=== PATIENT | female | born 1950 | race Caucasian/White ===

== ENCOUNTER 2017-01-15 13:20 | Inpatient (IN) ==
[~2017-01-15 13:20] MED LIST: ETOMIDATE 20 MG/10 ML VIAL IV ONE; LIDOCAINE 100 MG/5 ML SYRINGE ONE; PROPOFOL 200 MG/20 ML VIAL IV ONE
[2017-01-15] MEDS ORDERED: PANTOPRAZOLE 40 MG VIAL IV STA (14:02)
[2017-01-15] MEDS ORDERED: ONDANSETRON 4 MG/2 ML VIAL IV STA (14:02)
[2017-01-15] MEDS ORDERED: SODIUM CHLORIDE 0.9% 1,000 ML IV STA ×2 (14:02→15:56)
[2017-01-15 14:15] LABS: Basophils # 0.1 10*3/uL (0.0-0.2); Basophils % 0.4 % (0.0-0.8); Hematocrit 37.3 VOL% (35.7-47.0); Hemoglobin 12.5 GM/DL (12.0-16.0); Immature Granulocytes % 0.5 %; Immature Granulocytes Absolute 0.11 #; Lymphocytes # 2.4 10*3/uL (1.4-4.0); Lymphocytes % 10.4 % (21.3-54.2); Mean Corpuscular HGB Conc 33.5 GM/DL (32-36); Mean Corpuscular Hemoglobin 29 PG (27-34); Mean Corpuscular Volume 87.1 FL (87-102); Mean Platelet Volume 10.1 FL (9.6-12.0); Monocytes # 1.6 10*3/uL (0.11-0.8); Monocytes % 7.2 % (1.7-12.7); Neutrophils # 18.4 10*3/uL (1.4-7.4); Neutrophils % 81.5 % (38.7-73.9); Platelet Count 276 T/CUMM (130-400); Red Blood Count 4.28 MC/CUMM (3.8-5.5); Red Cell Distribution Width 14.3 % (9.3-17.3); White Blood Count 22.6 T/CUMM (4-12)
--- NOTE | 2017-01-15 14:19 | Emergency Department Note ---
Anurag Hussein Hilary, am scribing for, and in the presence of, Cisco Ruff MD 14: 03. Elzbieta Hussein James D, MD, personally performed the services described in this documentation, ascribed by Barbra Osborn in my presence, and it is both accurate and complete 412 . Arrival - Arrival Chief Complaint: Abdominal / Flank Pain Stated Complaint: bloody stool ED Nursing Triage Note: states has abd pain yesterday and about 1800 had to diarrhea. then pt started vomiting. pt had two bms with blood in them Mode of Arrival: Wheelchair Limitations: No Limitations Source: Patient, RN Notes Reviewed Time Seen by Provider: 01/15/17 13:52 - History of Present Illness HPI Narrative: Pt is a 66 y/o female presenting to the ED with c/o abdominal pain which onset yesterday. Pts daughter states that she has been having uncontrollable diarrhea and the pt states that her bowels have blood in them. Pt confirms confusion, abdominal pain, hematochezia and vomiting but denies vomiting blood. Pt has a PMHx of CAD, CHF, Dyslipidemia, IDDM, Peripheral Neuropathy, Gastroperesis and Pneumonia. No other complaints or problems stated in the ED. Onset (ago): day(s) Consistency: constant Severity: mild Severity scale (1-10): 1 Quality: aching Date of Last Menstrual Period: hyst Allergies/Adverse Reactions: Allergies Allergy/AdvReac Type Severity Reaction Status Date / Time No Known Allergies Allergy Unverified 01/13/15 10:31 Home Medications: Home Medications Medication Instructions Recorded Confirmed Type Aspirin [Ecotrin] 81 mg PO DAILY 01/13/15 01/24/15 History Atorvastatin Calcium [Lipitor] 80 mg PO BEDTIME 01/13/15 01/24/15 History Cilostazol [Pletal] 100 mg PO BID 01/13/15 01/24/15 History Colestipol [Colestid] 1 gm PO BEDTIME 01/13/15 01/24/15 History Furosemide Tab [Lasix Tab] 40 mg PO DAILY 01/13/15 01/24/15 History Insulin NPH Hum/Reg Insulin Hm 52 unit SUBCUT AC LUNCH 01/13/15 01/24/15 History [NovoLIN 70/30] [place]-3 Fatty Acids [Fish Oil 1,000 mg PO DAILY 01/13/15 01/24/15 History Concentrate] Potassium Chloride Cap/Tab [K Dur] 10 meq PO DAILY 01/13/15 01/24/15 History Saccharomyces Boulardii [Probiotic] 250 mg PO DAILY 01/13/15 01/24/15 History Trimethoprim [Trimethoprim Tab] 100 mg PO BEDTIME 01/13/15 01/24/15 History Albuterol Neb [Proventil Neb] 1.25 mg RESP TX RT Q6H 01/24/15 01/24/15 Rx nebulization solution Captopril [Capoten] 12.5 mg PO BID #60 tablet 01/24/15 01/24/15 Rx Carvedilol [Coreg] 12.5 mg PO BID W/MEALS tablet 01/24/15 01/24/15 Rx Gabapentin Cap/Tab [Neurontin 100 mg PO TID capsule 01/24/15 01/24/15 Rx Cap/Tab] Sertraline [Zoloft] 12.5 mg PO DAILY tablet 01/24/15 01/24/15 Rx Spironolactone [Aldactone] 6.25 mg PO BID DIURETIC tablet 01/24/15 01/24/15 Rx metOLazone [Zaroxolyn] 2.5 mg PO DAILY tablet 01/24/15 01/24/15 Rx Insulin NPH Hum/Reg Insulin Hm 50 unit SUBCUT AC BREAKFAST #0 01/30/15 Rx [NovoLIN 70/30] Insulin NPH Hum/Reg Insulin Hm 50 unit SUBCUT BEDTIME #0 01/30/15 01/24/15 Rx [NovoLIN 70/30] Azithromycin Tab [Zithromax Tab] 01/15/17 History Benzonatate [Benzonatate] 01/15/17 History Zolpidem Tartrate [Zolpidem 01/15/17 History Tartrate] Review of System - Review of System 12 point system: reviewed and no additional remarkable complaints except as stated - Review of System Constitutional: Absent: fever Gastrointestinal: Present: abdominal pain, vomiting, diarrhea, hematochezia Medical,Surgical,& Family Hx - Medical History Cardio: History of: CHF, CAD No history of: Hypertension, [place] Neurology: History of: Peripheral Neuropathy No history of: Multiple Sclerosis, Seizures, TIA, Vertigo, Neurologocal Cancer Endocrine: History of: Diabetes Mellitus (IDDM), Dyslipidemia Respiratory: History of: Pneumonia Gastrointestinal: History of: GI Problems (gastroperesis) Musculoskeletal: History of: Amputation (left greattoe and knuckles of next 2 toe) - Surgical History Cardiac Surgeries: Sugical HX of: Cardiac Catheterization Patient Denies: Femoral-Popliteal Bypass Graft, Cardiac Surgery, Carotid Endarterectomy, Internal Defibrillator, Vascular Access Devices Neurologic Surgeries: Patient denies: Neurologic Surgery HEENT Surgeries: Patient denies: Carotid Endarterectomy Abdominal Surgeries: Surgical HX of: Abdominal Surgery Patient denies: Splenectomy Reproductive Surgeries: Patient denies;: Genitourinary Surgery Orthopedic Surgeries: Patient denies;: Implanted Devices - Family History Family History: Reports;: Family Cancer, Family Diabetes, Family Heart Disease Denies;: Family Hypertension, Family Psychiatric Problems, Family Stroke - Social History Smoking Status: Former smoker Exam Physical Examination: GENERAL: This is a well-nourished, well-developed white female in no apparent distress. VITAL SIGNS: Temperature: 96.9 Pulse: 82 Respiratory: 18 Blood Pressure: 78/ 57 O2 Sat: 97 HEENT: Head is normocephalic and atraumatic. Pupils are equally round and reactive to light. Extraocular movement are intact. Oropharynx is benign with moist mucous membranes. NECK: Neck is soft and supple without tenderness. There are no masses. There is no lymphadenopathy. LUNGS: Lungs are clear to auscultation bilaterally. Chest rises symmetrically. There is no chest wall tenderness. CV: Heart is regular rate and rhythm without murmurs, rubs, or gallops. ABDOMEN: Abdomen is soft, generalized tenderness to palpation. There are no abnormal masses palpated. There is no organomegaly. Bowel sounds are present and active. Rectal: Heme positive stool. SKIN: Skin is warm and dry. No rash. EXTREMITIES: Patient has full range of motion without tenderness. There is no pedal edema. NEUROLOGIC: Awake, alert, and oriented x4. Cranial nerves II through XII are grossly intact. There are no motorsensory deficits. PSYCHIATRIC: Normal affect. Normal mood. Vital Signs: Vital Signs Temperature 96.9 F L 01/15/17 14:55 Pulse Rate 82 01/15/17 14:55 Respiratory Rate 18 01/15/17 14:55 Blood Pressure 78/57 01/15/17 14:55 O2 Sat by Pulse Oximetry 97 01/15/17 13:36 Course - Consultations Consultation #1: Discussed with Dr. Maria Luz Mckinnon nurse practitioner adult for Dr. Rene. Patient will be admitted to his service. Initial orders written for him. Patient's care will be assumed by medicine upon arrival to the stone. Time: 16:00 Results - Labs CBC & BMP: 01/15/17 13:35 01/15/17 13:35 Lab Results: I have reviewed the patients labs - EKG EKG results: interpreted by ERMD - Impressions EKG: Atrial flutter with nonspecific intraventricular conduction delay, ST segment depression laterally. - Diagnostic Findings Procedure: Abdominal x-ray: image reviewed by me (Nonspecific gas pattern, no free air), Chest x-ray: image reviewed by me (No pleural effusions, no cardiomegaly) Disposition Clinical Impression: Enterocolitis, Hyponatremia, Dehydration, Heme positive stool Case discussed with: patient Disposition: Still a Patient Condition: Stable Time of Disposition: 15:54
[2017-01-15 14:34] LABS: Albumin 3.2 G/DL (3.4-5.0); Bilirubin,Total 0.5 MG/DL (0.2-1.0); Osmolality,Calculated 283.8 MOS/KG (273-304); Potassium 5.7 MMOL/L (3.5-5.1); Total Protein 7.8 G/DL (6.4-8.3)
[2017-01-15 14:38] LABS: PT Patient Result 10.9 SECS
--- NOTE | 2017-01-15 14:38 | XRay Report ---
Portable chest Exam date: 01/15/2017 2:04 PM Indication: Shortness of breath, cough pain Comparison: January 23, 2015 Findings: Cardiomediastinal contours are stable. Lungs are clear bilaterally. No acute osseous abnormalities. Visualized upper abdomen demonstrates no acute pathology. Impression: No acute cardiopulmonary findings PROCEDURE INTERPRETED AT [facility] DEPARTMENT OF RADIOLOGY Final Report Signed by: Fabián Farley
--- NOTE | 2017-01-15 14:41 | XRay Report ---
EXAM: XR abdomen 2V CLINICAL INDICATION: Abdominal Pain COMPARISON: CT abdomen performed January 21, 2015 Findings: No gastric distention. [No abnormally dilated small bowel loops are identified to suggest obstruction. No free intraperitoneal air.] Patient is status post laparotomy with sagittal staple line. Visceral shadows are normal. No abnormal focal soft tissue masses or calcific densities identified in the abdomen or pelvis. Prior cholecystectomy is noted. IMPRESSION: Normal bowel gas pattern. No acute findings PROCEDURE INTERPRETED AT [facility] DEPARTMENT OF RADIOLOGY Final Report Signed by: Fabián Farley
[2017-01-15] MEDS ORDERED: ONDANSETRON 4 MG/2 ML VIAL ONE (14:42)
[2017-01-15] MEDS ORDERED: PANTOPRAZOLE 40 MG VIAL IV ONE (14:42)
[2017-01-15 14:47] LABS: Band Neutrophils 6 % (0-10); Lymphocytes 10 % (20-55); Segmented Neutrophils 82 % (50-85); Total Cells Counted 100
[2017-01-15 14:48] LABS: Platelet Estimate Normal
[2017-01-15] MEDS ORDERED: SODIUM BICARBONATE 50 MEQ/50 ML VIAL IV STA (16:09)
[2017-01-15] MEDS ORDERED: INSULIN REGULAR 100 UNIT/ML IV STA (16:09)
[2017-01-15] MEDS ORDERED: DEXTROSE 50% 25 GM/50 ML VIAL IV STA (16:09)
[2017-01-15] MEDS ORDERED: SODIUM BICARBONATE PEDIATRIC 5 MEQ/10 ML SYRINGE ONE (16:21)
[2017-01-15] MEDS ORDERED: DEXTROSE 50% 25 GM/50 ML SYRINGE IV ONE (16:21)
[2017-01-15] MEDS ORDERED: INSULIN REGULAR 100 UNIT/ML ONE (16:24)
[2017-01-15] MEDS ORDERED: SODIUM BICARBONATE 50 MEQ/50 ML SYRINGE IV ONE (16:34)
--- NOTE | 2017-01-15 16:53 | EKG Report ---
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
[2017-01-15] MEDS ORDERED: DEXTROSE 50% 25 GM/50 ML SYRINGE IV PRN (18:03)
[2017-01-15] MEDS ORDERED: GLUCAGON 1 MG VIAL IM PRN (18:03)
[2017-01-15] MEDS: SODIUM CHLORIDE 0.9% 1,000 ML IV SCH (19:44)
[2017-01-15] MEDS ORDERED: DOCUSATE SODIUM 100 MG CAPSULE PO SCH (21:00)
--- NOTE | 2017-01-15 21:31 | Internal Med History&Physical ---
Assessment and Plan (1) Dehydration Status: Acute Current Visit: Yes (2) Hyponatremia Status: Acute Current Visit: Yes (3) Abdominal pain Status: Acute Current Visit: Yes (4) Acute renal insufficiency Status: Acute Current Visit: Yes (5) Chronic renal disease Status: Chronic Current Visit: Yes History of Present Illness Chief complaint: acute diarrhea, vomiting, GI bleed History of present illness: Ms. Valladares is a 66 year old female patient of Dr. Rene with history of DM, peripheral neuropathy, HTN, AAA, PAD, CAD, dyslipidemia, who presented to ER with acute nausea, vomiting and diarrhea. Abdominal pain begain yesterday, then she had multiple episodes of nausea, vomiting, and diarrhea. GI bleed began yesterday. She reports having colonoscopy years ago and polyps were noted. Home Medications Medication Instructions Recorded Confirmed Type Aspirin [Ecotrin] 81 mg PO DAILY 01/13/15 01/15/17 History Atorvastatin Calcium [Lipitor] 80 mg PO BEDTIME 01/13/15 01/15/17 History Colestipol [Colestid] 1 gm PO BEDTIME 01/13/15 01/15/17 History Furosemide Tab [Lasix Tab] 20 mg PO DAILY 01/13/15 01/15/17 History Potassium Chloride Cap/Tab [K Dur] 10 meq PO DAILY 01/13/15 01/15/17 History Saccharomyces Boulardii [Probiotic] 250 mg PO DAILY 01/13/15 01/15/17 History Sertraline [Zoloft] 12.5 mg PO DAILY tablet 01/24/15 01/15/17 Rx Amitriptyline HCl [Amitriptyline 25 mg PO DAILY 01/15/17 01/15/17 History HCl] Amitriptyline HCl [Amitriptyline 100 mg PO BEDTIME 01/15/17 01/15/17 History HCl] Azithromycin Tab [Zithromax Tab] 250 mg PO DAILY 01/15/17 01/15/17 History Benzonatate [Tessalon] 200 mg PO TID PRN 01/15/17 01/15/17 History Captopril [Capoten] 6.25 mg PO DAILY 01/15/17 01/15/17 History Carvedilol [Coreg] 6.25 mg PO BID W/MEALS 01/15/17 01/15/17 History Doxylamine/Phenylephrine [Poly 1 tablet PO TID PRN 01/15/17 01/15/17 History Hist Forte] Gabapentin [Gabapentin] 300 mg PO TID 01/15/17 01/15/17 History Insulin NPH Hum/Reg Insulin Hm 55 unit SUBCUT BEDTIME 01/15/17 01/15/17 History [NovoLIN 70/30] Insulin NPH Hum/Reg Insulin Hm 60 unit SUBCUT AC BREAKFAST 01/15/17 01/15/17 History [NovoLIN 70/30] Metformin HCl [Metformin HCl] 1,000 mg PO BID W/MEALS 01/15/17 01/15/17 History [place]-3S/Dha/Epa/Fish Oil [Fish 1,200 mg PO DAILY 01/15/17 01/15/17 History Oil 1,200 mg Softgel] Promethazine Tab [Phenergan Tab] 25 mg PO Q12H PRN 01/15/17 01/15/17 History Spironolactone [Aldactone] 6.25 mg PO BEDTIME 01/15/17 01/15/17 History Zolpidem Tartrate [Zolpidem 5 mg PO BEDTIME 01/15/17 01/15/17 History Tartrate] metOLazone [Zaroxolyn] 2.5 mg PO Q7D 01/15/17 01/15/17 History Allergies Allergy/AdvReac Type Severity Reaction Status Date / Time No Known Allergies Allergy Unverified 01/13/15 10:31 Medical,Surgical,& Family Hx - Medical History Cardio: History of: CHF, CAD No history of: Hypertension, [place] Neurology: History of: Peripheral Neuropathy No history of: Multiple Sclerosis, Seizures, TIA, Vertigo, Neurologocal Cancer Endocrine: History of: Diabetes Mellitus (IDDM), Dyslipidemia Respiratory: History of: Pneumonia Gastrointestinal: History of: GI Problems (gastroperesis) Musculoskeletal: History of: Amputation (left greattoe and knuckles of next 2 toe) Hematology: History of: Anemia - Surgical History Cardiac Surgeries: Sugical HX of: Cardiac Catheterization Patient Denies: Femoral-Popliteal Bypass Graft, Cardiac Surgery, Carotid Endarterectomy, Internal Defibrillator, Vascular Access Devices Neurologic Surgeries: Patient denies: Neurologic Surgery HEENT Surgeries: Patient denies: Carotid Endarterectomy Abdominal Surgeries: Surgical HX of: Abdominal Surgery Patient denies: Splenectomy Reproductive Surgeries: Patient denies;: Genitourinary Surgery Orthopedic Surgeries: Patient denies;: Implanted Devices - Family History Family History: Reports;: Family Cancer, Family Diabetes, Family Heart Disease Denies;: Family Hypertension, Family Psychiatric Problems, Family Stroke - Social History Smoking Status: Former smoker Frequency of Alcohol Use: None Type of Drug Use: None Functional capacity: independent ambulation - Constitutional Constitutional: Present: fatigue, malaise - Cardiovascular Cardiovascular: Absent: chest pain with activity - Respiratory Respiratory: Present: dyspnea on exertion - Gastrointestinal Gastrointestinal: Present: abdominal pain, diarrhea, hematochezia, nausea, vomiting - Neurological Neurological: Present: dizziness Exam - Constitutional Vitals: Period Temp Pulse Resp BP Sys/[place] Pulse Ox Last 24 Hr 96.9 F-96.9 F 71-99 18-20 78-132/54-68 97 General appearance: no acute distress - Head Head exam: Present: normocephalic - Eye Eye exam: Present: EOMI - Respiratory Respiratory exam: Present: clear to auscultation bilaterally. Absent: rhonchi, wheezes - Cardiovascular Cardiovascular exam: Present: regular rate and rhythm - GI/Abdominal GI/Abdominal exam: Present: hyperactive bowel sounds, tenderness, soft - Extremities Exam Extremities exam: Absent: edema - Neurological Exam Neurological exam: Present: alert, oriented X3, CN II-XII intact - Psychiatric Psychiatric exam: Present: normal mood Results - Labs CBC & BMP: 01/15/17 13:35 01/15/17 13:35 - EKG EKG shows: sinus rhythm - Diagnostic Findings Procedure: Abdominal x-ray: report reviewed by me, Chest x-ray: report reviewed by me
[2017-01-15 21:52] LABS: Apearance,Urine Slightly Hazy (Clear); Bacteria,Urine Many /HPF (Few); Bilirubin,Urine Negative (Negative); Blood, Urine Negative (Negative); Glucose,Urine (UA) Negative (Negative); Granular Casts,Urine 2 /LPF (0-1); Hyaline Casts,Urine 38 /LPF (0-3); Ketones,Urine Negative (Negative); Mucus,Urine Occasional /LPF (Occasional); Nitrite,Urine Positive (Negative); Protein,Urine Negative; RBC,Urine 1 /HPF (0-4); Squamous Epithelial Cell,Urine Occasional /HPF (0-10); Urine Color Amber (Yellow); Urine Specific Gravity 1.011 (1.001-1.035); Urine Urobilinogen < 2.0 EU/DL (0.2-1.0); WBC,Urine 5 /HPF (0-6)
[2017-01-15] MEDS ORDERED: AMITRIPTYLINE 50 MG TABLET PO PRN (22:56)
[2017-01-15] MEDS: INSULIN LISPRO 100 UNIT/ML SUBCUT SCH ×2 (22:58→23:05)
[2017-01-15] MEDS: cefTRIAXone 1,000 MG in SODIUM CHLORIDE 0.9% 100 ML IV SCH (23:04)
[2017-01-15] MEDS: BENZONATATE 100 MG CAPSULE PO PRN (23:05)
[2017-01-16] MEDS: ACETAMINOPHEN 325 MG TABLET PO PRN ×2 (01:40→09:05)
[2017-01-16 03:48] LABS: Basophils % 0.3 % (0.0-0.8); Eosinophils # 0.1 10*3/uL (0.0-0.87); Eosinophils % 0.4 % (0.00-10.9); Hematocrit 30.2 VOL% (35.7-47.0); Hemoglobin 10.2 GM/DL (12.0-16.0); Immature Granulocytes % 0.4 %; Immature Granulocytes Absolute 0.06 #; Lymphocytes # 2.5 10*3/uL (1.4-4.0); Lymphocytes % 17.3 % (21.3-54.2); Mean Corpuscular HGB Conc 33.8 GM/DL (32-36); Mean Corpuscular Hemoglobin 29 PG (27-34); Mean Corpuscular Volume 86.8 FL (87-102); Mean Platelet Volume 10.5 FL (9.6-12.0); Monocytes # 1.2 10*3/uL (0.11-0.8); Monocytes % 8.4 % (1.7-12.7); Neutrophils # 10.7 10*3/uL (1.4-7.4); Neutrophils % 73.2 % (38.7-73.9); Platelet Count 218 T/CUMM (130-400); Red Blood Count 3.48 MC/CUMM (3.8-5.5); Red Cell Distribution Width 14.4 % (9.3-17.3); White Blood Count 14.6 T/CUMM (4-12)
[2017-01-16] MEDS: SODIUM CHLORIDE 0.9% 1,000 ML IV SCH ×3 (04:03→17:38)
[2017-01-16 04:21] LABS: Magnesium 2.1 MG/DL (1.8-2.4); Phosphorous 2.5 MG/DL (2.5-4.9)
[2017-01-16 04:25] LABS: Calcium 7.6 MG/DL (8.5-10.1); Osmolality,Calculated 288.7 MOS/KG (273-304); Potassium 4.7 MMOL/L (3.5-5.1)
[2017-01-16] MEDS ORDERED: CARVEDILOL 6.25 MG TABLET PO SCH (08:00)
[2017-01-16] MEDS ORDERED: HYDROmorphone 2 MG/1 ML VIAL IV PRN (08:35)
[2017-01-16] MEDS: INSULIN LISPRO 100 UNIT/ML SUBCUT SCH ×4 (08:59→21:19)
[2017-01-16] MEDS: SERTRALINE 25 MG TABLET PO SCH (09:00)
[2017-01-16] MEDS ORDERED: INSULIN GLARGINE 100 UNIT/ML SUBCUT SCH ×2 (09:00→14:00)
[2017-01-16] MEDS: CARVEDILOL 3.125 MG TABLET PO SCH ×2 (09:01→17:37)
[2017-01-16] MEDS: PANTOPRAZOLE 40 MG TABLET PO SCH (09:01)
[2017-01-16] MEDS: BISACODYL 5 MG TABLET PO SCH ×2 (09:05→17:37)
--- NOTE | 2017-01-16 09:11 | Gastrointestinal Consult Note ---
Assessment and Plan (1) Lower GI bleeding Status: Acute Assessment and plan: This patient is extremely sick and may need transfer to the unit. Her creatinine is already improved as has her white count with antibiotics and fluid therapy. Her pain appears to be settling in the left lower abdomen and the crampy nature of this as well as the elevation in her white blood cell count point towards ischemic colitis although infectious colitis is still in the differential. With a previous colonoscopy set done sometime in the last 3- 4 years cancer seems to be out of the differential although bleeding from a diverticular abscess certainly is possible. The patient wishes to proceed with colonoscopy expeditiously over the weekend, we will place an NG tube and give her GoLYTELY tonight and proceed with colonoscopy tomorrow at 7:30 in the morning. If there is discrete leading lesion we can treat this and get an idea of how severe her colitis is and if she might require surgery potentially. Patient understands the risks involved with the colonoscopy which include but are not limited to: Bleeding, infection, perforation, cardiac and pulmonary compromise. Current Visit: Yes (2) Acute posthemorrhagic anemia Status: Acute Assessment and plan: Thus far the patient's hematocrit is only dropped down to 30%, if this drops closer to 24% we will may consider transfusion. Parameters have been written for this. We will continue to watch the patient's white blood cell count as well with daily CBCs. Current Visit: Yes (3) Nausea vomiting and diarrhea Status: Acute Assessment and plan: Patient's nausea and vomiting certainly make me more suspicious of a infectious cause for her rectal bleeding as does the history of her intake of the potentially tainted turnip greens. Stool studies are pending for fecal white blood cells, stool culture and C. difficile. I suspect this also may be a systemic reaction to an ischemic colitis acute insult. Current Visit: Yes (4) Personal history of colonic polyps Status: Acute Assessment and plan: Patient states that she has had a colonoscopy done by Dr. Daniels sometime in the last 3 years, polyps were found at that time, she states. I do not see any pathology report, this may have been done over at the [facility]. [facility] physicians may be able to pull this report and pathology for our records. Current Visit: Yes History of Present Illness Chief complaint: Bright red blood per rectum, leukocytosis, posthemorrhagic anemia, pain History of present illness: Ms. Valladares is a 66 year old female who is typically a patient of Dr. Heaven mathew has a history of congestive hepatopathy and typically is a patient of Dr. Otero and who states to me that she had had a previous colonoscopy done she thinks sometime around 2014 here at the hospital. I can find no evidence of the op report or the pathologies she states from the 2 polyps removed. Perhaps she is confused and this may have been done at these [place] [facility]. The patient states that she was in her state of usual health up until about evening when she developed severe cramping throughout her entire abdomen followed by nausea and vomiting and diarrhea several loose stools followed then by blood yesterday. She has passed several more bloody bowel movements and was noted to have an extremely high white blood cell count in the emergency room yesterday at about 1600 of 22.6. With antibiotics, white blood cell count is come down to 14.6 with a cone commitment drop in hematocrit from 37.3 on admission down to 30.2 now. Vitals show a tachycardia but no hypotension. Her abdominal pain was initially an 8 out of 10 in intensity is dropped down slightly. She seems to have a predominance of the pain on physical examination in the left lower abdomen. There is a GI report from January [address] Elkins stating that he thought the patient had liver function tests changes secondary to congestive hepatopathy at that time. LFTs at this time appeared to be relatively normal. But her potassium is elevated and her creatinine was up to 3.0 on admission although this is dropped down to 1.6 after hydration. INR is normal at 1.0. The patient did have some turnip greens for supper (2 days ago) which she thinks might have been tainted , no other family members ate these and so food poisoning remains in the differential. No stool studies have been obtained and we will obtain these now. Given her degree of illness she might have to be transferred to the ICU, I will go ahead and prep her for colonoscopy to see if a bleeding lesion needs to be treated, although I strongly suspect this may be an episode of ischemic colitis. She was offered the option of waiting until Wednesday when Dr. Daniels will return, and wishes to proceed. She does not have any significant fevers or chills, nothing like this is previously occurred to her. I do not have the old: Reports so we do not know if she has diverticuli. The patient has recently taken up smoking again, strongly discouraged this. She does not use any IV or recreational drugs (cocaine). She does have some dizziness and weakness on standing but has not had any syncopal events. Home Medications Medication Instructions Recorded Confirmed Type Aspirin [Ecotrin] 81 mg PO DAILY 01/13/15 01/15/17 History Atorvastatin Calcium [Lipitor] 80 mg PO BEDTIME 01/13/15 01/15/17 History Colestipol [Colestid] 1 gm PO BEDTIME 01/13/15 01/15/17 History Furosemide Tab [Lasix Tab] 20 mg PO DAILY 01/13/15 01/15/17 History Potassium Chloride Cap/Tab [K Dur] 10 meq PO DAILY 01/13/15 01/15/17 History Saccharomyces Boulardii [Probiotic] 250 mg PO DAILY 01/13/15 01/15/17 History Sertraline [Zoloft] 12.5 mg PO DAILY tablet 01/24/15 01/15/17 Rx Amitriptyline HCl [Amitriptyline 25 mg PO DAILY 01/15/17 01/15/17 History HCl] Amitriptyline HCl [Amitriptyline 100 mg PO BEDTIME 01/15/17 01/15/17 History HCl] Azithromycin Tab [Zithromax Tab] 250 mg PO DAILY 01/15/17 01/15/17 History Benzonatate [Tessalon] 200 mg PO TID PRN 01/15/17 01/15/17 History Captopril [Capoten] 6.25 mg PO DAILY 01/15/17 01/15/17 History Carvedilol [Coreg] 6.25 mg PO BID W/MEALS 01/15/17 01/15/17 History Doxylamine/Phenylephrine [Poly 1 tablet PO TID PRN 01/15/17 01/15/17 History Hist Forte] Gabapentin [Gabapentin] 300 mg PO TID 01/15/17 01/15/17 History Insulin NPH Hum/Reg Insulin Hm 55 unit SUBCUT BEDTIME 01/15/17 01/15/17 History [NovoLIN 70/30] Insulin NPH Hum/Reg Insulin Hm 60 unit SUBCUT AC BREAKFAST 01/15/17 01/15/17 History [NovoLIN 70/30] Metformin HCl [Metformin HCl] 1,000 mg PO BID W/MEALS 01/15/17 01/15/17 History [place]-3S/Dha/Epa/Fish Oil [Fish 1,200 mg PO DAILY 01/15/17 01/15/17 History Oil 1,200 mg Softgel] Promethazine Tab [Phenergan Tab] 25 mg PO Q12H PRN 01/15/17 01/15/17 History Spironolactone [Aldactone] 6.25 mg PO BEDTIME 01/15/17 01/15/17 History Zolpidem Tartrate [Zolpidem 5 mg PO BEDTIME 01/15/17 01/15/17 History Tartrate] metOLazone [Zaroxolyn] 2.5 mg PO Q7D 01/15/17 01/15/17 History Allergies Allergy/AdvReac Type Severity Reaction Status Date / Time adhesive tape Allergy Mild RASH Verified 01/16/17 00:45 Oxycodone [From OxyContin] AdvReac Intermediate Nausea Verified 01/16/17 00:45 Medical,Surgical,& Family Hx - Medical History Cardio: History of: Aneurysm (AAA with repair), CHF, CAD No history of: Hypertension, [place] Neurology: History of: Peripheral Neuropathy No history of: Multiple Sclerosis, Seizures, TIA, Vertigo, Neurologocal Cancer Endocrine: History of: Diabetes Mellitus (IDDM), Dyslipidemia Respiratory: History of: Pneumonia Genitourinary: History of: Recurring Urinary Tract Infections Gastrointestinal: History of: GI Problems (gastroperesis) Musculoskeletal: History of: Amputation (left greattoe and knuckles of next 2 toe) Hematology: History of: Anemia Other: History of: Miscellaneous Medical Problems (Skin graft to bilateral groins) - Surgical History Cardiac Surgeries: Sugical HX of: Cardiac Catheterization Patient Denies: Femoral-Popliteal Bypass Graft, Cardiac Surgery, Carotid Endarterectomy, Internal Defibrillator, Vascular Access Devices Thoracic Surgeries: Patient denies;: Organ Transplant Neurologic Surgeries: Patient denies: Neurologic Surgery HEENT Surgeries: Patient denies: Carotid Endarterectomy Abdominal Surgeries: Surgical HX of: Abdominal Surgery, Appendectomy, Cholecystectomy Patient denies: Splenectomy Reproductive Surgeries: Surgical HX of;: Hysterectomy Patient denies;: Genitourinary Surgery Orthopedic Surgeries: Patient denies;: Implanted Devices - Family History Family History: Reports;: Family Cancer, Family Diabetes, Family Heart Disease Denies;: Family Hematology, Family Hypertension, Family Psychiatric Problems , Family Stroke, Additional Family History - Social History Smoking Status: Former smoker Frequency of Alcohol Use: None Type of Drug Use: None Review of systems: Constitutional: Denies fever, chills, but positive for nausea, and vomiting Eyes: Denies dry eyes, and scleral icterus HENT: Occasional headaches Cardiovascular: Denies acute chest pain and claudication Respiratory: Denies shortness of breath, wheezing, and difficulty breathing, denies cough Gastrointestinal: As noted in the HPI Genitourinary: Denies dysuria and hematuria Neurologic: Denies vision loss, and loss of sensation Musculoskeletal: Does admit to some joint stiffness, and muscular weakness, no swelling Psychiatric: Denies depression and lamine symptoms Heme-Lymph: Admits to some easy bruising, but no lymph node enlargement or tenderness, night sweats, excessive bleeding Allergies-immunologic: Denies pruritus and rhinorrhea Exam - Constitutional Vitals: Period Temp Pulse Resp BP Sys/Richards Pulse Ox Last 24 Hr 96.9 F-98.8 F 71-106 18-22 78-132/52-78 91-97 Exam: Constitutional: Well-developed, well-nourished, alert, and in no acute distress Head and face: Head: Normocephalic atraumatic Eyes: Conjunctiva without injection, no gross scleral icterus, pupils equal and round bilaterally Ears: Decreased hearing acuity to conversation in both ears Nose: External appearance is normal, nares patent Mouth: Oral mucous membranes moist without erythema dentition noted to be without erosion Neck: Normal appearance, no masses or tenderness, trachea midline Thyroid: Gland midline and appropriate size for age Respiratory: Normal respiratory effort, clear to auscultation without wheezes, rhonchi or rales Cardiovascular: Regular rate and rhythm, normal S1, S2, the exam is without rubs, murmurs or gallops. Gastrointestinal: Diffusely tender to palpation, this was worse in the left lower abdomen, normal active bowel sounds, tone normal without rigidity or guarding, no masses present, no hepatomegaly, no spleen tip felt. Rectal exam demonstrated heme tinged mucoid stool which was grossly guaiac positive. Lymphatic: Neck without adenopathy, axilla without lymphadenopathy present Musculoskeletal: Right and left lower extremities without evidence of edema Skin and subcutaneous tissue: No rashes or ulcerations noted, normal skin turgor, digits and nails without clubbing/cyanosis/deformities. Neurologic: The patient is grossly oriented to person place and time, cranial nerves show tongue movements are normal with normal tongue extrusion midline, light touch sensation is intact. Psychiatric: No hallucinations or delusions are present, does not appear depressed Results - Labs CBC & BMP: 01/16/17 02:33 01/16/17 02:33
[2017-01-16] MEDS: PROMETHAZINE 25 MG TABLET PO SCH ×4 (09:50→23:41)
--- NOTE | 2017-01-16 13:48 | Internal Med Progress Note ---
Assessment and Plan (1) Dehydration Status: Acute Current Visit: Yes (2) Hyponatremia Status: Resolved Current Visit: Yes (3) Abdominal pain Status: Acute Current Visit: Yes Qualifiers: Abdominal location: left lower quadrant Qualified Code(s): R10.32 - Left lower quadrant pain (4) Acute renal insufficiency Status: Acute Current Visit: Yes (5) Chronic renal disease Status: Chronic Current Visit: Yes Qualifiers: Chronic kidney disease stage: stage 3 (moderate) Qualified Code(s): N18.3 - Chronic kidney disease, stage 3 (moderate) Internal Medicine - PN: Subj Interval history: Ms. Valladares is a 66 year old female patient of Dr. Rene with history of DM, peripheral neuropathy, HTN, AAA, PAD, CAD, dyslipidemia, who presented to ER with acute nausea, vomiting and diarrhea. Abdominal pain begain yesterday, then she had multiple episodes of nausea, vomiting, and diarrhea. GI bleed began yesterday. She reports having colonoscopy years ago and polyps were noted. On rounds today, she appears to have worsened, clinically; although, chemistries show improvement. Addressing glucose levels. Discontinued Dilaudid for severe LLQ abdominal pain because of blood pressure drop. Ordering Morphine PRN. Adding Flagyl and moving her to CCU. Very ill-appearing. Consulting Dr. Levi III to see her for severe LLQ abdominal pain. Ordering CT abdomen/ pelvis. Exam (Progress Note) - Constitutional Vitals: Period Temp Pulse Resp BP Sys/Richards Pulse Ox Last 24 Hr 96.9 F-98.8 F 71-106 18-22 78-132/50-78 91-93 General appearance: mild distress (severe abdominal pain) - Respiratory Respiratory exam: Present: clear to auscultation bilaterally - Cardiovascular Cardiovascular exam: Present: regular rate and rhythm - GI/Abdominal GI/Abdominal exam: Present: tenderness (LLQ), soft - Extremities Exam Extremities exam: Absent: edema - Neurological Exam Neurological exam: Present: alert - Psychiatric Psychiatric exam: Present: normal mood - Skin Skin exam: Present: warm, dry Results - Labs CBC & BMP: 01/16/17 02:33 01/16/17 02:33
[2017-01-16 14:40] LABS: Basophils % 0.2 % (0.0-0.8); Eosinophils # 0.1 10*3/uL (0.0-0.87); Eosinophils % 0.4 % (0.00-10.9); Hematocrit 29.6 VOL% (35.7-47.0); Hemoglobin 9.7 GM/DL (12.0-16.0); Immature Granulocytes % 0.9 %; Immature Granulocytes Absolute 0.15 #; Lymphocytes % 12.3 % (21.3-54.2); Mean Corpuscular HGB Conc 32.8 GM/DL (32-36); Mean Corpuscular Hemoglobin 29 PG (27-34); Mean Corpuscular Volume 88.4 FL (87-102); Mean Platelet Volume 9.8 FL (9.6-12.0); Monocytes # 1.2 10*3/uL (0.11-0.8); Monocytes % 7.2 % (1.7-12.7); Neutrophils # 12.7 10*3/uL (1.4-7.4); Platelet Count 203 T/CUMM (130-400); Red Blood Count 3.35 MC/CUMM (3.8-5.5); Red Cell Distribution Width 14.4 % (9.3-17.3); White Blood Count 16.1 T/CUMM (4-12)
[2017-01-16 14:57] LABS: Calcium 7.5 MG/DL (8.5-10.1); Osmolality,Calculated 285.5 MOS/KG (273-304); Potassium 4.6 MMOL/L (3.5-5.1)
[2017-01-16] MEDS: MORPHINE 2 MG/1 ML SYRINGE IV PRN ×3 (15:00→21:18)
[2017-01-16] MEDS: metroNIDAZOLE INJ 500 MG in PREMIX 1 EACH IV SCH ×2 (15:42→22:45)
--- NOTE | 2017-01-16 16:19 | Nephrology Consult Note ---
History of Present Illness Chief complaint: History of chronic kidney disease. History of present illness: Ms. Valladares is a 66 year old female history of diabetes chronic kidney disease anemia presented with a history of abdominal pain, nausea vomiting associated with bloody diarrhea that started on yesterday. The patient's initial KUB was unremarkable had normal gallop bowel gas pattern. She has been started on broad -spectrum antibiotic for which her white blood cell count has trended down from yesterday. She has been moved to the ICU setting for further care and management. Blood pressure has been acceptable. Serum creatinine was initially 1.5 and yesterday today creatinine is 1. Nephrology was consulted for renal issues. Patient mentions that she has not seen a art objects supervisor. She gives no history of NSAID medications. Of note, patient has recently restarted smoking. At present she is hemodynamically stable. NG tube is in place. Home Medications Medication Instructions Recorded Confirmed Type Aspirin [Ecotrin] 81 mg PO DAILY 01/13/15 01/15/17 History Atorvastatin Calcium [Lipitor] 80 mg PO BEDTIME 01/13/15 01/15/17 History Colestipol [Colestid] 1 gm PO BEDTIME 01/13/15 01/15/17 History Furosemide Tab [Lasix Tab] 20 mg PO DAILY 01/13/15 01/15/17 History Potassium Chloride Cap/Tab [K Dur] 10 meq PO DAILY 01/13/15 01/15/17 History Saccharomyces Boulardii [Probiotic] 250 mg PO DAILY 01/13/15 01/15/17 History Sertraline [Zoloft] 12.5 mg PO DAILY tablet 01/24/15 01/15/17 Rx Amitriptyline HCl [Amitriptyline 25 mg PO DAILY 01/15/17 01/15/17 History HCl] Amitriptyline HCl [Amitriptyline 100 mg PO BEDTIME 01/15/17 01/15/17 History HCl] Azithromycin Tab [Zithromax Tab] 250 mg PO DAILY 01/15/17 01/15/17 History Benzonatate [Tessalon] 200 mg PO TID PRN 01/15/17 01/15/17 History Captopril [Capoten] 6.25 mg PO DAILY 01/15/17 01/15/17 History Carvedilol [Coreg] 6.25 mg PO BID W/MEALS 01/15/17 01/15/17 History Doxylamine/Phenylephrine [Poly 1 tablet PO TID PRN 01/15/17 01/15/17 History Hist Forte] Gabapentin [Gabapentin] 300 mg PO TID 01/15/17 01/15/17 History Insulin NPH Hum/Reg Insulin Hm 55 unit SUBCUT BEDTIME 01/15/17 01/15/17 History [NovoLIN 70/30] Insulin NPH Hum/Reg Insulin Hm 60 unit SUBCUT AC BREAKFAST 01/15/17 01/15/17 History [NovoLIN 70/30] Metformin HCl [Metformin HCl] 1,000 mg PO BID W/MEALS 01/15/17 01/15/17 History [place]-3S/Dha/Epa/Fish Oil [Fish 1,200 mg PO DAILY 01/15/17 01/15/17 History Oil 1,200 mg Softgel] Promethazine Tab [Phenergan Tab] 25 mg PO Q12H PRN 01/15/17 01/15/17 History Spironolactone [Aldactone] 6.25 mg PO BEDTIME 01/15/17 01/15/17 History Zolpidem Tartrate [Zolpidem 5 mg PO BEDTIME 01/15/17 01/15/17 History Tartrate] metOLazone [Zaroxolyn] 2.5 mg PO Q7D 01/15/17 01/15/17 History Allergies Allergy/AdvReac Type Severity Reaction Status Date / Time adhesive tape Allergy Mild RASH Verified 01/16/17 00:45 Oxycodone [From OxyContin] AdvReac Intermediate Nausea Verified 01/16/17 00:45 Medical,Surgical,& Family Hx - Medical History Cardio: History of: Aneurysm (AAA with repair), CHF, CAD No history of: Hypertension, [place] Neurology: History of: Peripheral Neuropathy No history of: Multiple Sclerosis, Seizures, TIA, Vertigo, Neurologocal Cancer Endocrine: History of: Diabetes Mellitus (IDDM), Dyslipidemia Respiratory: History of: Pneumonia Genitourinary: History of: Recurring Urinary Tract Infections Gastrointestinal: History of: GI Problems (gastroperesis) Musculoskeletal: History of: Amputation (left greattoe and knuckles of next 2 toe) Hematology: History of: Anemia Other: History of: Miscellaneous Medical Problems (Skin graft to bilateral groins) - Surgical History Cardiac Surgeries: Sugical HX of: Cardiac Catheterization Patient Denies: Femoral-Popliteal Bypass Graft, Cardiac Surgery, Carotid Endarterectomy, Internal Defibrillator, Vascular Access Devices Thoracic Surgeries: Patient denies;: Organ Transplant Neurologic Surgeries: Patient denies: Neurologic Surgery HEENT Surgeries: Patient denies: Carotid Endarterectomy Abdominal Surgeries: Surgical HX of: Abdominal Surgery, Appendectomy, Cholecystectomy Patient denies: Splenectomy Reproductive Surgeries: Surgical HX of;: Hysterectomy Patient denies;: Genitourinary Surgery Orthopedic Surgeries: Patient denies;: Implanted Devices - Family History Family History: Reports;: Family Cancer, Family Diabetes, Family Heart Disease Denies;: Family Hematology, Family Hypertension, Family Psychiatric Problems , Family Stroke, Additional Family History - Social History Smoking Status: Former smoker Frequency of Alcohol Use: None Type of Drug Use: None Review of Systems Constitutional: fatigue Cardiovascular: no chest pain at rest, no chest pain with activity, no claudication Respiratory: no dyspnea, no hemoptysis Gastrointestinal: cramping, diarrhea, hematochezia, loose stools Exam - Vital Signs Vital signs: Period Temp Pulse Resp BP Sys/Richards Pulse Ox Last 24 Hr 98.1 F-98.8 F 76-106 14-26 90-125/50-78 90-100 - General Appearance General appearance: fatigue, frail EENT: ATNC Neck: supple Respiratory: clear Cardiology: regular rate, regular rhythm Gastrointestinal: hypoactive bowel sounds (NG tube in place.) Integumentary: no rash Neurologic: alert and oriented x3, CN 3-12 intact Musculoskeletal: no deformities, no clubbing Psychiatric: mood/affect appropriate Results - Labs CBC & BMP: 01/16/17 14:22 01/16/17 14:22 Assessment and Plan (1) COPD (chronic obstructive pulmonary disease) Status: Chronic Current Visit: No (2) Tobacco abuse Status: Acute Assessment and plan: restarted on dialysis. Current Visit: No (3) Abdominal pain Status: Acute Current Visit: Yes Qualifiers: Abdominal location: left lower quadrant Qualified Code(s): R10.32 - Left lower quadrant pain (4) Acute renal insufficiency Status: Acute Current Visit: Yes (5) Heme positive stool Status: Acute Assessment and plan: GI is following Current Visit: Yes (6) Chronic renal disease Status: Chronic Assessment and plan: Patient serum creatinine is 1 which appears to be stable actually an improvement in the last 24 hours. Encourage patient to avoid tobacco use. And avoid NSAID use. Current Visit: Yes Qualifiers: Chronic kidney disease stage: stage 3 (moderate) Qualified Code(s): N18.3 - Chronic kidney disease, stage 3 (moderate) (7) Nausea vomiting and diarrhea Status: Acute Current Visit: Yes
--- NOTE | 2017-01-16 16:25 | General Surgery Consult Note ---
Assessment and Plan - Time spent with patient Time spent with patient: Greater than 30 minutes (I am unable to add this in the assessment and plan field. Someone else was using the computer. Patient has left lower quadrant abdominal pain and bloody diarrhea. I favor this being an infectious or ischemic colitis. I reviewed the CT scan and do not see evidence of perforation or obstruction. I think there is some thickening of the left colon. I await radiology's interpretation. Of course the scan is limited by the lack of contrast. I agree with GIs plan going forward. I do not see that we have an acute surgical abdomen at this point. I agree with colonoscopy. I agree with managing her with IV fluids and close monitoring in the ICU.) History of Present Illness Chief complaint: Abdominal pain History of present illness: Ms. Valladares is a 66 year old female Who for about 2 days has had lower abdominal pain and cramping and diarrhea. She initially had some left lower quadrant abdominal pain and wondered if she had eaten some spoiled turnip greens. She had diarrhea which initially was nonbloody but this was followed by bloody diarrhea. She has had continued diarrhea in the hospital. She has pain that is moderate in severity. It feels a little better after she has a bowel movement. Otherwise she does not know of any aggravating or alleviating factors. The pain is mostly localized in her left side. It is worst in her left lower quadrant. She has had some fever. She thinks she may have had some chills. Home Medications Medication Instructions Recorded Confirmed Type Aspirin [Ecotrin] 81 mg PO DAILY 01/13/15 01/15/17 History Atorvastatin Calcium [Lipitor] 80 mg PO BEDTIME 01/13/15 01/15/17 History Colestipol [Colestid] 1 gm PO BEDTIME 01/13/15 01/15/17 History Furosemide Tab [Lasix Tab] 20 mg PO DAILY 01/13/15 01/15/17 History Potassium Chloride Cap/Tab [K Dur] 10 meq PO DAILY 01/13/15 01/15/17 History Saccharomyces Boulardii [Probiotic] 250 mg PO DAILY 01/13/15 01/15/17 History Sertraline [Zoloft] 12.5 mg PO DAILY tablet 01/24/15 01/15/17 Rx Amitriptyline HCl [Amitriptyline 25 mg PO DAILY 01/15/17 01/15/17 History HCl] Amitriptyline HCl [Amitriptyline 100 mg PO BEDTIME 01/15/17 01/15/17 History HCl] Azithromycin Tab [Zithromax Tab] 250 mg PO DAILY 01/15/17 01/15/17 History Benzonatate [Tessalon] 200 mg PO TID PRN 01/15/17 01/15/17 History Captopril [Capoten] 6.25 mg PO DAILY 01/15/17 01/15/17 History Carvedilol [Coreg] 6.25 mg PO BID W/MEALS 01/15/17 01/15/17 History Doxylamine/Phenylephrine [Poly 1 tablet PO TID PRN 01/15/17 01/15/17 History Hist Forte] Gabapentin [Gabapentin] 300 mg PO TID 01/15/17 01/15/17 History Insulin NPH Hum/Reg Insulin Hm 55 unit SUBCUT BEDTIME 01/15/17 01/15/17 History [NovoLIN 70/30] Insulin NPH Hum/Reg Insulin Hm 60 unit SUBCUT AC BREAKFAST 01/15/17 01/15/17 History [NovoLIN 70/30] Metformin HCl [Metformin HCl] 1,000 mg PO BID W/MEALS 01/15/17 01/15/17 History [place]-3S/Dha/Epa/Fish Oil [Fish 1,200 mg PO DAILY 01/15/17 01/15/17 History Oil 1,200 mg Softgel] Promethazine Tab [Phenergan Tab] 25 mg PO Q12H PRN 01/15/17 01/15/17 History Spironolactone [Aldactone] 6.25 mg PO BEDTIME 01/15/17 01/15/17 History Zolpidem Tartrate [Zolpidem 5 mg PO BEDTIME 01/15/17 01/15/17 History Tartrate] metOLazone [Zaroxolyn] 2.5 mg PO Q7D 01/15/17 01/15/17 History Allergies Allergy/AdvReac Type Severity Reaction Status Date / Time adhesive tape Allergy Mild RASH Verified 01/16/17 00:45 Oxycodone [From OxyContin] AdvReac Intermediate Nausea Verified 01/16/17 00:45 Medical,Surgical,& Family Hx - Medical History Cardio: History of: Aneurysm (AAA with repair), CHF, CAD No history of: Hypertension, [place] Neurology: History of: Peripheral Neuropathy No history of: Multiple Sclerosis, Seizures, TIA, Vertigo, Neurologocal Cancer Endocrine: History of: Diabetes Mellitus (IDDM), Dyslipidemia Respiratory: History of: Pneumonia Genitourinary: History of: Recurring Urinary Tract Infections Gastrointestinal: History of: GI Problems (gastroperesis) Musculoskeletal: History of: Amputation (left greattoe and knuckles of next 2 toe) Hematology: History of: Anemia Other: History of: Miscellaneous Medical Problems (Skin graft to bilateral groins) - Surgical History Cardiac Surgeries: Sugical HX of: Cardiac Catheterization Patient Denies: Femoral-Popliteal Bypass Graft, Cardiac Surgery, Carotid Endarterectomy, Internal Defibrillator, Vascular Access Devices Thoracic Surgeries: Patient denies;: Organ Transplant Neurologic Surgeries: Patient denies: Neurologic Surgery HEENT Surgeries: Patient denies: Carotid Endarterectomy Abdominal Surgeries: Surgical HX of: Abdominal Surgery, Appendectomy, Cholecystectomy Patient denies: Splenectomy Reproductive Surgeries: Surgical HX of;: Hysterectomy Patient denies;: Genitourinary Surgery Orthopedic Surgeries: Patient denies;: Implanted Devices - Family History Family History: Reports;: Family Cancer, Family Diabetes, Family Heart Disease Denies;: Family Hematology, Family Hypertension, Family Psychiatric Problems , Family Stroke, Additional Family History - Social History Smoking Status: Former smoker Frequency of Alcohol Use: None Type of Drug Use: None - Constitutional Constitutional: Present: anorexia, chills, fever(s). Absent: weight loss - EENT Nose, mouth and throat: Absent: dysphagia - Cardiovascular Cardiovascular: Absent: chest pain at rest, chest pain with activity, dyspnea, dyspnea on exertion, syncope - Respiratory Respiratory: Absent: dyspnea, hemoptysis, dyspnea on exertion - Gastrointestinal Gastrointestinal: Present: abdominal pain, bloating, cramping, diarrhea, hematochezia, nausea. Absent: hematemesis, melena, vomiting, jaundice - Genitourinary Genitourinary: Absent: hematuria - Musculoskeletal Musculoskeletal: Absent: back pain, muscle weakness - Neurological Neurological: Absent: focal weakness, syncope - Endocrine Endocrine: Absent: polyuria Hematologic/Lymphatic: Absent: easy bleeding, easy bruising Exam - Constitutional Vitals: Period Temp Pulse Resp BP Sys/Richards Pulse Ox Last 24 Hr 98.1 F-98.8 F 76-106 14-26 90-125/50-78 90-100 General appearance: no acute distress - Head Head exam: Present: normocephalic - Eye Eye exam: Absent: scleral icterus - ENT Mouth exam: Present: normal voice - Neck Neck exam: Present: trachea midline - Respiratory Respiratory exam: Present: clear to auscultation bilaterally. Absent: accessory muscle use - Cardiovascular Cardiovascular exam: Present: RRR - GI/Abdominal GI/Abdominal exam: Present: normal bowel sounds, tenderness, soft. Absent: distended, guarding, mass, rebound - Extremities Exam Extremities exam: Absent: edema - Neurological Exam Neurological exam: Present: alert, oriented X3. Absent: motor sensory deficit Speech: Present: normal - Skin Skin exam: Present: normal color Results - Labs CBC & BMP: 01/16/17 14:22 01/16/17 14:22 Lab Results: I have reviewed the past 24 hour labs - Diagnostic Findings Procedure: CT Abdomen and Pelvis: image reviewed by me
--- NOTE | 2017-01-16 16:36 | CT Report ---
History: Severe left lower quadrant pain Date: 01/16/2017 Study: CT abdomen and pelvis without contrast Comparison exam: January 21, 2015 CT abdomen and pelvis Technique: Spiral CT sections were obtained from the lung bases to the pubic symphysis without contrast. CT abdomen: There is some minor patchy infiltrate in the partially visualized inferior right upper lobe. There is no pleural or pericardial effusion. There is no evidence of pneumoperitoneum. The gallbladder is surgically absent. The liver, spleen, pancreas, adrenal glands, bile ducts are unremarkable. There is a 2 to 3 mm nonobstructing renal stone on the right. Vascular calcifications are noted in either renal sinus. There is no gross renal parenchymal mass. There has been previous midline abdominal surgery. There is mild fusiform ectasia of the infrarenal abdominal aorta which is moderately calcified. There is some diffuse thickening of the wall of the colon extending from the proximal transverse level to the sigmoid level. These changes are most prominent at the splenic flexure and proximal descending colon levels. There is some strandy and hazy pericolonic inflammatory change adjacent to the descending colon. There is trace free fluid in the left paracolic gutter. There is no evidence of pneumoperitoneum or abscess. There is no shiloh bowel obstruction. CT pelvis: There is moderate distention of the urinary bladder. The uterus is surgically absent. There is mild trace free fluid in the pelvis. Impression: There is evidence of nonspecific colitis, most prominent at the splenic flexure and descending colon levels. There is no evidence of pneumoperitoneum or abscess. There is no shiloh bowel obstruction Possible mild inflammatory infiltrate in the partially visualized right upper lung The CT exam was performed using one or more of the following dose reduction techniques: Automated exposure control, adjustment of the mA and/or kV according to patient size, or use of iterative reconstruction technique. PROCEDURE INTERPRETED AT [facility] DEPARTMENT OF RADIOLOGY Final Report Signed by: Dr. Adele Daniels
[2017-01-16 17:34] LABS: Lymphocytes 13 % (20-55); Platelet Estimate Normal; Segmented Neutrophils 85 % (50-85); Total Cells Counted 100
[2017-01-16 17:36] LABS: Ovalocytes Slight
[2017-01-16 17:37] LABS: Polychromasia Slight
[2017-01-16] MEDS ORDERED: POLYETHYLENE GLYCOL 3350/ELECTROLYTES 4,000 ML BOTTLE NG ONE (18:00)
[2017-01-16] MEDS ORDERED: MAGNESIUM CITRATE 300 ML BOTTLE PO ONE (21:00)
[2017-01-16] MEDS: INSULIN GLARGINE 100 UNIT/ML SUBCUT SCH (21:19)
[2017-01-16] MEDS: ONDANSETRON 4 MG/2 ML VIAL IV PRN (23:30)
[2017-01-17] MEDS: MORPHINE 2 MG/1 ML SYRINGE IV PRN ×3 (00:13→14:43)
[2017-01-17] MEDS: cefTRIAXone 1,000 MG in SODIUM CHLORIDE 0.9% 100 ML IV SCH (00:36)
[2017-01-17] MEDS: BISACODYL 5 MG TABLET PO SCH (01:12)
[2017-01-17] MEDS: SODIUM CHLORIDE 0.9% 1,000 ML IV SCH ×3 (03:15→20:13)
[2017-01-17] MEDS: metroNIDAZOLE INJ 500 MG in PREMIX 1 EACH IV SCH ×3 (05:45→21:09)
[2017-01-17] MEDS: PROMETHAZINE 25 MG TABLET PO SCH ×3 (05:45→17:38)
[2017-01-17 06:55] LABS: Basophils % 0.2 % (0.0-0.8); Eosinophils % 0.3 % (0.00-10.9); Hematocrit 28.1 VOL% (35.7-47.0); Hemoglobin 9.4 GM/DL (12.0-16.0); Immature Granulocytes % 0.6 %; Lymphocytes # 1.9 10*3/uL (1.4-4.0); Lymphocytes % 11.9 % (21.3-54.2); Mean Corpuscular HGB Conc 33.5 GM/DL (32-36); Mean Corpuscular Hemoglobin 29 PG (27-34); Mean Corpuscular Volume 87.8 FL (87-102); Mean Platelet Volume 9.8 FL (9.6-12.0); Monocytes # 1.1 10*3/uL (0.11-0.8); Monocytes % 6.9 % (1.7-12.7); Neutrophils # 12.7 10*3/uL (1.4-7.4); Neutrophils % 80.1 % (38.7-73.9); Platelet Count 192 T/CUMM (130-400); Red Cell Distribution Width 14.2 % (9.3-17.3); White Blood Count 15.8 T/CUMM (4-12)
[2017-01-17] MEDS: INSULIN LISPRO 100 UNIT/ML SUBCUT SCH ×4 (07:38→20:13)
--- NOTE | 2017-01-17 08:14 | Operative Note ---
Date of procedure: 01/17/17 Pre-op diagnosis: Rectal bleeding, leukocytosis, generalized abdominal pain Post-op diagnosis: other (Moderately severe ischemic colitis, tissue appears to be bleeding appropriately on biopsy, I doubt that she will need surgery but she will need prolonged antibiotics probably for the next 10 days. When her blood pressure is stable she could likely leave the ICU to be sent back to the floor and observed. Will write her a low lactose diet, would avoid anticoagulants in the short-term and antimotility agents.) Procedure: PROCEDURE: Colonoscopy with cold biopsy for pathology REFERRING PHYSICIAN: Damien Rene MD INDICATIONS: This is a patient of Dr. Daniels's who developed bloody diarrhea and extreme abdominal pain 2 days ago and presents with a leukocytosis and a particular worsening in the left lower quadrant. The prior H&P was reviewed and interrim changes are as noted: No change from GI consultation 2 days ago ENDOSCOPIST: Clyde Ochoa MD ENDOSCOPE: Olympus Video 100 System colonoscope COLON PREPARATION: Golytely 4 liters and dulcolax 15 mg po [id number] x 3 via NG tube ASA CLASS: 3 EXAM: CV: regular rate and rhythm Respiratory: Clear without wheezes Abdominal: active bowel sounds Rectal: Good tone, no fissures or fistulas MEDICATION: Per nursing anesthesia protocol, see their notes PROCEDURE: After discussion of the potential risks and benefits of colonoscopy, the informed consent was obtained, from patient or health care surrogate. The patient was then placed in the left lateral decubitus position where sedation was achieved as noted above. Rectal examination was followed by insertion of the colonoscope. The colonoscope was passed under direct visualization to the cecum. Advancement was facilitated by insertion/withdrawl techniques, abdominal pressure and patient positioning. Once the cecal pole was reached, slow withdrawal was performed with the findings as noted below. The patient tolerated the procedure well and without complication. QUALITY OF PREP: Excellent WITHDRAWL TIME: 8 minutes 15 seconds BIOPSIES: Ascending/cecum, transverse/descending, sigmoid PHOTOGRAPHS: Obtained FINDINGS: The musoca appeared normal in the following regions: rectum, hepatic flexure, ascending colon and cecum. Position within the cecum was confirmed by ileocecal valve, appendiceal oriface, and the convergence of folds (crows foot). No polyp, mass or AVM was noted throughout the colon. Mild left -sided diverticulosis noted. The patient appeared to have a moderately severe ischemic colitis involving the area between 22 cm up to 80 cm with the worst of this being in the sigmoid descending region. In the sigmoid descending junction this became confluent. Multiple biopsies were obtained through the transverse to the sigmoid for confirmation of the diagnosis. Intubation of the TI was achieved x 5 cm with normal appearence--this was not Crohn's disease. IMPRESSION: Moderately severe ischemic colitis, tissue appears to be bleeding appropriately on biopsy, I doubt that she will need surgery but she will need prolonged antibiotics probably for the next 10 days. When her blood pressure is stable she could likely leave the ICU to be sent back to the floor and observed. Will write her a low lactose diet, would avoid anticoagulants in the short-term and antimotility agents. RECOMMENDATIONS: Low residue, low lactose diet Repeat colonosocopy will be in 5 years Note that this patient has about a 25% chance recurrence in the first year Dr. Daniels will resume care of this patient again tomorrow Follow up by phone for biopsy results in 1-2 weeks by phone No indication for surgery at this time in my opinion Clyde Ochoa MD COPY TO: Damien Rene MD Anesthesia: MAC Surgeon / Physician: Clyde Ochoa Estimated blood loss: minimal Specimens: other (Ascending/cecum, transverse/descending, sigmoid) Condition: stable Disposition: post procedure unit (G.I. Suite) Results - Labs CBC & BMP: 01/17/17 06:40 01/16/17 14:22 Discharge Plan - Discharge Medications No Action Colestipol [Colestid] 1 gm PO BEDTIME Saccharomyces Boulardii [Probiotic] 250 mg PO DAILY Furosemide Tab [Lasix Tab] 20 mg PO DAILY Atorvastatin Calcium [Lipitor] 80 mg PO BEDTIME Potassium Chloride Cap/Tab [K Dur] 10 meq PO DAILY Aspirin [Ecotrin] 81 mg PO DAILY Sertraline [Zoloft] 12.5 mg PO DAILY tablet Zolpidem Tartrate [Zolpidem Tartrate] 5 mg PO BEDTIME Azithromycin Tab [Zithromax Tab] 250 mg PO DAILY Amitriptyline HCl [Amitriptyline HCl] 100 mg PO BEDTIME Carvedilol [Coreg] 6.25 mg PO BID W/MEALS Gabapentin [Gabapentin] 300 mg PO TID Insulin NPH Hum/Reg Insulin Hm [NovoLIN 70/30] 55 unit SUBCUT BEDTIME Metformin HCl [Metformin HCl] 1,000 mg PO BID W/MEALS metOLazone [Zaroxolyn] 2.5 mg PO Q7D Promethazine Tab [Phenergan Tab] 25 mg PO Q12H PRN PRN Reason: Nausea/Vomiting Spironolactone [Aldactone] 6.25 mg PO BEDTIME Benzonatate [Tessalon] 200 mg PO TID PRN PRN Reason: Cough Doxylamine/Phenylephrine [Poly Hist Forte] 1 tablet PO TID PRN PRN Reason: cough [place]-3S/Dha/Epa/Fish Oil [Fish Oil 1,200 mg Softgel] 1,200 mg PO DAILY Amitriptyline HCl [Amitriptyline HCl] 25 mg PO DAILY Captopril [Capoten] 6.25 mg PO DAILY Insulin NPH Hum/Reg Insulin Hm [NovoLIN ] 60 unit SUBCUT AC BREAKFAST - Follow Up or Referral - Forms/Instructions
[2017-01-17 08:18] LABS: Band Neutrophils 4 % (0-10); Hypochromasia 1+; Lymphocytes 9 % (20-55); Segmented Neutrophils 84 % (50-85); Total Cells Counted 100
[2017-01-17 08:19] LABS: Microcytosis 1+
[2017-01-17 08:23] LABS: Platelet Estimate Adequate
--- NOTE | 2017-01-17 08:24 | Gastrointestinal Progress Note ---
Assessment and Plan (1) Lower GI bleeding Status: Acute Assessment and plan: This is a patient of Dr. Otero. She is patient is extremely sick and may need transfer to the unit. Her creatinine is already improved as has her white count with antibiotics and fluid therapy. Her pain appears to be settling in the left lower abdomen and the crampy nature of this as well as the elevation in her white blood cell count point towards ischemic colitis although infectious colitis is still in the differential. With a previous colonoscopy set done sometime in the last 3-4 years cancer seems to be out of the differential although bleeding from a diverticular abscess certainly is possible. The patient wishes to proceed with colonoscopy expeditiously over the weekend, we will place an NG tube and give her GoLYTELY tonight and proceed with colonoscopy tomorrow at 7:30 in the morning. If there is discrete leading lesion we can treat this and get an idea of how severe her colitis is and if she might require surgery potentially. Patient understands the risks involved with the colonoscopy which include but are not limited to: Bleeding, infection, perforation, cardiac and pulmonary compromise. 01/17/17--The patient was taken to colonoscopy this morning with the following findings: Moderately severe ischemic colitis, tissue appears to be bleeding appropriately on biopsy, I doubt that she will need surgery but she will need prolonged antibiotics probably for the next 10 days. When her blood pressure is stable she could likely leave the ICU to be sent back to the floor and observed. Will write her a low lactose diet, would avoid anticoagulants in the short-term and antimotility agents. Dr. Daniels will resume care again tomorrow. She will likely require re-scope in another 5 years. Current Visit: Yes (2) Acute posthemorrhagic anemia Status: Acute Assessment and plan: Thus far the patient's hematocrit is only dropped down to 30%, if this drops closer to 24% we will may consider transfusion. Parameters have been written for this. We will continue to watch the patient's white blood cell count as well with daily CBCs. 01/17/17--the patient's hematocrit dropped from 37% down to 28.1% today where has been maintained. Her white blood cell count is stagnated going from 16.1--> 15.8 today. We need to switch around her antibiotic slightly and start covering her with Zosyn as opposed to ceftriaxone. This may allow us to switch her over to Augmentin further on her hospital stay when she can reliably take p.o. colonoscopy findings were as noted above. Current Visit: Yes (3) Nausea vomiting and diarrhea Status: Acute Assessment and plan: Patient's nausea and vomiting certainly make me more suspicious of a infectious cause for her rectal bleeding as does the history of her intake of the potentially tainted turnip greens. Stool studies are pending for fecal white blood cells, stool culture and C. difficile. I suspect this also may be a systemic reaction to an ischemic colitis acute insult. 01/17/17--We will see how she does with a low residue low lactose diet today as tolerated. NG tube has been removed. Current Visit: Yes (4) Personal history of colonic polyps Status: Acute Assessment and plan: Patient states that she has had a colonoscopy done by Dr. Daniels sometime in the last 3 years, polyps were found at that time, she states. I do not see any pathology report, this may have been done over at the [facility] endoscopy center. [facility] physicians may be able to pull this report and pathology for our records. 01/17/17--Would suggest that colonoscopy be repeated in another 5 years. Current Visit: Yes Gastroenterology - PN: Subj Interval history: No new complaints, did well with colonoscopy. NG tube removed. We will advance the patient to a low residue low lactose diet and see how she does. Exam (Progress Note) - Constitutional Vitals: Period Temp Pulse Resp BP Sys/Richards Pulse Ox Last 24 Hr 97.5 F-98.7 F 82-102 14-28 92-136/41-83 90-100 General appearance: no acute distress - Eye Eye exam: Present: EOMI Pupils: Present: VENANCIO - Respiratory Respiratory exam: Present: clear to auscultation bilaterally. Absent: rhonchi, wheezes - Cardiovascular Cardiovascular exam: Present: regular rate and rhythm - GI/Abdominal GI/Abdominal exam: Present: normal bowel sounds, distended, tenderness (Mostly in the left lower quadrant left mid quadrant), soft. Absent: firm, guarding, rebound - Extremities Exam Extremities exam: Absent: edema - Neurological Exam Neurological exam: Present: alert, oriented X3 - Psychiatric Psychiatric exam: Present: normal affect, normal mood - Skin Skin exam: Present: warm Results - Labs CBC & BMP: 09/10/17 06:40 01/16/17 14:22
--- NOTE | 2017-01-17 08:26 | Anesthesia Post-Op ---
Anesthesia Post OP - Post Ansesthetic Evaluation Patient seen in post op: Yes Resp: within normal limits CV: within normal limits Mental: within normal limits Temp: within normal limits [id number]: within normal limits Nausea and Vomiting: within normal limits Pain: within normal limits Other:: pt transferred from OR suite to CCu, awake and calm. report give to ran in unit.
[2017-01-17] MEDS ORDERED: fentaNYL 100 MCG/2 ML VIAL ONE (08:27)
[2017-01-17] MEDS ORDERED: MIDAZOLAM 2 MG/2 ML VIAL ONE (08:27)
[2017-01-17] MEDS: INSULIN GLARGINE 100 UNIT/ML SUBCUT SCH ×2 (09:27→21:09)
[2017-01-17] MEDS: SERTRALINE 25 MG TABLET PO SCH (09:27)
[2017-01-17] MEDS: PANTOPRAZOLE 40 MG TABLET PO SCH (09:27)
[2017-01-17] MEDS: CARVEDILOL 3.125 MG TABLET PO SCH ×2 (09:27→16:25)
[2017-01-17] MEDS: PIPERACILLIN/TAZOBACTAM 3,375 MG in SODIUM CHLORIDE 0.9% 100 ML IV SCH ×2 (09:28→16:26)
--- NOTE | 2017-01-17 09:29 | Event Note ---
Patient's creatinine is stable at 1.0. Will sign off please call if nephrology is needed.
--- NOTE | 2017-01-17 10:14 | General Surgery Progress Note ---
Assessment and Plan - Time spent with patient Time spent with patient: Less than 30 minutes (1) Abdominal pain Status: Acute Assessment and plan: As I suspected her abdominal pain is from ischemic colitis. This appears to be moderate in severity on colonoscopy. Most of these cases can be managed conservatively without surgery. If she fails to resolve or worsens or has perforation then we would look at surgical intervention. Current Visit: Yes Qualifiers: Abdominal location: left lower quadrant Qualified Code(s): R10.32 - Left lower quadrant pain Subjective Patient reports: Present: feels better, pain is less. Absent: nausea, vomiting , fever Exam - Constitutional Vitals: Period Temp Pulse Resp BP Sys/Richards Pulse Ox Last 24 Hr 96.7 F-98.7 F 82-102 14-28 92-136/41-83 90-100 General appearance: no acute distress - Head Head exam: Present: normocephalic - Eye Eye exam: Absent: scleral icterus - ENT Mouth exam: Present: normal voice - Respiratory Respiratory exam: Absent: accessory muscle use - GI/Abdominal GI/Abdominal exam: Present: tenderness, soft. Absent: distended, guarding, rebound - Neurological Exam Neurological exam: Present: alert, oriented X3 Results - Labs CBC & BMP: 01/17/17 06:40 01/16/17 14:22 Lab Results: I have reviewed the past 24 hour labs
--- NOTE | 2017-01-17 17:33 | Pain Management Consult Note ---
Assessment and Plan (1) Abdominal pain Problem details: 3 day history of increasing abdominal pain Status: Acute Assessment and plan: 01/17/2017. The patient is a very pleasant 66-year-old female known to me. I treated her for low back pain in the past. She was doing reasonably well with no significant pain and no pain medicines until 3 days ago when she developed increasing abdominal pain. Abdominal pain possibly related to ischemic colitis. The pain is constant throbbing pain worse with movement and with eating. The morphine seems to help when given IV but does not last. Now that she is taking p.o. I would like to try her her on oral pain medicines, these may cause less constipation and also the last longer. I will follow with you. y Current Visit: Yes Qualifiers: Abdominal location: left lower quadrant Qualified Code(s): R10.32 - Left lower quadrant pain History of Present Illness Chief complaint: Abdominal pain History of present illness: Ms. Valladares is a 66 year old female reports a 3 day history of severe abdominal pain. The pain is a crampy throbbing aching constant pain worse with movement. Home Medications Medication Instructions Recorded Confirmed Type Aspirin [Ecotrin] 81 mg PO DAILY 01/13/15 01/15/17 History Atorvastatin Calcium [Lipitor] 80 mg PO BEDTIME 01/13/15 01/15/17 History Colestipol [Colestid] 1 gm PO BEDTIME 01/13/15 01/15/17 History Furosemide Tab [Lasix Tab] 20 mg PO DAILY 01/13/15 01/15/17 History Potassium Chloride Cap/Tab [K Dur] 10 meq PO DAILY 01/13/15 01/15/17 History Saccharomyces Boulardii [Probiotic] 250 mg PO DAILY 01/13/15 01/15/17 History Sertraline [Zoloft] 12.5 mg PO DAILY tablet 01/24/15 01/15/17 Rx Amitriptyline HCl [Amitriptyline 25 mg PO DAILY 01/15/17 01/15/17 History HCl] Amitriptyline HCl [Amitriptyline 100 mg PO BEDTIME 01/15/17 01/15/17 History HCl] Azithromycin Tab [Zithromax Tab] 250 mg PO DAILY 01/15/17 01/15/17 History Benzonatate [Tessalon] 200 mg PO TID PRN 01/15/17 01/15/17 History Captopril [Capoten] 6.25 mg PO DAILY 01/15/17 01/15/17 History Carvedilol [Coreg] 6.25 mg PO BID W/MEALS 01/15/17 01/15/17 History Doxylamine/Phenylephrine [Poly 1 tablet PO TID PRN 01/15/17 01/15/17 History Hist Forte] Gabapentin [Gabapentin] 300 mg PO TID 01/15/17 01/15/17 History Insulin NPH Hum/Reg Insulin Hm 55 unit SUBCUT BEDTIME 01/15/17 01/15/17 History [NovoLIN 70/30] Insulin NPH Hum/Reg Insulin Hm 60 unit SUBCUT AC BREAKFAST 01/15/17 01/15/17 History [NovoLIN 70/30] Metformin HCl [Metformin HCl] 1,000 mg PO BID W/MEALS 01/15/17 01/15/17 History Spade-3S/Dha/Epa/Fish Oil [Fish 1,200 mg PO DAILY 01/15/17 01/15/17 History Oil 1,200 mg Softgel] Promethazine Tab [Phenergan Tab] 25 mg PO Q12H PRN 01/15/17 01/15/17 History Spironolactone [Aldactone] 6.25 mg PO BEDTIME 01/15/17 01/15/17 History Zolpidem Tartrate [Zolpidem 5 mg PO BEDTIME 01/15/17 01/15/17 History Tartrate] metOLazone [Zaroxolyn] 2.5 mg PO Q7D 01/15/17 01/15/17 History Allergies Allergy/AdvReac Type Severity Reaction Status Date / Time adhesive tape Allergy Mild RASH Verified 01/16/17 00:45 Oxycodone [From OxyContin] AdvReac Intermediate Nausea Verified 01/16/17 00:45 Medical,Surgical,& Family Hx - Medical History Cardio: History of: Aneurysm (AAA with repair), CHF, CAD No history of: Hypertension, DE Neurology: History of: Peripheral Neuropathy No history of: Multiple Sclerosis, Seizures, TIA, Vertigo, Neurologocal Cancer Endocrine: History of: Diabetes Mellitus (IDDM), Dyslipidemia Respiratory: History of: Pneumonia Genitourinary: History of: Recurring Urinary Tract Infections Gastrointestinal: History of: GI Problems (gastroperesis) Musculoskeletal: History of: Amputation (left greattoe and knuckles of next 2 toe) Hematology: History of: Anemia Other: History of: Miscellaneous Medical Problems (Skin graft to bilateral groins) - Surgical History Cardiac Surgeries: Sugical HX of: Cardiac Catheterization Patient Denies: Femoral-Popliteal Bypass Graft, Cardiac Surgery, Carotid Endarterectomy, Internal Defibrillator, Vascular Access Devices Thoracic Surgeries: Patient denies;: Organ Transplant Neurologic Surgeries: Patient denies: Neurologic Surgery HEENT Surgeries: Patient denies: Carotid Endarterectomy Abdominal Surgeries: Surgical HX of: Abdominal Surgery, Appendectomy, Cholecystectomy Patient denies: Splenectomy Reproductive Surgeries: Surgical HX of;: Hysterectomy Patient denies;: Genitourinary Surgery Orthopedic Surgeries: Patient denies;: Implanted Devices - Family History Family History: Reports;: Family Cancer, Family Diabetes, Family Heart Disease Denies;: Family Hematology, Family Hypertension, Family Psychiatric Problems , Family Stroke, Additional Family History - Social History Smoking Status: Former smoker Frequency of Alcohol Use: None Type of Drug Use: None - Constitutional Constitutional: Present: lethargy - Gastrointestinal Gastrointestinal: Present: abdominal pain - Musculoskeletal Musculoskeletal: Present: back pain Exam - Constitutional Vitals: Period Temp Pulse Resp BP Sys/Richards Pulse Ox Last 24 Hr 96.7 F-98.3 F 73-102 14-28 101-136/47-83 92-100 General appearance: mild distress, over weight - Respiratory Respiratory exam: Present: clear to auscultation bilaterally - Cardiovascular Cardiovascular exam: Present: RRR - GI/Abdominal GI/Abdominal exam: Present: tenderness, soft - Back Exam Back exam: Present: vertebral tenderness - Neurological Exam Neurological exam: Present: alert, oriented X3, CN II-XII intact, motor sensory deficit (Left lower extremity) Results - Labs CBC & BMP: 01/17/17 06:40 01/16/17 14:22
--- NOTE | 2017-01-17 20:57 | Internal Med Progress Note ---
Assessment and Plan (1) Dehydration Status: Acute Current Visit: Yes (2) Hyponatremia Status: Resolved Current Visit: Yes (3) Abdominal pain Problem details: 3 day history of increasing abdominal pain Status: Acute Current Visit: Yes Qualifiers: Abdominal location: left lower quadrant Qualified Code(s): R10.32 - Left lower quadrant pain (4) Acute renal insufficiency Status: Acute Current Visit: Yes (5) Chronic renal disease Status: Chronic Current Visit: Yes Qualifiers: Chronic kidney disease stage: stage 2 (mild) Qualified Code(s): N18.2 - Chronic kidney disease, stage 2 (mild) Internal Medicine - PN: Subj Interval history: Ms. Valladares is a 66 year old female patient of Dr. Rene with history of DM, peripheral neuropathy, HTN, AAA, PAD, CAD, dyslipidemia, who presented to ER with acute nausea, vomiting and diarrhea. Abdominal pain begain yesterday, then she had multiple episodes of nausea, vomiting, and diarrhea. GI bleed began yesterday. She reports having colonoscopy years ago and polyps were noted. On rounds today, she appears to have worsened, clinically; although, chemistries show improvement. Addressing glucose levels. Discontinued Dilaudid for severe LLQ abdominal pain because of blood pressure drop. Ordering Morphine PRN. Adding Flagyl and moving her to CCU. Very ill-appearing. Consulting Dr. Levi III to see her for severe LLQ abdominal pain. Ordering CT abdomen/ pelvis. Jan 17: She has been diagnosed with ischemic colitis; photos from endoscopy on the chart. The patient is in such abdominal pain, to include postprandial pain, that diet will be changed to liquids/full liquids and TPN will be ordered for nutritional support over the next few days. PICC line will be ordered for the morning. She is on appropriate antibiotics and has good coverage, but that process will be time dependent, and she will need nutritional support. Discussed with patient. Exam (Progress Note) - Constitutional Vitals: Period Temp Pulse Resp BP Sys/Richards Pulse Ox Last 24 Hr 96.7 F-98.3 F 70-102 14-28 89-136/39-79 92-100 General appearance: no acute distress, other (ill appearing) - Respiratory Respiratory exam: Present: clear to auscultation bilaterally - Cardiovascular Cardiovascular exam: Present: regular rate and rhythm - GI/Abdominal GI/Abdominal exam: Present: guarding, tenderness - Extremities Exam Extremities exam: Absent: edema - Neurological Exam Neurological exam: Present: alert - Psychiatric Psychiatric exam: Present: normal mood - Skin Skin exam: Present: warm, dry Results - Labs CBC & BMP: 01/17/17 06:40 01/16/17 14:22
[2017-01-18] MEDS: PIPERACILLIN/TAZOBACTAM 3,375 MG in SODIUM CHLORIDE 0.9% 100 ML IV SCH ×3 (00:20→16:54)
[2017-01-18] MEDS: PROMETHAZINE 25 MG TABLET PO SCH ×4 (00:20→17:53)
[2017-01-18] MEDS: SODIUM CHLORIDE 0.9% 1,000 ML IV SCH ×4 (03:22→23:11)
[2017-01-18] MEDS: metroNIDAZOLE INJ 500 MG in PREMIX 1 EACH IV SCH ×3 (05:50→22:32)
[2017-01-18 07:35] LABS: Basophils % 0.3 % (0.0-0.8); Eosinophils # 0.2 10*3/uL (0.0-0.87); Eosinophils % 1.8 % (0.00-10.9); Hematocrit 28.1 VOL% (35.7-47.0); Hemoglobin 9.1 GM/DL (12.0-16.0); Immature Granulocytes % 0.6 %; Immature Granulocytes Absolute 0.06 #; Lymphocytes # 1.7 10*3/uL (1.4-4.0); Lymphocytes % 16.6 % (21.3-54.2); Mean Corpuscular HGB Conc 32.4 GM/DL (32-36); Mean Corpuscular Hemoglobin 29 PG (27-34); Mean Corpuscular Volume 89.5 FL (87-102); Mean Platelet Volume 9.4 FL (9.6-12.0); Monocytes # 0.6 10*3/uL (0.11-0.8); Monocytes % 6.3 % (1.7-12.7); Neutrophils # 7.4 10*3/uL (1.4-7.4); Neutrophils % 74.4 % (38.7-73.9); Platelet Count 171 T/CUMM (130-400); Red Blood Count 3.14 MC/CUMM (3.8-5.5); Red Cell Distribution Width 14.4 % (9.3-17.3); White Blood Count 9.9 T/CUMM (4-12)
[2017-01-18] MEDS: INSULIN LISPRO 100 UNIT/ML SUBCUT SCH ×4 (07:36→20:12)
[2017-01-18 08:11] LABS: Alanine Aminotransferase 15 U/L (13-56); Albumin 2.2 G/DL (3.4-5.0); Alkaline Phosphatase 79 U/L (45-117); Aspartate Amino Transferase 27 U/L (0-37); Bilirubin,Total < 0.39 MG/DL (0.2-1.0); Blood Urea Nitrogen 11 MG/DL (7-18); Calcium 7.3 MG/DL (8.5-10.1); Glucose 109 MG/DL (74-106); Osmolality,Calculated 280.3 MOS/KG (273-304); Potassium 4.9 MMOL/L (3.5-5.1); Sodium 141 MMOL/L (136-145); Total Protein 5.1 G/DL (6.4-8.3)
--- NOTE | 2017-01-18 09:05 | Post Interventional Procedure ---
Pre-op diagnosis: Colitis, TPN Post-op diagnosis: same Procedure: PICC LUE Flouroscopy: 0.1 min Radiologist: Edin Dudely Anesthesia: local Specimens: none sent Estimated blood loss: none Complications: none Condition: stable Assessment and Plan - Time spent with patient Time spent with patient: Less than 30 minutes
[2017-01-18] MEDS: SERTRALINE 25 MG TABLET PO SCH (09:16)
[2017-01-18] MEDS: CARVEDILOL 3.125 MG TABLET PO SCH ×2 (09:16→16:54)
[2017-01-18] MEDS: PANTOPRAZOLE 40 MG TABLET PO SCH (09:16)
[2017-01-18] MEDS: INSULIN GLARGINE 100 UNIT/ML SUBCUT SCH ×2 (09:17→20:12)
--- NOTE | 2017-01-18 10:46 | Internal Med Progress Note ---
Assessment and Plan (1) Abdominal pain Status: Acute Assessment and plan: 66-year-old female admitted to acute * Acute ischemic colitis. Continue conservative management. Patient on IV antibiotics and fluids. Dr. Levi SALDAÑA is following * Hypertension. Blood pressure is stable * Acute pain. Pain clinic is following the patient * Diabetes. Will continue her on sliding scale * Discussed in detail with patient Current Visit: Yes Qualifiers: Abdominal location: left lower quadrant Qualified Code(s): R10.32 - Left lower quadrant pain (2) Acute posthemorrhagic anemia Status: Acute Current Visit: Yes (3) Enterocolitis Status: Acute Current Visit: Yes Internal Medicine - PN: Subj Interval history: Patient seen and examined. Chart reviewed. Events of the weekend noted. She is still having a lot of pain but is feeling somewhat better this morning. She had a PICC line placed. She denies any nausea or vomiting. Exam (Progress Note) - Constitutional Vitals: Period Temp Pulse Resp BP Sys/Richards Pulse Ox Last 24 Hr 97.2 F-98.3 F 70-85 13-25 89-142/39-71 94-100 Exam: Examination: GENERAL: NAD. HEENT: PERRLA. EOMI. NECK: Neck is supple. CVS: Regular rate and rhythm. S1 and S2 are normal. RESPIRATORY: Lungs are clear. No rales or rhonchi. ABDOMEN: Soft but diffusely tender. No rebound or rigidity. Bowel sounds are hyperactive EXT: No edema. Peripheral pulses are present. BUFFER NICKEL: Patient is awake, alert and oriented to time place and person. SKIN: Warm and dry MSK: No obvious deformity. Results - Labs CBC & BMP: 01/18/17 07:28 01/18/17 07:28 Lab Results: I have reviewed the past 24 hour labs
--- NOTE | 2017-01-18 10:48 | Gastrointestinal Progress Note ---
Assessment and Plan (1) Abdominal pain Problem details: 3 day history of increasing abdominal pain Status: Acute Assessment and plan: 01/18-onset of abdominal pain with nausea and vomiting as well as rectal bleeding. Colonoscopy findings noted as below. H&H stable at 02/04. PICC line placed with initiation of TPN today. Stool studies negative. WBCs improved at 9000. Continue with IV antibiotics at present time. Plan an addendum to followed by Dr. Daniels. Current Visit: Yes Qualifiers: Abdominal location: left lower quadrant Qualified Code(s): R10.32 - Left lower quadrant pain Gastroenterology - PN: Subj Interval history: CC: lower GI bleeding, nausea vomiting Patient is seen, awake and alert sitting up in bed. States she did not rest very well last night but denies any abdominal pain at this time. Patient was noted to be admitted on 01/16 with reports of rectal bleeding and abdominal pain. She is followed by Dr. Daniels regularly. She reported that on she developed some severe abdominal cramping associated with nausea, vomiting and diarrhea as well as passing of blood rectally. She came to the emergency room at that time for evaluation and was found on CT of abdomen to have nonspecific colitis most prominent at splenic flexure. She underwent colonoscopy on yesterday with findings of moderately severe ischemic colitis. Her H&H has remained stable at 02/04 with no blood transfusions required at this time. She is unable to eat at this time due to the abdominal pain therefore she has had a PICC line placed and TPN to be initiated. Her leukocytosis is resolved at this time with WBCs down to 9000. She continues on IV Flagyl and Zosyn. Abdomen is soft, mild tenderness to palpation. She is afebrile. Patient is also noted to have a history of congestive hepatopathy with elevated LFTs in the past as documented by Dr. Elkins. She also has a reported history of gastroparesis. ROS: Denies shortness of breath or chest pain Exam (Progress Note) - Constitutional Vitals: Period Temp Pulse Resp BP Sys/Richards Pulse Ox Last 24 Hr 97.2 F-98.3 F 70-84 13-24 89-142/39-71 94-100 General appearance: normal weight, no acute distress - Head Head exam: Present: normal inspection, normocephalic - Eye Eye exam: Present: other (Lids and conjunctivae are unremarkable). Absent: scleral icterus - ENT ENT exam: Present: normal exam, normal oropharynx - Neck Neck exam: Present: normal inspection - Respiratory Respiratory exam: Present: clear to auscultation bilaterally. Absent: rales, rhonchi, wheezes - Cardiovascular Cardiovascular exam: Present: regular rate and rhythm. Absent: diastolic murmur , JVD, systolic murmur - GI/Abdominal GI/Abdominal exam: Present: normal bowel sounds, tenderness, soft. Absent: ascites, distended, mass, organomegaly - Extremities Exam Extremities exam: Present: normal inspection, full ROM - Back Exam Back exam: Present: normal inspection - Neurological Exam Neurological exam: Present: alert, oriented X3 - Psychiatric Psychiatric exam: Present: normal affect, normal mood - Skin Skin exam: Present: normal color, warm, dry Results - Labs CBC & BMP: 01/18/17 07:28 01/18/17 07:28 Lab Results: I have reviewed the past 24 hour labs
--- NOTE | 2017-01-18 10:57 | Physician Query Form ---
CLICK EDIT DOCUMENT TO SELECT QUERY ANSWER --> OK --> SIGN Yesi Sandoval RN, CCDS Certified Clinical [employer] (W) [phone] (F) [phone] [email or web address] PROVIDERS: Make your selection(s) from the choices in EACH section by typing an "x" and enter comments in the comment section. Please use your independent medical judgment in providing your response. This request does not imply that any particular answer is desired or expected. CLINICAL INDICATORS: (Providers should not edit this section) The medical record indicates that the patient was admitted with ischemic colitis , dehydration, acute renal insufficiency, Creatinine of 3.00 on the 8th that has dropped to .70 on the 11th, GFR of 16# that has increased to 94 on the 11th and the patient was placed on IVF's. -----hx of CKD 2# and 3# are mentioned. ( ) Acute renal failure with history of CKD 2 ( ) Acute renal failure with history of CKD 3 ( ) CKD 2 only ( ) CKD 3 only ( x) Other, please specify: baseline seems to be in normal range ( ) Clinically unable to determine Chronic Kidney Disease Stages Source: National Kidney Disease Foundation ( ) Stage I (eGFR > or = 90) ( ) Stage II (eGFR 60 - 89) ( ) Stage III (eGFR 30 - 59) ( ) Stage IV (eGFR 15 - 29) ( ) Stage V (eGFR < 15 or dialysis) COMMENTS: PLEASE ALSO DOCUMENT RESPONSE IN PROGRESS NOTES AND/OR DISCHARGE SUMMARY Use of terms such as suspected, likely, or probable (associated with a specific diagnosis that is being evaluated, monitored, or treated as if it exists) are acceptable and can be restated in the discharge summary if not ruled out. MTDD
[2017-01-18] MEDS: MORPHINE 2 MG/1 ML SYRINGE IV PRN (11:00)
--- NOTE | 2017-01-18 12:27 | Pathology Report from [facility] ---
[facility] ACCESSION # : [id number] PATIENT NAME : Fox Valladares ORDERING DR : Clyde Ochoa MD CLINICAL HX: Diarrhea POST-OP DX: Same SPECIMEN INFO: #1 BX cecum/ascending #2 BX transverse/descending #3 Sigmoid colon GROSS DESCRIPTION: Received in formalin in three parts labeled:#1 FOX VERONIKA & #1 is a 0.8 x 0.2 cm aggregate of stuart tissue submitted in cassette #1.#2 FOX VERONIKA & #2 is a 0.6 x 0.3 cm aggregate of stuart tissue submitted in cassette #2. #3 FOX VERONIKA & #3 is a 0.4 x 0.2 cm aggregate of stuart tissue submitted in cassette #3. DIAGNOSIS FOR FOX VALLADARES: #1 CECUM/ASCENDING COLON, BIOPSY: Benign colonic mucosa. No evidence of colitis, ischemia, dysplasia or malignancy.#2 TRANSVERSE/ DESCENDING COLON, BIOPSY: Superficial mucosal ulceration consistent with early ischemic changes.#3 SIGMOID COLON, BIOPSY: Ulceration and marked acute inflammation consistent with ischemic colitis. No evidence of malignancy. COLLECTED DATE: 01/18/2017 [facility] REPORT DATE: 01/18/2017 ELECTRONICALLY SIGNED BY: Christiano Galloway III, M.D. 01/18/2017 - 9:29:53 [facility]PITALAmparo
--- NOTE | 2017-01-18 13:21 | Interventional Radiology Rpt ---
IR PICC line insertion, US guide vascular access Indication: Colitis. Bowel rest. TPN requirement. PICC LINE Description: A formal timeout was performed. Maximum sterile barrier technique was used. Sonographic evaluation of the left upper extremity demonstrates patent and compressible basilic vein. The upper arm was prepped and draped in sterile fashion. 3 cc 1% lidocaine was administered subcutaneously. Under sonographic guidance, a micropuncture needle was advanced into the vein. A captured sonographic image documents the position of the needle. Needle was exchanged over a wire for a peel-away sheath. A dual lumen power PICC, cut to 43 cm, was advanced over the wire until the tip was at the RA-SVC junction. The position of the catheter was confirmed with fluoroscopic guidance and an image stored in PACS. The wire and sheath were removed. Both ports of the PICC were aspirated and flushed with heparinized saline. The device was secured with a StatLock. Fluoroscopy: 0.1 minute. Impression: PICC line ready for immediate use. Routine catheter care. PROCEDURE INTERPRETED AT [facility] DEPARTMENT OF RADIOLOGY Final Report Signed by: Edin Dudley M.D.
--- NOTE | 2017-01-18 13:48 | Pain Management Progress Note ---
Assessment and Plan (1) Abdominal pain Status: Acute Assessment and plan: 01/18/2017. She continues to complain of significant abdominal pain, somewhat better since she has taken the pain medicines. The oral medicines do help calm the overall pain down, and having to take less of the IV morphine. We will add low-dose gabapentin for the neuropathic component of pain. Will continue to follow closely with you. y 01/17/2017. The patient is a very pleasant 66-year-old female known to me. I treated her for low back pain in the past. She was doing reasonably well with no significant pain and no pain medicines until 3 days ago when she developed increasing abdominal pain. Abdominal pain possibly related to ischemic colitis. The pain is constant throbbing pain worse with movement and with eating. The morphine seems to help when given IV but does not last. Now that she is taking p.o. I would like to try her her on oral pain medicines, these may cause less constipation and also the last longer. I will follow with you. y Current Visit: Yes Qualifiers: Abdominal location: left lower quadrant Qualified Code(s): R10.32 - Left lower quadrant pain Pain - Subjective Interval history: Continued abdominal pain with improved pain control when taking the combination of the oral medicines and rescue dose of IV morphine. Still no bowel movement. Exam - Constitutional Vitals: Period Temp Pulse Resp BP Sys/Richards Pulse Ox Last 24 Hr 97 F-98.3 F 70-84 13-25 89-144/39-95 91-100 - GI/Abdominal GI/Abdominal exam: Present: guarding, soft Results - Labs CBC & BMP: 01/18/17 07:28 01/18/17 07:28
--- NOTE | 2017-01-18 13:51 | General Surgery Progress Note ---
Assessment and Plan - Time spent with patient Time spent with patient: Less than 30 minutes (1) Abdominal pain Status: Acute Assessment and plan: As I suspected her abdominal pain is from ischemic colitis. This appears to be moderate in severity on colonoscopy. Most of these cases can be managed conservatively without surgery. If she fails to resolve or worsens or has perforation then we would look at surgical intervention. 01/18: She is feeling better. She appears to be responding to medical treatment. Her abdomen is much less tender. She has much less pain. I would continue with conservative treatment as you are doing. Current Visit: Yes Qualifiers: Abdominal location: left lower quadrant Qualified Code(s): R10.32 - Left lower quadrant pain Subjective Patient reports: Present: feels better, pain is less, flatus. Absent: nausea, vomiting, shortness of breath Exam - Constitutional Vitals: Period Temp Pulse Resp BP Sys/Richards Pulse Ox Last 24 Hr 97 F-98.3 F 70-84 13-25 89-144/39-95 91-100 General appearance: no acute distress - Head Head exam: Present: normocephalic - Eye Eye exam: Absent: scleral icterus - Respiratory Respiratory exam: Absent: accessory muscle use - GI/Abdominal GI/Abdominal exam: Present: soft. Absent: distended, guarding, tenderness, rebound Results - Labs CBC & BMP: 01/18/17 07:28 01/18/17 07:28 Lab Results: I have reviewed the past 24 hour labs
[2017-01-18] MEDS: GABAPENTIN 100 MG CAPSULE PO SCH ×2 (14:43→21:07)
[2017-01-19] MEDS: PIPERACILLIN/TAZOBACTAM 3,375 MG in SODIUM CHLORIDE 0.9% 100 ML IV SCH ×3 (00:41→17:06)
[2017-01-19] MEDS: PROMETHAZINE 25 MG TABLET PO SCH ×4 (00:42→17:07)
[2017-01-19 04:22] LABS: Basophils % 0.4 % (0.0-0.8); Eosinophils # 0.2 10*3/uL (0.0-0.87); Eosinophils % 2.5 % (0.00-10.9); Hematocrit 28.2 VOL% (35.7-47.0); Hemoglobin 9.4 GM/DL (12.0-16.0); Immature Granulocytes % 0.7 %; Immature Granulocytes Absolute 0.05 #; Lymphocytes # 1.5 10*3/uL (1.4-4.0); Lymphocytes % 21.8 % (21.3-54.2); Mean Corpuscular HGB Conc 33.3 GM/DL (32-36); Mean Corpuscular Hemoglobin 29 PG (27-34); Mean Platelet Volume 9.8 FL (9.6-12.0); Monocytes # 0.6 10*3/uL (0.11-0.8); Monocytes % 8.1 % (1.7-12.7); Neutrophils # 4.6 10*3/uL (1.4-7.4); Neutrophils % 66.5 % (38.7-73.9); Platelet Count 201 T/CUMM (130-400); Red Blood Count 3.24 MC/CUMM (3.8-5.5); White Blood Count 6.9 T/CUMM (4-12)
[2017-01-19] MEDS: MORPHINE 2 MG/1 ML SYRINGE IV PRN ×6 (04:44→20:52)
[2017-01-19 04:57] LABS: Calcium 7.4 MG/DL (8.5-10.1); Osmolality,Calculated 279.1 MOS/KG (273-304); Potassium 3.6 MMOL/L (3.5-5.1)
[2017-01-19] MEDS: metroNIDAZOLE INJ 500 MG in PREMIX 1 EACH IV SCH ×3 (05:46→22:23)
--- NOTE | 2017-01-19 07:10 | General Surgery Progress Note ---
Assessment and Plan (1) Abdominal pain Status: Acute Assessment and plan: As I suspected her abdominal pain is from ischemic colitis. This appears to be moderate in severity on colonoscopy. Most of these cases can be managed conservatively without surgery. If she fails to resolve or worsens or has perforation then we would look at surgical intervention. 01/18: She is feeling better. She appears to be responding to medical treatment. Her abdomen is much less tender. She has much less pain. I would continue with conservative treatment as you are doing. 01/19: She looks and feels much better. Her abdomen is much more benign on exam with really no tenderness. Her white blood cell count is come down to normal and her vital signs are normal as well. She appears to be responding to medical treatment. I do not think that she will need surgery for this. I will be happy to reevaluate if needed. Current Visit: Yes Qualifiers: Abdominal location: left lower quadrant Qualified Code(s): R10.32 - Left lower quadrant pain Subjective Patient reports: Present: feels better, pain is less. Absent: blood in stool, nausea, vomiting, shortness of breath Exam - Constitutional Vitals: Period Temp Pulse Resp BP Sys/Richards Pulse Ox Last 24 Hr 97 F-99.4 F 70-92 12-25 102-158/55-95 90-98 General appearance: no acute distress - Head Head exam: Present: normocephalic - Respiratory Respiratory exam: Absent: accessory muscle use - GI/Abdominal GI/Abdominal exam: Present: soft. Absent: distended, guarding, tenderness, rebound Results - Labs CBC & BMP: 01/19/17 04:00 01/19/17 04:00 Lab Results: I have reviewed the past 24 hour labs
[2017-01-19] MEDS: ONDANSETRON 4 MG/2 ML VIAL IV PRN ×2 (07:45→13:28)
[2017-01-19] MEDS: INSULIN GLARGINE 100 UNIT/ML SUBCUT SCH ×2 (09:20→20:31)
[2017-01-19] MEDS: PANTOPRAZOLE 40 MG TABLET PO SCH (09:20)
[2017-01-19] MEDS: GABAPENTIN 100 MG CAPSULE PO SCH ×3 (09:20→20:51)
[2017-01-19] MEDS: INSULIN LISPRO 100 UNIT/ML SUBCUT SCH ×4 (09:20→20:31)
[2017-01-19] MEDS: CARVEDILOL 3.125 MG TABLET PO SCH ×2 (09:20→17:06)
[2017-01-19] MEDS: SODIUM CHLORIDE 0.9% 1,000 ML IV SCH ×3 (09:21→22:45)
[2017-01-19] MEDS: SERTRALINE 25 MG TABLET PO SCH (09:21)
--- NOTE | 2017-01-19 09:24 | Internal Med Progress Note ---
Assessment and Plan (1) Abdominal pain Status: Acute Assessment and plan: 66-year-old female admitted to acute * Acute ischemic colitis. She is clinically much better. No fever and white count is down. Continue antibiotics * Hypertension. Blood pressure is stable * Acute pain. Pain clinic is following the patient * Diabetes. Her glucose was low. Will decrease Lantus insulin * Discussed in detail with patient Current Visit: Yes Qualifiers: Abdominal location: left lower quadrant Qualified Code(s): R10.32 - Left lower quadrant pain (2) Acute posthemorrhagic anemia Status: Acute Current Visit: Yes (3) Enterocolitis Status: Acute Current Visit: Yes Internal Medicine - PN: Subj Interval history: She is feeling much better this morning. No chest pain or shortness of breath. No nausea or vomiting. Her abdominal pain is better. Exam (Progress Note) - Constitutional Vitals: Period Temp Pulse Resp BP Sys/Richards Pulse Ox Last 24 Hr 98.1 F-99.4 F 70-92 12-25 102-158/55-95 90-98 Exam: Examination: GENERAL: NAD. NECK: Neck is supple. CVS: Regular rate and rhythm. S1 and S2 are normal. RESPIRATORY: Lungs are clear. No rales or rhonchi. ABDOMEN: Soft and mildly tender. No rebound or rigidity. Bowel sounds are present EXT: No edema. Peripheral pulses are present. SHEAR HELPER: Patient is awake, alert and oriented to time place and person. SKIN: Warm and dry MSK: No obvious deformity. Results - Labs CBC & BMP: 01/19/17 04:00 01/19/17 04:00 Lab Results: I have reviewed the past 24 hour labs
--- NOTE | 2017-01-19 11:00 | Gastrointestinal Progress Note ---
Assessment and Plan (1) Abdominal pain Status: Acute Assessment and plan: 01/19-continued abdominal pain without nausea or vomiting. No reports of rectal bleeding. H&H remained stable. Dietitian consult pending for TPN. Plan an addendum to followed by Dr. Daniels. 01/18-onset of abdominal pain with nausea and vomiting as well as rectal bleeding. Colonoscopy findings noted as below. H&H stable at 02/04. PICC line placed with initiation of TPN today. Stool studies negative. WBCs improved at 9000. Continue with IV antibiotics at present time. Plan an addendum to followed by Dr. Daniels. Current Visit: Yes Qualifiers: Abdominal location: left lower quadrant Qualified Code(s): R10.32 - Left lower quadrant pain Gastroenterology - PN: Subj Interval history: CC: Abdominal pain Patient seen awake and alert lying in bed. Daughter is at bedside. Patient states that she is having continued abdominal pain however her pain medications are helping when given. She states that she has not had any further rectal bleeding that she is aware of however has not had a bowel movement since her colonoscopy. She denies any nausea or vomiting. She states she did tolerate a small amount of her diet last night with some Jell-O, ice cream and a little bit of soup. She has not eaten very much today. H&H is stable at 02/04. Abdomen is soft, mild tenderness to palpation. ROS: Denies shortness of breath or chest pain Exam (Progress Note) - Constitutional Vitals: Period Temp Pulse Resp BP Sys/Richards Pulse Ox Last 24 Hr 98.1 F-99.4 F 70-92 12-25 102-158/55-95 90-98 - Other Additional findings: General appearance: normal weight, no acute distress - Head Head exam: Present: normal inspection, normocephalic - Eye Eye exam: Present: other (Lids and conjunctivae are unremarkable). Absent: scleral icterus - ENT ENT exam: Present: normal exam, normal oropharynx - Neck Neck exam: Present: normal inspection - Respiratory Respiratory exam: Present: clear to auscultation bilaterally. Absent: rales, rhonchi, wheezes - Cardiovascular Cardiovascular exam: Present: regular rate and rhythm. Absent: diastolic murmur , JVD, systolic murmur - GI/Abdominal GI/Abdominal exam: Present: normal bowel sounds, tenderness, soft. Absent: ascites, distended, mass, organomegaly - Extremities Exam Extremities exam: Present: normal inspection, full ROM - Back Exam Back exam: Present: normal inspection - Neurological Exam Neurological exam: Present: alert, oriented X3 - Psychiatric Psychiatric exam: Present: normal affect, normal mood - Skin Skin exam: Present: normal color, warm, dry Results - Labs CBC & BMP: 01/19/17 04:00 01/19/17 04:00 Lab Results: I have reviewed the past 24 hour labs
[2017-01-19] MEDS ORDERED: DEXTROSE 50% 25 GM/50 ML SYRINGE IV PRN (11:26)
[2017-01-19] MEDS ORDERED: DEXTROSE 10% 1,000 ML IV PRN (11:26)
--- NOTE | 2017-01-19 12:52 | Pain Management Progress Note ---
Assessment and Plan (1) Abdominal pain Status: Acute Assessment and plan: 01/19/2017. The patient has overall clinically improved. Less abdominal tenderness. Less complaints of pain. Still needing supplemental analgesics. I will continue to follow with you. n 01/18/2017. She continues to complain of significant abdominal pain, somewhat better since she has taken the pain medicines. The oral medicines do help calm the overall pain down, and having to take less of the IV morphine. We will add low-dose gabapentin for the neuropathic component of pain. Will continue to follow closely with you. y 01/17/2017. The patient is a very pleasant 66-year-old female known to me. I treated her for low back pain in the past. She was doing reasonably well with no significant pain and no pain medicines until 3 days ago when she developed increasing abdominal pain. Abdominal pain possibly related to ischemic colitis. The pain is constant throbbing pain worse with movement and with eating. The morphine seems to help when given IV but does not last. Now that she is taking p.o. I would like to try her her on oral pain medicines, these may cause less constipation and also the last longer. I will follow with you. y Current Visit: Yes Qualifiers: Abdominal location: left lower quadrant Qualified Code(s): R10.32 - Left lower quadrant pain Pain - Subjective Interval history: Somewhat less abdominal pain. Exam - Constitutional Vitals: Period Temp Pulse Resp BP Sys/Richards Pulse Ox Last 24 Hr 97.8 F-99.4 F 70-92 12-22 102-163/55-89 90-100 - GI/Abdominal GI/Abdominal exam: Present: tenderness, soft Results - Labs CBC & BMP: 01/19/17 04:00 01/19/17 04:00
--- NOTE | 2017-01-19 14:04 | Physician Query Form ---
CLICK EDIT DOCUMENT TO SELECT QUERY ANSWER --> OK --> SIGN Yesi Sandoval RN, CCDS Certified Clinical Mud Boss W) [phone] (f) [phone] [email or web address] PROVIDERS: Make your selection(s) from the choices in EACH section by typing an "x" and enter comments in the comment section. Please use your independent medical judgment in providing your response. This request does not imply that any particular answer is desired or expected. CLINICAL INDICATORS: (Providers should not edit this section) The medical record indicates that the patient was admitted with dehydration, Urine CS >100,000, Enterobacter Aerogenes, Urine Nitrate "Positive H", Urine WBC 5# AND the patient is on Piperacillin. Based on the above, could you clarify the appropriate diagnosis, if significant , that supports the above abnormalities and additional evaluation, monitoring, and/or treatment rendered: ( ) Patient is not being monitored or treated for an UTI (x ) Patient is being monitored or treated for an UTI ( ) Other, please specify: ( ) Clinically unable to determine COMMENTS: PLEASE ALSO DOCUMENT RESPONSE IN PROGRESS NOTES AND/OR DISCHARGE SUMMARY Use of terms such as suspected, likely, or probable (associated with a specific diagnosis that is being evaluated, monitored, or treated as if it exists) are acceptable and can be restated in the discharge summary if not ruled out. MTDD
--- NOTE | 2017-01-19 14:07 | Physician Query Form ---
CLICK EDIT DOCUMENT TO SELECT QUERY ANSWER --> OK --> SIGN Yesi Sandoval RN, CCDS Certified Clinical End Matcher W) [phone] (f) [phone] [email or web address] PROVIDERS: Make your selection(s) from the choices in EACH section by typing an "x" and enter comments in the comment section. Please use your independent medical judgment in providing your response. This request does not imply that any particular answer is desired or expected. CLINICAL INDICATORS: (Providers should not edit this section) The medical record indicates that the patient was admitted with dehydration, Urine CS >100,000, Enterobacter Aerogenes, Urine Nitrate "Positive H", Urine WBC 5# AND the patient is on Piperacillin. Based on the above, could you clarify the appropriate diagnosis, if significant , that supports the above abnormalities and additional evaluation, monitoring, and/or treatment rendered: ( ) Patient is not being monitored or treated for an UTI ( x) Patient is being monitored or treated for an UTI ( ) Other, please specify: ( ) Clinically unable to determine COMMENTS: PLEASE ALSO DOCUMENT RESPONSE IN PROGRESS NOTES AND/OR DISCHARGE SUMMARY Use of terms such as suspected, likely, or probable (associated with a specific diagnosis that is being evaluated, monitored, or treated as if it exists) are acceptable and can be restated in the discharge summary if not ruled out. MTDD
[2017-01-19] MEDS ORDERED: TRACE ELEMENTS (5) 1 ML, MULTIVITAMIN INJ 10 ML in AMINO ACIDS/DEXT/LYTES 5-15% 2,000 ML IV SCH (17:00)
[2017-01-19] MEDS: FAT EMULSION 20% 250 ML IV SCH (17:06)
[2017-01-20] MEDS: PIPERACILLIN/TAZOBACTAM 3,375 MG in SODIUM CHLORIDE 0.9% 100 ML IV SCH ×3 (00:04→18:41)
[2017-01-20] MEDS: PROMETHAZINE 25 MG TABLET PO SCH ×4 (00:05→18:42)
[2017-01-20] MEDS: MORPHINE 2 MG/1 ML SYRINGE IV PRN ×3 (02:06→16:06)
[2017-01-20 04:56] LABS: Basophils % 0.5 % (0.0-0.8); Eosinophils # 0.2 10*3/uL (0.0-0.87); Eosinophils % 2.6 % (0.00-10.9); Hematocrit 27.7 VOL% (35.7-47.0); Hemoglobin 9.2 GM/DL (12.0-16.0); Immature Granulocytes % 0.8 %; Immature Granulocytes Absolute 0.06 #; Lymphocytes # 1.3 10*3/uL (1.4-4.0); Mean Corpuscular HGB Conc 33.2 GM/DL (32-36); Mean Corpuscular Hemoglobin 30 PG (27-34); Mean Corpuscular Volume 88.8 FL (87-102); Mean Platelet Volume 9.3 FL (9.6-12.0); Monocytes # 0.7 10*3/uL (0.11-0.8); Monocytes % 8.7 % (1.7-12.7); Neutrophils # 5.3 10*3/uL (1.4-7.4); Neutrophils % 70.4 % (38.7-73.9); Platelet Count 191 T/CUMM (130-400); Red Blood Count 3.12 MC/CUMM (3.8-5.5); White Blood Count 7.6 T/CUMM (4-12)
[2017-01-20 05:23] LABS: Calcium 7.3 MG/DL (8.5-10.1); Osmolality,Calculated 283.4 MOS/KG (273-304); Potassium 3.7 MMOL/L (3.5-5.1)
[2017-01-20 05:24] LABS: Eosinophils 2 % (0-10); Lymphocytes 18 % (20-55); Nucleated Red Blood Cells 1 (0-5); Platelet Estimate Adequate; Segmented Neutrophils 73 % (50-85); Total Cells Counted 100
[2017-01-20 05:25] LABS: Hypochromasia Slight; Microcytosis Slight
[2017-01-20] MEDS: SODIUM CHLORIDE 0.9% 1,000 ML IV SCH ×3 (05:27→14:52)
[2017-01-20 05:39] LABS: Magnesium 1.5 MG/DL (1.8-2.4); Phosphorous 2.3 MG/DL (2.5-4.9); Prealbumin 9.2 MG/DL (20-40)
[2017-01-20] MEDS: metroNIDAZOLE INJ 500 MG in PREMIX 1 EACH IV SCH ×3 (05:42→22:45)
[2017-01-20] MEDS: INSULIN LISPRO 100 UNIT/ML SUBCUT SCH ×3 (05:42→19:16)
--- NOTE | 2017-01-20 06:58 | General Surgery Progress Note ---
Assessment and Plan (1) Abdominal pain Status: Acute Assessment and plan: As I suspected her abdominal pain is from ischemic colitis. This appears to be moderate in severity on colonoscopy. Most of these cases can be managed conservatively without surgery. If she fails to resolve or worsens or has perforation then we would look at surgical intervention. 01/18: She is feeling better. She appears to be responding to medical treatment. Her abdomen is much less tender. She has much less pain. I would continue with conservative treatment as you are doing. 01/19: She looks and feels much better. Her abdomen is much more benign on exam with really no tenderness. Her white blood cell count is come down to normal and her vital signs are normal as well. She appears to be responding to medical treatment. I do not think that she will need surgery for this. I will be happy to reevaluate if needed. 01/20: She still complains of pain but her abdominal exam is not very impressive and she is afebrile with a normal white blood cell count. I would continue with conservative treatment as you are doing. Current Visit: Yes Qualifiers: Abdominal location: left lower quadrant Qualified Code(s): R10.32 - Left lower quadrant pain Subjective Patient reports: Present: still having pain. Absent: nausea, vomiting, shortness of breath, fever Exam - Constitutional Vitals: Period Temp Pulse Resp BP Sys/Richards Pulse Ox Last 24 Hr 97.5 F-98.1 F 67-86 13-24 103-163/52-82 95-100 General appearance: no acute distress - Respiratory Respiratory exam: Absent: accessory muscle use - GI/Abdominal GI/Abdominal exam: Present: soft. Absent: distended, tenderness, rebound Results - Labs CBC & BMP: 01/20/17 04:51 01/20/17 04:53 Lab Results: I have reviewed the past 24 hour labs
--- NOTE | 2017-01-20 08:31 | Internal Med Progress Note ---
Assessment and Plan (1) Abdominal pain Status: Acute Assessment and plan: 66-year-old female admitted to acute * Acute ischemic colitis. She is improving clinically. Continue antibiotics. Will check x-ray abdomen upright and supine. * Hypertension. Blood pressure is stable * Acute pain. Pain clinic is following the patient * Poor appetite. On TPN. May benefit from Reglan. * Diabetes. Her glucose was low. Will decrease Lantus insulin * Will move her to regular floor * Discussed in detail with patient Current Visit: Yes Qualifiers: Abdominal location: left lower quadrant Qualified Code(s): R10.32 - Left lower quadrant pain (2) Acute posthemorrhagic anemia Status: Acute Current Visit: Yes (3) Enterocolitis Status: Acute Current Visit: Yes Internal Medicine - PN: Subj Interval history: She is feeling much better this morning. During the night her pain medications were not holding her. Her appetite is extremely poor. She is on TPN. She denies any chest pain or shortness of breath Exam (Progress Note) - Constitutional Vitals: Period Temp Pulse Resp BP Sys/Richards Pulse Ox Last 24 Hr 97.5 F-98.1 F 67-86 13-24 103-158/52-88 95-100 Exam: Examination: GENERAL: NAD. NECK: Neck is supple. CVS: Regular rate and rhythm. S1 and S2 are normal. RESPIRATORY: Lungs are clear. No rales or rhonchi. ABDOMEN: Soft and non-tender. No rebound or rigidity. Bowel sounds are hyperactive EXT: No edema. Peripheral pulses are present. CADDIE: Patient is awake, alert and oriented to time place and person. SKIN: Warm and dry MSK: No obvious deformity. Results - Labs CBC & BMP: 01/20/17 04:51 01/20/17 04:53 Lab Results: I have reviewed the past 24 hour labs
--- NOTE | 2017-01-20 08:58 | XRay Report ---
XR KUB Indication: Abdominal pain Comparison: None available Findings: No free fluid or free air seen. The bowel gas pattern appears within normal limits. No abnormal calcifications are present. Multiple clips are present from previous surgery. No other abnormality is identified. Impression: No evidence of abnormality demonstrated. PROCEDURE INTERPRETED AT [facility] DEPARTMENT OF RADIOLOGY Final Report Signed by: Dr. Mg Lucas
[2017-01-20] MEDS: SERTRALINE 25 MG TABLET PO SCH (09:41)
[2017-01-20] MEDS: CARVEDILOL 3.125 MG TABLET PO SCH (09:41)
[2017-01-20] MEDS: GABAPENTIN 100 MG CAPSULE PO SCH ×3 (09:42→22:45)
[2017-01-20] MEDS: PANTOPRAZOLE 40 MG TABLET PO SCH (09:42)
[2017-01-20] MEDS: INSULIN GLARGINE 100 UNIT/ML SUBCUT SCH ×2 (09:42→22:45)
--- NOTE | 2017-01-20 09:55 | Gastrointestinal Progress Note ---
Assessment and Plan (1) Abdominal pain Status: Acute Assessment and plan: 01/20-Abd pain improved. No N/V, no rectal bleeding .To be transferred to floor today. TPN initiated. Plan and addendum to follow by Dr Daniels. 01/19-continued abdominal pain without nausea or vomiting. No reports of rectal bleeding. H&H remained stable. Dietitian consult pending for TPN. Plan an addendum to followed by Dr. Daniels. 01/18-onset of abdominal pain with nausea and vomiting as well as rectal bleeding. Colonoscopy findings noted as below. H&H stable at 02/04. PICC line placed with initiation of TPN today. Stool studies negative. WBCs improved at 9000. Continue with IV antibiotics at present time. Plan an addendum to followed by Dr. Daniels. Current Visit: Yes Qualifiers: Abdominal location: left lower quadrant Qualified Code(s): R10.32 - Left lower quadrant pain Gastroenterology - PN: Subj Interval history: CC: Abdominal pain Pt is awake and alert sitting on side of bed. States she is feeling better today. She had a normal bowel movement this morning without any reports of hematochezia. She is tolerating a full liquid diet at this time. Her abdominal pain is improved with no nausea or vomiting. She is to be transferred to the floor today. Abdomen is soft, nontender. HH is stable at 02/03. ROS: Denies SOB or chest pain Exam (Progress Note) - Constitutional Vitals: Period Temp Pulse Resp BP Sys/Richards Pulse Ox Last 24 Hr 97.5 F-98.1 F 67-86 13-24 103-158/52-88 95-100 - Other Additional findings: General appearance: normal weight, no acute distress - Head Head exam: Present: normal inspection, normocephalic - Eye Eye exam: Present: other (Lids and conjunctivae are unremarkable). Absent: scleral icterus - ENT ENT exam: Present: normal exam, normal oropharynx - Neck Neck exam: Present: normal inspection - Respiratory Respiratory exam: Present: clear to auscultation bilaterally. Absent: rales, rhonchi, wheezes - Cardiovascular Cardiovascular exam: Present: regular rate and rhythm. Absent: diastolic murmur , JVD, systolic murmur - GI/Abdominal GI/Abdominal exam: Present: normal bowel sounds, tenderness, soft. Absent: ascites, distended, mass, organomegaly - Extremities Exam Extremities exam: Present: normal inspection, full ROM - Back Exam Back exam: Present: normal inspection - Neurological Exam Neurological exam: Present: alert, oriented X3 - Psychiatric Psychiatric exam: Present: normal affect, normal mood - Skin Skin exam: Present: normal color, warm, dry Results - Labs CBC & BMP: 01/20/17 04:51 01/20/17 04:53 Lab Results: I have reviewed the past 24 hour labs
--- NOTE | 2017-01-20 12:59 | Pain Management Progress Note ---
Assessment and Plan (1) Abdominal pain Status: Acute Assessment and plan: 01/20/2017. Overall the patient is slowly improving. We will start weaning IV morphine. y 01/19/2017. The patient has overall clinically improved. Less abdominal tenderness. Less complaints of pain. Still needing supplemental analgesics. I will continue to follow with you. n 01/18/2017. She continues to complain of significant abdominal pain, somewhat better since she has taken the pain medicines. The oral medicines do help calm the overall pain down, and having to take less of the IV morphine. We will add low-dose gabapentin for the neuropathic component of pain. Will continue to follow closely with you. y 01/17/2017. The patient is a very pleasant 66-year-old female known to me. I treated her for low back pain in the past. She was doing reasonably well with no significant pain and no pain medicines until 3 days ago when she developed increasing abdominal pain. Abdominal pain possibly related to ischemic colitis. The pain is constant throbbing pain worse with movement and with eating. The morphine seems to help when given IV but does not last. Now that she is taking p.o. I would like to try her her on oral pain medicines, these may cause less constipation and also the last longer. I will follow with you. y Current Visit: Yes Qualifiers: Abdominal location: left lower quadrant Qualified Code(s): R10.32 - Left lower quadrant pain Pain - Subjective Interval history: Gradual improvement of abdominal pain. Exam - Constitutional Vitals: Period Temp Pulse Resp BP Sys/Richards Pulse Ox Last 24 Hr 97.5 F-98.0 F 67-86 13-24 103-158/52-88 95-100 - GI/Abdominal GI/Abdominal exam: Present: tenderness, soft Results - Labs CBC & BMP: 01/20/17 04:51 01/20/17 04:53
[2017-01-20] MEDS ORDERED: ASPIRIN 325 MG TABLET ONE (13:53)
[2017-01-20] MEDS ORDERED: NITROGLYCERIN SL 0.4 MG TABLET SL ONE (13:53)
[2017-01-20] MEDS ORDERED: NITROGLYCERIN SL 0.4 MG TABLET SL PRN (13:56)
[2017-01-20 14:27] LABS: Basophils % 0.3 % (0.0-0.8); Eosinophils # 0.2 10*3/uL (0.0-0.87); Eosinophils % 2.3 % (0.00-10.9); Hematocrit 28.1 VOL% (35.7-47.0); Hemoglobin 9.4 GM/DL (12.0-16.0); Immature Granulocytes % 0.7 %; Immature Granulocytes Absolute 0.05 #; Lymphocytes # 1.6 10*3/uL (1.4-4.0); Lymphocytes % 21.1 % (21.3-54.2); Mean Corpuscular HGB Conc 33.5 GM/DL (32-36); Mean Corpuscular Hemoglobin 29 PG (27-34); Mean Corpuscular Volume 87.5 FL (87-102); Mean Platelet Volume 9.7 FL (9.6-12.0); Monocytes # 0.6 10*3/uL (0.11-0.8); Monocytes % 8.4 % (1.7-12.7); Neutrophils % 67.2 % (38.7-73.9); Platelet Count 190 T/CUMM (130-400); Red Blood Count 3.21 MC/CUMM (3.8-5.5); Red Cell Distribution Width 13.7 % (9.3-17.3); White Blood Count 7.5 T/CUMM (4-12)
[2017-01-20 14:48] LABS: Alanine Aminotransferase 25 U/L (13-56); Albumin 2.2 G/DL (3.4-5.0); Alkaline Phosphatase 91 U/L (45-117); Aspartate Amino Transferase 43 U/L (0-37); Bilirubin,Total < 0.39 MG/DL (0.2-1.0); Blood Urea Nitrogen 6 MG/DL (7-18); Calcium 7.7 MG/DL (8.5-10.1); Glucose 353 MG/DL (74-106); Magnesium 1.6 MG/DL (1.8-2.4); Osmolality,Calculated 288.5 MOS/KG (273-304); Potassium 3.8 MMOL/L (3.5-5.1); Sodium 139 MMOL/L (136-145); Total Protein 5.4 G/DL (6.4-8.3)
[2017-01-20 14:51] LABS: Band Neutrophils 1 % (0-10); Eosinophils 2 % (0-10); Lymphocytes 23 % (20-55); Segmented Neutrophils 73 % (50-85); Total Cells Counted 100; Troponin I Only 0.552 NG/ML (0.00-0.045)
[2017-01-20 14:52] LABS: Platelet Estimate Adequate
--- NOTE | 2017-01-20 15:14 | EKG Report ---
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
[2017-01-20] MEDS: ONDANSETRON 4 MG/2 ML VIAL IV PRN (16:13)
--- NOTE | 2017-01-20 16:25 | Event Note ---
Patient started having chest pain after getting to the floor. She had cardiac enzymes done and was given nitro glycerin along with oxygen. When I went to see the patient she was having chest pain again. She describes it like crunching pressure on her chest. She is nauseated and holding her chest. On examination. Patient is diaphoretic and tachycardic. S1 and S2 are normal. Lungs are clear to auscultation. Abdomen is soft and nontender. Extremities do not show any edema Laboratory workup. Her troponin was noted Assessment: * Acute chest pain. Probably cardiac. Repeat EKG in cardiac enzymes. Lovenox has been started. Morphine as needed for pain. Patient is on oxygen and has been given aspirin. Cardiology to evaluate her. Repeat EKG * Hypertension. Blood pressure is quite high. Her Coreg was increased * Patient moved to CCU. * Will monitor her closely
--- NOTE | 2017-01-20 16:27 | EKG Report ---
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
[2017-01-20] MEDS ORDERED: ENOXAPARIN 80 MG/0.8 ML SYRINGE SUBCUT SCH (16:30)
[2017-01-20 16:38] LABS: Basophils % 0.3 % (0.0-0.8); Eosinophils # 0.2 10*3/uL (0.0-0.87); Eosinophils % 1.4 % (0.00-10.9); Hematocrit 31.8 VOL% (35.7-47.0); Hemoglobin 10.7 GM/DL (12.0-16.0); Immature Granulocytes % 0.8 %; Immature Granulocytes Absolute 0.09 #; Lymphocytes # 2.5 10*3/uL (1.4-4.0); Lymphocytes % 21.6 % (21.3-54.2); Mean Corpuscular HGB Conc 33.6 GM/DL (32-36); Mean Corpuscular Hemoglobin 29 PG (27-34); Mean Corpuscular Volume 86.6 FL (87-102); Mean Platelet Volume 9.6 FL (9.6-12.0); Monocytes % 8.5 % (1.7-12.7); Neutrophils # 7.8 10*3/uL (1.4-7.4); Neutrophils % 67.4 % (38.7-73.9); Platelet Count 216 T/CUMM (130-400); Red Blood Count 3.67 MC/CUMM (3.8-5.5); Red Cell Distribution Width 13.7 % (9.3-17.3); White Blood Count 11.6 T/CUMM (4-12)
[2017-01-20] MEDS ORDERED: PROPOFOL 1,000 MG/100 ML BOTTLE IV ONE (16:42)
--- NOTE | 2017-01-20 16:42 | Cardiology Consult Note ---
Jovan Hussein April RN, am scribing for, and in the presence of, Calin Hernández MD 16:29. Assessment and Plan - Time spent with patient Time spent with patient: Greater than 30 minutes (Due to assessment, planning, documentation, medication review) (1) CAD (coronary artery disease) Status: Chronic Current Visit: Yes (2) HTN (hypertension) Status: Chronic Assessment and plan: Her blood pressures have been elevated somewhat. We will increase her carvedilol to 12.5 twice daily. Current Visit: Yes (3) Chest pain Status: Acute Assessment and plan: She is pain-free at this time. We will add Nitropaste as well as Lovenox and baby aspirin to her medication regimen. Current Visit: Yes (4) Abdominal pain Status: Acute Assessment and plan: GI is following Current Visit: Yes (5) Coronary artery disease Status: Chronic Current Visit: Yes (6) Diabetes Status: Chronic Assessment and plan: Internal medicine is following. Current Visit: Yes History of Present Illness - Data of Consult Patient: known to practice within the last 3 years Consult date: 01/20/17 Requesting Physician: Damien Rene Primary care physician: Damien Rene - Consult Narrative Reason for consult: Chest pain History of present illness: Service Delivery Supervisor: Dr. Gardner PCP: Dr. Rene Ms. Valladares is a 66 year old female with history of CAD, PAD, NIDDM, hypertension, and dyslipidemia. She does not she had stents placed here about 30-35 years ago. I cannot find any record of this, but a previous cardiology note does mention her having 2 stents placed at [facility] around 2009. She had a stress test done at Dr. Gardner's office in February 2015 that was negative. Echocardiogram done in June [address] Gardner's office with an ejection fraction of 45-55%. Surgical history includes hysterectomy, bladder surgery, aortofemoral bypass, amputation, cholecystectomy family history includes mother and siblings with heart disease and siblings with diabetes. She reports she quit smoking 3 years ago. She presented emergency department January 15 with bright red rectal bleeding. She was found to have ischemic colitis and GI has been following. She was transferred from intensive care to [facility] floor today. She reports the bleeding has stopped. She does continue to have abdominal pain. Today she developed left-sided chest pressure she rates a 10 on a scale of 1-10. It did not radiate. She came in when she was at rest. She was given nitroglycerin sublingual 2 and it did not relieve the pain. She also had nausea and shortness of breath associated with this pain. EKG did show some slight changes. Troponin was 0.552. We will have to be cautious in working up this chest pain in light of her recent bleeding. H&H today is 9.4 and 28.1. We did discuss with about starting on Lovenox and he agreed this is okay. At this time she has any chest pain or shortness of breath. Oxygen is in use via nasal cannula. 01/20 16:38 patient has developed tachycardia diaphoresis with O2 sats in the high 80s low 90s. I think the best approach is going to be to proceed with cardiac catheterization. However, given the patient's tenuous oxygenation I think the best approach will be to have her intubated electively prior to proceeding. Her EKG does not show ST elevation. She has a left bundle branch block and our plan will be to proceed emergently. She has complained of crushing chest discomfort earlier today and given the situation I think the appropriate thing to do would be to proceed with evaluation. I have discussed in detail the particulars of this case and I have examined the patient and reviewed the patient's chart both current and old. I was directly involved in the patient's evaluation and management and I completely agree with Demi Aldana RN regarding this patient's evaluation and treatment plan. CC: Damien Rene MD - Home Medications and Allergies Home Medications: Home Medications Medication Instructions Recorded Confirmed Type Aspirin [Ecotrin] 81 mg PO DAILY 01/13/15 01/15/17 History Atorvastatin Calcium [Lipitor] 80 mg PO BEDTIME 01/13/15 01/15/17 History Colestipol [Colestid] 1 gm PO BEDTIME 01/13/15 01/15/17 History Furosemide Tab [Lasix Tab] 20 mg PO DAILY 01/13/15 01/15/17 History Potassium Chloride Cap/Tab [K Dur] 10 meq PO DAILY 01/13/15 01/15/17 History Saccharomyces Boulardii [Probiotic] 250 mg PO DAILY 01/13/15 01/15/17 History Sertraline [Zoloft] 12.5 mg PO DAILY tablet 01/24/15 01/15/17 Rx Amitriptyline HCl [Amitriptyline 25 mg PO DAILY 01/15/17 01/15/17 History HCl] Amitriptyline HCl [Amitriptyline 100 mg PO BEDTIME 01/15/17 01/15/17 History HCl] Azithromycin Tab [Zithromax Tab] 250 mg PO DAILY 01/15/17 01/15/17 History Benzonatate [Tessalon] 200 mg PO TID PRN 01/15/17 01/15/17 History Captopril [Capoten] 6.25 mg PO DAILY 01/15/17 01/15/17 History Carvedilol [Coreg] 6.25 mg PO BID W/MEALS 01/15/17 01/15/17 History Doxylamine/Phenylephrine [Poly 1 tablet PO TID PRN 01/15/17 01/15/17 History Hist Forte] Gabapentin [Gabapentin] 300 mg PO TID 01/15/17 01/15/17 History Insulin NPH Hum/Reg Insulin Hm 55 unit SUBCUT BEDTIME 01/15/17 01/15/17 History [NovoLIN 70/30] Insulin NPH Hum/Reg Insulin Hm 60 unit SUBCUT AC BREAKFAST 01/15/17 01/15/17 History [NovoLIN 70/30] Metformin HCl [Metformin HCl] 1,000 mg PO BID W/MEALS 01/15/17 01/15/17 History [place]-3S/Dha/Epa/Fish Oil [Fish 1,200 mg PO DAILY 01/15/17 01/15/17 History Oil 1,200 mg Softgel] Promethazine Tab [Phenergan Tab] 25 mg PO Q12H PRN 01/15/17 01/15/17 History Spironolactone [Aldactone] 6.25 mg PO BEDTIME 01/15/17 01/15/17 History Zolpidem Tartrate [Zolpidem 5 mg PO BEDTIME 01/15/17 01/15/17 History Tartrate] metOLazone [Zaroxolyn] 2.5 mg PO Q7D 01/15/17 01/15/17 History Allergies/Adverse Reactions: Allergies Allergy/AdvReac Type Severity Reaction Status Date / Time adhesive tape Allergy Mild RASH Verified 01/16/17 00:45 Oxycodone [From OxyContin] AdvReac Intermediate Nausea Verified 01/16/17 00:45 - Constitutional Constitutional: Present: as per HPI - EENT Eyes: Present: requires corrective lense. Absent: blurry vision Ears: Absent: decreased hearing, ear pain, tinnitus Nose, mouth and throat: Absent: dysphagia, epistaxis, headache(s), hoarseness, neck pain - Cardiovascular Cardiovascular: Present: chest pain at rest, dyspnea. Absent: diaphoresis, edema, radiating jaw, neck or arm pain, lightheadedness, orthopnea, palpitations - Respiratory Respiratory: Present: cough, dyspnea. Absent: hemoptysis, wheezing - Gastrointestinal Gastrointestinal: Present: abdominal pain, nausea. Absent: constipation, diarrhea, vomiting - Genitourinary Genitourinary: Absent: dysuria, hematuria - Musculoskeletal Musculoskeletal: Present: muscle weakness. Absent: back pain, limited range of motion - Neurological Neurological: Absent: confusion, dizziness, frequent falls, headache(s), syncope - Psychiatric Psychiatric: Absent: anxiety, depression - Endocrine Endocrine: Present: fatigue - Hematologic/Lymphatic Hematologic/Lymphatic: Present: easy bleeding, easy bruising Medical,Surgical,& Family Hx - Medical History Cardio: History of: Aneurysm (AAA with repair), CHF, CAD Neurology: History of: Peripheral Neuropathy Endocrine: History of: Diabetes Mellitus (IDDM), Dyslipidemia Respiratory: History of: Pneumonia Genitourinary: History of: Recurring Urinary Tract Infections Gastrointestinal: History of: GI Problems (gastroperesis) Musculoskeletal: History of: Amputation (left greattoe and knuckles of next 2 toe) Hematology: History of: Anemia Other: History of: Miscellaneous Medical Problems (Skin graft to bilateral groins) - Surgical History Cardiac Surgeries: Sugical HX of: Femoral-Popliteal Bypass Graft (Aortofemoral bypass), Cardiac Catheterization Abdominal Surgeries: Surgical HX of: Abdominal Surgery, Appendectomy, Cholecystectomy Reproductive Surgeries: Surgical HX of;: Hysterectomy - Family History Family History: Reports;: Family Diabetes (Sibling), Family Heart Disease ( Mother, sibling) - Social History Smoking Status: Former smoker (Quit 3 years ago) Have you smoked in the last 12 months: No Frequency of Alcohol Use: None Type of Drug Use: None Marital Status: Lives With:: Spouse Functional capacity: independent ambulation Physical Examination Vital Signs Temp Pulse Resp BP Pulse Ox 96.9 F L 82 18 78/57 97 01/15/17 13:36 01/15/17 13:36 01/15/17 13:36 01/15/17 13:36 01/15/17 13:36 General: Present: Appears Well, No Apparent Distress HEENT: Present: PERRL, Mucus Membranes Moist Neck: Present: Supple Neck, Midline Trachea, No Bruit Cardiac: Present: Reg Rate and Rhythm, Systolic Murmur, Tachycardia Lungs: Present: Normal Breath Sounds, Oxygen, No Wheeze, Rales, Rhonchi Neuro: Absent: Resting Tremor, Essential Tremor Abdomen: Present: Soft, Active Bowel Sounds, Tender. Absent: Distended Skin: Absent: Rash, Suspicious Lesions Musculoskeletal: Present: Decreased Range of Motion Extremities: Present: No Edema, Normal Upper Extr. Pulses, Normal Lower Extr. Pulses Result/EKG - Labs CBC & BMP: 01/20/17 14:02 01/20/17 14:02 Lab Results: I have reviewed the past 24 hour labs Labs: Laboratory Results - last 24 hr 01/19/17 01/19/17 01/19/17 16:57 19:51 23:59 WBC RBC Hgb Hct MCV MCH MCHC RDW Plt Count MPV Neut % (Auto) Lymph % (Auto) [place] % (Auto) Eos % (Auto) Baso % (Auto) Neut # (Auto) Lymph # (Auto) [place] # (Auto) Eos # (Auto) Baso # (Auto) Total Counted Immature Gran % Nucleated RBC % Immature Gran # Segmented Neutrophils Band Neutrophils Lymphocytes Monocytes Eosinophils Basophils Nucleated RBCs Nucleated RBCs # Platelet Estimate Immature Plt Fraction Hypochromasia Microcytosis Morphology Comment Sodium Potassium Chloride Carbon Dioxide Anion Gap BUN Creatinine GFR Calculation BUN/Creatinine Ratio Glucose POC Glucose 106 150 H 198 H Calculated Osmolality Calcium Phosphorus Magnesium Total Bilirubin AST ALT Alkaline Phosphatase Total Creatine Kinase CK-MB (CK-2) Troponin I Total Protein Albumin Globulin Albumin/Globulin Ratio Prealbumin Triglycerides 01/20/17 01/20/17 01/20/17 04:51 04:53 04:53 WBC 7.6 RBC 3.12 L Hgb 9.2 L Hct 27.7 L MCV 88.8 MCH 30 MCHC 33.2 RDW 14.0 Plt Count 191 MPV 9.3 L Neut % (Auto) 70.4 Lymph % (Auto) 17.0 L [place] % (Auto) 8.7 Eos % (Auto) 2.6 Baso % (Auto) 0.5 Neut # (Auto) 5.3 Lymph # (Auto) 1.3 L [place] # (Auto) 0.7 Eos # (Auto) 0.2 Baso # (Auto) 0.0 Total Counted 100 Immature Gran % 0.8 Nucleated RBC % 0.0 Immature Gran # 0.06 Segmented Neutrophils 73 Band Neutrophils Lymphocytes 18 L Monocytes 6 Eosinophils 2 Basophils 1.0 H Nucleated RBCs 1 Nucleated RBCs # 0.00 Platelet Estimate Adequate Immature Plt Fraction 0.0 Hypochromasia Slight Microcytosis Slight Morphology Comment Sodium 140 Potassium 3.7 Chloride 107 Carbon Dioxide 27 Anion Gap 9.7 BUN 6 L Creatinine 0.60 GFR Calculation 98 BUN/Creatinine Ratio 10.00 Glucose 221 H POC Glucose Calculated Osmolality 283.4 Calcium 7.3 L Phosphorus 2.3 L Magnesium 1.5 L Total Bilirubin AST ALT Alkaline Phosphatase Total Creatine Kinase CK-MB (CK-2) Troponin I Total Protein Albumin Globulin Albumin/Globulin Ratio Prealbumin 9.2 L Triglycerides 381 H 01/20/17 01/20/17 01/20/17 05:26 07:48 11:42 WBC RBC Hgb Hct MCV MCH MCHC RDW Plt Count MPV Neut % (Auto) Lymph % (Auto) [place] % (Auto) Eos % (Auto) Baso % (Auto) Neut # (Auto) Lymph # (Auto) [place] # (Auto) Eos # (Auto) Baso # (Auto) Total Counted Immature Gran % Nucleated RBC % Immature Gran # Segmented Neutrophils Band Neutrophils Lymphocytes Monocytes Eosinophils Basophils Nucleated RBCs Nucleated RBCs # Platelet Estimate Immature Plt Fraction Hypochromasia Microcytosis Morphology Comment Sodium Potassium Chloride Carbon Dioxide Anion Gap BUN Creatinine GFR Calculation BUN/Creatinine Ratio Glucose POC Glucose 215 H 192 H 194 H Calculated Osmolality Calcium Phosphorus Magnesium Total Bilirubin AST ALT Alkaline Phosphatase Total Creatine Kinase CK-MB (CK-2) Troponin I Total Protein Albumin Globulin Albumin/Globulin Ratio Prealbumin Triglycerides 01/20/17 01/20/17 01/20/17 13:53 14:02 14:02 WBC 7.5 RBC 3.21 L Hgb 9.4 L Hct 28.1 L MCV 87.5 MCH 29 MCHC 33.5 RDW 13.7 Plt Count 190 MPV 9.7 Neut % (Auto) 67.2 Lymph % (Auto) 21.1 L [place] % (Auto) 8.4 Eos % (Auto) 2.3 Baso % (Auto) 0.3 Neut # (Auto) 5.0 Lymph # (Auto) 1.6 [place] # (Auto) 0.6 Eos # (Auto) 0.2 Baso # (Auto) 0.0 Total Counted 100 Immature Gran % 0.7 Nucleated RBC % 0.0 Immature Gran # 0.05 Segmented Neutrophils 73 Band Neutrophils 1 Lymphocytes 23 Monocytes 1 L Eosinophils 2 Basophils Nucleated RBCs Nucleated RBCs # 0.00 Platelet Estimate Adequate Immature Plt Fraction 0.0 Hypochromasia Microcytosis Morphology Comment Sodium Potassium Chloride Carbon Dioxide Anion Gap BUN Creatinine GFR Calculation BUN/Creatinine Ratio Glucose POC Glucose 249 H Calculated Osmolality Calcium Phosphorus Magnesium Total Bilirubin AST ALT Alkaline Phosphatase Total Creatine Kinase 29 CK-MB (CK-2) 2.7 Troponin I 0.552 H Total Protein Albumin Globulin Albumin/Globulin Ratio Prealbumin Triglycerides 01/20/17 14:02 WBC RBC Hgb Hct MCV MCH MCHC RDW Plt Count MPV Neut % (Auto) Lymph % (Auto) [place] % (Auto) Eos % (Auto) Baso % (Auto) Neut # (Auto) Lymph # (Auto) [place] # (Auto) Eos # (Auto) Baso # (Auto) Total Counted Immature Gran % Nucleated RBC % Immature Gran # Segmented Neutrophils Band Neutrophils Lymphocytes Monocytes Eosinophils Basophils Nucleated RBCs Nucleated RBCs # Platelet Estimate Immature Plt Fraction Hypochromasia Microcytosis Morphology Comment Sodium 139 Potassium 3.8 Chloride 106 Carbon Dioxide 30 Anion Gap 6.8 BUN 6 L Creatinine 0.70 GFR Calculation 94 BUN/Creatinine Ratio 8.00 Glucose 353 H POC Glucose Calculated Osmolality 288.5 Calcium 7.7 L Phosphorus Magnesium 1.6 L Total Bilirubin < 0.39 AST 43 H ALT 25 Alkaline Phosphatase 91 Total Creatine Kinase CK-MB (CK-2) Troponin I Total Protein 5.4 L Albumin 2.2 L Globulin 3.2 Albumin/Globulin Ratio 0.6 L Prealbumin Triglycerides - Diagnostic Findings Procedure: Chest x-ray: report reviewed by me, CT Abdomen and Pelvis: report reviewed by me - EKG EKG results: interpreted by me EKG shows: tachycardia, sinus rhythm Edgar Hussein Wesley, MD, personally performed the services described in this documentation, ascribed by Demi Aldana RN in my presence, and it is both accurate and complete 642 .
[2017-01-20] MEDS ORDERED: HEPARIN/NACL 0.9% 2 UNITS/ML 0 ML IV ONE (16:58)
[2017-01-20] MEDS ORDERED: LIDOCAINE 1%/EPI INJ 20 ML VIAL ONE ×2 (16:58→17:06)
[2017-01-20] MEDS ORDERED: TRACE ELEMENTS (5) 1 ML, MULTIVITAMIN INJ 10 ML, INSULIN REGULAR 30 UNIT in AMINO ACIDS... IV SCH (17:00)
[2017-01-20] MEDS ORDERED: TRACE ELEMENTS (5) 1 ML, MULTIVITAMIN INJ 10 ML in AMINO ACIDS/DEXT/LYTES 5-15% 2,000 ML IV SCH (17:00)
[2017-01-20] MEDS ORDERED: MORPHINE 2 MG/1 ML SYRINGE IV ONE (17:00)
[2017-01-20] MEDS: ENOXAPARIN 80 MG/0.8 ML SYRINGE SUBCUT SCH (17:00)
[2017-01-20] MEDS: PROPOFOL 1,000 MG/100 ML BOTTLE IV SCH ×2 (17:00→21:37)
[2017-01-20 17:06] LABS: Potassium 3.6 MMOL/L (3.5-5.1)
[2017-01-20] MEDS ORDERED: HEPARIN/NACL 0.9% 2 UNITS/ML 1,000 ML IV ONE (17:06)
[2017-01-20 17:08] LABS: Calcium 8.1 MG/DL (8.5-10.1)
[2017-01-20 17:10] LABS: Albumin 2.6 G/DL (3.4-5.0); Osmolality,Calculated 283.4 MOS/KG (273-304)
[2017-01-20] MEDS ORDERED: ASPIRIN 300 MG SUPP RECTAL ONE (17:13)
--- NOTE | 2017-01-20 17:13 | Anesthesia Procedures ---
Anesthesia Procedures - Intubation Time out performed intubation: No (emergency) Sedative: other (propofol 150 mg) Paralytic: Succinylcholine Mg given paralytic: 120 Laryngoscope: Jameson (mac 4) Assist Device Used: other (stylet) ET Tube Size: 7 ET Tube Uncuffed: No (cuffed) Tube Secured Depth (cm): 22 Tube Secured Location: lips Tube Placement Confirmation: visualized tube passing through cords, equal breath sounds bilaterally, confirmation detector color change Patient tolerated procedure intubation: well, no complications Intubation Complications: none Additional Commets: Called to ccu for emergency intubation, Pt needing mechanical ventilation prior to emergent hearth cath per request of Dr. Hernández, Pt intubated without difficulty, vs stable, HR 120s before and after intubation ( see above) Etomidate 10 mg also given for intubation
[2017-01-20 17:14] LABS: Bilirubin,Total 0.5 MG/DL (0.2-1.0)
[2017-01-20 17:20] LABS: Total Protein 6.1 G/DL (6.4-8.3)
--- NOTE | 2017-01-20 17:24 | History and Physical Update ---
Sedation H&P Update - Dictation Physical: refer to scanned H&P - Sedation Plan for Sedation: other ASA Class: IV Airway Assessment: Class III: Soft palate, base of uvula visible
[2017-01-20 17:30] LABS: Eosinophils 1 % (0-10); Lymphocytes 22 % (20-55); Segmented Neutrophils 67 % (50-85); Total Cells Counted 100
[2017-01-20 17:31] LABS: Platelet Estimate Adequate
[2017-01-20] MEDS ORDERED: fentaNYL 100 MCG/2 ML VIAL ONE (17:34)
[2017-01-20] MEDS ORDERED: ENOXAPARIN 30 MG/0.3 ML SYRINGE ONE (17:36)
[2017-01-20] MEDS: ASPIRIN CHEW 81 MG TABLET PO SCH (17:47)
--- NOTE | 2017-01-20 17:47 | XRay Report ---
History: Change in condition Date: 01/20/2017 Study: Chest x-ray AP portable Comparison exam: January 15, 2017 The endotracheal tube tip overlies the proximal right mainstem bronchus level and should be retracted approximately 3.4 cm. The left PICC line remains in satisfactory position. There is cardiomegaly and pulmonary vascular engorgement. The mediastinal contour is unchanged. There is patchy and hazy pulmonary edema in the perihilar regions. Alejandro B lines are noted in either lung base. There is trace bilateral pleural effusion. Osseous structures are unremarkable. Impression: Cardiomegaly and evidence of CHF with pulmonary edema The endotracheal tube is positioned with its tip overlying the proximal right mainstem bronchus level and should be retracted approximately 3.4 cm PROCEDURE INTERPRETED AT [facility] DEPARTMENT OF RADIOLOGY Final Report Signed by: Dr. Adele Daniels
--- NOTE | 2017-01-20 18:06 | Cardiac Catheterization ---
Date of Procedure:: 01/20/17 Pre-op Diagnosis: Acute coronary syndrome with deterioration in oxygenation and diaphoresis with tachycardia for evaluation Post-op diagnosis: same Procedure: Procedures performed: Left heart catheterization Coronary arteriography Percutaneous coronary intervention to the mid circumflex coronary artery with a 2.0 x 20 mm apex balloon to 10 delores with a reasonably good angiographic result Left ventriculography Ascending aortography [Right] femoral sheath angiography Mynx closure femoral arteriotomy site After obtaining informed consent the patient was brought to the catheterization lab where the [right] groin was prepped and draped in the usual sterile manner. After intravenous sedation and local anesthesia a needle stick was made to the right femoral artery and a [6 [place] sheath] was positioned without difficulty. A left heart catheterization was undertaken using first a El left diagnostic catheter. The catheter was advanced under fluoroscopy over a guidewire and positioned with its tip in the ostium of the left main coronary artery. Multiple angiograms were obtained of the left coronary artery in multiple views. After adequate angiogram to left coronary obtain this catheter was withdrawn and an AMRM right coronary catheter was advanced over a guidewire under fluoroscopic control where angiography of the right coronary artery was undertaken in multiple views. After adequate angiograms of the right coronary artery were obtained this catheter was withdrawn. At this point a EBU 4.0 guide was advanced over guidewire under fluoroscopic control using her left main coronary was engaged. An 014 BMW wire was advanced to the area of occlusion of the circumflex and with manipulation and was passed across the area of occlusion. A 2.0 x 20 mm [place] balloon was advanced to the area stenosis and inflated to maximum 10 delores on 2 different occasions. There appear to be significant improvement in flow down the circumflex coronary artery. Because the patient's bleeding history we elected not to perform stenting. The balloon and wire were pulled back into the guide. Repeat angiography confirmed NURY grade III flow down the vessel with a small distal vessel but an adequate angiographic result. At this point the balloons and wires were pulled back from the guide and removed. The guide was then removed from the sheath. A pigtail ventriculographic catheter was advanced over a guidewire under fluoroscopic control to the ascending aorta where it was advanced across the aortic valve and intraventricular hemodynamics were measured. A ventriculogram was obtained in the SIMON projection and afterward a pullback was obtained from the ventricle to the aorta under hemodynamic monitoring. An ascending aortogram was obtained in the [place] projection injecting 45 cc of contrast at 18 cc/s. This catheter then was removed. At this point the patient underwent right femoral sheath angiography which demonstrated anatomy appropriate for Mynx closure. This was performed without difficulty and good hemostasis was obtained. The patient then was transferred back to the stone having suffered no significant immediate complications. Hemodynamics: Please see the accompanying data sheet Coronary arteriography: Left coronary artery: Left main coronary is well-developed and free of significant obstructing lesions. The circumflex coronary arteries a large nondominant vessel is subtotally occluded in its midportion. It fills very faintly via antegrade flow. There is NURY grade I flow down the vessel. There is also noted to be collaterals from the diagonal and distal LAD. Left anterior descending coronary is a large vessel extends to the apex of ventricle. In the midportion of the LAD just proximal to the takeoff of a fairly small diagonal is an area of probably 50% stenosis. Remainder of the LAD and its branches appear to be free of significant obstructing lesions. Right coronary artery: Right coronary is a large dominant vessel that is completely occluded at its origin. It fills fairly briskly via collaterals from the LAD and from the diagonals and distal LAD. There is dense calcification of the origin of the vessel Left ventriculography: After injection of contrast into the left ventricle is noted to be mildly enlarged with diffuse severe left ventricular hypokinesis. Overall ejection fraction is in the 20% range. There appears to be 2-3+ mitral insufficiency. Ascending aortography: After injection of contrast into the ascending aorta appears to be of normal caliber without evidence of aneurysm or dissection. There is no significant aortic insufficiency noted. Right femoral sheath angiography: After injection of contrast into the arterial sheath it appears to enter at the bifurcation of the profunda and common femoral. There is severe stenosis of the profunda as well as of the common femoral. The proximal iliac appears to be free of significant obstructing lesions. Conclusions: Severe calcified occlusive disease of the right coronary and of the mid circumflex with reasonably good collateralization to both vessels Successful percutaneous intervention of the mid circumflex with a 2.0 x 20 mm apex balloon with NURY grade III flow down the vessel noted end procedure. Cardiomyopathy likely ischemic in origin. Mildly elevated end diastolic pressures at rest Mynx closure right femoral arteriotomy site Discussion and recommendations: Patient presents with tachycardia hypoxemia and elevated troponin. She was brought emergently for cardiac catheterization after intubation to provide hemodynamic stability and protect her airway. With her history of bleeding I did not want to pursue stenting and because of the anatomy I think it was a reasonable approach to angioplasty the mid circumflex. It appeared to be adequately treated with balloon angioplasty. There is NURY grade III flow down the vessel. She has an ischemic cardiomyopathy ejection fraction in the 20% range will be treated aggressively with offloading and appropriate medications. Our findings have been reviewed with the patients family Surgeon / Physician: Calin Hernández Estimated blood loss: none Specimens: none sent Condition: stable - Medications / Follow-up
[2017-01-20 18:10] LABS: Apearance,Urine CLEAR (Clear); Bilirubin,Urine Negative (Negative); Blood, Urine Negative (Negative); Glucose,Urine (UA) >=500 mg/dL (Negative); Ketones,Urine Negative (Negative); Mucus,Urine Occasional /LPF (Occasional); Nitrite,Urine Negative (Negative); Protein,Urine Negative; Squamous Epithelial Cell,Urine Occasional /HPF (0-10); Urine Color Yellow (Yellow); Urine Specific Gravity 1.006 (1.001-1.035); Urine Urobilinogen < 2.0 EU/DL (0.2-1.0); WBC,Urine <1 /HPF (0-6)
[2017-01-20] MEDS ORDERED: MORPHINE 2 MG/1 ML SYRINGE IV PRN (18:21)
[2017-01-20] MEDS ORDERED: CLOPIDOGREL 300 MG TABLET PO ONE (18:24)
--- NOTE | 2017-01-20 19:00 | XRay Report ---
History: Endotracheal tube placement Date: 01/20/2017 at 6:22 PM Study: Chest x-ray AP portable Comparison exam: 01/20/2017 at 4:45 PM The endotracheal tube is well-positioned superior to the megan. The left arm PICC line is in satisfactory position. There is continued cardiomegaly and worsening pulmonary vasculature engorgement. There is worsening diffuse bilateral airspace disease compatible with pulmonary edema. There is increasing mild bilateral pleural effusion. There is no pneumothorax. Osseous structures are unchanged. Impression: Satisfactory positioning of the endotracheal tube. Worsening congestive heart failure and pulmonary edema PROCEDURE INTERPRETED AT [facility] DEPARTMENT OF RADIOLOGY Final Report Signed by: Dr. Adele Daniels
[2017-01-20] MEDS: NITROGLYCERIN 2% OINT 1 INCH/GM PACK TOP SCH (19:17)
[2017-01-20] MEDS ORDERED: SODIUM CHLORIDE 0.9% 1,000 ML IV SCH (19:30)
[2017-01-20] MEDS: FAT EMULSION 20% 250 ML IV SCH (19:46)
[2017-01-20 20:22] LABS: ABG Base Excess -0.6 MMOL/L (-2.5-2.5); ABG HCO3 23.9 MMOL/L (20-26); ABG Oxygen Saturation 98.8 % (95-100); ABG PCO2 46.2 MM HG (35-48); ABG PH 7.345 (7.35-7.45); ABG TCO2 23.3 MMOL/L (23-27)
[2017-01-20 21:09] LABS: CKMB % 15.2 %
[2017-01-20 21:13] LABS: Troponin I Only 1.78 NG/ML (0.00-0.045)
[2017-01-20] MEDS: MIDAZOLAM 100 MG in SODIUM CHLORIDE 0.9% 80 ML IV SCH (22:26)
[2017-01-20] MEDS: CARVEDILOL 12.5 MG TABLET PO SCH (22:45)
[2017-01-20] MEDS: ROSUVASTATIN 20 MG TABLET PO SCH (22:45)
[2017-01-21] MEDS: PROMETHAZINE 25 MG TABLET PO SCH ×4 (01:01→17:28)
[2017-01-21] MEDS: PIPERACILLIN/TAZOBACTAM 3,375 MG in SODIUM CHLORIDE 0.9% 100 ML IV SCH ×3 (01:04→16:54)
[2017-01-21] MEDS: INSULIN LISPRO 100 UNIT/ML SUBCUT SCH ×4 (01:04→17:20)
[2017-01-21] MEDS: NITROGLYCERIN 2% OINT 1 INCH/GM PACK TOP SCH ×4 (01:04→17:19)
[2017-01-21] MEDS: PROPOFOL 1,000 MG/100 ML BOTTLE IV SCH ×4 (02:54→19:25)
[2017-01-21 03:26] LABS: ABG Base Excess 0.7 MMOL/L (-2.5-2.5); ABG Oxygen Saturation 96.7 % (95-100); ABG PCO2 41.5 MM HG (35-48); ABG PH 7.398 (7.35-7.45); ABG PO2 87.1 MM HG (80-95); ABG TCO2 23.6 MMOL/L (23-27); Allen Test Positive; Pt O2 Delivery Device Ventilator
[2017-01-21] MEDS: metroNIDAZOLE INJ 500 MG in PREMIX 1 EACH IV SCH ×3 (05:28→22:16)
[2017-01-21] MEDS: SODIUM CHLORIDE 0.9% 1,000 ML IV SCH (05:28)
[2017-01-21] MEDS: ENOXAPARIN 80 MG/0.8 ML SYRINGE SUBCUT SCH (05:28)
[2017-01-21 05:45] LABS: Basophils % 0.2 % (0.0-0.8); Eosinophils # 0.1 10*3/uL (0.0-0.87); Eosinophils % 1.4 % (0.00-10.9); Hematocrit 24.1 VOL% (35.7-47.0); Hemoglobin 8.6 GM/DL (12.0-16.0); Immature Granulocytes % 0.9 %; Immature Granulocytes Absolute 0.08 #; Lymphocytes # 1.5 10*3/uL (1.4-4.0); Lymphocytes % 17.6 % (21.3-54.2); Mean Corpuscular HGB Conc 35.7 GM/DL (32-36); Mean Corpuscular Hemoglobin 32 PG (27-34); Mean Corpuscular Volume 88.6 FL (87-102); Mean Platelet Volume 10.1 FL (9.6-12.0); Monocytes # 0.7 10*3/uL (0.11-0.8); Monocytes % 8.1 % (1.7-12.7); Neutrophils # 6.3 10*3/uL (1.4-7.4); Neutrophils % 71.8 % (38.7-73.9); Platelet Count 207 T/CUMM (130-400); Red Blood Count 2.72 MC/CUMM (3.8-5.5); Red Cell Distribution Width 14.1 % (9.3-17.3); White Blood Count 8.8 T/CUMM (4-12)
[2017-01-21 05:58] LABS: Band Neutrophils 1 % (0-10); Eosinophils 1 % (0-10); Giant Platelets Few; Lymphocytes 17 % (20-55); Platelet Estimate Adequate; Segmented Neutrophils 77 % (50-85); Total Cells Counted 100
[2017-01-21 05:59] LABS: Hypochromasia 1+; Microcytosis Slight
[2017-01-21 06:10] LABS: Calcium 6.9 MG/DL (8.5-10.1); Osmolality,Calculated 286.4 MOS/KG (273-304); Potassium 3.1 MMOL/L (3.5-5.1)
[2017-01-21 06:16] LABS: CKMB % 22.3 %
[2017-01-21] MEDS ORDERED: FUROSEMIDE 40 MG/4 ML VIAL IV ONE ×2 (06:17→07:47)
[2017-01-21 06:26] LABS: Troponin I Only 3.87 NG/ML (0.00-0.045)
--- NOTE | 2017-01-21 06:59 | EKG Report ---
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
--- NOTE | 2017-01-21 07:21 | Pulmonology Consult Note ---
Assessment and Plan (1) Congestive heart failure Status: Acute Assessment and plan: This is due to valvular and ischemic heart disease with low cardiac output ejection fraction 20%. Chest x-ray looks wet this morning. Blood pressure acceptable. Agree with Lasix. Decrease IV fluids. Reduce TPN for now. 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 Current Visit: No (2) Coronary artery disease Status: Chronic Assessment and plan: Patient had acute coronary syndrome yesterday evening and had a cath with dilatation of circumflex artery. Defer to cardiology. Current Visit: Yes (3) History of percutaneous coronary intervention Status: Acute Assessment and plan: Dilatation of circumflex yesterday. Current Visit: No (4) Diabetes 1.5, managed as type 2 Status: Acute Assessment and plan: Sliding scale insulin. Glucoses around 200-300 for the most part. Current Visit: No (5) Acute posthemorrhagic anemia Status: Acute Assessment and plan: Hematocrit is down to 24 today. Probably needs transfusion. Will need additional Lasix with that. Current Visit: Yes (6) Acute respiratory failure Status: Acute Assessment and plan: Present time this is caused by acute coronary syndrome with congestive heart failure, GI bleeding. We need to diurese her and transfuse her and then should be able to get her weaned. Current Visit: Yes History of Present Illness Chief complaint: Respiratory failure History of present illness: Ms. Valladares is a 66 year old female who came in 6 days ago with abdominal pain. She was found to have ischemic colitis. Also had acute kidney injury and hyponatremia. She had some GI bleeding. She has been transfused. She developed chest pain and diaphoresis yesterday with an elevation in her troponin. She was taken emergently to [facility] after being intubated in the ICU. She had her circumflex lesion dilated. No stents were used because that cannot use anticoagulants in view of her recent GI bleed. At the present time she is on the ventilator sedated. She is getting TPN. Also getting some IV fluids. Her weight is up in her chest x-ray looks a little wet. Home Medications Medication Instructions Recorded Confirmed Type Aspirin [Ecotrin] 81 mg PO DAILY 01/13/15 01/15/17 History Atorvastatin Calcium [Lipitor] 80 mg PO BEDTIME 01/13/15 01/15/17 History Colestipol [Colestid] 1 gm PO BEDTIME 01/13/15 01/15/17 History Furosemide Tab [Lasix Tab] 20 mg PO DAILY 01/13/15 01/15/17 History Potassium Chloride Cap/Tab [K Dur] 10 meq PO DAILY 01/13/15 01/15/17 History Saccharomyces Boulardii [Probiotic] 250 mg PO DAILY 01/13/15 01/15/17 History Sertraline [Zoloft] 12.5 mg PO DAILY tablet 01/24/15 01/15/17 Rx Amitriptyline HCl [Amitriptyline 25 mg PO DAILY 01/15/17 01/15/17 History HCl] Amitriptyline HCl [Amitriptyline 100 mg PO BEDTIME 01/15/17 01/15/17 History HCl] Azithromycin Tab [Zithromax Tab] 250 mg PO DAILY 01/15/17 01/15/17 History Benzonatate [Tessalon] 200 mg PO TID PRN 01/15/17 01/15/17 History Captopril [Capoten] 6.25 mg PO DAILY 01/15/17 01/15/17 History Carvedilol [Coreg] 6.25 mg PO BID W/MEALS 01/15/17 01/15/17 History Doxylamine/Phenylephrine [Poly 1 tablet PO TID PRN 01/15/17 01/15/17 History Hist Forte] Gabapentin [Gabapentin] 300 mg PO TID 01/15/17 01/15/17 History Insulin NPH Hum/Reg Insulin Hm 55 unit SUBCUT BEDTIME 01/15/17 01/15/17 History [NovoLIN 70/30] Insulin NPH Hum/Reg Insulin Hm 60 unit SUBCUT AC BREAKFAST 01/15/17 01/15/17 History [NovoLIN 70/30] Metformin HCl [Metformin HCl] 1,000 mg PO BID W/MEALS 01/15/17 01/15/17 History [place]-3S/Dha/Epa/Fish Oil [Fish 1,200 mg PO DAILY 01/15/17 01/15/17 History Oil 1,200 mg Softgel] Promethazine Tab [Phenergan Tab] 25 mg PO Q12H PRN 01/15/17 01/15/17 History Spironolactone [Aldactone] 6.25 mg PO BEDTIME 09/08/17 09/08/17 History Zolpidem Tartrate [Zolpidem 5 mg PO BEDTIME 01/15/17 01/15/17 History Tartrate] metOLazone [Zaroxolyn] 2.5 mg PO Q7D 01/15/17 01/15/17 History Allergies Allergy/AdvReac Type Severity Reaction Status Date / Time adhesive tape Allergy Mild RASH Verified 01/16/17 00:45 Oxycodone [From OxyContin] AdvReac Intermediate Nausea Verified 01/16/17 00:45 ROS unobtainable: due to endotracheal tube Exam (Pulmonay) H&P - Constitutional Vitals: Period Temp Pulse Resp BP Sys/Richards Pulse Ox Last 24 Hr 96.2 F-98.7 F 67-125 11-25 85-186/38-100 91-100 Exam: Vital signs normal. She is somewhat pale. Blood pressure 102/47. Pupils react to light. Orotracheal tube in place. Neck is supple no bruits. Chest shows some basilar crackles. Heart normal rate rhythm no murmurs. Abdomen soft no masses. Bowel sounds present. Extremities no clubbing cyanosis or edema. Medical,Surgical,& Family Hx - Medical History Cardio: History of: Aneurysm (AAA with repair), CHF, CAD No history of: Hypertension, DC Neurology: History of: Peripheral Neuropathy No history of: Multiple Sclerosis, Seizures, TIA, Vertigo, Neurologocal Cancer Endocrine: History of: Diabetes Mellitus (IDDM), Dyslipidemia Respiratory: History of: Pneumonia Genitourinary: History of: Recurring Urinary Tract Infections Gastrointestinal: History of: GI Problems (gastroperesis) Musculoskeletal: History of: Amputation (left greattoe and knuckles of next 2 toe) Hematology: History of: Anemia Other: History of: Miscellaneous Medical Problems (Skin graft to bilateral groins) - Surgical History Cardiac Surgeries: Sugical HX of: Femoral-Popliteal Bypass Graft (Aortofemoral bypass), Cardiac Catheterization Patient Denies: Cardiac Surgery, Carotid Endarterectomy, Internal Defibrillator, Vascular Access Devices Thoracic Surgeries: Patient denies;: Organ Transplant Neurologic Surgeries: Patient denies: Neurologic Surgery HEENT Surgeries: Patient denies: Carotid Endarterectomy Abdominal Surgeries: Surgical HX of: Abdominal Surgery, Appendectomy, Cholecystectomy Patient denies: Splenectomy Reproductive Surgeries: Surgical HX of;: Hysterectomy Patient denies;: Genitourinary Surgery Orthopedic Surgeries: Patient denies;: Implanted Devices - Family History Family History: Reports;: Family Cancer, Family Diabetes (Sibling), Family Heart Disease (Mother, sibling) Denies;: Family Hematology, Family Hypertension, Family Psychiatric Problems , Family Stroke, Additional Family History - Social History Smoking Status: Former smoker (Quit 3 years ago) Frequency of Alcohol Use: None Type of Drug Use: None Results - Labs CBC & BMP: 01/21/17 04:58 01/21/17 04:58 Lab Results: I have reviewed the past 24 hour labs - Diagnostic Findings Procedure: Chest x-ray: image reviewed by me (Chest x-ray shows increased interstitial edema and small pleural effusions. ET tube in acceptable position. ) Quality Measures - VTE Contraindication to Pharmacological VTE Prophylaxis: High Risk of Bleeding
[2017-01-21] MEDS ORDERED: SODIUM CHLORIDE 0.9% 250 ML IV PRN (07:47)
--- NOTE | 2017-01-21 07:55 | Internal Med Progress Note ---
Assessment and Plan (1) Abdominal pain Status: Acute Assessment and plan: 66-year-old female admitted to acute * Acute non-STEMI. Patient underwent angioplasty yesterday evening. Continue care per cardiology * Severe ischemic cardiomyopathy. Ejection fraction about 20%. Will be started on Lasix * Anemia. Will transfuse her to keep hematocrit above 28 * Acute ischemic colitis. She is improving clinically. Continue antibiotics. * Hypertension. Blood pressure is stable * Diabetes. Continue sliding scale * Discussed yesterday evening with her Current Visit: Yes Qualifiers: Abdominal location: left lower quadrant Qualified Code(s): R10.32 - Left lower quadrant pain (2) Acute posthemorrhagic anemia Status: Acute Current Visit: Yes (3) Enterocolitis Status: Acute Current Visit: Yes Internal Medicine - PN: Subj Interval history: Patient is comfortable on the ventilator. She is being sedated. Exam (Progress Note) - Constitutional Vitals: Period Temp Pulse Resp BP Sys/Richards Pulse Ox Last 24 Hr 96.2 F-98.7 F 67-125 11-25 85-186/38-100 91-100 Exam: Examination: GENERAL: NAD. NECK: Neck is supple. CVS: Regular rate and rhythm. S1 and S2 are normal. RESPIRATORY: Rales at bases. Right greater than left ABDOMEN: Soft and non-tender. No rebound or rigidity. EXT: No edema. Peripheral pulses are present. 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 SKIN: Warm and dry MSK: No obvious deformity. Results - Labs CBC & BMP: 01/21/17 04:58 01/21/17 04:58 Lab Results: I have reviewed the past 24 hour labs Quality Measures - VTE Contraindication to Pharmacological VTE Prophylaxis: High Risk of Bleeding
--- NOTE | 2017-01-21 08:18 | XRay Report ---
XR chest 1V portable Indication: Intubation Comparison: 20 January 2017 Findings: The heart and mediastinum are stable in size and configuration. The lines and tubes are unchanged in position. The pulmonary vascularity is improved with decreasing pulmonary densities. No other lung infiltrates, effusions, pneumothorax or other abnormality is demonstrated. Impression: Improving cardiac decompensation. PROCEDURE INTERPRETED AT [facility] DEPARTMENT OF RADIOLOGY Final Report Signed by: Dr. Mg Lucas
[2017-01-21] MEDS ORDERED: ASPIRIN 300 MG SUPP RECTAL SCH (09:00)
[2017-01-21] MEDS ORDERED: LOSARTAN 25 MG TABLET PO SCH (09:00)
[2017-01-21] MEDS ORDERED: CLOPIDOGREL 75 MG TABLET PO SCH (09:00)
[2017-01-21] MEDS ORDERED: ASPIRIN 325 MG TABLET PO SCH (09:00)
[2017-01-21] MEDS: SERTRALINE 25 MG TABLET PO SCH (09:04)
[2017-01-21] MEDS: CARVEDILOL 12.5 MG TABLET PO SCH ×2 (09:04→17:20)
[2017-01-21] MEDS: GABAPENTIN 100 MG CAPSULE PO SCH ×3 (09:04→22:15)
[2017-01-21] MEDS: LOSARTAN 25 MG TABLET PO SCH (09:05)
[2017-01-21] MEDS: ASPIRIN CHEW 81 MG TABLET PO SCH (09:05)
[2017-01-21] MEDS: INSULIN GLARGINE 100 UNIT/ML SUBCUT SCH ×2 (09:08→22:15)
[2017-01-21] MEDS: POTASSIUM CHLORIDE RIDER 20 MEQ in PREMIX 1 EACH IV PRN ×2 (09:32→11:21)
[2017-01-21] MEDS: PANTOPRAZOLE 40 MG TABLET PO SCH (09:39)
--- NOTE | 2017-01-21 11:19 | Pain Management Progress Note ---
Assessment and Plan (1) Abdominal pain Status: Acute Assessment and plan: 01/21/2017. Events noted. On ventilator. Will follow after extubation. n 01/20/2017. Overall the patient is slowly improving. We will start weaning IV morphine. y 01/19/2017. The patient has overall clinically improved. Less abdominal tenderness. Less complaints of pain. Still needing supplemental analgesics. I will continue to follow with you. n 01/18/2017. She continues to complain of significant abdominal pain, somewhat better since she has taken the pain medicines. The oral medicines do help calm the overall pain down, and having to take less of the IV morphine. We will add low-dose gabapentin for the neuropathic component of pain. Will continue to follow closely with you. y 01/17/2017. The patient is a very pleasant 66-year-old female known to me. I treated her for low back pain in the past. She was doing reasonably well with no significant pain and no pain medicines until 3 days ago when she developed increasing abdominal pain. Abdominal pain possibly related to ischemic colitis. The pain is constant throbbing pain worse with movement and with eating. The morphine seems to help when given IV but does not last. Now that she is taking p.o. I would like to try her her on oral pain medicines, these may cause less constipation and also the last longer. I will follow with you. y Current Visit: Yes Qualifiers: Qualified Code(s): R10.32 - Left lower quadrant pain Pain - Subjective Interval history: On vent Exam - Constitutional Vitals: Period Temp Pulse Resp BP Sys/Richards Pulse Ox Last 24 Hr 96.2 F-99.3 F 67-125 11-25 85-186/38-100 91-100 Results - Labs CBC & BMP: 01/21/17 04:58 01/21/17 04:58 Quality Measures - VTE Contraindication to Pharmacological VTE Prophylaxis: High Risk of Bleeding
--- NOTE | 2017-01-21 11:55 | Gastrointestinal Progress Note ---
Assessment and Plan (1) Abdominal pain Status: Acute Assessment and plan: 01/21-sedated and ventilated. Findings of yesterday noted as below. H&H down without overt bleeding. Continue to monitor this time. Plan an addendum to follow Dr. Daniels. 01/20-Abd pain improved. No N/V, no rectal bleeding .To be transferred to floor today. TPN initiated. Plan and addendum to follow by Dr Daniels. 01/19-continued abdominal pain without nausea or vomiting. No reports of rectal bleeding. H&H remained stable. Dietitian consult pending for TPN. Plan an addendum to followed by Dr. Daniels. 01/18-onset of abdominal pain with nausea and vomiting as well as rectal bleeding. Colonoscopy findings noted as below. H&H stable at 02/04. PICC line placed with initiation of TPN today. Stool studies negative. WBCs improved at 9000. Continue with IV antibiotics at present time. Plan an addendum to followed by Dr. Daniels. Current Visit: Yes Qualifiers: Abdominal location: left lower quadrant Qualified Code(s): R10.32 - Left lower quadrant pain Gastroenterology - PN: Subj Interval history: CC: Abdominal pain Patient is seen, sedated and ventilated after a heart alert was called on yesterday after she was transferred to the floor. 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 Also notation of ischemic cardiomyopathy with an EF 20%. Patient is noted to have a drop in her H&H from yesterday at 03/09 down to . Nursing staff is seeing no overt bleeding at this time. She is being transfused 2 units of packed red blood cells. Abdomen is soft, nontender. ROS: No acute distress at present time. Exam (Progress Note) - Constitutional Vitals: Period Temp Pulse Resp BP Sys/Richards Pulse Ox Last 24 Hr 96.2 F-99.3 F 67-125 11-25 85-186/38-100 91-100 - Other Additional findings: General appearance: normal weight, no acute distress - Head Head exam: Present: normal inspection, normocephalic - Eye Eye exam: Present: other (Lids and conjunctivae are unremarkable). Absent: scleral icterus - ENT ENT exam: Present: normal exam, normal oropharynx - Neck Neck exam: Present: normal inspection - Respiratory Respiratory exam: Present: clear to auscultation bilaterally. Absent: rales, rhonchi, wheezes - Cardiovascular Cardiovascular exam: Present: regular rate and rhythm. Absent: diastolic murmur , JVD, systolic murmur - GI/Abdominal GI/Abdominal exam: Present: normal bowel sounds, tenderness, soft. Absent: ascites, distended, mass, organomegaly - Extremities Exam Extremities exam: Present: normal inspection, full ROM - Back Exam Back exam: Present: normal inspection - Neurological Exam Neurological exam: Present: Sedated - Psychiatric Psychiatric exam: Present: Sedated - Skin Skin exam: Present: normal color, warm, dry Results - Labs CBC & BMP: 01/21/17 04:58 01/21/17 04:58 Lab Results: I have reviewed the past 24 hour labs
[2017-01-21] MEDS: FAT EMULSION 20% 250 ML IV SCH (13:38)
--- NOTE | 2017-01-21 16:42 | Cardiology Progress Note ---
Chet Hussein Vanessa, RN, am scribing for, and in the presence of, Calin Hernández MD 16:42. Assessment and Plan - Time spent with patient Time spent with patient: Greater than 30 minutes (1) Non-STEMI (non-ST elevated myocardial infarction) Status: Acute Assessment and plan: SEE PLAN OF CARE LISTED BELOW. Current Visit: Yes (2) CAD (coronary artery disease) Status: Chronic Assessment and plan: SEE PLAN OF CARE LISTED BELOW. Current Visit: Yes (3) Diabetes Status: Chronic Assessment and plan: SEE PLAN OF CARE LISTED BELOW. Current Visit: Yes (4) Dyslipidemia Status: Chronic Assessment and plan: SEE PLAN OF CARE LISTED BELOW. Current Visit: Yes (5) Ischemic cardiomyopathy Status: Chronic Assessment and plan: SEE PLAN OF CARE LISTED BELOW. Current Visit: Yes (6) Acute posthemorrhagic anemia Status: Acute Assessment and plan: SEE PLAN OF CARE LISTED BELOW. Current Visit: Yes (7) Enterocolitis Status: Acute Assessment and plan: SEE PLAN OF CARE LISTED BELOW. Current Visit: Yes (8) Hypokalemia Status: Acute Assessment and plan: SEE PLAN OF CARE LISTED BELOW. Current Visit: Yes Cardiology - PN: Subj Interval history: PATIENT RELATIONS LIAISON: DR. GARDNER SUMMARY: Ms. Valladares, 66-year-old WF, PMHx CAD, PAD, diabetes, hypertension, dyslipidemia , and former tobacco use. Surgical history include aortofemoral bypass previous PCI with stent placement at [facility] approximately 2009. Last stress test was normal in clinic February [address] Gardner. Previous echo June 2015 in clinic with EF 45-55%. Patient was admitted to ICU on 01/15 with abdominal pain, bright red rectal bleeding, and colonoscopy revealed severe ischemic colitis. She also had acute kidney injury and hyponatremia which is improved. H&H remained stable, colitis improved, and patient was able to be transferred to [facility] floor on 01/20. Later in the afternoon after transfer to [facility] room, patient developed sudden onset of crushing chest pain associated nausea, diaphoresis, tachycardia. EKG with IVCD, left bundle branch block, with slight troponin bump 0.552. She was transferred back to CCU, was electively intubated due to oxygenation levels high 80s-low 90s, and was taken emergently to cardiac analytical laboratory technician for suspected ACS. Cardiac cath with severe calcified occlusive disease of the RCA and mid circumflex vessel with reasonably good collateralization. Underwent successful PTCA of the mid circumflex with NURY grade III flow postprocedure, and noted to have ischemic cardiomyopathy with severely hypokinesis and reduced EF 20% 2-3+ mitral insufficiency. Patient is now being treated aggressively and cautious with offloading in the face of acute ischemic colitis with hemorrhagic anemia and now acute non-STEMI post PTCA. 2016: Patient intubated and sedated this morning in the CCU. Appears comfortable with mechanical ventilation. Hematocrit 28% this morning. Being transfused with 2 units PRBCs today. Normal platelet count. SBP 85-100 mmHg range, not requiring vasopressor support at this time. Chest x-ray this morning with slight improvement of pulmonary edema. Positive troponin 3.870, CPK 15.8. Hypokalemic, 3.1, hypocalcemic 6.9. Renal function stable status post contrast exposure. 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 No ectopy or sustained arrhythmia. RFA cath site stable without bruise, hematoma. Distal pulses palpable. ASSESSMENT/PLAN: 1. NSTEMI-now status post PTCA of mid circumflex. Has severe occlusive disease of RCA and circumflex vessel with good collateralization of both. Continue low dose ASA. Plavix held at this time due to acute anemia. ARB, beta yuval, and statin are all continued. 2. CAD-continue current plan of care. EKG is stable. 3. ISCHEMIC CARDIOMYOPATHY-severely reduced EF 20% with acute non-STEMI. Continue offloading, IV diuresis. Monitor daily weight, I/O, BMP. 4. HTN-borderline hypotensive this morning but stable. 5. DIABETES-glucose levels 200-300. Management per attending physician. 6. POSTHEMORRHAGIC ANEMIA-Will have to be extremely cautious with use of anticoagulation. Requiring transfusion this morning for HCT 24%. Follow up CBC. 7. ACUTE ISCHEMIC COLITIS-appears to be resolving. Receiving IV antibiotics 8. DYSLIPIDEMIA-rosuvastatin 40 mg nightly continued post PTCA. 9. HYPOKALEMIA-K+ 3.1. Being repleted with IV KCL per PRN protocol. Follow up K+ . I have discussed in detail the particulars of this case and I have examined the patient and reviewed the patient's chart both current and old. I was directly involved in the patient's evaluation and management and I completely agree with Martine Rosenberg RN regarding this patient's evaluation and treatment plan. Exam (Progress Note) - Constitutional Vitals: Period Temp Pulse Resp BP Sys/Richards Pulse Ox Last 24 Hr 96.2 F-98.7 F 67-125 11-25 85-186/38-100 91-100 Exam: General: Present: intubated and sedated. appears comfortable on ventilator. HEENT: Present: PERRL. Absent: fixed, dilated Neck: Present: Supple Neck, Midline Trachea, No Bruit Cardiac: Present: Reg Rate and Rhythm, Systolic Murmur. No tachycardia or bradycardia. No JVD Lungs: Present: bibasilar rales-slightly greater on right than left Neuro: Other: unable to adequately assess due to sedation with mechanical ventilation. will respond appropriately, follow commands with sedation held. Abdomen: Present: Soft, Active Bowel Sounds, Tender. Absent: Distended, firm Skin: Present: pallor. Absent: Rash, Suspicious Lesions, cyanosis. Skin is warm and dry. Musculoskeletal: Present: Decreased Range of Motion Extremities: Present: No Edema, Normal Upper Extr. Pulses, Normal Lower Extr. Pulses. Normal capillary refill. Decreased range of motion (d/t intubation). Other: RFA cath site stable without hematoma, bruise Result/EKG - Labs CBC & BMP: 01/21/17 04:58 01/21/17 04:58 Lab Results: I have reviewed the past 24 hour labs Labs: Laboratory Results - last 24 hr 01/20/17 01/20/17 01/20/17 11:42 13:53 14:02 WBC RBC Hgb Hct MCV MCH MCHC RDW Plt Count MPV Neut % (Auto) Lymph % (Auto) [place] % (Auto) Eos % (Auto) Baso % (Auto) Neut # (Auto) Lymph # (Auto) [place] # (Auto) Eos # (Auto) Baso # (Auto) Total Counted Immature Gran % Nucleated RBC % Immature Gran # Segmented Neutrophils Band Neutrophils Lymphocytes Monocytes Eosinophils Nucleated RBCs # Platelet Estimate Giant Platelets Immature Plt Fraction Hypochromasia Microcytosis ABG pH ABG pCO2 ABG pO2 ABG HCO3 ABG Total CO2 ABG O2 Saturation ABG Base Excess FiO2 Sodium Potassium Chloride Carbon Dioxide Anion Gap BUN Creatinine GFR Calculation BUN/Creatinine Ratio Glucose POC Glucose 194 H 249 H Calculated Osmolality Calcium Magnesium Total Bilirubin AST ALT Alkaline Phosphatase Total Creatine Kinase 29 CK-MB (CK-2) 2.7 CK and CKMB Interp Troponin I 0.552 H Total Protein Albumin Globulin Albumin/Globulin Ratio Urine Color Urine Appearance Urine pH Ur Specific [place] Urine Protein Urine Glucose (UA) Urine Ketones Urine Blood Urine Nitrate Urine Bilirubin Urine Urobilinogen Urine Leukocytes Urine WBC Ur Squamous Epith Cells Urine Mucus Ur Culture Indicated? 01/20/17 01/20/17 01/20/17 14:02 14:02 16:23 WBC 7.5 RBC 3.21 L Hgb 9.4 L Hct 28.1 L MCV 87.5 MCH 29 MCHC 33.5 RDW 13.7 Plt Count 190 MPV 9.7 Neut % (Auto) 67.2 Lymph % (Auto) 21.1 L [place] % (Auto) 8.4 Eos % (Auto) 2.3 Baso % (Auto) 0.3 Neut # (Auto) 5.0 Lymph # (Auto) 1.6 [place] # (Auto) 0.6 Eos # (Auto) 0.2 Baso # (Auto) 0.0 Total Counted 100 Immature Gran % 0.7 Nucleated RBC % 0.0 Immature Gran # 0.05 Segmented Neutrophils 73 Band Neutrophils 1 Lymphocytes 23 Monocytes 1 L Eosinophils 2 Nucleated RBCs # 0.00 Platelet Estimate Adequate Giant Platelets Immature Plt Fraction 0.0 Hypochromasia Microcytosis ABG pH ABG pCO2 ABG pO2 ABG HCO3 ABG Total CO2 ABG O2 Saturation ABG Base Excess FiO2 Sodium 139 140 Potassium 3.8 3.6 Chloride 106 106 Carbon Dioxide 30 25 Anion Gap 6.8 12.6 BUN 6 L 6 L Creatinine 0.70 0.60 GFR Calculation 94 99 BUN/Creatinine Ratio 8.00 10.00 Glucose 353 H 229 H POC Glucose Calculated Osmolality 288.5 283.4 Calcium 7.7 L 8.1 L Magnesium 1.6 L Total Bilirubin < 0.39 0.50 AST 43 H 54 H ALT 25 28 Alkaline Phosphatase 91 101 Total Creatine Kinase CK-MB (CK-2) CK and CKMB Interp Troponin I Cancelled Total Protein 5.4 L 6.1 L Albumin 2.2 L 2.6 L Globulin 3.2 3.5 Albumin/Globulin Ratio 0.6 L 0.7 L Urine Color Urine Appearance Urine pH Ur Specific [place] Urine Protein Urine Glucose (UA) Urine Ketones Urine Blood Urine Nitrate Urine Bilirubin Urine Urobilinogen Urine Leukocytes Urine WBC Ur Squamous Epith Cells Urine Mucus Ur Culture Indicated? 01/20/17 01/20/17 01/20/17 16:23 16:25 18:00 WBC 11.6 D RBC 3.67 L Hgb 10.7 L Hct 31.8 L MCV 86.6 L MCH 29 MCHC 33.6 RDW 13.7 Plt Count 216 MPV 9.6 Neut % (Auto) 67.4 Lymph % (Auto) 21.6 [place] % (Auto) 8.5 Eos % (Auto) 1.4 Baso % (Auto) 0.3 Neut # (Auto) 7.8 H Lymph # (Auto) 2.5 [place] # (Auto) 1.0 H Eos # (Auto) 0.2 Baso # (Auto) 0.0 Total Counted 100 Immature Gran % 0.8 Nucleated RBC % 0.0 Immature Gran # 0.09 Segmented Neutrophils 67 Band Neutrophils Lymphocytes 22 Monocytes 10 Eosinophils 1 Nucleated RBCs # 0.00 Platelet Estimate Adequate Giant Platelets Immature Plt Fraction 0.0 Hypochromasia Microcytosis ABG pH ABG pCO2 ABG pO2 ABG HCO3 ABG Total CO2 ABG O2 Saturation ABG Base Excess FiO2 Sodium Potassium Chloride Carbon Dioxide Anion Gap BUN Creatinine GFR Calculation BUN/Creatinine Ratio Glucose POC Glucose 227 H Calculated Osmolality Calcium Magnesium Total Bilirubin AST ALT Alkaline Phosphatase Total Creatine Kinase CK-MB (CK-2) CK and CKMB Interp Troponin I Total Protein Albumin Globulin Albumin/Globulin Ratio Urine Color Yellow Urine Appearance Clear Urine pH 6.0 Ur Specific [place] 1.006 Urine Protein Negative Urine Glucose (UA) >=500 Urine Ketones Negative Urine Blood Negative Urine Nitrate Negative Urine Bilirubin Negative Urine Urobilinogen < 2.0 H Urine Leukocytes Negative Urine WBC <1 Ur Squamous Epith Cells Occasional Urine Mucus Occasional Ur Culture Indicated? Not indicated 01/20/17 01/20/17 01/21/17 20:00 20:09 00:03 WBC RBC Hgb Hct MCV MCH MCHC RDW Plt Count MPV Neut % (Auto) Lymph % (Auto) [place] % (Auto) Eos % (Auto) Baso % (Auto) Neut # (Auto) Lymph # (Auto) [place] # (Auto) Eos # (Auto) Baso # (Auto) Total Counted Immature Gran % Nucleated RBC % Immature Gran # Segmented Neutrophils Band Neutrophils Lymphocytes Monocytes Eosinophils Nucleated RBCs # Platelet Estimate Giant Platelets Immature Plt Fraction Hypochromasia Microcytosis ABG pH 7.345 L ABG pCO2 46.2 ABG pO2 154.0 H ABG HCO3 23.9 ABG Total CO2 23.3 ABG O2 Saturation 98.8 ABG Base Excess -0.6 FiO2 Sodium Potassium Chloride Carbon Dioxide Anion Gap BUN Creatinine GFR Calculation BUN/Creatinine Ratio Glucose POC Glucose 250 H Calculated Osmolality Calcium Magnesium Total Bilirubin AST ALT Alkaline Phosphatase Total Creatine Kinase 73 D CK-MB (CK-2) 11.1 H D CK and CKMB Interp 15.2 Troponin I 1.780 H D Total Protein Albumin Globulin Albumin/Globulin Ratio Urine Color Urine Appearance Urine pH Ur Specific [place] Urine Protein Urine Glucose (UA) Urine Ketones Urine Blood Urine Nitrate Urine Bilirubin Urine Urobilinogen Urine Leukocytes Urine WBC Ur Squamous Epith Cells Urine Mucus Ur Culture Indicated? 01/21/17 01/21/17 01/21/17 03:20 04:58 04:58 WBC 8.8 RBC 2.72 L D Hgb 8.6 L D Hct 24.1 L MCV 88.6 MCH 32 MCHC 35.7 RDW 14.1 Plt Count 207 MPV 10.1 Neut % (Auto) 71.8 Lymph % (Auto) 17.6 L [place] % (Auto) 8.1 Eos % (Auto) 1.4 Baso % (Auto) 0.2 Neut # (Auto) 6.3 Lymph # (Auto) 1.5 [place] # (Auto) 0.7 Eos # (Auto) 0.1 Baso # (Auto) 0.0 Total Counted 100 Immature Gran % 0.9 Nucleated RBC % 0.0 Immature Gran # 0.08 Segmented Neutrophils 77 Band Neutrophils 1 Lymphocytes 17 L Monocytes 4 Eosinophils 1 Nucleated RBCs # 0.00 Platelet Estimate Adequate Giant Platelets Few Immature Plt Fraction 0.0 Hypochromasia 1+ Microcytosis Slight ABG pH 7.398 ABG pCO2 41.5 ABG pO2 87.1 ABG HCO3 25.0 ABG Total CO2 23.6 ABG O2 Saturation 96.7 ABG Base Excess 0.7 FiO2 50.00 Sodium Potassium Chloride Carbon Dioxide Anion Gap BUN Creatinine GFR Calculation BUN/Creatinine Ratio Glucose POC Glucose Calculated Osmolality Calcium Magnesium Total Bilirubin AST ALT Alkaline Phosphatase Total Creatine Kinase 71 CK-MB (CK-2) 15.8 H CK and CKMB Interp 22.3 Troponin I 3.870 H D Total Protein Albumin Globulin Albumin/Globulin Ratio Urine Color Urine Appearance Urine pH Ur Specific [place] Urine Protein Urine Glucose (UA) Urine Ketones Urine Blood Urine Nitrate Urine Bilirubin Urine Urobilinogen Urine Leukocytes Urine WBC Ur Squamous Epith Cells Urine Mucus Ur Culture Indicated? 01/21/17 01/21/17 04:58 05:27 WBC RBC Hgb Hct MCV MCH MCHC RDW Plt Count MPV Neut % (Auto) Lymph % (Auto) [place] % (Auto) Eos % (Auto) Baso % (Auto) Neut # (Auto) Lymph # (Auto) [place] # (Auto) Eos # (Auto) Baso # (Auto) Total Counted Immature Gran % Nucleated RBC % Immature Gran # Segmented Neutrophils Band Neutrophils Lymphocytes Monocytes Eosinophils Nucleated RBCs # Platelet Estimate Giant Platelets Immature Plt Fraction Hypochromasia Microcytosis ABG pH ABG pCO2 ABG pO2 ABG HCO3 ABG Total CO2 ABG O2 Saturation ABG Base Excess FiO2 Sodium 140 Potassium 3.1 L Chloride 105 Carbon Dioxide 28 Anion Gap 10.1 BUN 7 Creatinine 0.60 GFR Calculation 99 BUN/Creatinine Ratio 11.00 Glucose 281 H POC Glucose 303 H Calculated Osmolality 286.4 Calcium 6.9 L Magnesium Total Bilirubin AST ALT Alkaline Phosphatase Total Creatine Kinase CK-MB (CK-2) CK and CKMB Interp Troponin I Total Protein Albumin Globulin Albumin/Globulin Ratio Urine Color Urine Appearance Urine pH Ur Specific [place] Urine Protein Urine Glucose (UA) Urine Ketones Urine Blood Urine Nitrate Urine Bilirubin Urine Urobilinogen Urine Leukocytes Urine WBC Ur Squamous Epith Cells Urine Mucus Ur Culture Indicated? - Diagnostic Findings Procedure: Chest x-ray: image reviewed by me, report reviewed by me - EKG EKG results: interpreted by me, no acute changes EKG shows: sinus rhythm Quality Measures - VTE Contraindication to Pharmacological VTE Prophylaxis: High Risk of Bleeding IEdgar Wesley, MD, personally performed the services described in this documentation, ascribed by Martine Rosenberg RN in my presence, and it is both accurate and complete [id number] .
[2017-01-21] MEDS ORDERED: PROPOFOL 200 MG/20 ML VIAL IV ONE (16:45)
[2017-01-21] MEDS ORDERED: ETOMIDATE 20 MG/10 ML VIAL IV ONE (16:45)
[2017-01-21] MEDS ORDERED: SUCCINYLCHOLINE 200 MG/10 ML VIAL ONE (16:45)
[2017-01-21] MEDS: [UNRECOGNIZED DRUG - OTHER] IV SCH (16:55)
[2017-01-21] MEDS: TRACE ELEMENTS IV SCH (16:55)
[2017-01-21] MEDS: INSULIN REGULAR IV SCH (16:55)
[2017-01-21] MEDS: MULTIVITAMIN IV SCH (16:55)
[2017-01-21 17:51] LABS: Hematocrit 30.1 VOL% (35.7-47.0)
[2017-01-21 17:53] LABS: Hemoglobin 10.4 GM/DL (12.0-16.0)
[2017-01-21] MEDS: ROSUVASTATIN 20 MG TABLET PO SCH (22:15)
[2017-01-21] MEDS: FUROSEMIDE 40 MG/4 ML VIAL IV SCH (22:15)
[2017-01-21] MEDS: MIDAZOLAM 100 MG in SODIUM CHLORIDE 0.9% 80 ML IV SCH (22:33)
[2017-01-22] MEDS: INSULIN LISPRO 100 UNIT/ML SUBCUT SCH ×5 (01:02→23:34)
[2017-01-22] MEDS: PROMETHAZINE 25 MG TABLET PO SCH ×4 (01:02→18:16)
[2017-01-22] MEDS: PIPERACILLIN/TAZOBACTAM 3,375 MG in SODIUM CHLORIDE 0.9% 100 ML IV SCH ×3 (01:02→15:36)
[2017-01-22] MEDS: NITROGLYCERIN 2% OINT 1 INCH/GM PACK TOP SCH ×4 (01:03→18:16)
[2017-01-22] MEDS ORDERED: POTASSIUM CHLORIDE RIDER 100 ML IV ONE (01:50)
[2017-01-22] MEDS: POTASSIUM CHLORIDE RIDER 20 MEQ in PREMIX 1 EACH IV PRN ×2 (01:56→08:17)
[2017-01-22 04:00] LABS: ABG Base Excess 2.2 MMOL/L (-2.5-2.5); ABG HCO3 26.3 MMOL/L (20-26); ABG Oxygen Saturation 96.4 % (95-100); ABG PCO2 36.7 MM HG (35-48); ABG PH 7.458 (7.35-7.45); ABG TCO2 23.5 MMOL/L (23-27); Pt O2 Delivery Device Ventilator
[2017-01-22] MEDS: POTASSIUM CHLORIDE RIDER 10 MEQ in PREMIX 1 EACH IV PRN (04:00)
[2017-01-22] MEDS: metroNIDAZOLE INJ 500 MG in PREMIX 1 EACH IV SCH ×3 (06:14→21:43)
[2017-01-22] MEDS: PROPOFOL 1,000 MG/100 ML BOTTLE IV SCH ×2 (06:16→17:56)
[2017-01-22 06:48] LABS: Basophils % 0.3 % (0.0-0.8); Eosinophils # 0.2 10*3/uL (0.0-0.87); Hematocrit 30.6 VOL% (35.7-47.0); Hemoglobin 10.4 GM/DL (12.0-16.0); Immature Granulocytes % 1.1 %; Lymphocytes # 1.2 10*3/uL (1.4-4.0); Lymphocytes % 12.9 % (21.3-54.2); Mean Corpuscular Hemoglobin 30 PG (27-34); Mean Corpuscular Volume 86.7 FL (87-102); Monocytes # 0.7 10*3/uL (0.11-0.8); Monocytes % 7.4 % (1.7-12.7); Neutrophils # 7.2 10*3/uL (1.4-7.4); Neutrophils % 76.3 % (38.7-73.9); Platelet Count 203 T/CUMM (130-400); Red Blood Count 3.53 MC/CUMM (3.8-5.5); Red Cell Distribution Width 14.8 % (9.3-17.3); White Blood Count 9.4 T/CUMM (4-12)
[2017-01-22 07:06] LABS: Giant Platelets Few; Hypochromasia 1+; Ovalocytes Slight; Platelet Estimate Normal
[2017-01-22 07:07] LABS: Microcytosis Slight
--- NOTE | 2017-01-22 07:26 | Pulmonology Progress Note ---
Pulmonary - PN: Subj Interval history: 66-year-old lady came in with diverticulitis and probable GI bleed. Developed acute coronary syndrome and required cardiac catheterization. Now on ventilator. Chest x-ray looks wet. She has an ejection fraction of 20%. She is gotten a good bit of IV fluids and TPN. Trying to diurese her so that we can wean her. Blood pressure seems to be holding up okay. Started CPAP yesterday and she is tolerating that. Probably need to take all 5 or 10 pounds of fluid Exam (Progress Note) - Constitutional Vitals: Period Temp Pulse Resp BP Sys/Richards Pulse Ox Last 24 Hr 97.9 F-99.4 F 58-85 14-30 93-155/43-73 96-100 Exam: Patient sedated. Vital signs normal. Pupils react to light. Orotracheal tube in place. Neck is supple. Chest reveals some rales in the bases. Heart normal rate rhythm with grade 1/6 systolic murmur at left sternal border. Abdomen soft nontender no masses. Bowel sounds present. Extremities no clubbing or cyanosis. 1+ peripheral edema. Results - Labs CBC & BMP: 01/22/17 04:43 01/21/17 17:45 Lab Results: I have reviewed the past 24 hour labs - Diagnostic Findings Procedure: Chest x-ray: image reviewed by me (ET tube good position. Pulmonary edema with small pleural effusions noted. Looks a little more wet than yesterday.) Assessment and Plan (1) Congestive heart failure Status: Acute Assessment and plan: This is due to valvular and ischemic heart disease with low cardiac output ejection fraction 20%. Chest x-ray looks wet this morning. Blood pressure acceptable. Agree with Lasix. Decrease IV fluids. Reduce TPN for now. 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 01/22 lungs look wet radiographically. We need to cut IV fluids to a minimum. She is getting Lasix. Will add Zaroxolyn. Ejection fraction 20% with mitral regurgitation. Current Visit: No (2) Coronary artery disease Status: Chronic Assessment and plan: Patient had acute coronary syndrome yesterday evening and had a cath with dilatation of circumflex artery. Defer to cardiology. 01/22/2017 defer to cardiology. Current Visit: Yes (3) History of percutaneous coronary intervention Status: Acute Assessment and plan: Dilatation of circumflex yesterday. Current Visit: No (4) Diabetes 1.5, managed as type 2 Status: Acute Assessment and plan: Sliding scale insulin. Glucoses around 200-300 for the most part. 01/22/2017 blood sugars look okay. Mostly in the 100s now. Current Visit: No (5) Acute posthemorrhagic anemia Status: Acute Assessment and plan: Hematocrit is down to 24 today. Probably needs transfusion. Will need additional Lasix with that. 01/22/2017 GI following. Hematocrit 30 today. Current Visit: Yes (6) Acute respiratory failure Status: Acute Assessment and plan: Present time this is caused by acute coronary syndrome with congestive heart failure, GI bleeding. We need to diurese her and transfuse her and then should be able to get her weaned. 01/22/2017 primarily due to congestive heart failure. Need to diurese so that we can wean. Current Visit: Yes
[2017-01-22 07:28] LABS: Calcium 7.4 MG/DL (8.5-10.1); Osmolality,Calculated 284.3 MOS/KG (273-304); Potassium 3.6 MMOL/L (3.5-5.1)
[2017-01-22] MEDS: FUROSEMIDE 40 MG/4 ML VIAL IV SCH ×2 (08:14→21:40)
[2017-01-22] MEDS: CARVEDILOL 12.5 MG TABLET PO SCH ×2 (08:15→17:56)
[2017-01-22] MEDS: GABAPENTIN 100 MG CAPSULE PO SCH ×3 (08:15→21:42)
[2017-01-22] MEDS: SERTRALINE 25 MG TABLET PO SCH (08:15)
[2017-01-22] MEDS: metOLazone 2.5 MG TABLET PO SCH (08:15)
[2017-01-22] MEDS: ASPIRIN CHEW 81 MG TABLET PO SCH (08:15)
[2017-01-22] MEDS: LOSARTAN 25 MG TABLET PO SCH (08:16)
[2017-01-22] MEDS: INSULIN GLARGINE 100 UNIT/ML SUBCUT SCH ×2 (08:16→21:45)
[2017-01-22] MEDS: PANTOPRAZOLE 40 MG TABLET PO SCH (08:17)
--- NOTE | 2017-01-22 08:21 | XRay Report ---
Portable chest Exam date: 01/22/2017 310 AM Indication: Shortness of breath, cough Comparison: Previous day at 0311 hours Findings: Cardiomediastinal contours are stable with no change in tube or line placement. Progressed pulmonary edema pattern with pleural and parenchymal opacities now obscuring bilateral hemidiaphragms. No acute osseous abnormalities. Visualized upper abdomen demonstrates no acute pathology. Impression: Worsening pulmonary edema pattern and bilateral pleural effusions PROCEDURE INTERPRETED AT [facility] DEPARTMENT OF RADIOLOGY Final Report Signed by: Fabián Farley
--- NOTE | 2017-01-22 08:35 | Internal Med Progress Note ---
Assessment and Plan (1) Abdominal pain Status: Acute Assessment and plan: 66-year-old female admitted to acute * Acute non-STEMI. She is doing fairly well and appears to be hemodynamically stable * Severe ischemic cardiomyopathy. Ejection fraction about 20%. She still has some fluid overload and Lasix will be continued. Weaning will be started once she is diuresed * Anemia. Hematocrit is better after transfusion * Acute ischemic colitis. She is improving clinically. Continue antibiotics. * Hypertension. Blood pressure is stable * Diabetes. Continue sliding scale * No family is present Current Visit: Yes Qualifiers: Abdominal location: left lower quadrant Qualified Code(s): R10.32 - Left lower quadrant pain (2) Acute posthemorrhagic anemia Status: Acute Current Visit: Yes (3) Enterocolitis Status: Acute Current Visit: Yes Internal Medicine - PN: Subj Interval history: Patient is comfortable on the ventilator. No change in overall condition Exam (Progress Note) - Constitutional Vitals: Period Temp Pulse Resp BP Sys/Richards Pulse Ox Last 24 Hr 97.9 F-99.4 F 58-85 14-30 93-155/43-73 96-100 Exam: Examination: GENERAL: NAD. NECK: Neck is supple. CVS: Regular rate and rhythm. S1 and S2 are normal. RESPIRATORY: Decreased breath sounds at both bases ABDOMEN: Soft and non-tender. No rebound or rigidity. EXT: No edema. Peripheral pulses are present. 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 SKIN: Warm and dry MSK: No obvious deformity. Results - Labs CBC & BMP: 01/22/17 04:43 01/22/17 04:43 Lab Results: I have reviewed the past 24 hour labs Quality Measures - VTE Contraindication to Pharmacological VTE Prophylaxis: High Risk of Bleeding
--- NOTE | 2017-01-22 08:39 | EKG Report ---
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
--- NOTE | 2017-01-22 10:48 | Physician Query Form ---
CLICK EDIT DOCUMENT TO SELECT QUERY ANSWER --> OK --> SIGN Yesi Sandoval RN, CCDS Certified Clinical Rescue Instructor W) [phone] (f) [phone] [email or web address] PROVIDERS: Make your selection(s) from the choices in EACH section by typing an "x" and enter comments in the comment section. Please use your independent medical judgment in providing your response. This request does not imply that any particular answer is desired or expected. CLINICAL INDICATORS: (Providers should not edit this section) The medical record indicates that the patient was admitted with dehydration, "Acute congestive heart failure" on the , EF 20% and the patient was treated with IV Lasix. Please provide further specificity regarding CHF. ACUITY: ( ) Acute ( ) Chronic (x ) Acute on Chronic ( ) Clinically unable to determine TYPE: ( x) Systolic (HFrEF - heart failure with reduced systolic function/EF) ( ) Diastolic (HFpEF - heart failure with preserved systolic function/EF) ( ) Combined Systolic/Diastolic ( ) Other, please specify: ( ) Clinically unable to determine ( ) Past Medical History of Systolic CHF ( ) Past Medical History of Diastolic CHF ( ) Clinically unable to determine COMMENTS: PLEASE ALSO DOCUMENT RESPONSE IN PROGRESS NOTES AND/OR DISCHARGE SUMMARY Use of terms such as suspected, likely, or probable (associated with a specific diagnosis that is being evaluated, monitored, or treated as if it exists) are acceptable and can be restated in the discharge summary if not ruled out. MTDD
--- NOTE | 2017-01-22 10:53 | Gastrointestinal Progress Note ---
Assessment and Plan (1) Abdominal pain Status: Acute Assessment and plan: 01/22-no changes at present time. H&H is holding posttransfusion. Hemodynamically stable. Plan an addendum to followed by Dr. Daniels. 01/21-sedated and ventilated. Findings of yesterday noted as below. H&H down without overt bleeding. Continue to monitor this time. Plan an addendum to follow Dr. Daniels. 01/20-Abd pain improved. No N/V, no rectal bleeding .To be transferred to floor today. TPN initiated. Plan and addendum to follow by Dr Daniels. 01/19-continued abdominal pain without nausea or vomiting. No reports of rectal bleeding. H&H remained stable. Dietitian consult pending for TPN. Plan an addendum to followed by Dr. Daniels. 01/18-onset of abdominal pain with nausea and vomiting as well as rectal bleeding. Colonoscopy findings noted as below. H&H stable at 02/04. PICC line placed with initiation of TPN today. Stool studies negative. WBCs improved at 9000. Continue with IV antibiotics at present time. Plan an addendum to followed by Dr. Daniels. Current Visit: Yes Qualifiers: Abdominal location: left lower quadrant Qualified Code(s): R10.32 - Left lower quadrant pain Gastroenterology - PN: Subj Interval history: CC: Abdominal pain Patient is seen, sedated on the ventilator at this time. H&H is holding at . She did receive 2 units of packed red blood cells on yesterday. She continues on TPN at this time. She has remained hemodynamically stable at present time. Abdomen soft, nontender. She is being diuresed today. ROS: No acute distress at present Exam (Progress Note) - Constitutional Vitals: Period Temp Pulse Resp BP Sys/Richards Pulse Ox Last 24 Hr 97.9 F-99.4 F 58-81 12-30 93-155/43-73 96-100 - Other Additional findings: General appearance: normal weight, no acute distress - Head Head exam: Present: normal inspection, normocephalic - Eye Eye exam: Present: other (Lids and conjunctivae are unremarkable). Absent: scleral icterus - ENT ENT exam: Present: normal exam, normal oropharynx - Neck Neck exam: Present: normal inspection - Respiratory Respiratory exam: Present: clear to auscultation bilaterally. Absent: rales, rhonchi, wheezes - Cardiovascular Cardiovascular exam: Present: regular rate and rhythm. Absent: diastolic murmur , JVD, systolic murmur - GI/Abdominal GI/Abdominal exam: Present: normal bowel sounds, tenderness, soft. Absent: ascites, distended, mass, organomegaly - Extremities Exam Extremities exam: Present: normal inspection, full ROM - Back Exam Back exam: Present: normal inspection - Neurological Exam Neurological exam: Present: Sedated - Psychiatric Psychiatric exam: Present: Sedated - Skin Skin exam: Present: normal color, warm, dry Results - Labs CBC & BMP: 01/22/17 04:43 01/22/17 04:43 Lab Results: I have reviewed the past 24 hour labs
[2017-01-22] MEDS: FAT EMULSION 20% 250 ML IV SCH (13:51)
--- NOTE | 2017-01-22 16:41 | Cardiology Progress Note ---
Chet Hussein Vanessa, RN, am scribing for, and in the presence of, Calin Hernández MD 16:41. Assessment and Plan - Time spent with patient Time spent with patient: Greater than 30 minutes (1) Non-STEMI (non-ST elevated myocardial infarction) Status: Acute Assessment and plan: SEE PLAN OF CARE LISTED BELOW. Current Visit: Yes (2) CAD (coronary artery disease) Status: Chronic Assessment and plan: SEE PLAN OF CARE LISTED BELOW. Current Visit: Yes (3) Diabetes Status: Chronic Assessment and plan: SEE PLAN OF CARE LISTED BELOW. Current Visit: Yes (4) Dyslipidemia Status: Chronic Assessment and plan: SEE PLAN OF CARE LISTED BELOW. Current Visit: Yes (5) Ischemic cardiomyopathy Status: Chronic Assessment and plan: SEE PLAN OF CARE LISTED BELOW. Current Visit: Yes (6) Acute posthemorrhagic anemia Status: Acute Assessment and plan: SEE PLAN OF CARE LISTED BELOW. Current Visit: Yes (7) Enterocolitis Status: Resolved Assessment and plan: SEE PLAN OF CARE LISTED BELOW. Current Visit: Yes (8) Hypokalemia Status: Acute Assessment and plan: SEE PLAN OF CARE LISTED BELOW. Current Visit: Yes Cardiology - PN: Subj Interval history: CASHIER CHECKER: DR. GARDNER SUMMARY: Ms. Valladares, 66-year-old WF, PMHx CAD, PAD, diabetes, hypertension, dyslipidemia , and former tobacco use. Surgical history include aortofemoral bypass previous PCI with stent placement at [facility] approximately 2009. Last stress test was normal in clinic February [address] Gardner. Previous echo June 2015 in clinic with EF 45-55%. Patient was admitted to ICU on 01/15 with abdominal pain, bright red rectal bleeding, and colonoscopy revealed severe ischemic colitis. She also had acute kidney injury and hyponatremia which is improved. H&H remained stable, colitis improved, and patient was able to be transferred to [facility] floor on 01/20. Later in the afternoon after transfer to [facility] room, patient developed sudden onset of crushing chest pain associated nausea, diaphoresis, tachycardia. EKG with IVCD, left bundle branch block, with slight troponin bump 0.552. She was transferred back to CCU, was electively intubated due to oxygenation levels high 80s-low 90s, and was taken emergently to cardiac mill laborer for suspected ACS. Cardiac cath with severe calcified occlusive disease of the RCA and mid circumflex vessel with reasonably good collateralization. Underwent successful PTCA of the mid circumflex with NURY grade III flow postprocedure, and noted to have ischemic cardiomyopathy with severely hypokinesis and reduced EF 20% 2-3+ mitral insufficiency. Patient is now being treated aggressively and cautious with offloading in the face of acute ischemic colitis with hemorrhagic anemia and now acute non-STEMI post PTCA. 2016: Remains intubated and sedated. Today, HCT 30.6% and stable status post transfusion 2 unit PRBCs yesterday. Overall, hemodynamically stable with SBP 130s-150s. CPAP trial started yesterday and progressing well. Lung sounds wet today. Chest x-ray this morning with increasing pulmonary edema and bilateral pleural effusion. IV diuretics continued. Electrolytes and renal function stable. EKG is stable and unchanged, sinus rhythm with HR 70s. ASSESSMENT/PLAN: 1. NSTEMI-now status post PTCA of mid circumflex. Has severe occlusive disease of RCA and circumflex vessel with good collateralization of both. Continue low dose ASA. Plavix held at this time due to acute anemia. ARB, beta yuval, and statin are all continued. 2. CAD-continue current plan of care. EKG remains stable. 3. ISCHEMIC CARDIOMYOPATHY-severely reduced EF 20% with acute non-STEMI. Continue offloading, IV diuresis. Metolazone added today. Monitor daily weight , I/O, BMP. 4. HTN-still with some transient hypotension but improving. 5. DIABETES-glucose levels improved today. Management per attending physician. 6. POSTHEMORRHAGIC ANEMIA-Will have to be extremely cautious with use of anticoagulation. Improved HCT 30.6% today s/p transfusion. 7. ACUTE ISCHEMIC COLITIS-appears to be resolving. Receiving IV antibiotics 8. DYSLIPIDEMIA-rosuvastatin 40 mg nightly continued post PTCA. 9. HYPOKALEMIA-resolved with K+ 3.6. Daily BMP and optimize as needed per protocol. Patient requiring increasing diuresis for worsening heart failure. She has an ejection fraction in the 20% range. She also has 3+ mitral insufficiency and has required increasing Lasix as noted. Hopefully will continue to see some improvement. Her anemia is stable and she is not able to tolerate aggressive antiplatelet therapy currently. I have discussed in detail the particulars of this case and I have examined the patient and reviewed the patient's chart both current and old. I was directly involved in the patient's evaluation and management and I completely agree with Martine Rosenberg RN regarding this patient's evaluation and treatment plan. Exam (Progress Note) - Constitutional Vitals: Period Temp Pulse Resp BP Sys/Richards Pulse Ox Last 24 Hr 97.9 F-99.4 F 58-84 12-30 93-155/43-73 96-100 Exam: General: Present: intubated and sedated. appears comfortable on ventilator. HEENT: Present: PERRL. Absent: fixed, dilated Neck: Present: Supple Neck, Midline Trachea, No Bruit Cardiac: Present: Reg Rate and Rhythm, Systolic Murmur. No tachycardia or bradycardia. No JVD Lungs: Present: bibasilar rales-slightly greater on right than left Neuro: Other: unable to adequately assess due to sedation with mechanical ventilation. will respond appropriately, follow commands with sedation held. Abdomen: Present: Soft, Active Bowel Sounds, Tender. Absent: Distended, firm Skin: Present: pallor. Absent: Rash, Suspicious Lesions, cyanosis. Skin is warm and dry. Musculoskeletal: Present: Decreased Range of Motion Extremities: Present: No Edema, Normal Upper Extr. Pulses, Normal Lower Extr. Pulses. Normal capillary refill. Decreased range of motion (d/t intubation). Other: RFA cath site stable without hematoma, bruise Result/EKG - Labs CBC & BMP: 01/22/17 04:43 01/22/17 04:43 Lab Results: I have reviewed the past 24 hour labs Labs: Laboratory Results - last 24 hr 01/21/17 01/21/17 01/21/17 04:58 11:14 17:13 WBC RBC Hgb Hct MCV MCH MCHC RDW Plt Count MPV Neut % (Auto) Lymph % (Auto) Davidson % (Auto) Eos % (Auto) Baso % (Auto) Neut # (Auto) Lymph # (Auto) Davidson # (Auto) Eos # (Auto) Baso # (Auto) Immature Gran % Nucleated RBC % Immature Gran # Nucleated RBCs # Platelet Estimate Giant Platelets Immature Plt Fraction Hypochromasia Microcytosis Ovalocytes ABG pH ABG pCO2 ABG pO2 ABG HCO3 ABG Total CO2 ABG O2 Saturation ABG Base Excess FiO2 Sodium Potassium Chloride Carbon Dioxide Anion Gap BUN Creatinine GFR Calculation BUN/Creatinine Ratio Glucose POC Glucose 221 H 158 H Calculated Osmolality Calcium Blood Type A NEGATIVE Antibody Screen Negative Crossmatch See Detail 01/21/17 01/21/17 01/21/17 17:45 17:45 23:47 WBC RBC Hgb 10.4 L D Hct 30.1 L MCV MCH MCHC RDW Plt Count MPV Neut % (Auto) Lymph % (Auto) Davidson % (Auto) Eos % (Auto) Baso % (Auto) Neut # (Auto) Lymph # (Auto) Davidson # (Auto) Eos # (Auto) Baso # (Auto) Immature Gran % Nucleated RBC % Immature Gran # Nucleated RBCs # Platelet Estimate Giant Platelets Immature Plt Fraction Hypochromasia Microcytosis Ovalocytes ABG pH ABG pCO2 ABG pO2 ABG HCO3 ABG Total CO2 ABG O2 Saturation ABG Base Excess FiO2 Sodium Potassium 3.4 L Chloride Carbon Dioxide Anion Gap BUN Creatinine GFR Calculation BUN/Creatinine Ratio Glucose POC Glucose 163 H Calculated Osmolality Calcium Blood Type Antibody Screen Crossmatch 01/22/17 01/22/17 01/22/17 01:00 03:55 04:43 WBC 9.4 RBC 3.53 L D Hgb 10.4 L Hct 30.6 L MCV 86.7 L MCH 30 MCHC 34.0 RDW 14.8 Plt Count 203 MPV 10.0 Neut % (Auto) 76.3 H Lymph % (Auto) 12.9 L Davidson % (Auto) 7.4 Eos % (Auto) 2.0 Baso % (Auto) 0.3 Neut # (Auto) 7.2 Lymph # (Auto) 1.2 L Davidson # (Auto) 0.7 Eos # (Auto) 0.2 Baso # (Auto) 0.0 Immature Gran % 1.1 Nucleated RBC % 0.0 Immature Gran # 0.10 Nucleated RBCs # 0.00 Platelet Estimate Normal Giant Platelets Few Immature Plt Fraction 0.0 Hypochromasia 1+ Microcytosis Slight Ovalocytes Slight ABG pH 7.458 H ABG pCO2 36.7 ABG pO2 80.0 ABG HCO3 26.3 H ABG Total CO2 23.5 ABG O2 Saturation 96.4 ABG Base Excess 2.2 FiO2 50.00 Sodium Potassium Chloride Carbon Dioxide Anion Gap BUN Creatinine GFR Calculation BUN/Creatinine Ratio Glucose POC Glucose 136 H Calculated Osmolality Calcium Blood Type Antibody Screen Crossmatch 01/22/17 01/22/17 04:43 05:48 WBC RBC Hgb Hct MCV MCH MCHC RDW Plt Count MPV Neut % (Auto) Lymph % (Auto) Davidson % (Auto) Eos % (Auto) Baso % (Auto) Neut # (Auto) Lymph # (Auto) Davidson # (Auto) Eos # (Auto) Baso # (Auto) Immature Gran % Nucleated RBC % Immature Gran # Nucleated RBCs # Platelet Estimate Giant Platelets Immature Plt Fraction Hypochromasia Microcytosis Ovalocytes ABG pH ABG pCO2 ABG pO2 ABG HCO3 ABG Total CO2 ABG O2 Saturation ABG Base Excess FiO2 Sodium 141 Potassium 3.6 Chloride 106 Carbon Dioxide 29 Anion Gap 9.6 BUN 6 L Creatinine 0.50 L GFR Calculation 105 BUN/Creatinine Ratio 12.00 Glucose 199 H POC Glucose 164 H Calculated Osmolality 284.3 Calcium 7.4 L Blood Type Antibody Screen Crossmatch - Diagnostic Findings Procedure: Chest x-ray: image reviewed by me, report reviewed by me (01/22/17: Worsening pulmonary edema, bilateral pleural effusion) - EKG EKG results: interpreted by me, no acute changes EKG shows: sinus rhythm Quality Measures - VTE Contraindication to Pharmacological VTE Prophylaxis: High Risk of Bleeding IEdgar Wesley, MD, personally performed the services described in this documentation, ascribed by Martine Rosenberg RN in my presence, and it is both accurate and complete [id number] .
[2017-01-22] MEDS: MULTIVITAMIN IV SCH (17:56)
[2017-01-22] MEDS: [UNRECOGNIZED DRUG - OTHER] IV SCH (17:56)
[2017-01-22] MEDS: INSULIN REGULAR IV SCH (17:56)
[2017-01-22] MEDS: TRACE ELEMENTS IV SCH (17:56)
[2017-01-22] MEDS: ROSUVASTATIN 20 MG TABLET PO SCH (21:43)
[2017-01-22] MEDS: MIDAZOLAM 100 MG in SODIUM CHLORIDE 0.9% 80 ML IV SCH (21:45)
[2017-01-23] MEDS: PROMETHAZINE 25 MG TABLET PO SCH ×4 (00:45→17:22)
[2017-01-23] MEDS: PIPERACILLIN/TAZOBACTAM 3,375 MG in SODIUM CHLORIDE 0.9% 100 ML IV SCH ×3 (00:45→15:39)
[2017-01-23] MEDS: NITROGLYCERIN 2% OINT 1 INCH/GM PACK TOP SCH ×4 (00:45→17:22)
[2017-01-23] MEDS: PROPOFOL 1,000 MG/100 ML BOTTLE IV SCH ×3 (00:47→17:45)
[2017-01-23 03:41] LABS: ABG Base Excess 6.7 MMOL/L (-2.5-2.5); ABG HCO3 30.5 MMOL/L (20-26); ABG Oxygen Saturation 93.8 % (95-100); ABG PCO2 42.1 MM HG (35-48); ABG PH 7.475 (7.35-7.45); ABG TCO2 27.7 MMOL/L (23-27); Allen Test Positive; Pt O2 Delivery Device Ventilator
[2017-01-23] MEDS: metroNIDAZOLE INJ 500 MG in PREMIX 1 EACH IV SCH ×3 (05:11→21:54)
[2017-01-23] MEDS: INSULIN LISPRO 100 UNIT/ML SUBCUT SCH ×3 (05:12→17:19)
[2017-01-23 06:20] LABS: Basophils % 0.3 % (0.0-0.8); Eosinophils # 0.2 10*3/uL (0.0-0.87); Eosinophils % 2.1 % (0.00-10.9); Hematocrit 30.4 VOL% (35.7-47.0); Hemoglobin 10.2 GM/DL (12.0-16.0); Immature Granulocytes % 0.7 %; Immature Granulocytes Absolute 0.07 #; Lymphocytes # 1.4 10*3/uL (1.4-4.0); Lymphocytes % 13.5 % (21.3-54.2); Mean Corpuscular HGB Conc 33.6 GM/DL (32-36); Mean Corpuscular Hemoglobin 29 PG (27-34); Mean Corpuscular Volume 87.4 FL (87-102); Mean Platelet Volume 9.8 FL (9.6-12.0); Monocytes # 0.7 10*3/uL (0.11-0.8); Monocytes % 6.6 % (1.7-12.7); Neutrophils # 7.7 10*3/uL (1.4-7.4); Neutrophils % 76.8 % (38.7-73.9); Platelet Count 205 T/CUMM (130-400); Red Blood Count 3.48 MC/CUMM (3.8-5.5); Red Cell Distribution Width 14.7 % (9.3-17.3)
[2017-01-23 06:43] LABS: Calcium 7.7 MG/DL (8.5-10.1); Osmolality,Calculated 279.5 MOS/KG (273-304); Potassium 2.8 MMOL/L (3.5-5.1)
[2017-01-23] MEDS: POTASSIUM CHLORIDE RIDER 20 MEQ in PREMIX 1 EACH IV PRN ×4 (07:35→17:45)
--- NOTE | 2017-01-23 07:39 | Pulmonology Progress Note ---
Pulmonary - PN: Subj Interval history: 66-year-old lady came in with diverticulitis and probable GI bleed. Developed acute coronary syndrome and required cardiac catheterization. Now on ventilator. Chest x-ray looks wet. She has an ejection fraction of 20%. She is gotten a good bit of IV fluids and TPN. Trying to diurese her so that we can wean her. Blood pressure seems to be holding up okay. Started CPAP yesterday and she is tolerating that. Probably need to take all 5 or 10 pounds of fluid 01/23/2017 patient with congestive heart failure on the ventilator. Weight is down 1 kg from yesterday. Chest x-ray looks a little better. Can see the diaphragms meaning that pleural effusions are less. PO2 is only 67 on 50% with 5 of PEEP however. She tolerated prolonged CPAP yesterday. Will check mechanics and ABGs on CPAP today and see if we can get her extubated. Her potassium is low at 2.8. Getting replacement. Adding Aldactone. Exam (Progress Note) - Constitutional Vitals: Period Temp Pulse Resp BP Sys/Richards Pulse Ox Last 24 Hr 97.2 F-98.6 F 56-82 12-29 97-156/38-65 95-100 Exam: Patient sedated. Vital signs normal. Pupils react to light. Orotracheal tube in place. Neck is supple. Chest reveals some rales in the bases. Heart normal rate rhythm with grade 1/6 systolic murmur at left sternal border. Abdomen soft nontender no masses. Bowel sounds present. Extremities no clubbing or cyanosis. 1+ peripheral edema. Results - Labs CBC & BMP: 01/23/17 04:00 01/23/17 06:00 Lab Results: I have reviewed the past 24 hour labs - Diagnostic Findings Procedure: Chest x-ray: image reviewed by me (Congestive heart failure is a little less prominent today. ET tube good position.) Assessment and Plan (1) Congestive heart failure Status: Acute Assessment and plan: This is due to valvular and ischemic heart disease with low cardiac output ejection fraction 20%. Chest x-ray looks wet this morning. Blood pressure acceptable. Agree with Lasix. Decrease IV fluids. Reduce TPN for now. We need to get her a bit spray drier before she will be able to be weaned. 9/15 /17 lungs look wet radiographically. We need to cut IV fluids to a minimum. She is getting Lasix. Will add Zaroxolyn. Ejection fraction 20% with mitral regurgitation. 01/23/2017 again lungs are less wet. Diuresing. Weight 1 kg. Watch potassium closely. Current Visit: No (2) Coronary artery disease Status: Chronic Assessment and plan: Patient had acute coronary syndrome yesterday evening and had a cath with dilatation of circumflex artery. Defer to cardiology. 01/22/2017 defer to cardiology. Current Visit: Yes (3) History of percutaneous coronary intervention Status: Acute Assessment and plan: Dilatation of circumflex yesterday. Current Visit: No (4) Diabetes 1.5, managed as type 2 Status: Acute Assessment and plan: Sliding scale insulin. Glucoses around 200-300 for the most part. 01/22/2017 blood sugars look okay. Mostly in the 100s now. 01/23/2017 glucoses appear well-controlled. Current Visit: No (5) Acute posthemorrhagic anemia Status: Acute Assessment and plan: Hematocrit is down to 24 today. Probably needs transfusion. Will need additional Lasix with that. 01/22/2017 GI following. Hematocrit 30 today. 01/23/2017 hematocrit 30 and stable. Current Visit: Yes (6) Acute respiratory failure Status: Acute Assessment and plan: Present time this is caused by acute coronary syndrome with congestive heart failure, GI bleeding. We need to diurese her and transfuse her and then should be able to get her weaned. 01/22/2017 primarily due to congestive heart failure. Need to diurese so that we can wean. 01/23/2017 progressing through weaning protocol. Will check mechanics and ABGs on CPAP and see if we can get her extubated safely today. Current Visit: Yes
--- NOTE | 2017-01-23 07:45 | EKG Report ---
Stationary ECG Study 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
[2017-01-23] MEDS: ASPIRIN CHEW 81 MG TABLET PO SCH (08:33)
[2017-01-23] MEDS: INSULIN GLARGINE 100 UNIT/ML SUBCUT SCH ×2 (08:33→21:56)
[2017-01-23] MEDS: metOLazone 2.5 MG TABLET PO SCH (08:33)
[2017-01-23] MEDS: FUROSEMIDE 40 MG/4 ML VIAL IV SCH ×2 (08:33→21:55)
[2017-01-23] MEDS: GABAPENTIN 100 MG CAPSULE PO SCH ×3 (08:34→21:56)
[2017-01-23] MEDS: LOSARTAN 25 MG TABLET PO SCH (08:34)
[2017-01-23] MEDS: SPIRONOLACTONE 25 MG TABLET PO SCH ×2 (08:34→21:55)
[2017-01-23] MEDS: PANTOPRAZOLE 40 MG TABLET PO SCH (08:34)
[2017-01-23] MEDS: SERTRALINE 25 MG TABLET PO SCH (08:34)
--- NOTE | 2017-01-23 09:18 | Family Practice Progress Note ---
Family Practice - PN: Subj Interval history: 66-year-old female admitted with acute ischemic colitis. Was having chest pain and taken to the [facility] and had an angioplasty done. She is still on the ventilator. Is getting Lasix and is being seen by Dr. Pierre and Dr. Hernández. She is still on propofol and is currently getting TPN as well. CBC reveals a hemoglobin of 10 and hematocrit of 30.4. Her potassium is very low at 2.8 we will can have to supplement this and her glucose levels are slightly elevated at 205. ABGs show PO2 of 67 PCO2 42 and a pH of 7.47. Appreciate specialist on this difficult case Exam (Progress Note) - Constitutional Vitals: Period Temp Pulse Resp BP Sys/Richards Pulse Ox Last 24 Hr 97.2 F-97.9 F 56-82 14-29 105-148/38-65 95-100 Exam: As noted above patient is being ventilated. She has IVs and TPN supplementation going. She does have a Colon in place and urine output is very good at this time. Is afebrile and in general vital signs are stable at this time. Oxygen sats 95%. Weight is down by approximately 1 kg Cardiovascular rate is regular no gallop or rub Lungs some rales are presen Colon catheter is in place Neurologically not fully assessed Results - Labs CBC & BMP: 01/23/17 04:00 01/23/17 06:00 Quality Measures - VTE Contraindication to Pharmacological VTE Prophylaxis: High Risk of Bleeding
[2017-01-23] MEDS: CARVEDILOL 12.5 MG TABLET PO SCH ×3 (09:30→17:19)
--- NOTE | 2017-01-23 10:12 | Cardiology Progress Note ---
Assessment and Plan (1) Non-STEMI (non-ST elevated myocardial infarction) Status: Acute Assessment and plan: SEE PLAN OF CARE LISTED BELOW. Current Visit: Yes (2) CAD (coronary artery disease) Status: Chronic Assessment and plan: SEE PLAN OF CARE LISTED BELOW. Current Visit: Yes (3) Diabetes Status: Chronic Assessment and plan: SEE PLAN OF CARE LISTED BELOW. Current Visit: Yes (4) Dyslipidemia Status: Chronic Assessment and plan: SEE PLAN OF CARE LISTED BELOW. Current Visit: Yes (5) Ischemic cardiomyopathy Status: Chronic Assessment and plan: SEE PLAN OF CARE LISTED BELOW. Current Visit: Yes (6) Acute posthemorrhagic anemia Status: Acute Assessment and plan: SEE PLAN OF CARE LISTED BELOW. Current Visit: Yes (7) Enterocolitis Status: Resolved Assessment and plan: SEE PLAN OF CARE LISTED BELOW. Current Visit: Yes (8) Hypokalemia Status: Acute Assessment and plan: SEE PLAN OF CARE LISTED BELOW. Current Visit: Yes Cardiology - PN: Subj Interval history: Ms. Valladares, 66-year-old WF, PMHx CAD, PAD, diabetes, hypertension, dyslipidemia , and former tobacco use. Surgical history include aortofemoral bypass previous PCI with stent placement at [facility] approximately 2009. Last stress test was normal in clinic February [address] Gardner. Previous echo June 2015 in clinic with EF 45-55%. Patient was admitted to ICU on 01/15 with abdominal pain, bright red rectal bleeding, and colonoscopy revealed severe ischemic colitis. She also had acute kidney injury and hyponatremia which is improved. H&H remained stable, colitis improved, and patient was able to be transferred to [facility] floor on 01/20. Later in the afternoon after transfer to [facility] room, patient developed sudden onset of crushing chest pain associated nausea, diaphoresis, tachycardia. EKG with IVCD, left bundle branch block, with slight troponin bump 0.552. She was transferred back to CCU, was electively intubated due to oxygenation levels high 80s-low 90s, and was taken emergently to cardiac labor custodian for suspected ACS. Cardiac cath with severe calcified occlusive disease of the RCA and mid circumflex vessel with reasonably good collateralization. Underwent successful PTCA of the mid circumflex with NURY grade III flow postprocedure, and noted to have ischemic cardiomyopathy with severely hypokinesis and reduced EF 20% 2-3+ mitral insufficiency. Patient is now being treated aggressively and cautious with offloading in the face of acute ischemic colitis with hemorrhagic anemia and now acute non-STEMI post PTCA. 2016: Remains intubated and sedated. Today, HCT 30.6% and stable status post transfusion 2 unit PRBCs yesterday. Overall, hemodynamically stable with SBP 130s-150s. CPAP trial started yesterday and progressing well. Lung sounds wet today. Chest x-ray this morning with increasing pulmonary edema and bilateral pleural effusion. IV diuretics continued. Electrolytes and renal function stable. EKG is stable and unchanged, sinus rhythm with HR 70s. ASSESSMENT/PLAN: 1. NSTEMI-now status post PTCA of mid circumflex. Has severe occlusive disease of RCA and circumflex vessel with good collateralization of both. Continue low dose ASA. Plavix held at this time due to acute anemia. ARB, beta yuval, and statin are all continued. 2. CAD-continue current plan of care. EKG remains stable. 3. ISCHEMIC CARDIOMYOPATHY-severely reduced EF 20% with acute non-STEMI. Continue offloading, IV diuresis. Metolazone added today. Monitor daily weight , I/O, BMP. 4. HTN-still with some transient hypotension but improving. 5. DIABETES-glucose levels improved today. Management per attending physician. 6. POSTHEMORRHAGIC ANEMIA-Will have to be extremely cautious with use of anticoagulation. Improved HCT 30.6% today s/p transfusion. 7. ACUTE ISCHEMIC COLITIS-appears to be resolving. Receiving IV antibiotics 8. DYSLIPIDEMIA-rosuvastatin 40 mg nightly continued post PTCA. 9. HYPOKALEMIA-resolved with K+ 3.6. Daily BMP and optimize as needed per protocol. Patient requiring increasing diuresis for worsening heart failure. She has an ejection fraction in the 20% range. She also has 3+ mitral insufficiency and has required increasing Lasix as noted. Hopefully will continue to see some improvement. Her anemia is stable and she is not able to tolerate aggressive antiplatelet therapy currently. I have discussed in detail the particulars of this case and I have examined the patient and reviewed the patient's chart both current and old. I was directly involved in the patient's evaluation and management and I completely agree with Martine Rosenberg RN regarding this patient's evaluation and treatment plan. January 23, 2017: She continues sedated on the ventilator. Her chest x-ray is improved. Her blood counts are stable. Her potassium was 2.8 and she is on replacement protocol. She is cardiac stable with blood pressure and heart rate and our plan will be to continue support hopefully be extubating her in the next 24-48 hours. Exam (Progress Note) - Constitutional Vitals: Period Temp Pulse Resp BP Sys/Richards Pulse Ox Last 24 Hr 97.2 F-97.9 F 56-82 10-29 105-155/38-74 95-100 Exam: General: Present: intubated and sedated. appears comfortable on ventilator. HEENT: Present: PERRL. Absent: fixed, dilated Neck: Present: Supple Neck, Midline Trachea, No Bruit Cardiac: Present: Reg Rate and Rhythm, Systolic Murmur. No tachycardia or bradycardia. No JVD Lungs: Present: bibasilar rales-slightly greater on right than left Neuro: Other: unable to adequately assess due to sedation with mechanical ventilation. will respond appropriately, follow commands with sedation held. Abdomen: Present: Soft, Active Bowel Sounds, Tender. Absent: Distended, firm Skin: Present: pallor. Absent: Rash, Suspicious Lesions, cyanosis. Skin is warm and dry. Musculoskeletal: Present: Decreased Range of Motion Extremities: Present: No Edema, Normal Upper Extr. Pulses, Normal Lower Extr. Pulses. Normal capillary refill. Decreased range of motion (d/t intubation). Other: RFA cath site stable without hematoma, bruise Result/EKG - Labs CBC & BMP: 01/23/17 04:00 01/23/17 06:00 Labs: Laboratory Results - last 24 hr 01/22/17 01/22/17 01/22/17 11:20 17:45 23:28 WBC RBC Hgb Hct MCV MCH MCHC RDW Plt Count MPV Neut % (Auto) Lymph % (Auto) [place] % (Auto) Eos % (Auto) Baso % (Auto) Neut # (Auto) Lymph # (Auto) [place] # (Auto) Eos # (Auto) Baso # (Auto) Immature Gran % Nucleated RBC % Immature Gran # Nucleated RBCs # Immature Plt Fraction ABG pH ABG pCO2 ABG pO2 ABG HCO3 ABG Total CO2 ABG O2 Saturation ABG Base Excess FiO2 Sodium Potassium Chloride Carbon Dioxide Anion Gap BUN Creatinine GFR Calculation BUN/Creatinine Ratio Glucose POC Glucose 179 H 138 H 199 H Calculated Osmolality Calcium 01/23/17 01/23/17 01/23/17 03:33 04:00 05:02 WBC 10.0 RBC 3.48 L Hgb 10.2 L Hct 30.4 L MCV 87.4 MCH 29 MCHC 33.6 RDW 14.7 Plt Count 205 MPV 9.8 Neut % (Auto) 76.8 H Lymph % (Auto) 13.5 L [place] % (Auto) 6.6 Eos % (Auto) 2.1 Baso % (Auto) 0.3 Neut # (Auto) 7.7 H Lymph # (Auto) 1.4 [place] # (Auto) 0.7 Eos # (Auto) 0.2 Baso # (Auto) 0.0 Immature Gran % 0.7 Nucleated RBC % 0.0 Immature Gran # 0.07 Nucleated RBCs # 0.00 Immature Plt Fraction 0.0 ABG pH 7.475 H ABG pCO2 42.1 ABG pO2 67.0 L ABG HCO3 30.5 H ABG Total CO2 27.7 H ABG O2 Saturation 93.8 L ABG Base Excess 6.7 H FiO2 50.00 Sodium Potassium Chloride Carbon Dioxide Anion Gap BUN Creatinine GFR Calculation BUN/Creatinine Ratio Glucose POC Glucose 205 H Calculated Osmolality Calcium 01/23/17 06:00 WBC RBC Hgb Hct MCV MCH MCHC RDW Plt Count MPV Neut % (Auto) Lymph % (Auto) [place] % (Auto) Eos % (Auto) Baso % (Auto) Neut # (Auto) Lymph # (Auto) [place] # (Auto) Eos # (Auto) Baso # (Auto) Immature Gran % Nucleated RBC % Immature Gran # Nucleated RBCs # Immature Plt Fraction ABG pH ABG pCO2 ABG pO2 ABG HCO3 ABG Total CO2 ABG O2 Saturation ABG Base Excess FiO2 Sodium 139 Potassium 2.8 L Chloride 100 Carbon Dioxide 34 H Anion Gap 7.8 BUN 8 Creatinine 0.70 GFR Calculation 94 BUN/Creatinine Ratio 11.00 Glucose 190 H POC Glucose Calculated Osmolality 279.5 Calcium 7.7 L Quality Measures - VTE Contraindication to Pharmacological VTE Prophylaxis: High Risk of Bleeding
[2017-01-23] MEDS ORDERED: MAGNESIUM SULF RIDER 2 GM in PREMIX 1 EACH IV PRN (10:15)
[2017-01-23] MEDS ORDERED: POTASSIUM CHLORIDE RIDER 10 MEQ in PREMIX 1 EACH IV PRN (10:15)
[2017-01-23] MEDS ORDERED: MAGNESIUM SULF RIDER 4 GM in PREMIX 1 EACH IV PRN (10:15)
--- NOTE | 2017-01-23 10:26 | XRay Report ---
History is ventilator management short of breath Comparison 01/22/2017 The heart is enlarged. ET tube tip remains at T3. NG tube traverses the chest There remain moderate diffuse bilateral pulmonary opacities with mild improvement in the interval. Small bilateral underlying effusions remain Impression: Mild improvement with continued moderate diffuse infiltrates versus edema PROCEDURE INTERPRETED AT [facility] DEPARTMENT OF RADIOLOGY Final Report Signed by: Dr. Genesis Flores
[2017-01-23 11:28] LABS: ABG Base Excess 8.8 MMOL/L (-2.5-2.5); ABG HCO3 32.5 MMOL/L (20-26); ABG Oxygen Saturation 93.8 % (95-100); ABG PCO2 39.7 MM HG (35-48); ABG PH 7.521 (7.35-7.45); ABG PO2 66.5 MM HG (80-95); ABG TCO2 28.8 MMOL/L (23-27); Allen Test Positive; Pt O2 Delivery Device Ventilator
[2017-01-23] MEDS: FAT EMULSION 20% 250 ML IV SCH (13:37)
[2017-01-23] MEDS: [UNRECOGNIZED DRUG - OTHER] IV SCH (17:45)
[2017-01-23] MEDS: TRACE ELEMENTS IV SCH (17:45)
[2017-01-23] MEDS: MULTIVITAMIN IV SCH (17:45)
[2017-01-23] MEDS: INSULIN REGULAR IV SCH (17:45)
[2017-01-23] MEDS: ROSUVASTATIN 20 MG TABLET PO SCH (21:55)
[2017-01-23] MEDS: MIDAZOLAM 100 MG in SODIUM CHLORIDE 0.9% 80 ML IV SCH (21:57)
[2017-01-24] MEDS: PROMETHAZINE 25 MG TABLET PO SCH ×4 (00:18→18:37)
[2017-01-24] MEDS: NITROGLYCERIN 2% OINT 1 INCH/GM PACK TOP SCH ×4 (00:18→18:21)
[2017-01-24] MEDS: PIPERACILLIN/TAZOBACTAM 3,375 MG in SODIUM CHLORIDE 0.9% 100 ML IV SCH ×3 (00:18→15:30)
[2017-01-24] MEDS: POTASSIUM CHLORIDE RIDER 20 MEQ in PREMIX 1 EACH IV PRN ×2 (00:19→03:29)
[2017-01-24 03:27] LABS: ABG Base Excess 8.5 MMOL/L (-2.5-2.5); ABG HCO3 32.2 MMOL/L (20-26); ABG Oxygen Saturation 96.2 % (95-100); ABG PH 7.513 (7.35-7.45); ABG PO2 77.1 MM HG (80-95); ABG TCO2 33.5 MMOL/L (23-27); Allen Test Positive; Pt O2 Delivery Device Ventilator
[2017-01-24] MEDS: INSULIN LISPRO 100 UNIT/ML SUBCUT SCH ×4 (05:11→18:37)
[2017-01-24] MEDS: metroNIDAZOLE INJ 500 MG in PREMIX 1 EACH IV SCH ×3 (05:11→21:15)
[2017-01-24] MEDS: PROPOFOL 1,000 MG/100 ML BOTTLE IV SCH ×3 (07:30→21:23)
--- NOTE | 2017-01-24 08:05 | Pulmonology Progress Note ---
Pulmonary - PN: Subj Interval history: 66-year-old lady came in with diverticulitis and probable GI bleed. Developed acute coronary syndrome and required cardiac catheterization. Now on ventilator. Chest x-ray looks wet. She has an ejection fraction of 20%. She is gotten a good bit of IV fluids and TPN. Trying to diurese her so that we can wean her. Blood pressure seems to be holding up okay. Started CPAP yesterday and she is tolerating that. Probably need to take all 5 or 10 pounds of fluid 01/23/2017 patient with congestive heart failure on the ventilator. Weight is down 1 kg from yesterday. Chest x-ray looks a little better. Can see the diaphragms meaning that pleural effusions are less. PO2 is only 67 on 50% with 5 of PEEP however. She tolerated prolonged CPAP yesterday. Will check mechanics and ABGs on CPAP today and see if we can get her extubated. Her potassium is low at 2.8. Getting replacement. Adding Aldactone. 01/24/2017 patient did well with CPAP yesterday but her PO2 was not quite high enough to extubate her. PO2 is improved today and her chest x-ray looks better. Weight is down with diuresis. Hopefully we can extubate her this morning. Exam (Progress Note) - Constitutional Vitals: Period Temp Pulse Resp BP Sys/Richards Pulse Ox Last 24 Hr 97 F-97.8 F 54-87 10-26 93-155/39-89 95-100 Exam: Patient sedated. Vital signs normal. Pupils react to light. Orotracheal tube in place. Neck is supple. Chest reveals some rales in the bases. Heart normal rate rhythm with grade 1/6 systolic murmur at left sternal border. Abdomen soft nontender no masses. Bowel sounds present. Extremities no clubbing or cyanosis. 1+ peripheral edema. Results - Labs CBC & BMP: 01/23/17 04:00 01/23/17 22:24 Lab Results: I have reviewed the past 24 hour labs - Diagnostic Findings Procedure: Chest x-ray: image reviewed by me (Chest x-ray improved, less wet today) Assessment and Plan (1) Congestive heart failure Status: Acute Assessment and plan: This is due to valvular and ischemic heart disease with low cardiac output ejection fraction 20%. Chest x-ray looks wet this morning. Blood pressure acceptable. Agree with Lasix. Decrease IV fluids. Reduce TPN for now. We need to get her a bit drier take off tender before she will be able to be weaned. 01/22 lungs look wet radiographically. We need to cut IV fluids to a minimum. She is getting Lasix. Will add Zaroxolyn. Ejection fraction 20% with mitral regurgitation. 01/23/2017 again lungs are less wet. Diuresing. Weight 1 kg. Watch potassium closely. 01/24/2017 weight down a little further. Replacing potassium. Chest x-ray improved. Hope to extubate today Current Visit: No (2) Coronary artery disease Status: Chronic Assessment and plan: Patient had acute coronary syndrome yesterday evening and had a cath with dilatation of circumflex artery. Defer to cardiology. 01/22/2017 defer to cardiology. Current Visit: Yes (3) History of percutaneous coronary intervention Status: Acute Assessment and plan: Dilatation of circumflex yesterday. 01/24/2017 status post dilatation of circumflex artery Current Visit: No (4) Diabetes 1.5, managed as type 2 Status: Acute Assessment and plan: Sliding scale insulin. Glucoses around 200-300 for the most part. 01/22/2017 blood sugars look okay. Mostly in the 100s now. 01/23/2017 glucoses appear well-controlled. 01/24/2017 glucoses okay Current Visit: No (5) Acute posthemorrhagic anemia Status: Acute Assessment and plan: Hematocrit is down to 24 today. Probably needs transfusion. Will need additional Lasix with that. 01/22/2017 GI following. Hematocrit 30 today. 01/23/2017 hematocrit 30 and stable. 01/24/2017 labs pending. Current Visit: Yes (6) Acute respiratory failure Status: Acute Assessment and plan: Present time this is caused by acute coronary syndrome with congestive heart failure, GI bleeding. We need to diurese her and transfuse her and then should be able to get her weaned. 01/22/2017 primarily due to congestive heart failure. Need to diurese so that we can wean. 01/23/2017 progressing through weaning protocol. Will check mechanics and ABGs on CPAP and see if we can get her extubated safely today. 01/24/2017 continuing with weaning protocol. PO2 is up into the upper 70s on 50 % and 5 of PEEP. Hope to extubate this morning. Current Visit: Yes
[2017-01-24 08:08] LABS: Basophils % 0.4 % (0.0-0.8); Eosinophils # 0.2 10*3/uL (0.0-0.87); Eosinophils % 3.2 % (0.00-10.9); Hematocrit 32.2 VOL% (35.7-47.0); Hemoglobin 10.9 GM/DL (12.0-16.0); Immature Granulocytes % 0.8 %; Immature Granulocytes Absolute 0.06 #; Lymphocytes # 1.7 10*3/uL (1.4-4.0); Lymphocytes % 23.3 % (21.3-54.2); Mean Corpuscular HGB Conc 33.9 GM/DL (32-36); Mean Corpuscular Hemoglobin 29 PG (27-34); Mean Corpuscular Volume 86.6 FL (87-102); Mean Platelet Volume 10.1 FL (9.6-12.0); Monocytes # 0.6 10*3/uL (0.11-0.8); Monocytes % 8.3 % (1.7-12.7); Neutrophils # 4.6 10*3/uL (1.4-7.4); Platelet Count 250 T/CUMM (130-400); Red Blood Count 3.72 MC/CUMM (3.8-5.5); Red Cell Distribution Width 14.7 % (9.3-17.3); White Blood Count 7.2 T/CUMM (4-12)
[2017-01-24 08:22] LABS: Calcium 8.2 MG/DL (8.5-10.1); Magnesium 1.7 MG/DL (1.8-2.4); Osmolality,Calculated 278.7 MOS/KG (273-304); Potassium 3.3 MMOL/L (3.5-5.1)
--- NOTE | 2017-01-24 08:32 | Cardiology Progress Note ---
Assessment and Plan (1) Non-STEMI (non-ST elevated myocardial infarction) Status: Acute Assessment and plan: SEE PLAN OF CARE LISTED BELOW. Current Visit: Yes (2) CAD (coronary artery disease) Status: Chronic Assessment and plan: SEE PLAN OF CARE LISTED BELOW. Current Visit: Yes (3) Diabetes Status: Chronic Assessment and plan: SEE PLAN OF CARE LISTED BELOW. Current Visit: Yes (4) Dyslipidemia Status: Chronic Assessment and plan: SEE PLAN OF CARE LISTED BELOW. Current Visit: Yes (5) Ischemic cardiomyopathy Status: Chronic Assessment and plan: SEE PLAN OF CARE LISTED BELOW. Current Visit: Yes (6) Acute posthemorrhagic anemia Status: Acute Assessment and plan: SEE PLAN OF CARE LISTED BELOW. Current Visit: Yes (7) Enterocolitis Status: Resolved Assessment and plan: SEE PLAN OF CARE LISTED BELOW. Current Visit: Yes (8) Hypokalemia Status: Acute Assessment and plan: SEE PLAN OF CARE LISTED BELOW. Current Visit: Yes Cardiology - PN: Subj Interval history: Ms. Valladares, 66-year-old WF, PMHx CAD, PAD, diabetes, hypertension, dyslipidemia , and former tobacco use. Surgical history include aortofemoral bypass previous PCI with stent placement at [facility] approximately 2009. Last stress test was normal in clinic February [address] Gardner. Previous echo June 2015 in clinic with EF 45-55%. Patient was admitted to ICU on 01/15 with abdominal pain, bright red rectal bleeding, and colonoscopy revealed severe ischemic colitis. She also had acute kidney injury and hyponatremia which is improved. H&H remained stable, colitis improved, and patient was able to be transferred to [facility] floor on 01/20. Later in the afternoon after transfer to [facility] room, patient developed sudden onset of crushing chest pain associated nausea, diaphoresis, tachycardia. EKG with IVCD, left bundle branch block, with slight troponin bump 0.552. She was transferred back to CCU, was electively intubated due to oxygenation levels high 80s-low 90s, and was taken emergently to cardiac test lab technician for suspected ACS. Cardiac cath with severe calcified occlusive disease of the RCA and mid circumflex vessel with reasonably good collateralization. Underwent successful PTCA of the mid circumflex with NURY grade III flow postprocedure, and noted to have ischemic cardiomyopathy with severely hypokinesis and reduced EF 20% 2-3+ mitral insufficiency. Patient is now being treated aggressively and cautious with offloading in the face of acute ischemic colitis with hemorrhagic anemia and now acute non-STEMI post PTCA. 2016: Remains intubated and sedated. Today, HCT 30.6% and stable status post transfusion 2 unit PRBCs yesterday. Overall, hemodynamically stable with SBP 130s-150s. CPAP trial started yesterday and progressing well. Lung sounds wet today. Chest x-ray this morning with increasing pulmonary edema and bilateral pleural effusion. IV diuretics continued. Electrolytes and renal function stable. EKG is stable and unchanged, sinus rhythm with HR 70s. ASSESSMENT/PLAN: 1. NSTEMI-now status post PTCA of mid circumflex. Has severe occlusive disease of RCA and circumflex vessel with good collateralization of both. Continue low dose ASA. Plavix held at this time due to acute anemia. ARB, beta yuval, and statin are all continued. 2. CAD-continue current plan of care. EKG remains stable. 3. ISCHEMIC CARDIOMYOPATHY-severely reduced EF 20% with acute non-STEMI. Continue offloading, IV diuresis. Metolazone added today. Monitor daily weight , I/O, BMP. 4. HTN-still with some transient hypotension but improving. 5. DIABETES-glucose levels improved today. Management per attending physician. 6. POSTHEMORRHAGIC ANEMIA-Will have to be extremely cautious with use of anticoagulation. Improved HCT 30.6% today s/p transfusion. 7. ACUTE ISCHEMIC COLITIS-appears to be resolving. Receiving IV antibiotics 8. DYSLIPIDEMIA-rosuvastatin 40 mg nightly continued post PTCA. 9. HYPOKALEMIA-resolved with K+ 3.6. Daily BMP and optimize as needed per protocol. Patient requiring increasing diuresis for worsening heart failure. She has an ejection fraction in the 20% range. She also has 3+ mitral insufficiency and has required increasing Lasix as noted. Hopefully will continue to see some improvement. Her anemia is stable and she is not able to tolerate aggressive antiplatelet therapy currently. I have discussed in detail the particulars of this case and I have examined the patient and reviewed the patient's chart both current and old. I was directly involved in the patient's evaluation and management and I completely agree with Martine Rosenberg RN regarding this patient's evaluation and treatment plan. January 23, 2017: She continues sedated on the ventilator. Her chest x-ray is improved. Her blood counts are stable. Her potassium was 2.8 and she is on replacement protocol. She is cardiac stable with blood pressure and heart rate and our plan will be to continue support hopefully be extubating her in the next 24-48 hours. January 24, 2017: Patient is diuresed nicely. She is down 7 kg over the last several days and her chest x-ray is markedly improving. She likely will be extubated in the next 24 hours or so. She is clinically stable and our plan will be to continue as currently. We are going to continue her current medications. She did not receive a stent to her circumflex only had PCI with with a balloon angioplasty and so she is not requiring Plavix although clinically and prognostically she would be better if she could take it. She had significant anemia right after her procedure and for that reason has been discontinued. If it appears to be possible we might want try to resume it. Exam (Progress Note) - Constitutional Vitals: Period Temp Pulse Resp BP Sys/Richards Pulse Ox Last 24 Hr 97 F-97.8 F 54-87 10-26 93-155/39-89 95-100 Exam: General: Present: intubated and sedated. appears comfortable on ventilator. HEENT: Present: PERRL. Absent: fixed, dilated Neck: Present: Supple Neck, Midline Trachea, No Bruit Cardiac: Present: Reg Rate and Rhythm, Systolic Murmur. No tachycardia or bradycardia. No JVD Lungs: Present: bibasilar rales-slightly greater on right than left Neuro: Other: unable to adequately assess due to sedation with mechanical ventilation. will respond appropriately, follow commands with sedation held. Abdomen: Present: Soft, Active Bowel Sounds, Tender. Absent: Distended, firm Skin: Present: pallor. Absent: Rash, Suspicious Lesions, cyanosis. Skin is warm and dry. Musculoskeletal: Present: Decreased Range of Motion Extremities: Present: No Edema, Normal Upper Extr. Pulses, Normal Lower Extr. Pulses. Normal capillary refill. Decreased range of motion (d/t intubation). Other: RFA cath site stable without hematoma, bruise Result/EKG - Labs CBC & BMP: 01/24/17 07:36 01/24/17 07:36 Labs: Laboratory Results - last 24 hr 01/23/17 01/23/17 01/23/17 11:09 11:20 14:53 WBC RBC Hgb Hct MCV MCH MCHC RDW Plt Count MPV Neut % (Auto) Lymph % (Auto) [place] % (Auto) Eos % (Auto) Baso % (Auto) Neut # (Auto) Lymph # (Auto) [place] # (Auto) Eos # (Auto) Baso # (Auto) Immature Gran % Nucleated RBC % Immature Gran # Nucleated RBCs # Immature Plt Fraction ABG pH 7.521 H ABG pCO2 39.7 ABG pO2 66.5 L ABG HCO3 32.5 H ABG Total CO2 28.8 H ABG O2 Saturation 93.8 L ABG Base Excess 8.8 H FiO2 50.00 Sodium Potassium 3.2 L Chloride Carbon Dioxide Anion Gap BUN Creatinine GFR Calculation BUN/Creatinine Ratio Glucose POC Glucose 173 H Calculated Osmolality Calcium Magnesium 01/23/17 01/23/17 01/24/17 17:00 22:24 00:05 WBC RBC Hgb Hct MCV MCH MCHC RDW Plt Count MPV Neut % (Auto) Lymph % (Auto) [place] % (Auto) Eos % (Auto) Baso % (Auto) Neut # (Auto) Lymph # (Auto) [place] # (Auto) Eos # (Auto) Baso # (Auto) Immature Gran % Nucleated RBC % Immature Gran # Nucleated RBCs # Immature Plt Fraction ABG pH ABG pCO2 ABG pO2 ABG HCO3 ABG Total CO2 ABG O2 Saturation ABG Base Excess FiO2 Sodium Potassium 3.3 L Chloride Carbon Dioxide Anion Gap BUN Creatinine GFR Calculation BUN/Creatinine Ratio Glucose POC Glucose 159 H 138 H Calculated Osmolality Calcium Magnesium 01/24/17 01/24/17 01/24/17 03:15 04:58 07:36 WBC 7.2 RBC 3.72 L Hgb 10.9 L Hct 32.2 L MCV 86.6 L MCH 29 MCHC 33.9 RDW 14.7 Plt Count 250 D MPV 10.1 Neut % (Auto) 64.0 Lymph % (Auto) 23.3 [place] % (Auto) 8.3 Eos % (Auto) 3.2 Baso % (Auto) 0.4 Neut # (Auto) 4.6 Lymph # (Auto) 1.7 [place] # (Auto) 0.6 Eos # (Auto) 0.2 Baso # (Auto) 0.0 Immature Gran % 0.8 Nucleated RBC % 0.0 Immature Gran # 0.06 Nucleated RBCs # 0.00 Immature Plt Fraction 0.0 ABG pH 7.513 H ABG pCO2 41.0 ABG pO2 77.1 L ABG HCO3 32.2 H ABG Total CO2 33.5 H ABG O2 Saturation 96.2 ABG Base Excess 8.5 H FiO2 50.00 Sodium Potassium Chloride Carbon Dioxide Anion Gap BUN Creatinine GFR Calculation BUN/Creatinine Ratio Glucose POC Glucose 200 H Calculated Osmolality Calcium Magnesium 01/24/17 07:36 WBC RBC Hgb Hct MCV MCH MCHC RDW Plt Count MPV Neut % (Auto) Lymph % (Auto) [place] % (Auto) Eos % (Auto) Baso % (Auto) Neut # (Auto) Lymph # (Auto) [place] # (Auto) Eos # (Auto) Baso # (Auto) Immature Gran % Nucleated RBC % Immature Gran # Nucleated RBCs # Immature Plt Fraction ABG pH ABG pCO2 ABG pO2 ABG HCO3 ABG Total CO2 ABG O2 Saturation ABG Base Excess FiO2 Sodium 138 Potassium 3.3 L Chloride 99 Carbon Dioxide 36 H Anion Gap 6.3 BUN 12 Creatinine 0.70 GFR Calculation 92 BUN/Creatinine Ratio 17.00 Glucose 175 H POC Glucose Calculated Osmolality 278.7 Calcium 8.2 L Magnesium 1.7 L Quality Measures - VTE Contraindication to Pharmacological VTE Prophylaxis: High Risk of Bleeding
[2017-01-24] MEDS: INSULIN GLARGINE 100 UNIT/ML SUBCUT SCH ×2 (08:50→20:49)
[2017-01-24] MEDS: FUROSEMIDE 40 MG/4 ML VIAL IV SCH ×2 (08:51→20:50)
[2017-01-24] MEDS: SERTRALINE 25 MG TABLET PO SCH (08:51)
[2017-01-24] MEDS: GABAPENTIN 100 MG CAPSULE PO SCH ×3 (08:52→20:46)
[2017-01-24] MEDS: SPIRONOLACTONE 25 MG TABLET PO SCH ×2 (08:52→20:47)
[2017-01-24] MEDS: metOLazone 2.5 MG TABLET PO SCH (08:53)
[2017-01-24] MEDS: PANTOPRAZOLE 40 MG TABLET PO SCH (08:53)
[2017-01-24] MEDS: CARVEDILOL 12.5 MG TABLET PO SCH ×2 (08:53→16:54)
[2017-01-24] MEDS: LOSARTAN 25 MG TABLET PO SCH (08:53)
[2017-01-24] MEDS: ASPIRIN CHEW 81 MG TABLET PO SCH (08:53)
[2017-01-24] MEDS: HALOPERIDOL 5 MG/ML AMP IV SCH ×2 (09:09→20:55)
[2017-01-24] MEDS: MIDAZOLAM 100 MG in SODIUM CHLORIDE 0.9% 80 ML IV SCH ×2 (09:41→20:55)
--- NOTE | 2017-01-24 09:52 | Family Practice Progress Note ---
Family Practice - PN: Subj Interval history: 66-year-old female admitted with acute ischemic colitis. Was having chest pain and taken to the [facility] and had an angioplasty done. still on the ventilator. She is still on propofol and is currently getting TPN as well. Vital signs are stable at present with a blood pressure 121/62. Weight is slightly down by a few kilograms. Blood sugars are tolerable. CBC is normal except for slight anemia which is unchanged. Potassium is still being replaced. Slightly low at 3.3. ABGs reveal a pH of 7.5, PCO2 41 and PO2 of 77. We will continue current regimen. Patient unresponsive due to sedation Exam (Progress Note) - Constitutional Vitals: Period Temp Pulse Resp BP Sys/Rich[place] Pulse Ox Last 24 Hr 97 F-97.8 F 54-87 14-26 93-155/39-89 95-100 Results - Labs CBC & BMP: 01/24/17 07:36 01/24/17 07:36 Quality Measures - VTE Contraindication to Pharmacological VTE Prophylaxis: High Risk of Bleeding
[2017-01-24] MEDS: POTASSIUM CHLORIDE 20 MEQ/15 ML UDCUP PER TUBE PRN ×2 (10:14→15:29)
--- NOTE | 2017-01-24 10:30 | XRay Report ---
Portable chest. Indication: Shortness of breath. Comparison: Yesterday's exam. Endotracheal tube, nasogastric tube and PICC line are in satisfactory position. The heart size is normal. The pulmonary vasculature is prominent. There are bilateral basilar infiltrates and pleural effusions. Some improvement is seen. Impression: Interval improvement. PROCEDURE INTERPRETED AT [facility] DEPARTMENT OF RADIOLOGY Final Report Signed by: Dr. Meggan Flores
[2017-01-24] MEDS: FAT EMULSION 20% 250 ML IV SCH (13:24)
[2017-01-24] MEDS: MULTIVITAMIN IV SCH (18:35)
[2017-01-24] MEDS: INSULIN REGULAR IV SCH (18:35)
[2017-01-24] MEDS: TRACE ELEMENTS IV SCH (18:35)
[2017-01-24] MEDS: [UNRECOGNIZED DRUG - OTHER] IV SCH (18:35)
[2017-01-24] MEDS: ROSUVASTATIN 20 MG TABLET PO SCH (20:46)
[2017-01-25] MEDS: POTASSIUM CHLORIDE 20 MEQ/15 ML UDCUP PER TUBE PRN ×2 (00:54→04:16)
[2017-01-25] MEDS: PROMETHAZINE 25 MG TABLET PO SCH ×5 (00:55→23:15)
[2017-01-25] MEDS: INSULIN LISPRO 100 UNIT/ML SUBCUT SCH ×4 (00:55→18:18)
[2017-01-25] MEDS: NITROGLYCERIN 2% OINT 1 INCH/GM PACK TOP SCH ×5 (00:55→23:15)
[2017-01-25] MEDS: PIPERACILLIN/TAZOBACTAM 3,375 MG in SODIUM CHLORIDE 0.9% 100 ML IV SCH ×3 (00:58→19:00)
[2017-01-25 04:12] LABS: Basophils % 0.4 % (0.0-0.8); Eosinophils # 0.3 10*3/uL (0.0-0.87); Hematocrit 36.2 VOL% (35.7-47.0); Immature Granulocytes % 0.7 %; Immature Granulocytes Absolute 0.07 #; Lymphocytes # 1.7 10*3/uL (1.4-4.0); Lymphocytes % 16.4 % (21.3-54.2); Mean Corpuscular HGB Conc 33.1 GM/DL (32-36); Mean Corpuscular Hemoglobin 29 PG (27-34); Mean Corpuscular Volume 88.7 FL (87-102); Mean Platelet Volume 9.9 FL (9.6-12.0); Monocytes # 0.6 10*3/uL (0.11-0.8); Monocytes % 5.8 % (1.7-12.7); Neutrophils # 7.6 10*3/uL (1.4-7.4); Neutrophils % 73.7 % (38.7-73.9); Platelet Count 303 T/CUMM (130-400); Red Blood Count 4.08 MC/CUMM (3.8-5.5); Red Cell Distribution Width 14.5 % (9.3-17.3); White Blood Count 10.4 T/CUMM (4-12)
[2017-01-25 04:33] LABS: Calcium 8.9 MG/DL (8.5-10.1); Osmolality,Calculated 280.8 MOS/KG (273-304); Potassium 3.6 MMOL/L (3.5-5.1)
[2017-01-25] MEDS: metroNIDAZOLE INJ 500 MG in PREMIX 1 EACH IV SCH ×3 (06:10→21:46)
--- NOTE | 2017-01-25 07:08 | General Surgery Progress Note ---
Assessment and Plan - Time spent with patient Time spent with patient: Less than 30 minutes (1) Abdominal pain Status: Acute Assessment and plan: As I suspected her abdominal pain is from ischemic colitis. This appears to be moderate in severity on colonoscopy. Most of these cases can be managed conservatively without surgery. If she fails to resolve or worsens or has perforation then we would look at surgical intervention. 01/18: She is feeling better. She appears to be responding to medical treatment. Her abdomen is much less tender. She has much less pain. I would continue with conservative treatment as you are doing. 01/19: She looks and feels much better. Her abdomen is much more benign on exam with really no tenderness. Her white blood cell count is come down to normal and her vital signs are normal as well. She appears to be responding to medical treatment. I do not think that she will need surgery for this. I will be happy to reevaluate if needed. 01/20: She still complains of pain but her abdominal exam is not very impressive and she is afebrile with a normal white blood cell count. I would continue with conservative treatment as you are doing. 01/25: Events noted. Wanted to check back in on the patient since she had had an acute WI. I see no evidence of continued bowel ischemia. The patient denies any abdominal pain and is awake and alert on the ventilator this morning. It appears that she is doing better and hopefully will be extubated. It appears that her ischemic colitis is resolved. Please call my group if needed. I will be out of town later this week Current Visit: Yes Qualifiers: Abdominal location: left lower quadrant Qualified Code(s): R10.32 - Left lower quadrant pain Subjective Patient reports: Present: feels better. Absent: still having pain, nausea, vomiting Exam - Constitutional Vitals: Period Temp Pulse Resp BP Sys/Richards Pulse Ox Last 24 Hr 97.6 F-98.9 F 56-87 14-20 72-131/33-68 94-100 General appearance: no acute distress - Respiratory Respiratory exam: Absent: accessory muscle use - GI/Abdominal GI/Abdominal exam: Present: soft. Absent: distended, tenderness Results - Labs CBC & BMP: 01/25/17 04:01 01/25/17 04:01 Lab Results: I have reviewed the past 24 hour labs Quality Measures - VTE Contraindication to Pharmacological VTE Prophylaxis: High Risk of Bleeding
--- NOTE | 2017-01-25 07:30 | Pulmonology Progress Note ---
Pulmonary - PN: Subj Interval history: 66-year-old lady came in with diverticulitis and probable GI bleed. Developed acute coronary syndrome and required cardiac catheterization. Now on ventilator. Chest x-ray looks wet. She has an ejection fraction of 20%. She is gotten a good bit of IV fluids and TPN. Trying to diurese her so that we can wean her. Blood pressure seems to be holding up okay. Started CPAP yesterday and she is tolerating that. Probably need to take all 5 or 10 pounds of fluid 01/23/2017 patient with congestive heart failure on the ventilator. Weight is down 1 kg from yesterday. Chest x-ray looks a little better. Can see the diaphragms meaning that pleural effusions are less. PO2 is only 67 on 50% with 5 of PEEP however. She tolerated prolonged CPAP yesterday. Will check mechanics and ABGs on CPAP today and see if we can get her extubated. Her potassium is low at 2.8. Getting replacement. Adding Aldactone. 01/24/2017 patient did well with CPAP yesterday but her PO2 was not quite high enough to extubate her. PO2 is improved today and her chest x-ray looks better. Weight is down with diuresis. Hopefully we can extubate her this morning. 01/25/2017 patient tolerating CPAP. Her mechanics were not quite good enough for extubation yesterday and her PO2 was still only 77% and 5 of PEEP. Did not extubate. Will try again this morning. Exam (Progress Note) - Constitutional Vitals: Period Temp Pulse Resp BP Sys/Richards Pulse Ox Last 24 Hr 97.6 F-98.9 F 56-87 14-20 72-131/33-68 94-100 Exam: Patient sedated but more responsive. Vital signs normal. Pupils react to light. Orotracheal tube in place. Neck is supple. Chest reveals few rales in the bases. Heart normal rate rhythm with grade 1/6 systolic murmur at left sternal border. Abdomen soft nontender no masses. Bowel sounds present. Extremities no clubbing or cyanosis. 1+ peripheral edema. Results - Labs CBC & BMP: 01/25/17 04:01 01/25/17 04:01 Lab Results: I have reviewed the past 24 hour labs Assessment and Plan (1) Congestive heart failure Status: Acute Assessment and plan: This is due to valvular and ischemic heart disease with low cardiac output ejection fraction 20%. Chest x-ray looks wet this morning. Blood pressure acceptable. Agree with Lasix. Decrease IV fluids. Reduce TPN for now. We need to get her a bit back tender pulp drier before she will be able to be weaned. 01/22 lungs look wet radiographically. We need to cut IV fluids to a minimum. She is getting Lasix. Will add Zaroxolyn. Ejection fraction 20% with mitral regurgitation. 01/23/2017 again lungs are less wet. Diuresing. Weight 1 kg. Watch potassium closely. 01/24/2017 weight down a little further. Replacing potassium. Chest x-ray improved. Hope to extubate today 01/25/2017 continues to diurese. Chest x-ray not out yet this morning. We will see again if we can get her extubated. Current Visit: No (2) Coronary artery disease Status: Chronic Assessment and plan: Patient had acute coronary syndrome yesterday evening and had a cath with dilatation of circumflex artery. Defer to cardiology. 01/22/2017 defer to cardiology. 01/25/2017 status post myocardial infarction with cardiac catheterization. Congestive heart failure is improving. Current Visit: Yes (3) History of percutaneous coronary intervention Status: Acute Assessment and plan: Dilatation of circumflex yesterday. 01/24/2017 status post dilatation of circumflex artery Current Visit: No (4) Diabetes 1.5, managed as type 2 Status: Acute Assessment and plan: Sliding scale insulin. Glucoses around 200-300 for the most part. 01/22/2017 blood sugars look okay. Mostly in the 100s now. 01/23/2017 glucoses appear well-controlled. 01/24/2017 glucoses okay 01/25/2017 once again blood sugars are fairly well controlled. Current Visit: No (5) Acute posthemorrhagic anemia Status: Acute Assessment and plan: Hematocrit is down to 24 today. Probably needs transfusion. Will need additional Lasix with that. 01/22/2017 GI following. Hematocrit 30 today. 01/23/2017 hematocrit 30 and stable. 01/24/2017 labs pending. 01/25/2017 no further bleeding. Current Visit: Yes (6) Acute respiratory failure Status: Acute Assessment and plan: Present time this is caused by acute coronary syndrome with congestive heart failure, GI bleeding. We need to diurese her and transfuse her and then should be able to get her weaned. 01/22/2017 primarily due to congestive heart failure. Need to diurese so that we can wean. 01/23/2017 progressing through weaning protocol. Will check mechanics and ABGs on CPAP and see if we can get her extubated safely today. 01/24/2017 continuing with weaning protocol. PO2 is up into the upper 70s on 50 % and 5 of PEEP. Hope to extubate this morning. 01/25/2017 ABGs pending. Will get them during CPAP trial. Continuing weaning trials with hopes to get her extubated today. Current Visit: Yes
--- NOTE | 2017-01-25 08:33 | XRay Report ---
Exam: XR chest 1V portable Date: 01/25/2017 7:26 AM Indication: Follow-up ventilator respiratory failure Comparison: 01/24/2017 Technical: AP Findings: Endotracheal tube nasogastric tube are present. Low volume effusions with slight asymmetry present left greater than right with layering on the left and underlying atelectatic change. A left-sided PICC line is present. External cardiac leads are present. No pneumothorax. Mediastinum is intact. Impression: 1. Stable appearance of life support tubing 2. Persistent layering effusions left greater than right with atelectasis PROCEDURE INTERPRETED AT [facility] DEPARTMENT OF RADIOLOGY Final Report Signed by: Dr. Efrain Delgadillo
--- NOTE | 2017-01-25 08:46 | Internal Med Progress Note ---
Assessment and Plan (1) Abdominal pain Status: Acute Assessment and plan: 66-year-old female admitted to acute * Acute non-STEMI. Doing well from a cardiac standpoint * Respiratory failure. She is doing well on CPAP and should be extubated * Severe ischemic cardiomyopathy. Ejection fraction about 20%. Her weight is down. * Anemia. Hematocrit is better after transfusion * Acute ischemic colitis. She is much better. Resolved. * Hypertension. Blood pressure is stable * Diabetes. Continue sliding scale * No family is present Current Visit: Yes Qualifiers: Abdominal location: left lower quadrant Qualified Code(s): R10.32 - Left lower quadrant pain (2) Acute posthemorrhagic anemia Status: Acute Current Visit: Yes (3) Enterocolitis Status: Resolved Current Visit: Yes Internal Medicine - PN: Subj Interval history: Patient is awake and comfortable on the ventilator. She is doing well on CPAP. She is responding to the questions by nodding Exam (Progress Note) - Constitutional Vitals: Period Temp Pulse Resp BP Sys/Richards Pulse Ox Last 24 Hr 97.6 F-98.9 F 56-87 14-20 72-127/33-68 94-100 Exam: Examination: GENERAL: NAD. NECK: Neck is supple. CVS: Regular rate and rhythm. S1 and S2 are normal. RESPIRATORY: Decreased breath sounds at both bases ABDOMEN: Soft and non-tender. No rebound or rigidity. EXT: No edema. Peripheral pulses are present. 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 Moving both upper and lower extremities appropriate SKIN: Warm and dry MSK: No obvious deformity. Results - Labs CBC & BMP: 01/25/17 04:01 01/25/17 04:01 Lab Results: I have reviewed the past 24 hour labs Quality Measures - VTE Contraindication to Pharmacological VTE Prophylaxis: High Risk of Bleeding
[2017-01-25 09:33] LABS: Allen Test Positive; Pt O2 Delivery Device Ventilator
[2017-01-25 09:34] LABS: ABG Base Excess 1.1 MMOL/L (-2.5-2.5); ABG HCO3 25.4 MMOL/L (20-26); ABG Oxygen Saturation 98.6 % (95-100); ABG PCO2 40.2 MM HG (35-48); ABG PH 7.414 (7.35-7.45); ABG TCO2 22.7 MMOL/L (23-27)
[2017-01-25] MEDS: CARVEDILOL 12.5 MG TABLET PO SCH ×2 (09:45→18:19)
[2017-01-25] MEDS: SPIRONOLACTONE 25 MG TABLET PO SCH ×2 (09:46→20:00)
[2017-01-25] MEDS: ASPIRIN CHEW 81 MG TABLET PO SCH (09:46)
[2017-01-25] MEDS: LOSARTAN 25 MG TABLET PO SCH (09:47)
[2017-01-25] MEDS: INSULIN GLARGINE 100 UNIT/ML SUBCUT SCH ×2 (09:48→20:00)
[2017-01-25] MEDS: GABAPENTIN 100 MG CAPSULE PO SCH ×3 (09:49→20:00)
[2017-01-25] MEDS: metOLazone 2.5 MG TABLET PO SCH (09:49)
[2017-01-25] MEDS: SERTRALINE 25 MG TABLET PO SCH (09:51)
[2017-01-25] MEDS: FUROSEMIDE 40 MG/4 ML VIAL IV SCH ×2 (09:52→20:00)
[2017-01-25] MEDS: HALOPERIDOL 5 MG/ML AMP IV SCH ×2 (11:32→20:00)
--- NOTE | 2017-01-25 11:41 | Cardiology Progress Note ---
Chet Hussein Vanessa, RN, am scribing for, and in the presence of, Paulino Mcguire MD 11:40. Assessment and Plan - Time spent with patient Time spent with patient: Greater than 30 minutes (1) Non-STEMI (non-ST elevated myocardial infarction) Status: Acute Assessment and plan: 66-year-old WF, PMHx CAD with PCI at [facility] 2009 (normal stress test per Dr. Gardner in February 2015), PAD now status post aortofemoral bypass, diabetes, hypertension, dyslipidemia, and former tobacco use. Now admitted with acute ischemic colitis with posthemorrhagic anemia (now improved). She had non-ST elevation RI on 01/20 and is now status post cardiac catheterization with PTCA mid circumflex vessel. 1. NSTEMI-now status post PTCA of mid circumflex. Has severe occlusive disease of RCA and circumflex vessel with good collateralization of both. Continue low dose ASA. ARB, beta yuval, and statin continued. Plavix has been held due to anemia, we will consider restarting later if anemia remains stable. Increase Cozaar to 25 mg PO daily. 2. CAD-continue current plan of care. Stable EKG. 3. ISCHEMIC CARDIOMYOPATHY-severely reduced EF 20% with acute non-STEMI. Continue IV diuresis with IV Lasix. Continue Aldactone. Will need to watch electrolytes and renal function which are doing well currently. 4. HTN-fairly well controlled but should be able to tolerate increase ARB dose. 5. DIABETES-glucose levels greater than 200. Sliding scale insulin in place. Defer management to attending physician 6. POSTHEMORRHAGIC ANEMIA-required transfusion 2 units PRBCs on 01/21 for hematocrit 24.1%. Hematocrit remains stable posttransfusion and has not had any further overt bleeding. 7. ACUTE ISCHEMIC COLITIS-appears to be much improved although she has some mild diffuse abdominal tenderness. 8. DYSLIPIDEMIA-continue rosuvastatin 40 mg PO nightly. Current Visit: Yes (2) CAD (coronary artery disease) Status: Chronic Assessment and plan: SEE PLAN OF CARE LISTED BELOW. Current Visit: Yes (3) Diabetes Status: Chronic Assessment and plan: SEE PLAN OF CARE LISTED BELOW. Current Visit: Yes (4) Dyslipidemia Status: Chronic Assessment and plan: SEE PLAN OF CARE LISTED BELOW. Current Visit: Yes (5) Ischemic cardiomyopathy Status: Chronic Assessment and plan: SEE PLAN OF CARE LISTED BELOW. Current Visit: Yes (6) Acute posthemorrhagic anemia Status: Acute Assessment and plan: SEE PLAN OF CARE LISTED BELOW. Current Visit: Yes (7) Enterocolitis Status: Resolved Assessment and plan: SEE PLAN OF CARE LISTED BELOW. 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 GARDNER SUMMARY: Ms. Valladares, 66-year-old WF, PMHx CAD, PAD, diabetes, hypertension, dyslipidemia , and former tobacco use. Surgical history include aortofemoral bypass previous PCI with stent placement at [facility] approximately 2009. Last stress test was normal in clinic February [address] Gardner. Previous echo June 2015 in clinic with EF 45-55%. Patient was admitted to ICU on 01/15 with abdominal pain, bright red rectal bleeding, and colonoscopy revealed severe ischemic colitis. She also had acute kidney injury and hyponatremia which is improved. H&H remained stable, colitis improved, and patient was able to be transferred to [facility] floor on 01/20. Later in the afternoon after transfer to [facility] room, patient developed sudden onset of crushing chest pain associated nausea, diaphoresis, tachycardia. EKG with IVCD, left bundle branch block, with slight troponin bump 0.552. She was transferred back to CCU, was electively intubated due to oxygenation levels high 80s-low 90s, and was taken emergently to cardiac labor conciliator for suspected ACS. Cardiac cath with severe calcified occlusive disease of the RCA and mid circumflex vessel with reasonably good collateralization. Underwent successful PTCA of the mid circumflex with NURY grade III flow postprocedure, and noted to have ischemic cardiomyopathy with severely hypokinesis and reduced EF 20% 2-3+ mitral insufficiency. Patient is now being treated aggressively and cautious with offloading in the face of acute ischemic colitis with hemorrhagic anemia and now acute non-STEMI post PTCA. 2016: Extubated earlier this morning. No acute respiratory distress, and she is awake and alert. Some confusion but reorients quickly. No chest pain or dyspnea. Some abdominal tenderness with palpation but not significant. Sinus rhythm per telemetry with heart rate 80s. Blood pressure is stable, 160/60. Labs reviewed. Cell counts stable. Electrolytes and renal function within acceptable range. Exam (Progress Note) - Constitutional Vitals: Period Temp Pulse Resp BP Sys/Richards Pulse Ox Last 24 Hr 97.6 F-98.9 F 56-87 14-20 72-127/33-68 94-100 Exam: General: Present: No acute distress HEENT: Present: PERRL. Absent: fixed, dilated Neck: Present: Supple Neck, Midline Trachea, No Bruit Cardiac: Present: Reg Rate and Rhythm, Systolic Murmur. No tachycardia or bradycardia. No JVD Lungs: Present: crackles bibasilarly Neuro: Other: Alert. Some confusion but reorients quickly. Able to move all ext' s, follow commands. Abdomen: Present: Soft, Active Bowel Sounds. Absent: Distended, firm. Other: Some RLQ abd tenderness. Skin: Present: Warm, dry, intact. Absent: Rash, Suspicious Lesions, cyanosis, diaphoresis. Musculoskeletal: Present: Decreased Range of Motion (extubated this morning) Extremities: Present: No Edema, Normal Upper Extr. Pulses, Normal Lower Extr. Pulses. Normal capillary refill. Other: RFA cath site stable without hematoma, bruise Result/EKG - Labs CBC & BMP: 01/25/17 04:01 01/25/17 04:01 Lab Results: I have reviewed the past 24 hour labs Labs: Laboratory Results - last 24 hr 01/24/17 01/24/17 01/24/17 12:12 18:15 21:08 WBC RBC Hgb Hct MCV MCH MCHC RDW Plt Count MPV Neut % (Auto) Lymph % (Auto) [place] % (Auto) Eos % (Auto) Baso % (Auto) Neut # (Auto) Lymph # (Auto) [place] # (Auto) Eos # (Auto) Baso # (Auto) Immature Gran % Nucleated RBC % Immature Gran # Nucleated RBCs # Immature Plt Fraction Sodium Potassium 3.5 Chloride Carbon Dioxide Anion Gap BUN Creatinine GFR Calculation BUN/Creatinine Ratio Glucose POC Glucose 206 H 164 H Calculated Osmolality Calcium Magnesium 01/25/17 01/25/17 01/25/17 00:10 04:01 04:01 WBC 10.4 D RBC 4.08 Hgb 12.0 Hct 36.2 MCV 88.7 MCH 29 MCHC 33.1 RDW 14.5 Plt Count 303 D MPV 9.9 Neut % (Auto) 73.7 Lymph % (Auto) 16.4 L [place] % (Auto) 5.8 Eos % (Auto) 3.0 Baso % (Auto) 0.4 Neut # (Auto) 7.6 H Lymph # (Auto) 1.7 [place] # (Auto) 0.6 Eos # (Auto) 0.3 Baso # (Auto) 0.0 Immature Gran % 0.7 Nucleated RBC % 0.0 Immature Gran # 0.07 Nucleated RBCs # 0.00 Immature Plt Fraction 0.0 Sodium 137 Potassium 3.6 Chloride 101 Carbon Dioxide 31 Anion Gap 8.6 BUN 18 Creatinine 1.00 GFR Calculation 60 BUN/Creatinine Ratio 18.00 Glucose 214 H POC Glucose 192 H Calculated Osmolality 280.8 Calcium 8.9 Magnesium 2.0 01/25/17 05:57 WBC RBC Hgb Hct MCV MCH MCHC RDW Plt Count MPV Neut % (Auto) Lymph % (Auto) [place] % (Auto) Eos % (Auto) Baso % (Auto) Neut # (Auto) Lymph # (Auto) [place] # (Auto) Eos # (Auto) Baso # (Auto) Immature Gran % Nucleated RBC % Immature Gran # Nucleated RBCs # Immature Plt Fraction Sodium Potassium Chloride Carbon Dioxide Anion Gap BUN Creatinine GFR Calculation BUN/Creatinine Ratio Glucose POC Glucose 256 H Calculated Osmolality Calcium Magnesium - Diagnostic Findings Procedure: Chest x-ray: image reviewed by me, report reviewed by me - EKG EKG results: interpreted by me, no acute changes EKG shows: sinus rhythm Quality Measures - VTE Contraindication to Pharmacological VTE Prophylaxis: High Risk of Bleeding Maynor Hussein Randall Scott, MD, personally performed the services described in this documentation, ascribed by Martine Rosenberg RN in my presence, and it is both accurate and complete .
[2017-01-25 11:55] LABS: ABG Base Excess 1.6 MMOL/L (-2.5-2.5); ABG HCO3 25.8 MMOL/L (20-26); ABG Oxygen Saturation 98.5 % (95-100); ABG PCO2 39.3 MM HG (35-48); ABG PH 7.427 (7.35-7.45); ABG TCO2 22.7 MMOL/L (23-27); Allen Test Positive; Pt O2 Delivery Device Venturi Mask
[2017-01-25] MEDS: PANTOPRAZOLE 40 MG TABLET PO SCH (15:15)
[2017-01-25] MEDS: FAT EMULSION 20% 250 ML IV SCH (15:20)
[2017-01-25] MEDS: PROPOFOL 1,000 MG/100 ML BOTTLE IV SCH (18:18)
[2017-01-25] MEDS: ACETAMINOPHEN 325 MG TABLET PO PRN (18:19)
[2017-01-25] MEDS: INSULIN REGULAR IV SCH (19:03)
[2017-01-25] MEDS: [UNRECOGNIZED DRUG - OTHER] IV SCH (19:03)
[2017-01-25] MEDS: MULTIVITAMIN IV SCH (19:03)
[2017-01-25] MEDS: TRACE ELEMENTS IV SCH (19:03)
[2017-01-25] MEDS: MORPHINE 2 MG/1 ML SYRINGE IV PRN (19:53)
[2017-01-25] MEDS: ROSUVASTATIN 20 MG TABLET PO SCH (20:00)
[2017-01-26] MEDS: PIPERACILLIN/TAZOBACTAM 3,375 MG in SODIUM CHLORIDE 0.9% 100 ML IV SCH ×3 (00:03→17:07)
[2017-01-26] MEDS: INSULIN LISPRO 100 UNIT/ML SUBCUT SCH ×4 (00:04→18:24)
[2017-01-26] MEDS: MORPHINE 2 MG/1 ML SYRINGE IV PRN ×4 (00:09→21:33)
[2017-01-26 03:40] LABS: ABG Base Excess 3.9 MMOL/L (-2.5-2.5); ABG HCO3 27.7 MMOL/L (20-26); ABG Oxygen Saturation 97.9 % (95-100); ABG PO2 106.6 MM HG (80-95); ABG TCO2 28.9 MMOL/L (23-27); Allen Test Positive
[2017-01-26] MEDS: NITROGLYCERIN 2% OINT 1 INCH/GM PACK TOP SCH ×3 (05:32→18:18)
[2017-01-26] MEDS: PROMETHAZINE 25 MG TABLET PO SCH ×3 (05:32→18:18)
[2017-01-26] MEDS: metroNIDAZOLE INJ 500 MG in PREMIX 1 EACH IV SCH ×3 (06:02→21:32)
--- NOTE | 2017-01-26 07:09 | Pulmonology Progress Note ---
Pulmonary - PN: Subj Interval history: 66-year-old lady came in with diverticulitis and probable GI bleed. Developed acute coronary syndrome and required cardiac catheterization. Now on ventilator. Chest x-ray looks wet. She has an ejection fraction of 20%. She is gotten a good bit of IV fluids and TPN. Trying to diurese her so that we can wean her. Blood pressure seems to be holding up okay. Started CPAP yesterday and she is tolerating that. Probably need to take all 5 or 10 pounds of fluid 01/23/2017 patient with congestive heart failure on the ventilator. Weight is down 1 kg from yesterday. Chest x-ray looks a little better. Can see the diaphragms meaning that pleural effusions are less. PO2 is only 67 on 50% with 5 of PEEP however. She tolerated prolonged CPAP yesterday. Will check mechanics and ABGs on CPAP today and see if we can get her extubated. Her potassium is low at 2.8. Getting replacement. Adding Aldactone. 01/24/2017 patient did well with CPAP yesterday but her PO2 was not quite high enough to extubate her. PO2 is improved today and her chest x-ray looks better. Weight is down with diuresis. Hopefully we can extubate her this morning. 01/25/2017 patient tolerating CPAP. Her mechanics were not quite good enough for extubation yesterday and her PO2 was still only 77% and 5 of PEEP. Did not extubate. Will try again this morning. 01/26/2017 patient was extubated yesterday and looks good this morning. Chest x- ray is clear now. Will change Lasix to p.o. Need to stop TPN. She is taking liquids okay and ate some crackers. Will advance diet. She continues on antibiotic for colon problems. Defer to primary service for managing that Exam (Progress Note) - Constitutional Vitals: Period Temp Pulse Resp BP Sys/Richards Pulse Ox Last 24 Hr 97.6 F-98.9 F 64-88 14-23 99-166/47-86 98-100 Exam: Patient is alert and responsive. Vital signs normal. Pupils react to light. Neck is supple. Chest shows clear and equal breath sounds. Heart normal rate rhythm with grade 1/6 systolic murmur at left sternal border. Abdomen soft nontender no masses. Bowel sounds present. Extremities no clubbing or cyanosis. Trace peripheral edema. Results - Labs CBC & BMP: 01/25/17 04:01 01/25/17 04:01 Lab Results: I have reviewed the past 24 hour labs - Diagnostic Findings Procedure: Chest x-ray: image reviewed by me (Chest x-ray is clear.) Assessment and Plan (1) Congestive heart failure Status: Acute Assessment and plan: This is due to valvular and ischemic heart disease with low cardiac output ejection fraction 20%. Chest x-ray looks wet this morning. Blood pressure acceptable. Agree with Lasix. Decrease IV fluids. Reduce TPN for now. 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 01/22 lungs look wet radiographically. We need to cut IV fluids to a minimum. She is getting Lasix. Will add Zaroxolyn. Ejection fraction 20% with mitral regurgitation. 01/23/2017 again lungs are less wet. Diuresing. Weight 1 kg. Watch potassium closely. 01/24/2017 weight down a little further. Replacing potassium. Chest x-ray improved. Hope to extubate today 01/25/2017 continues to diurese. Chest x-ray not out yet this morning. We will see again if we can get her extubated. 01/26/2017 chest x-ray is clear this morning. Reduce Lasix to oral medications. Now off the ventilator. Current Visit: No (2) Coronary artery disease Status: Chronic Assessment and plan: Patient had acute coronary syndrome yesterday evening and had a cath with dilatation of circumflex artery. Defer to cardiology. 01/22/2017 defer to cardiology. 01/25/2017 status post myocardial infarction with cardiac catheterization. Congestive heart failure is improving. 01/26/2017 no angina at present. Current Visit: Yes (3) History of percutaneous coronary intervention Status: Acute Assessment and plan: Dilatation of circumflex yesterday. 01/24/2017 status post dilatation of circumflex artery Current Visit: No (4) Diabetes 1.5, managed as type 2 Status: Acute Assessment and plan: Sliding scale insulin. Glucoses around 200-300 for the most part. 01/22/2017 blood sugars look okay. Mostly in the 100s now. 01/23/2017 glucoses appear well-controlled. 01/24/2017 glucoses okay 01/25/2017 once again blood sugars are fairly well controlled. 01/26/2017 blood sugars look good. Stopping TPN. Watch for hypoglycemia Current Visit: No (5) Acute posthemorrhagic anemia Status: Acute Assessment and plan: Hematocrit is down to 24 today. Probably needs transfusion. Will need additional Lasix with that. 01/22/2017 GI following. Hematocrit 30 today. 01/23/2017 hematocrit 30 and stable. 01/24/2017 labs pending. 01/25/2017 no further bleeding. Current Visit: Yes (6) Acute respiratory failure Status: Acute Assessment and plan: Present time this is caused by acute coronary syndrome with congestive heart failure, GI bleeding. We need to diurese her and transfuse her and then should be able to get her weaned. 01/22/2017 primarily due to congestive heart failure. Need to diurese so that we can wean. 01/23/2017 progressing through weaning protocol. Will check mechanics and ABGs on CPAP and see if we can get her extubated safely today. 01/24/2017 continuing with weaning protocol. PO2 is up into the upper 70s on 50 % and 5 of PEEP. Hope to extubate this morning. 01/25/2017 ABGs pending. Will get them during CPAP trial. Continuing weaning trials with hopes to get her extubated today. 01/26/2017 this has resolved. Patient doing well with nasal oxygen. Current Visit: Yes Specialty Discharge - Follow Up or Referrals
--- NOTE | 2017-01-26 08:06 | Internal Med Progress Note ---
Assessment and Plan (1) Abdominal pain Status: Acute Assessment and plan: 66-year-old female admitted to acute * Acute non-STEMI. Doing well from a cardiac standpoint * Respiratory failure. She was extubated yesterday and has done well. Her chest x-ray looks clear * Severe ischemic cardiomyopathy. Ejection fraction about 20%. Changing to p.o. Lasix * Anemia. Hematocrit is better after transfusion * Acute ischemic colitis. Still having some pain. Will DC antibiotic * Hypertension. Blood pressure is stable * Diabetes. Continue sliding scale * Starting PT and OT. Consult swing bed unit * DC TPN Current Visit: Yes Qualifiers: Abdominal location: left lower quadrant Qualified Code(s): R10.32 - Left lower quadrant pain (2) Acute posthemorrhagic anemia Status: Acute Current Visit: Yes (3) Enterocolitis Status: Resolved Current Visit: Yes Internal Medicine - PN: Subj Interval history: Patient is awake and comfortable. She had some pain during the night and required medications. She denies any chest pain or shortness of breath. She is quite weak Exam (Progress Note) - Constitutional Vitals: Period Temp Pulse Resp BP Sys/Richards Pulse Ox Last 24 Hr 97.6 F-98.9 F 64-88 14-23 99-166/47-86 98-100 Exam: Examination: GENERAL: NAD. NECK: Neck is supple. CVS: Regular rate and rhythm. S1 and S2 are normal. RESPIRATORY: Better air entry ABDOMEN: Soft and non-tender. No rebound or rigidity. EXT: No edema. Peripheral pulses are present. CALCULUS PROFESSOR: Alert and oriented 3 SKIN: Warm and dry MSK: No obvious deformity. Results - Labs CBC & BMP: 01/25/17 04:01 01/25/17 04:01 Lab Results: I have reviewed the past 24 hour labs Quality Measures - VTE Contraindication to Pharmacological VTE Prophylaxis: High Risk of Bleeding Specialty Discharge - Follow Up or Referrals
--- NOTE | 2017-01-26 08:20 | XRay Report ---
History is extubation Comparison 01/25/2017 The ET tube is been removed. The heart remains enlarged with mild central vascular prominence. There is been improvement of prior diffuse hazy opacity in the left chest much of which was likely related to rotation and overlying soft tissues. Mild diffuse reticular pulmonary opacities remain with the gradual improvement over the last several studies. No consolidation or pneumothorax seen. Impression: Continued improvement with the mild residual diffuse infiltrates versus edema PROCEDURE INTERPRETED AT [facility] DEPARTMENT OF RADIOLOGY Final Report Signed by: Dr. Genesis Flores
[2017-01-26 08:29] LABS: Basophils # 0.1 10*3/uL (0.0-0.2); Basophils % 0.5 % (0.0-0.8); Eosinophils # 0.2 10*3/uL (0.0-0.87); Hematocrit 36.4 VOL% (35.7-47.0); Hemoglobin 12.3 GM/DL (12.0-16.0); Immature Granulocytes % 0.3 %; Immature Granulocytes Absolute 0.03 #; Lymphocytes # 1.7 10*3/uL (1.4-4.0); Lymphocytes % 16.5 % (21.3-54.2); Mean Corpuscular HGB Conc 33.8 GM/DL (32-36); Mean Corpuscular Hemoglobin 29 PG (27-34); Mean Corpuscular Volume 85.2 FL (87-102); Mean Platelet Volume 9.9 FL (9.6-12.0); Monocytes # 0.7 10*3/uL (0.11-0.8); Monocytes % 7.1 % (1.7-12.7); Neutrophils # 7.7 10*3/uL (1.4-7.4); Neutrophils % 73.6 % (38.7-73.9); Platelet Count 314 T/CUMM (130-400); Red Blood Count 4.27 MC/CUMM (3.8-5.5); Red Cell Distribution Width 14.1 % (9.3-17.3); White Blood Count 10.5 T/CUMM (4-12)
[2017-01-26 08:58] LABS: Albumin 2.8 G/DL (3.4-5.0); Bilirubin,Total 0.6 MG/DL (0.2-1.0); Osmolality,Calculated 287.7 MOS/KG (273-304); Potassium 3.1 MMOL/L (3.5-5.1); Total Protein 7.5 G/DL (6.4-8.3)
[2017-01-26] MEDS: SERTRALINE 25 MG TABLET PO SCH (09:37)
[2017-01-26] MEDS: CARVEDILOL 12.5 MG TABLET PO SCH ×2 (09:38→18:18)
[2017-01-26] MEDS: GABAPENTIN 100 MG CAPSULE PO SCH ×3 (09:38→20:03)
[2017-01-26] MEDS: LOSARTAN 25 MG TABLET PO SCH (09:39)
[2017-01-26] MEDS: SPIRONOLACTONE 25 MG TABLET PO SCH ×2 (09:39→20:03)
[2017-01-26] MEDS: ASPIRIN CHEW 81 MG TABLET PO SCH (09:39)
[2017-01-26] MEDS: FUROSEMIDE 40 MG TABLET PO SCH (09:40)
[2017-01-26] MEDS: PANTOPRAZOLE 40 MG TABLET PO SCH (09:40)
[2017-01-26] MEDS: BENZONATATE 100 MG CAPSULE PO PRN (09:40)
[2017-01-26] MEDS: POTASSIUM CHLORIDE 20 MEQ/15 ML UDCUP PER TUBE PRN (09:41)
[2017-01-26] MEDS: INSULIN GLARGINE 100 UNIT/ML SUBCUT SCH ×2 (09:41→20:03)
[2017-01-26] MEDS: HALOPERIDOL 5 MG/ML AMP IV SCH ×2 (09:50→20:04)
--- NOTE | 2017-01-26 12:33 | Cardiology Progress Note ---
Chet Hussein Vanessa, RN, am scribing for, and in the presence of, Paulino Mcguire MD 12:30. Assessment and Plan - Time spent with patient Time spent with patient: Greater than 30 minutes (1) Non-STEMI (non-ST elevated myocardial infarction) Status: Acute Assessment and plan: 66-year-old WF, PMHx CAD with PCI at [place] 2009 (normal stress test per Dr. Gardner in February 2015), PAD now status post aortofemoral bypass, diabetes, hypertension, dyslipidemia, and former tobacco use. Now admitted with acute ischemic colitis with posthemorrhagic anemia (now improved). She had non-ST elevation TX on 01/20 and is now status post cardiac catheterization with PTCA mid circumflex vessel. 1. NSTEMI-now status post PTCA of mid circumflex. Has severe occlusive disease of RCA and circumflex vessel with good collateralization of both. Continue low dose ASA. ARB, beta yuval, and statin continued. Plavix has been held due to anemia, can reintroduce this soon as anemia has remained stable. Tolerating Cozaar 25 mg PO daily dose and will continue. 2. CAD-continue current plan of care. Stable EKG. No anginal complaint. 3. ISCHEMIC CARDIOMYOPATHY-severely reduced EF 20% with acute non-STEMI. Continue IV diuresis with IV Lasix. Continue Aldactone. Will need to watch electrolytes and renal function which are doing well currently. 4. HTN-well controlled today. 5. DIABETES-glucose levels greater than 200. TPN has been discontinued with transition to regular diet. 6. POSTHEMORRHAGIC ANEMIA-required transfusion 2 units PRBCs on 01/21 for hematocrit 24.1%. Hematocrit remains stable. No overt bleeding. Will continue to monitor. 7. ACUTE ISCHEMIC COLITIS-Appears to be improved; does have mild abd tenderness with palpation. Antibiotics have been discontinued. 8. DYSLIPIDEMIA-continue rosuvastatin 40 mg PO nightly. January 26, 2017: 1. Ms. Valladares seems to be gradually improving and is hemodynamically stable and excellent medication post TX with severe ischemic cardiomyopathy 2. Status post transfusion January 21 with stable hematocrit; continue baby aspirin and restart Plavix 75 mg daily. 3. She complains of intermittent diffuse abdominal discomfort which may represent mesenteric ischemia, but she does not report postprandial pain. 4. Continue high intensity statin therapy, consider up titrating her Coreg from 12.5 mg twice daily later 5. She can be transferred to the floor from a cardiac standpoint. Current Visit: Yes (2) CAD (coronary artery disease) Status: Chronic Assessment and plan: SEE PLAN OF CARE LISTED BELOW. Current Visit: Yes (3) Diabetes Status: Chronic Assessment and plan: SEE PLAN OF CARE LISTED BELOW. Current Visit: Yes (4) Dyslipidemia Status: Chronic Assessment and plan: SEE PLAN OF CARE LISTED BELOW. Current Visit: Yes (5) Ischemic cardiomyopathy Status: Chronic Assessment and plan: SEE PLAN OF CARE LISTED BELOW. Current Visit: Yes (6) Acute posthemorrhagic anemia Status: Acute Assessment and plan: SEE PLAN OF CARE LISTED BELOW. Current Visit: Yes (7) Enterocolitis Status: Resolved Assessment and plan: SEE PLAN OF CARE LISTED BELOW. Current Visit: Yes (8) Hypokalemia Status: Acute Assessment and plan: SEE PLAN OF CARE LISTED BELOW. Current Visit: Yes Cardiology - PN: Subj Interval history: DRUG SAFETY SCIENTIST: DR. GARDNER SUMMARY: Ms. Valladares, 66-year-old WF, PMHx CAD, PAD, diabetes, hypertension, dyslipidemia , and former tobacco use. Surgical history include aortofemoral bypass previous PCI with stent placement at [facility] approximately 2009. Last stress test was normal in clinic February [address] Gardner. Previous echo June 2015 in clinic with EF 45-55%. Patient was admitted to ICU on 01/15 with abdominal pain, bright red rectal bleeding, and colonoscopy revealed severe ischemic colitis. She also had acute kidney injury and hyponatremia which is improved. H&H remained stable, colitis improved, and patient was able to be transferred to [facility] floor on 01/20. Later in the afternoon after transfer to [facility] room, patient developed sudden onset of crushing chest pain associated nausea, diaphoresis, tachycardia. EKG with IVCD, left bundle branch block, with slight troponin bump 0.552. She was transferred back to CCU, was electively intubated due to oxygenation levels high 80s-low 90s, and was taken emergently to cardiac matlab developer for suspected ACS. Cardiac cath with severe calcified occlusive disease of the RCA and mid circumflex vessel with reasonably good collateralization. Underwent successful PTCA of the mid circumflex with NURY grade III flow postprocedure, and noted to have ischemic cardiomyopathy with severely hypokinesis and reduced EF 20% 2-3+ mitral insufficiency. Patient is now being treated aggressively and cautious with offloading in the face of acute ischemic colitis with hemorrhagic anemia and now acute non-STEMI post PTCA. 2016: Hemodynamically stable post extubation yesterday morning. Awake and alert, breathing comfortably. No chest pain, dyspnea, presyncope, palpitations, or anginal complaint. Does have some mild abdominal pain, tender with palpation, but says this has improved. Transitioned to PO Lasix earlier this morning. TPN has been discontinued, and she is tolerating regular diet this morning with a fair appetite. Increasing activity today with PT and OT. SBP 115-130 mmHg. EKG is stable, sinus rhythm in the 80s. Labs reviewed. Hematocrit remains stable, no overt s/s bleeding. Hypokalemic, 3.1. Creatinine 1.1. Consider introducing Plavix soon. Exam (Progress Note) - Constitutional Vitals: Period Temp Pulse Resp BP Sys/Richards Pulse Ox Last 24 Hr 97.6 F-98.9 F 64-81 14-23 99-166/47-86 97-100 Exam: General: Present: No acute distress. Overweight HEENT: Present: PERRL. Absent: fixed, dilated Neck: Present: Supple Neck, Midline Trachea, No Bruit Cardiac: Present: Reg Rate and Rhythm, Systolic Murmur. No tachycardia or bradycardia. No JVD Lungs: Present: crackles bibasilarly-improved from yesterday Neuro: Other: Alert. Some confusion but reorients quickly. Able to move all ext' s, follow commands. Abdomen: Present: Soft, Active Bowel Sounds. Absent: Distended, firm. Other: Mild abdominal tenderness with palpation Skin: Present: Warm, dry, intact, normal color. Absent: Rash, Suspicious Lesions , cyanosis, diaphoresis. Musculoskeletal: Present: Decreased Range of Motion (starting PT/OT today) Extremities: Present: No Edema, Normal Upper Extr. Pulses, Normal Lower Extr. Pulses. Normal capillary refill. Other: RFA cath site stable without hematoma, bruise Psych: Normal affect and mood. Does not appear anxious or depressed Result/EKG - Labs CBC & BMP: 01/26/17 08:22 01/26/17 08:22 Lab Results: I have reviewed the past 24 hour labs Labs: Laboratory Results - last 24 hr 01/25/17 01/25/17 01/25/17 11:31 11:40 17:16 WBC RBC Hgb Hct MCV MCH MCHC RDW Plt Count MPV Neut % (Auto) Lymph % (Auto) Woodruff % (Auto) Eos % (Auto) Baso % (Auto) Neut # (Auto) Lymph # (Auto) Woodruff # (Auto) Eos # (Auto) Baso # (Auto) Immature Gran % Nucleated RBC % Immature Gran # Nucleated RBCs # Immature Plt Fraction ABG pH 7.427 ABG pCO2 39.3 ABG pO2 117.0 H ABG HCO3 25.8 ABG Total CO2 22.7 L ABG O2 Saturation 98.5 ABG Base Excess 1.6 FiO2 50.00 Sodium Potassium Chloride Carbon Dioxide Anion Gap BUN Creatinine GFR Calculation BUN/Creatinine Ratio Glucose POC Glucose 225 H 250 H Calculated Osmolality Calcium Total Bilirubin AST ALT Alkaline Phosphatase Total Protein Albumin Globulin Albumin/Globulin Ratio Amylase Lipase 01/25/17 01/25/17 01/26/17 19:36 23:19 03:25 WBC RBC Hgb Hct MCV MCH MCHC RDW Plt Count MPV Neut % (Auto) Lymph % (Auto) Woodruff % (Auto) Eos % (Auto) Baso % (Auto) Neut # (Auto) Lymph # (Auto) Woodruff # (Auto) Eos # (Auto) Baso # (Auto) Immature Gran % Nucleated RBC % Immature Gran # Nucleated RBCs # Immature Plt Fraction ABG pH 7.470 H ABG pCO2 39.0 ABG pO2 106.6 H ABG HCO3 27.7 H ABG Total CO2 28.9 H ABG O2 Saturation 97.9 ABG Base Excess 3.9 H FiO2 36.00 Sodium Potassium Chloride Carbon Dioxide Anion Gap BUN Creatinine GFR Calculation BUN/Creatinine Ratio Glucose POC Glucose 294 H 212 H Calculated Osmolality Calcium Total Bilirubin AST ALT Alkaline Phosphatase Total Protein Albumin Globulin Albumin/Globulin Ratio Amylase Lipase 01/26/17 01/26/17 01/26/17 05:42 08:22 08:22 WBC 10.5 RBC 4.27 Hgb 12.3 Hct 36.4 MCV 85.2 L MCH 29 MCHC 33.8 RDW 14.1 Plt Count 314 MPV 9.9 Neut % (Auto) 73.6 Lymph % (Auto) 16.5 L Woodruff % (Auto) 7.1 Eos % (Auto) 2.0 Baso % (Auto) 0.5 Neut # (Auto) 7.7 H Lymph # (Auto) 1.7 Woodruff # (Auto) 0.7 Eos # (Auto) 0.2 Baso # (Auto) 0.1 Immature Gran % 0.3 Nucleated RBC % 0.0 Immature Gran # 0.03 Nucleated RBCs # 0.00 Immature Plt Fraction 0.0 ABG pH ABG pCO2 ABG pO2 ABG HCO3 ABG Total CO2 ABG O2 Saturation ABG Base Excess FiO2 Sodium 138 Potassium 3.1 L Chloride 100 Carbon Dioxide 31 Anion Gap 10.1 BUN 33 H Creatinine 1.10 H GFR Calculation 53 BUN/Creatinine Ratio 30.00 H Glucose 210 H POC Glucose 217 H Calculated Osmolality 287.7 Calcium 9.0 Total Bilirubin 0.60 AST 35 ALT 26 Alkaline Phosphatase 86 Total Protein 7.5 Albumin 2.8 L Globulin 4.7 H Albumin/Globulin Ratio 0.5 L Amylase Lipase 01/26/17 01/26/17 08:22 08:22 WBC RBC Hgb Hct MCV MCH MCHC RDW Plt Count MPV Neut % (Auto) Lymph % (Auto) Woodruff % (Auto) Eos % (Auto) Baso % (Auto) Neut # (Auto) Lymph # (Auto) Woodruff # (Auto) Eos # (Auto) Baso # (Auto) Immature Gran % Nucleated RBC % Immature Gran # Nucleated RBCs # Immature Plt Fraction ABG pH ABG pCO2 ABG pO2 ABG HCO3 ABG Total CO2 ABG O2 Saturation ABG Base Excess FiO2 Sodium Potassium Chloride Carbon Dioxide Anion Gap BUN Creatinine GFR Calculation BUN/Creatinine Ratio Glucose POC Glucose Calculated Osmolality Calcium Total Bilirubin AST ALT Alkaline Phosphatase Total Protein Albumin Globulin Albumin/Globulin Ratio Amylase 52 Lipase 463.0 H - Diagnostic Findings Procedure: Chest x-ray: image reviewed by me, report reviewed by me (01/26/17:) - EKG EKG results: interpreted by me, no acute changes EKG shows: sinus rhythm Quality Measures - VTE Contraindication to Pharmacological VTE Prophylaxis: High Risk of Bleeding Specialty Discharge - Follow Up or Referrals Maynor Hussein Randall Scott, MD, personally performed the services described in this documentation, ascribed by Martine Rosenberg RN in my presence, and it is both accurate and complete .
--- NOTE | 2017-01-26 12:35 | Pain Management Progress Note ---
Assessment and Plan (1) Abdominal pain Status: Acute Assessment and plan: 01/26/2017. The patient is now extubated and taken p.o. She complains of continued abdominal pain similar to what she had prior to her intubation and cardiac events. She does admit to some overall improvement. Will start p.o. medicines for the pain and ultimate goal will be to wean her off the IV opioids. y 01/21/2017. Events noted. On ventilator. Will follow after extubation. n 01/20/2017. Overall the patient is slowly improving. We will start weaning IV morphine. y 01/19/2017. The patient has overall clinically improved. Less abdominal tenderness. Less complaints of pain. Still needing supplemental analgesics. I will continue to follow with you. n 01/18/2017. She continues to complain of significant abdominal pain, somewhat better since she has taken the pain medicines. The oral medicines do help calm the overall pain down, and having to take less of the IV morphine. We will add low-dose gabapentin for the neuropathic component of pain. Will continue to follow closely with you. y 01/17/2017. The patient is a very pleasant 66-year-old female known to me. I treated her for low back pain in the past. She was doing reasonably well with no significant pain and no pain medicines until 3 days ago when she developed increasing abdominal pain. Abdominal pain possibly related to ischemic colitis. The pain is constant throbbing pain worse with movement and with eating. The morphine seems to help when given IV but does not last. Now that she is taking p.o. I would like to try her her on oral pain medicines, these may cause less constipation and also the last longer. I will follow with you. y Current Visit: Yes Qualifiers: Abdominal location: left lower quadrant Qualified Code(s): R10.32 - Left lower quadrant pain Pain - Subjective Interval history: Abdominal pain with some gradual improvement Exam - Constitutional Vitals: Period Temp Pulse Resp BP Sys/Richards Pulse Ox Last 24 Hr 97.6 F-98.9 F 64-81 14-23 99-130/47-77 97-100 General appearance: mild distress - GI/Abdominal GI/Abdominal exam: Present: tenderness, soft Results - Labs CBC & BMP: 01/26/17 08:22 01/26/17 08:22 Quality Measures - VTE Contraindication to Pharmacological VTE Prophylaxis: High Risk of Bleeding Specialty Discharge - Follow Up or Referrals
[2017-01-26] MEDS: POTASSIUM CHLORIDE RIDER 20 MEQ in PREMIX 1 EACH IV PRN ×4 (14:50→22:37)
[2017-01-26] MEDS ORDERED: POTASSIUM CHLORIDE 20 MEQ TABLET PO PRN (15:00)
[2017-01-26] MEDS: ROSUVASTATIN 20 MG TABLET PO SCH (20:03)
[2017-01-27] MEDS: PROMETHAZINE 25 MG TABLET PO SCH ×4 (00:12→18:05)
[2017-01-27] MEDS: INSULIN LISPRO 100 UNIT/ML SUBCUT SCH ×4 (00:12→18:05)
[2017-01-27] MEDS: NITROGLYCERIN 2% OINT 1 INCH/GM PACK TOP SCH ×4 (00:12→18:05)
[2017-01-27] MEDS: PIPERACILLIN/TAZOBACTAM 3,375 MG in SODIUM CHLORIDE 0.9% 100 ML IV SCH ×2 (00:13→08:20)
[2017-01-27] MEDS: MORPHINE 2 MG/1 ML SYRINGE IV PRN ×3 (00:37→09:01)
[2017-01-27 03:35] LABS: ABG Base Excess 1.1 MMOL/L (-2.5-2.5); ABG HCO3 25.3 MMOL/L (20-26); ABG Oxygen Saturation 92.2 % (95-100); ABG PCO2 37.9 MM HG (35-48); ABG PH 7.432 (7.35-7.45); ABG PO2 64.9 MM HG (80-95); ABG TCO2 22.4 MMOL/L (23-27)
[2017-01-27 05:00] LABS: Basophils # 0.1 10*3/uL (0.0-0.2); Basophils % 0.5 % (0.0-0.8); Eosinophils # 0.3 10*3/uL (0.0-0.87); Eosinophils % 2.4 % (0.00-10.9); Hematocrit 33.5 VOL% (35.7-47.0); Hemoglobin 11.4 GM/DL (12.0-16.0); Immature Granulocytes % 0.5 %; Immature Granulocytes Absolute 0.05 #; Lymphocytes # 2.6 10*3/uL (1.4-4.0); Lymphocytes % 23.1 % (21.3-54.2); Mean Corpuscular Hemoglobin 29 PG (27-34); Mean Corpuscular Volume 85.7 FL (87-102); Mean Platelet Volume 10.3 FL (9.6-12.0); Monocytes # 0.9 10*3/uL (0.11-0.8); Monocytes % 8.4 % (1.7-12.7); Neutrophils # 7.2 10*3/uL (1.4-7.4); Neutrophils % 65.1 % (38.7-73.9); Platelet Count 347 T/CUMM (130-400); Red Blood Count 3.91 MC/CUMM (3.8-5.5); Red Cell Distribution Width 14.3 % (9.3-17.3); White Blood Count 11.1 T/CUMM (4-12)
[2017-01-27] MEDS: metroNIDAZOLE INJ 500 MG in PREMIX 1 EACH IV SCH (05:07)
[2017-01-27 05:30] LABS: Albumin 2.7 G/DL (3.4-5.0); Bilirubin,Total 0.6 MG/DL (0.2-1.0); Calcium 8.9 MG/DL (8.5-10.1); Osmolality,Calculated 285.5 MOS/KG (273-304); Potassium 3.5 MMOL/L (3.5-5.1); Total Protein 7.2 G/DL (6.4-8.3)
[2017-01-27] MEDS: POTASSIUM CHLORIDE RIDER 20 MEQ in PREMIX 1 EACH IV PRN (06:27)
--- NOTE | 2017-01-27 06:58 | Pulmonology Progress Note ---
Pulmonary - PN: Subj Interval history: 66-year-old lady came in with diverticulitis and probable GI bleed. Developed acute coronary syndrome and required cardiac catheterization. Now on ventilator. Chest x-ray looks wet. She has an ejection fraction of 20%. She is gotten a good bit of IV fluids and TPN. Trying to diurese her so that we can wean her. Blood pressure seems to be holding up okay. Started CPAP yesterday and she is tolerating that. Probably need to take all 5 or 10 pounds of fluid 01/23/2017 patient with congestive heart failure on the ventilator. Weight is down 1 kg from yesterday. Chest x-ray looks a little better. Can see the diaphragms meaning that pleural effusions are less. PO2 is only 67 on 50% with 5 of PEEP however. She tolerated prolonged CPAP yesterday. Will check mechanics and ABGs on CPAP today and see if we can get her extubated. Her potassium is low at 2.8. Getting replacement. Adding Aldactone. 01/24/2017 patient did well with CPAP yesterday but her PO2 was not quite high enough to extubate her. PO2 is improved today and her chest x-ray looks better. Weight is down with diuresis. Hopefully we can extubate her this morning. 01/25/2017 patient tolerating CPAP. Her mechanics were not quite good enough for extubation yesterday and her PO2 was still only 77% and 5 of PEEP. Did not extubate. Will try again this morning. 01/26/2017 patient was extubated yesterday and looks good this morning. Chest x- ray is clear now. Will change Lasix to p.o. Need to stop TPN. She is taking liquids okay and ate some crackers. Will advance diet. She continues on antibiotic for colon problems. Defer to primary service for managing that 01/27/2017 patient alert responsive oriented. O2 sat in low to mid 90s on room air. Chest x-ray essentially clear. Ready to move to the floor. Stable from pulmonary standpoint. I will sign off. Please call if needed further. Can her Zosyn and Flagyl be stopped? Exam (Progress Note) - Constitutional Vitals: Period Temp Pulse Resp BP Sys/Richards Pulse Ox Last 24 Hr 97.2 F-98.9 F 63-80 11-23 96-131/45-67 94-100 Exam: Patient is alert and responsive. Vital signs normal. Pupils react to light. Neck is supple. Chest shows clear and equal breath sounds. Heart normal rate rhythm with grade 1/6 systolic murmur at left sternal border. Abdomen soft nontender no masses. Bowel sounds present. Extremities no clubbing or cyanosis. Trace peripheral edema. Results - Labs CBC & BMP: 01/27/17 04:24 01/27/17 04:24 Lab Results: I have reviewed the past 24 hour labs - Diagnostic Findings Procedure: Chest x-ray: image reviewed by me (Chest x-ray is essentially clear. Left PICC line in good position.) Assessment and Plan (1) Congestive heart failure Status: Chronic Assessment and plan: This is due to valvular and ischemic heart disease with low cardiac output ejection fraction 20%. Chest x-ray looks wet this morning. Blood pressure acceptable. Agree with Lasix. Decrease IV fluids. Reduce TPN for now. We need to get her a bit air drier before she will be able to be weaned. 01/22 lungs look wet radiographically. We need to cut IV fluids to a minimum. She is getting Lasix. Will add Zaroxolyn. Ejection fraction 20% with mitral regurgitation. 01/23/2017 again lungs are less wet. Diuresing. Weight 1 kg. Watch potassium closely. 01/24/2017 weight down a little further. Replacing potassium. Chest x-ray improved. Hope to extubate today 01/25/2017 continues to diurese. Chest x-ray not out yet this morning. We will see again if we can get her extubated. 01/26/2017 chest x-ray is clear this morning. Reduce Lasix to oral medications. Now off the ventilator. 01/27/2017 clinically controlled with medication. Room air oxygen saturation 93% . Chest x-ray clear. Current Visit: No (2) Coronary artery disease Status: Chronic Assessment and plan: Patient had acute coronary syndrome yesterday evening and had a cath with dilatation of circumflex artery. Defer to cardiology. 01/22/2017 defer to cardiology. 01/25/2017 status post myocardial infarction with cardiac catheterization. Congestive heart failure is improving. 01/26/2017 no angina at present. 01/27/2017 no active angina. Cardiology adjusted medications. Current Visit: Yes (3) History of percutaneous coronary intervention Status: Acute Assessment and plan: Dilatation of circumflex yesterday. 01/24/2017 status post dilatation of circumflex artery Current Visit: No (4) Diabetes 1.5, managed as type 2 Status: Acute Assessment and plan: Sliding scale insulin. Glucoses around 200-300 for the most part. 01/22/2017 blood sugars look okay. Mostly in the 100s now. 01/23/2017 glucoses appear well-controlled. 01/24/2017 glucoses okay 01/25/2017 once again blood sugars are fairly well controlled. 01/26/2017 blood sugars look good. Stopping TPN. Watch for hypoglycemia 01/27/2017 blood sugars look good. Current Visit: No (5) Acute posthemorrhagic anemia Status: Resolved Assessment and plan: Hematocrit is down to 24 today. Probably needs transfusion. Will need additional Lasix with that. 01/22/2017 GI following. Hematocrit 30 today. 01/23/2017 hematocrit 30 and stable. 01/24/2017 labs pending. 01/25/2017 no further bleeding. 01/27/2017 hematocrit 33 and stable. Current Visit: Yes (6) Acute respiratory failure Status: Resolved Assessment and plan: Present time this is caused by acute coronary syndrome with congestive heart failure, GI bleeding. We need to diurese her and transfuse her and then should be able to get her weaned. 01/22/2017 primarily due to congestive heart failure. Need to diurese so that we can wean. 01/23/2017 progressing through weaning protocol. Will check mechanics and ABGs on CPAP and see if we can get her extubated safely today. 01/24/2017 continuing with weaning protocol. PO2 is up into the upper 70s on 50 % and 5 of PEEP. Hope to extubate this morning. 01/25/2017 ABGs pending. Will get them during CPAP trial. Continuing weaning trials with hopes to get her extubated today. 01/26/2017 this has resolved. Patient doing well with nasal oxygen. 01/27/2017 this has resolved. Oxygen saturation 93% on room air. Chest x-ray clear. I am signing off from pulmonary standpoint Current Visit: Yes Specialty Discharge - Follow Up or Referrals
[2017-01-27] MEDS: POTASSIUM CHLORIDE RIDER 10 MEQ in PREMIX 1 EACH IV PRN (08:15)
[2017-01-27] MEDS: PANTOPRAZOLE 40 MG TABLET PO SCH (08:16)
[2017-01-27] MEDS: FUROSEMIDE 40 MG TABLET PO SCH (08:16)
[2017-01-27] MEDS: SPIRONOLACTONE 25 MG TABLET PO SCH ×2 (08:17→20:59)
[2017-01-27] MEDS: GABAPENTIN 100 MG CAPSULE PO SCH ×3 (08:17→20:58)
[2017-01-27] MEDS: CARVEDILOL 12.5 MG TABLET PO SCH ×2 (08:17→17:00)
[2017-01-27] MEDS: ASPIRIN CHEW 81 MG TABLET PO SCH (08:17)
[2017-01-27] MEDS: SERTRALINE 25 MG TABLET PO SCH (08:18)
[2017-01-27] MEDS: LOSARTAN 25 MG TABLET PO SCH (08:19)
[2017-01-27] MEDS: INSULIN GLARGINE 100 UNIT/ML SUBCUT SCH ×2 (08:29→20:58)
[2017-01-27] MEDS: HALOPERIDOL 5 MG/ML AMP IV SCH (08:30)
--- NOTE | 2017-01-27 08:32 | XRay Report ---
XR chest 1V portable Indication: Ventilator patient Comparison: 26 January 2017 Findings: The heart and mediastinum are normal in size and configuration. Left arm catheter is unchanged in position. The pulmonary vascularity is normal in caliber. No lung infiltrates, effusions, pneumothorax or other abnormality is demonstrated. Impression: No acute cardiopulmonary findings. PROCEDURE INTERPRETED AT [facility] DEPARTMENT OF RADIOLOGY Final Report Signed by: Dr. Mg Lucas
[2017-01-27] MEDS: ONDANSETRON 4 MG/2 ML VIAL IV PRN (08:59)
--- NOTE | 2017-01-27 09:23 | Internal Med Progress Note ---
Assessment and Plan (1) Abdominal pain Status: Acute Assessment and plan: 66-year-old female admitted to acute * Acute non-STEMI. Doing well from a cardiac standpoint * Respiratory failure. Resolved * Severe ischemic cardiomyopathy. Ejection fraction about 20%. On p.o. Lasix and potassium * Anemia. Hematocrit stable * Acute ischemic colitis. She is having abdominal discomfort. It is mainly postprandial. Her lipase was elevated. This could be because of multiple other reasons. Will ask the opinion of GI * Hypertension. Blood pressure is stable * Diabetes. Continue sliding scale * Pain clinic is following about tapering her medication * Moved to the floor. DC Colon catheter. Antibiotics have been stopped. Current Visit: Yes Qualifiers: Abdominal location: left lower quadrant Qualified Code(s): R10.32 - Left lower quadrant pain (2) Acute posthemorrhagic anemia Status: Resolved Current Visit: Yes (3) Enterocolitis Status: Resolved Current Visit: Yes Internal Medicine - PN: Subj Interval history: Patient is feeling better this morning. She was having abdominal pain last night and required morphine. She is having postprandial pain at times. May have to adjust her diet. Exam (Progress Note) - Constitutional Vitals: Period Temp Pulse Resp BP Sys/Richards Pulse Ox Last 24 Hr 97.2 F-98.9 F 63-80 11-23 96-131/45-67 94-100 Exam: Examination: GENERAL: NAD. NECK: Neck is supple. CVS: Regular rate and rhythm. S1 and S2 are normal. RESPIRATORY: Better air entry ABDOMEN: Soft and non-tender. No rebound or rigidity. EXT: No edema. Peripheral pulses are present. 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
[2017-01-27] MEDS: POTASSIUM CHLORIDE 8 MEQ CAPSULE PO SCH (09:58)
--- NOTE | 2017-01-27 12:34 | Pain Management Progress Note ---
Assessment and Plan (1) Abdominal pain Status: Acute Assessment and plan: 01/27/2017. The patient's pain is improved. She sitting up and eating. She appears to be very comfortable. Agree with discontinuing the morphine. I have already ordered p.o. [place] for breakthrough pain. Agree with plan. n 01/26/2017. The patient is now extubated and taken p.o. She complains of continued abdominal pain similar to what she had prior to her intubation and cardiac events. She does admit to some overall improvement. Will start p.o. medicines for the pain and ultimate goal will be to wean her off the IV opioids. y 01/21/2017. Events noted. On ventilator. Will follow after extubation. n 01/20/2017. Overall the patient is slowly improving. We will start weaning IV morphine. y 01/19/2017. The patient has overall clinically improved. Less abdominal tenderness. Less complaints of pain. Still needing supplemental analgesics. I will continue to follow with you. n 01/18/2017. She continues to complain of significant abdominal pain, somewhat better since she has taken the pain medicines. The oral medicines do help calm the overall pain down, and having to take less of the IV morphine. We will add low-dose gabapentin for the neuropathic component of pain. Will continue to follow closely with you. y 01/17/2017. The patient is a very pleasant 66-year-old female known to me. I treated her for low back pain in the past. She was doing reasonably well with no significant pain and no pain medicines until 3 days ago when she developed increasing abdominal pain. Abdominal pain possibly related to ischemic colitis. The pain is constant throbbing pain worse with movement and with eating. The morphine seems to help when given IV but does not last. Now that she is taking p.o. I would like to try her her on oral pain medicines, these may cause less constipation and also the last longer. I will follow with you. y Current Visit: Yes Qualifiers: Abdominal location: left lower quadrant Qualified Code(s): R10.32 - Left lower quadrant pain Pain - Subjective Interval history: Improved abdominal pain Exam - Constitutional Vitals: Period Temp Pulse Resp BP Sys/Richards Pulse Ox Last 24 Hr 97.4 F-98.9 F 63-81 11-23 96-131/45-67 92-100 Results - Labs CBC & BMP: 01/27/17 04:24 01/27/17 04:24 Quality Measures - VTE Contraindication to Pharmacological VTE Prophylaxis: High Risk of Bleeding Specialty Discharge - Follow Up or Referrals
--- NOTE | 2017-01-27 14:37 | Cardiology Progress Note ---
Chet Hussein Vanessa, RN, am scribing for, and in the presence of, Paulino Mcguire MD 14:34. Assessment and Plan - Time spent with patient Time spent with patient: Greater than 30 minutes (1) Non-STEMI (non-ST elevated myocardial infarction) Status: Acute Assessment and plan: 66-year-old WF, PMHx CAD with PCI at [place] 2009 (normal stress test per Dr. Gardner in February 2015), PAD now status post aortofemoral bypass, diabetes, hypertension, dyslipidemia, and former tobacco use. Now admitted with acute ischemic colitis with posthemorrhagic anemia (now improved). She had non-ST elevation MN on 01/20 and is now status post cardiac catheterization with PTCA mid circumflex vessel. 1. NSTEMI-now status post PTCA of mid circumflex. She had ostial RCA occlusion (fills by left right collaterals), and critical circumflex disease (PTCA with 2.0 balloon with good result). Continue low dose ASA. ARB, beta yuval, and statin continued. Plavix had been held due to anemia, I will restart Plavix 75 daily is given surgery is signed off. Tolerating Cozaar 25 mg PO daily dose and will continue. 2. CAD-continue current plan of care. Stable EKG. No anginal complaint. 3. ISCHEMIC CARDIOMYOPATHY-severely reduced EF 20% with acute non-STEMI. Continue IV diuresis with IV Lasix. Continue Aldactone. Will need to watch electrolytes and renal function which are doing well currently. 4. HTN-well controlled today. 5. DIABETES-glucose levels greater than 200. TPN has been discontinued with transition to regular diet. 6. POSTHEMORRHAGIC ANEMIA-required transfusion 2 units PRBCs on 01/21 for hematocrit 24.1%. Hematocrit remains stable. No overt bleeding. Will continue to monitor. 7. ACUTE ISCHEMIC COLITIS-Appears to be improved; does have mild abd tenderness with palpation. Antibiotics have been discontinued. It is not postprandial. 8. DYSLIPIDEMIA-continue rosuvastatin 40 mg PO nightly. Current Visit: Yes (2) CAD (coronary artery disease) Status: Chronic Assessment and plan: SEE PLAN OF CARE LISTED BELOW. Current Visit: Yes (3) Diabetes Status: Chronic Assessment and plan: SEE PLAN OF CARE LISTED BELOW. Current Visit: Yes (4) Dyslipidemia Status: Chronic Assessment and plan: SEE PLAN OF CARE LISTED BELOW. Current Visit: Yes (5) Ischemic cardiomyopathy Status: Chronic Assessment and plan: SEE PLAN OF CARE LISTED BELOW. Current Visit: Yes (6) Acute posthemorrhagic anemia Status: Resolved Assessment and plan: SEE PLAN OF CARE LISTED BELOW. Current Visit: Yes (7) Enterocolitis Status: Resolved Assessment and plan: SEE PLAN OF CARE LISTED BELOW. Current Visit: Yes (8) Hypokalemia Status: Acute Assessment and plan: SEE PLAN OF CARE LISTED BELOW. Current Visit: Yes Cardiology - PN: Subj Interval history: VENDOR MANAGER: DR. GARDNER SUMMARY: Ms. Valladares, 66-year-old WF, PMHx CAD, PAD, diabetes, hypertension, dyslipidemia , and former tobacco use. Surgical history include aortofemoral bypass previous PCI with stent placement at [facility] approximately 2009. Last stress test was normal in clinic February [address] Gardner. Previous echo June 2015 in clinic with EF 45-55%. Patient was admitted to ICU on 01/15 with abdominal pain, bright red rectal bleeding, and colonoscopy revealed severe ischemic colitis. She also had acute kidney injury and hyponatremia which is improved. H&H remained stable, colitis improved, and patient was able to be transferred to [facility] floor on 01/20. Later in the afternoon after transfer to [facility] room, patient developed sudden onset of crushing chest pain associated nausea, diaphoresis, tachycardia. EKG with IVCD, left bundle branch block, with slight troponin bump 0.552. She was transferred back to CCU, was electively intubated due to oxygenation levels high 80s-low 90s, and was taken emergently to cardiac cardiac cath lab manager for suspected ACS. Cardiac cath with severe calcified occlusive disease of the RCA and mid circumflex vessel with reasonably good collateralization. Underwent successful PTCA of the mid circumflex with NURY grade III flow postprocedure, and noted to have ischemic cardiomyopathy with severely hypokinesis and reduced EF 20% 2-3+ mitral insufficiency. Patient is now being treated aggressively and cautious with offloading in the face of acute ischemic colitis with hemorrhagic anemia and now acute non-STEMI post PTCA. 2016: No acute hemodynamic changes overnight. She is resting comfortably this morning , and has had no chest discomfort or breathing difficulties. Continued abdominal tenderness, states pain is controlled with pain medication PRN. Today , admits to postprandial pain. Normal amylase 52 with elevated lipase 463 on . Normal LFTs. BP 110/50, sinus rhythm per bus driver/monitor with pulse rate 70s. Patient is for transfer to telemetry floor today. Exam (Progress Note) - Constitutional Vitals: Period Temp Pulse Resp BP Sys/Richards Pulse Ox Last 24 Hr 97.2 F-98.9 F 63-81 11-23 96-131/45-67 92-100 Exam: General: Present: No acute distress. Overweight HEENT: Present: PERRL. Absent: fixed, dilated Neck: Present: Supple Neck, Midline Trachea, No Bruit Cardiac: Present: Reg Rate and Rhythm, Systolic Murmur. No tachycardia or bradycardia. No JVD Lungs: Present: Scant crackles bibasilarly but overall clear to auscultation. Neuro: Other: Alert. Some confusion but reorients quickly. Able to move all ext' s, follow commands. Abdomen: Present: Soft, Active Bowel Sounds. Absent: Distended, firm. Other: Mild abdominal tenderness with palpation Skin: Present: Warm, dry, intact, normal color. Absent: Rash, Suspicious Lesions , cyanosis, diaphoresis. Musculoskeletal: Present: Decreased Range of Motion (starting PT/OT today) Extremities: Present: No Edema, Normal Upper Extr. Pulses, Normal Lower Extr. Pulses. Normal capillary refill. Other: RFA cath site stable without hematoma, bruise Psych: Normal affect and mood. Does not appear anxious or depressed Result/EKG - Labs CBC & BMP: 01/27/17 04:24 01/27/17 04:24 Lab Results: I have reviewed the past 24 hour labs Labs: Laboratory Results - last 24 hr 01/26/17 01/26/17 01/26/17 12:03 16:49 19:27 WBC RBC Hgb Hct MCV MCH MCHC RDW Plt Count MPV Neut % (Auto) Lymph % (Auto) [place] % (Auto) Eos % (Auto) Baso % (Auto) Neut # (Auto) Lymph # (Auto) [place] # (Auto) Eos # (Auto) Baso # (Auto) Immature Gran % Nucleated RBC % Immature Gran # Nucleated RBCs # Immature Plt Fraction ABG pH ABG pCO2 ABG pO2 ABG HCO3 ABG Total CO2 ABG O2 Saturation ABG Base Excess Sodium Potassium Chloride Carbon Dioxide Anion Gap BUN Creatinine GFR Calculation BUN/Creatinine Ratio Glucose POC Glucose 244 H 164 H 222 H Calculated Osmolality Calcium Total Bilirubin AST ALT Alkaline Phosphatase Total Protein Albumin Globulin Albumin/Globulin Ratio 01/26/17 01/27/17 01/27/17 23:58 01:03 03:28 WBC RBC Hgb Hct MCV MCH MCHC RDW Plt Count MPV Neut % (Auto) Lymph % (Auto) [place] % (Auto) Eos % (Auto) Baso % (Auto) Neut # (Auto) Lymph # (Auto) [place] # (Auto) Eos # (Auto) Baso # (Auto) Immature Gran % Nucleated RBC % Immature Gran # Nucleated RBCs # Immature Plt Fraction ABG pH 7.432 ABG pCO2 37.9 ABG pO2 64.9 L ABG HCO3 25.3 ABG Total CO2 22.4 L ABG O2 Saturation 92.2 L ABG Base Excess 1.1 Sodium Potassium 3.6 Chloride Carbon Dioxide Anion Gap BUN Creatinine GFR Calculation BUN/Creatinine Ratio Glucose POC Glucose 128 H Calculated Osmolality Calcium Total Bilirubin AST ALT Alkaline Phosphatase Total Protein Albumin Globulin Albumin/Globulin Ratio 01/27/17 01/27/17 01/27/17 04:24 04:24 04:54 WBC 11.1 RBC 3.91 Hgb 11.4 L Hct 33.5 L MCV 85.7 L MCH 29 MCHC 34.0 RDW 14.3 Plt Count 347 MPV 10.3 Neut % (Auto) 65.1 Lymph % (Auto) 23.1 [place] % (Auto) 8.4 Eos % (Auto) 2.4 Baso % (Auto) 0.5 Neut # (Auto) 7.2 Lymph # (Auto) 2.6 [place] # (Auto) 0.9 H Eos # (Auto) 0.3 Baso # (Auto) 0.1 Immature Gran % 0.5 Nucleated RBC % 0.0 Immature Gran # 0.05 Nucleated RBCs # 0.00 Immature Plt Fraction 0.0 ABG pH ABG pCO2 ABG pO2 ABG HCO3 ABG Total CO2 ABG O2 Saturation ABG Base Excess Sodium 139 Potassium 3.5 Chloride 103 Carbon Dioxide 29 Anion Gap 10.5 BUN 34 H Creatinine 1.00 GFR Calculation 60 BUN/Creatinine Ratio 34.00 H Glucose 110 H POC Glucose 124 H Calculated Osmolality 285.5 Calcium 8.9 Total Bilirubin 0.60 AST 27 ALT 22 Alkaline Phosphatase 74 Total Protein 7.2 Albumin 2.7 L Globulin 4.5 H Albumin/Globulin Ratio 0.6 L - Diagnostic Findings Procedure: Chest x-ray: image reviewed by me, report reviewed by me (01/27/17: Chest x-ray clear) - EKG EKG results: interpreted by me, no acute changes EKG shows: sinus rhythm Quality Measures - VTE Contraindication to Pharmacological VTE Prophylaxis: High Risk of Bleeding Specialty Discharge - Follow Up or Referrals Maynor Hussein Randall Scott, MD, personally performed the services described in this documentation, ascribed by Martine Rosenberg RN in my presence, and it is both accurate and complete [id number] .
--- NOTE | 2017-01-27 14:55 | Gastrointestinal Progress Note ---
Assessment and Plan (1) Abdominal pain Status: Acute Assessment and plan: 01/27-findings of elevated lipase without associated complaints of nausea, vomiting or upper abdominal pain. Tolerating diet at present. Continue to monitor at this time. Recheck lipase level tomorrow. Plan an addendum to followed by Dr. Daniels. 01/22-no changes at present time. H&H is holding posttransfusion. Hemodynamically stable. Plan an addendum to followed by Dr. Daniels. 01/21-sedated and ventilated. Findings of yesterday noted as below. H&H down without overt bleeding. Continue to monitor this time. Plan an addendum to follow Dr. Daniels. 01/20-Abd pain improved. No N/V, no rectal bleeding .To be transferred to floor today. TPN initiated. Plan and addendum to follow by Dr Daniels. 01/19-continued abdominal pain without nausea or vomiting. No reports of rectal bleeding. H&H remained stable. Dietitian consult pending for TPN. Plan an addendum to followed by Dr. Daniels. 01/18-onset of abdominal pain with nausea and vomiting as well as rectal bleeding. Colonoscopy findings noted as below. H&H stable at 02/04. PICC line placed with initiation of TPN today. Stool studies negative. WBCs improved at 9000. Continue with IV antibiotics at present time. Plan an addendum to followed by Dr. Daniels. Current Visit: Yes Qualifiers: Abdominal location: left lower quadrant Qualified Code(s): R10.32 - Left lower quadrant pain Gastroenterology - PN: Subj Interval history: CC: Elevated lipase Patient is seen, awake and alert lying in bed. We have been reconsulted to evaluate patient due to findings of elevated lipase. Patient was initially admitted with abdominal pain and rectal bleeding. She underwent colonoscopy on admission with findings of severe ischemic colitis. Following this, due to her continued abdominal pain, she had TPN initiated. On 01/20, patient was transferred to the floor however she ended up having an onset of chest pain with rapid response and was then taken back to the critical care unit and underwent cardiac catheterization at that time with balloon angioplasty to her mid circumflex. She was also being ventilated at that time however has since been extubated. She has had no new complaints of abdominal pain other than just some vague random episodes of generalized soreness. She has no complaints of nausea or vomiting. She is afebrile without leukocytosis. On yesterday she had a lipase level checked noted to be at 463. Her TPN has been discontinued, she is on a regular cardiac diet, and Plavix has been resumed. Abdomen is soft , mild tenderness to mid abdomen. ROS: Denies shortness of breath or chest pain Exam (Progress Note) - Constitutional Vitals: Period Temp Pulse Resp BP Sys/Richards Pulse Ox Last 24 Hr 97.4 F-98.9 F 63-81 11-23 96-151/45-67 92-100 General appearance: normal weight, no acute distress - Head Head exam: Present: normal inspection, normocephalic - Eye Eye exam: Present: other (Lids and conjunctivae are unremarkable). Absent: scleral icterus - ENT ENT exam: Present: normal exam, normal oropharynx - Neck Neck exam: Present: normal inspection - Respiratory Respiratory exam: Present: clear to auscultation bilaterally. Absent: rales, rhonchi, wheezes - Cardiovascular Cardiovascular exam: Present: regular rate and rhythm. Absent: diastolic murmur , JVD, systolic murmur - GI/Abdominal GI/Abdominal exam: Present: normal bowel sounds, soft. Absent: ascites, distended, mass, organomegaly, tenderness - Extremities Exam Extremities exam: Present: normal inspection, full ROM - Back Exam Back exam: Present: normal inspection - Neurological Exam Neurological exam: Present: alert, oriented X3 - Psychiatric Psychiatric exam: Present: normal affect, normal mood - Skin Skin exam: Present: normal color, warm, dry Results - Labs CBC & BMP: 01/27/17 04:24 01/27/17 04:24 Lab Results: I have reviewed the past 24 hour labs Specialty Discharge - Follow Up or Referrals
[2017-01-27] MEDS: CLOPIDOGREL 75 MG TABLET PO SCH (15:51)
[2017-01-27] MEDS: DESITIN 4OZ/NYSTATIN 15 GRAM MIXTURE PASTE TOP SCH ×2 (15:53→21:39)
[2017-01-27] MEDS: ROSUVASTATIN 20 MG TABLET PO SCH (20:58)
[2017-01-28] MEDS: PROMETHAZINE 25 MG TABLET PO SCH ×3 (00:35→13:24)
[2017-01-28] MEDS: INSULIN LISPRO 100 UNIT/ML SUBCUT SCH ×3 (00:35→13:24)
[2017-01-28] MEDS: NITROGLYCERIN 2% OINT 1 INCH/GM PACK TOP SCH ×3 (00:35→13:24)
--- NOTE | 2017-01-28 07:13 | Pulmonology Progress Note ---
Pulmonary - PN: Subj Interval history: 66-year-old lady came in with diverticulitis and probable GI bleed. Developed acute coronary syndrome and required cardiac catheterization. Now on ventilator. Chest x-ray looks wet. She has an ejection fraction of 20%. She is gotten a good bit of IV fluids and TPN. Trying to diurese her so that we can wean her. Blood pressure seems to be holding up okay. Started CPAP yesterday and she is tolerating that. Probably need to take all 5 or 10 pounds of fluid 01/23/2017 patient with congestive heart failure on the ventilator. Weight is down 1 kg from yesterday. Chest x-ray looks a little better. Can see the diaphragms meaning that pleural effusions are less. PO2 is only 67 on 50% with 5 of PEEP however. She tolerated prolonged CPAP yesterday. Will check mechanics and ABGs on CPAP today and see if we can get her extubated. Her potassium is low at 2.8. Getting replacement. Adding Aldactone. 01/24/2017 patient did well with CPAP yesterday but her PO2 was not quite high enough to extubate her. PO2 is improved today and her chest x-ray looks better. Weight is down with diuresis. Hopefully we can extubate her this morning. 01/25/2017 patient tolerating CPAP. Her mechanics were not quite good enough for extubation yesterday and her PO2 was still only 77% and 5 of PEEP. Did not extubate. Will try again this morning. 01/26/2017 patient was extubated yesterday and looks good this morning. Chest x- ray is clear now. Will change Lasix to p.o. Need to stop TPN. She is taking liquids okay and ate some crackers. Will advance diet. She continues on antibiotic for colon problems. Defer to primary service for managing that 01/27/2017 patient alert responsive oriented. O2 sat in low to mid 90s on room air. Chest x-ray essentially clear. Ready to move to the floor. Stable from pulmonary standpoint. I will sign off. Please call if needed further. Can her Zosyn and Flagyl be stopped? 01/28/2017 PO2 64 on room air. Patient is comfortable. Again stable from pulmonary standpoint and I am signing off once again Exam (Progress Note) - Constitutional Vitals: Period Temp Pulse Resp BP Sys/Richards Pulse Ox Last 24 Hr 96.4 F-98.0 F 64-81 11-21 99-151/45-62 92-98 Exam: Patient is alert and responsive. Vital signs normal. Pupils react to light. Neck is supple. Chest shows clear and equal breath sounds. Heart normal rate rhythm with grade 1/6 systolic murmur at left sternal border. Abdomen soft nontender no masses. Bowel sounds present. Extremities no clubbing or cyanosis. Trace peripheral edema. Results - Labs CBC & BMP: 01/27/17 04:24 01/27/17 04:24 Lab Results: I have reviewed the past 24 hour labs Assessment and Plan (1) Congestive heart failure Status: Chronic Assessment and plan: This is due to valvular and ischemic heart disease with low cardiac output ejection fraction 20%. Chest x-ray looks wet this morning. Blood pressure acceptable. Agree with Lasix. Decrease IV fluids. Reduce TPN for now. We need to get her a bit film or videotape editor before she will be able to be weaned. 01/22 lungs look wet radiographically. We need to cut IV fluids to a minimum. She is getting Lasix. Will add Zaroxolyn. Ejection fraction 20% with mitral regurgitation. 01/23/2017 again lungs are less wet. Diuresing. Weight 1 kg. Watch potassium closely. 01/24/2017 weight down a little further. Replacing potassium. Chest x-ray improved. Hope to extubate today 01/25/2017 continues to diurese. Chest x-ray not out yet this morning. We will see again if we can get her extubated. 01/26/2017 chest x-ray is clear this morning. Reduce Lasix to oral medications. Now off the ventilator. 01/27/2017 clinically controlled with medication. Room air oxygen saturation 93% . Chest x-ray clear. 01/28/2017 stable pulmonary [place]. Current Visit: No (2) Coronary artery disease Status: Chronic Assessment and plan: Patient had acute coronary syndrome yesterday evening and had a cath with dilatation of circumflex artery. Defer to cardiology. 01/22/2017 defer to cardiology. 01/25/2017 status post myocardial infarction with cardiac catheterization. Congestive heart failure is improving. 01/26/2017 no angina at present. 01/27/2017 no active angina. Cardiology adjusted medications. Current Visit: Yes (3) History of percutaneous coronary intervention Status: Acute Assessment and plan: Dilatation of circumflex yesterday. 01/24/2017 status post dilatation of circumflex artery Current Visit: No (4) Diabetes 1.5, managed as type 2 Status: Acute Assessment and plan: Sliding scale insulin. Glucoses around 200-300 for the most part. 01/22/2017 blood sugars look okay. Mostly in the 100s now. 01/23/2017 glucoses appear well-controlled. 01/24/2017 glucoses okay 01/25/2017 once again blood sugars are fairly well controlled. 01/26/2017 blood sugars look good. Stopping TPN. Watch for hypoglycemia 01/27/2017 blood sugars look good. Current Visit: No (5) Acute posthemorrhagic anemia Status: Resolved Assessment and plan: Hematocrit is down to 24 today. Probably needs transfusion. Will need additional Lasix with that. 01/22/2017 GI following. Hematocrit 30 today. 01/23/2017 hematocrit 30 and stable. 01/24/2017 labs pending. 01/25/2017 no further bleeding. 01/27/2017 hematocrit 33 and stable. 01/28/2017 GI to address. Current Visit: Yes (6) Acute respiratory failure Status: Resolved Assessment and plan: Present time this is caused by acute coronary syndrome with congestive heart failure, GI bleeding. We need to diurese her and transfuse her and then should be able to get her weaned. 01/22/2017 primarily due to congestive heart failure. Need to diurese so that we can wean. 01/23/2017 progressing through weaning protocol. Will check mechanics and ABGs on CPAP and see if we can get her extubated safely today. 01/24/2017 continuing with weaning protocol. PO2 is up into the upper 70s on 50 % and 5 of PEEP. Hope to extubate this morning. 01/25/2017 ABGs pending. Will get them during CPAP trial. Continuing weaning trials with hopes to get her extubated today. 01/26/2017 this has resolved. Patient doing well with nasal oxygen. 01/27/2017 this has resolved. Oxygen saturation 93% on room air. Chest x-ray clear. I am signing off from pulmonary standpoint Current Visit: Yes Specialty Discharge - Follow Up or Referrals
--- NOTE | 2017-01-28 07:58 | Internal Med Progress Note ---
Assessment and Plan (1) Abdominal pain Status: Acute Assessment and plan: 66-year-old female admitted to acute * Acute non-STEMI. Doing well * Respiratory failure. Resolved * Severe ischemic cardiomyopathy. Ejection fraction about 20%. On p.o. Lasix and potassium * Anemia. Hematocrit stable * Acute ischemic colitis. Her pain is better controlled * Hypertension. Blood pressure is stable * Diabetes. Continue sliding scale * Pain clinic is following about tapering her medication * She is quite weak and debilitated and will benefit from swing bed placement. We are waiting on insurance Current Visit: Yes Qualifiers: Abdominal location: left lower quadrant Qualified Code(s): R10.32 - Left lower quadrant pain (2) Acute posthemorrhagic anemia Status: Resolved Current Visit: Yes (3) Enterocolitis Status: Resolved Current Visit: Yes Internal Medicine - PN: Subj Interval history: Patient is feeling better this morning. Her pain is better controlled. Her appetite is getting better. She denies any chest pain Exam (Progress Note) - Constitutional Vitals: Period Temp Pulse Resp BP Sys/[place] Pulse Ox Last 24 Hr 96.4 F-98.0 F 64-81 11-21 99-151/45-62 92-98 Exam: Examination: GENERAL: NAD. NECK: Neck is supple. CVS: Regular rate and rhythm. S1 and S2 are normal. RESPIRATORY: Better air entry ABDOMEN: Soft and non-tender. No rebound or rigidity. EXT: No edema. Peripheral pulses are present. WIRE BENDER HAND: Alert and oriented 3 SKIN: Warm and dry Results - Labs CBC & BMP: 01/27/17 04:24 01/27/17 04:24 Lab Results: I have reviewed the past 24 hour labs Quality Measures - VTE Contraindication to Pharmacological VTE Prophylaxis: High Risk of Bleeding Specialty Discharge - Follow Up or Referrals
[2017-01-28] MEDS: INSULIN GLARGINE 100 UNIT/ML SUBCUT SCH (09:29)
[2017-01-28] MEDS: POTASSIUM CHLORIDE 8 MEQ CAPSULE PO SCH (10:53)
[2017-01-28] MEDS: ASPIRIN CHEW 81 MG TABLET PO SCH (10:54)
[2017-01-28] MEDS: GABAPENTIN 100 MG CAPSULE PO SCH (10:54)
[2017-01-28] MEDS: CLOPIDOGREL 75 MG TABLET PO SCH (10:55)
[2017-01-28] MEDS: LOSARTAN 25 MG TABLET PO SCH (10:55)
[2017-01-28] MEDS: SPIRONOLACTONE 25 MG TABLET PO SCH (10:55)
[2017-01-28] MEDS: FUROSEMIDE 40 MG TABLET PO SCH (10:55)
[2017-01-28] MEDS: SERTRALINE 25 MG TABLET PO SCH (10:56)
[2017-01-28] MEDS: DESITIN 4OZ/NYSTATIN 15 GRAM MIXTURE PASTE TOP SCH (10:57)
[2017-01-28] MEDS: PANTOPRAZOLE 40 MG TABLET PO SCH (11:23)
--- NOTE | 2017-01-28 11:35 | Gastrointestinal Progress Note ---
Assessment and Plan (1) Abdominal pain Status: Acute Assessment and plan: 01/28-no complaints abdominal pain. Lipase level elevated today was 668. She is tolerating her diet without nausea vomiting. Consider abdominal ultrasound tomorrow. Continue to monitor present time. Plan an addendum to followed by Dr. Daniels peer 01/27-findings of elevated lipase without associated complaints of nausea, vomiting or upper abdominal pain. Tolerating diet at present. Continue to monitor at this time. Recheck lipase level tomorrow. Plan an addendum to followed by Dr. Daniels. 01/22-no changes at present time. H&H is holding posttransfusion. Hemodynamically stable. Plan an addendum to followed by Dr. Daniels. 01/21-sedated and ventilated. Findings of yesterday noted as below. H&H down without overt bleeding. Continue to monitor this time. Plan an addendum to follow Dr. Daniels. 01/20-Abd pain improved. No N/V, no rectal bleeding .To be transferred to floor today. TPN initiated. Plan and addendum to follow by Dr Daniels. 01/19-continued abdominal pain without nausea or vomiting. No reports of rectal bleeding. H&H remained stable. Dietitian consult pending for TPN. Plan an addendum to followed by Dr. Daniels. 01/18-onset of abdominal pain with nausea and vomiting as well as rectal bleeding. Colonoscopy findings noted as below. H&H stable at 02/04. PICC line placed with initiation of TPN today. Stool studies negative. WBCs improved at 9000. Continue with IV antibiotics at present time. Plan an addendum to followed by Dr. Daniels. Current Visit: Yes Qualifiers: Abdominal location: left lower quadrant Qualified Code(s): R10.32 - Left lower quadrant pain Gastroenterology - PN: Subj Interval history: CC: Elevated lipase Patient is seen awake and alert with family at bedside. States she rested well last night after being transferred out of the intensive care unit. She denies any abdominal pain, nausea or vomiting. She is tolerating her diet well at this time. Abdomen is soft, nontender. Lipase levels rechecked today noted to be at 668. Her LFTs remain unremarkable. Plans are noted far possible swing bed placement upon discharge. ROS: Denies shortness of breath or chest pain Exam (Progress Note) - Constitutional Vitals: Period Temp Pulse Resp BP Sys/Richards Pulse Ox Last 24 Hr 96.4 F-98.0 F 64-80 11-19 102-151/50-62 92-99 - Other Additional findings: General appearance: normal weight, no acute distress - Head Head exam: Present: normal inspection, normocephalic - Eye Eye exam: Present: other (Lids and conjunctivae are unremarkable). Absent: scleral icterus - ENT ENT exam: Present: normal exam, normal oropharynx - Neck Neck exam: Present: normal inspection - Respiratory Respiratory exam: Present: clear to auscultation bilaterally. Absent: rales, rhonchi, wheezes - Cardiovascular Cardiovascular exam: Present: regular rate and rhythm. Absent: diastolic murmur , JVD, systolic murmur - GI/Abdominal GI/Abdominal exam: Present: normal bowel sounds, soft. Absent: ascites, distended, mass, organomegaly, tenderness - Extremities Exam Extremities exam: Present: normal inspection, full ROM - Back Exam Back exam: Present: normal inspection - Neurological Exam Neurological exam: Present: alert, oriented X3 - Psychiatric Psychiatric exam: Present: normal affect, normal mood - Skin Skin exam: Present: normal color, warm, dry Results - Labs CBC & BMP: 01/27/17 04:24 01/27/17 04:24 Lab Results: I have reviewed the past 24 hour labs Specialty Discharge - Follow Up or Referrals
[2017-01-28 12:13] VITALS: BP 134/58
--- NOTE | 2017-01-28 12:15 | Pain Management Progress Note ---
Assessment and Plan (1) Abdominal pain Status: Acute Assessment and plan: 01/28/2017. Overall the patient is considerably improved. She is off all her IV opioids. She is taking the [place] infrequently. Agree with discharge planning and swing bed. n 01/27/2017. The patient's pain is improved. She sitting up and eating. She appears to be very comfortable. Agree with discontinuing the morphine. I have already ordered p.o. [place] for breakthrough pain. Agree with plan. n 01/26/2017. The patient is now extubated and taken p.o. She complains of continued abdominal pain similar to what she had prior to her intubation and cardiac events. She does admit to some overall improvement. Will start p.o. medicines for the pain and ultimate goal will be to wean her off the IV opioids. y 01/21/2017. Events noted. On ventilator. Will follow after extubation. n 01/20/2017. Overall the patient is slowly improving. We will start weaning IV morphine. y 01/19/2017. The patient has overall clinically improved. Less abdominal tenderness. Less complaints of pain. Still needing supplemental analgesics. I will continue to follow with you. n 01/18/2017. She continues to complain of significant abdominal pain, somewhat better since she has taken the pain medicines. The oral medicines do help calm the overall pain down, and having to take less of the IV morphine. We will add low-dose gabapentin for the neuropathic component of pain. Will continue to follow closely with you. y 01/17/2017. The patient is a very pleasant 66-year-old female known to me. I treated her for low back pain in the past. She was doing reasonably well with no significant pain and no pain medicines until 3 days ago when she developed increasing abdominal pain. Abdominal pain possibly related to ischemic colitis. The pain is constant throbbing pain worse with movement and with eating. The morphine seems to help when given IV but does not last. Now that she is taking p.o. I would like to try her her on oral pain medicines, these may cause less constipation and also the last longer. I will follow with you. y Current Visit: Yes Qualifiers: Qualified Code(s): R10.32 - Left lower quadrant pain Pain - Subjective Interval history: Improved abdominal pain Exam - Constitutional Vitals: Period Temp Pulse Resp BP Sys/Richards Pulse Ox Last 24 Hr 96.4 F-98.0 F 64-80 16-19 102-134/50-58 92-100 Results - Labs CBC & BMP: 01/27/17 04:24 01/27/17 04:24 Quality Measures - VTE Contraindication to Pharmacological VTE Prophylaxis: High Risk of Bleeding Specialty Discharge - Follow Up or Referrals
--- NOTE | 2017-01-28 12:33 | Discharge Summary ---
Hospital Course - Hospital Course Hospital Course: Patient is 66-year-old female who was admitted on 15 January with acute abdominal pain, dehydration, hyponatremia and renal insufficiency. She was found to have ischemic colitis and was treated with IV antibiotics and was seen in consultation by GI, surgery, pulmonary medicine, cardiology during the hospital stay. She was in the intensive care unit initially. She gradually improved. She had intractable pain and was seen by pain clinic. She was started on IV narcotics. This helped her pain. She was moved to regular floor when she started having chest pain. It was felt that she had acute coronary syndrome and was taken to CCU. She underwent emergent cath and had angioplasty done. She has done well after angioplasty. Patient had difficulty weaning off ventilator but was eventually extubated. Her ejection fraction was found to be extremely low around 20%. She has improved and has been transferred to the floor. Her medications have been adjusted. She is still quite weak and would benefit from inpatient treatment at [facility] bed unit. Patient has history of hypertension, hyperlipidemia, diabetic neuropathy, diabetes, depression. Diagnosis - Discharge Diagnosis (1) Abdominal pain Status: Acute (2) Acute posthemorrhagic anemia Status: Resolved (3) Enterocolitis Status: Resolved Specialty Discharge - Follow Up or Referrals Discharge Plan - Discharge Data Disposition: Disch/Xfer to Snf Condition at Discharge: Stable Discharge Diet: diabetic diet Activity: as per physical therapy - Discharge Medications New Heparin Lock Flush 50 units IV PRN PRN syringe PRN Reason: Flush Losartan [Cozaar] 25 mg PO DAILY tablet Aspirin Chew Tab 81 mg PO DAILY tablet Carvedilol [Coreg] 12.5 mg PO BID W/MEALS tablet Clopidogrel [Plavix] 75 mg PO DAILY tablet Furosemide Tab [Lasix Tab] 40 mg PO DAILY tablet Gabapentin Cap/Tab [Neurontin Cap/Tab] 100 mg PO TID capsule HYDROcodone/ACETAMIN 7.5-325 [[place] 7.5-325] 1 tablet PO Q4H PRN tablet PRN Reason: Pain Moderate (4-7) Insulin Glargine [Lantus] 25 unit SUBCUT BID unit Pantoprazole Tab [Protonix Tab] 40 mg PO DAILY tablet Potassium Chloride Cap/Tab [Micro K] 8 meq PO DAILY capsule Rosuvastatin [Crestor] 40 mg PO BEDTIME tablet Spironolactone [Aldactone] 25 mg PO BID tablet Continue Aspirin [Ecotrin] 81 mg PO DAILY Sertraline [Zoloft] 12.5 mg PO DAILY tablet Zolpidem Tartrate 5 mg PO BEDTIME Amitriptyline HCl 100 mg PO BEDTIME Discontinued Colestipol [Colestid] 1 gm PO BEDTIME Saccharomyces Boulardii [Probiotic] 250 mg PO DAILY Furosemide Tab [Lasix Tab] 20 mg PO DAILY Atorvastatin Calcium [Lipitor] 80 mg PO BEDTIME Potassium Chloride Cap/Tab [K Dur] 10 meq PO DAILY Azithromycin Tab [Zithromax Tab] 250 mg PO DAILY Carvedilol [Coreg] 6.25 mg PO BID W/MEALS Gabapentin [Gabapentin] 300 mg PO TID Insulin NPH Hum/Reg Insulin Hm [NovoLIN 70/30] 55 unit SUBCUT BEDTIME Metformin HCl [Metformin HCl] 1,000 mg PO BID W/MEALS metOLazone [Zaroxolyn] 2.5 mg PO Q7D Promethazine Tab [Phenergan Tab] 25 mg PO Q12H PRN PRN Reason: Nausea/Vomiting Spironolactone [Aldactone] 6.25 mg PO BEDTIME Benzonatate [Tessalon] 200 mg PO TID PRN PRN Reason: Cough Doxylamine/Phenylephrine [Poly Hist Forte] 1 tablet PO TID PRN PRN Reason: cough [place]-3S/Dha/Epa/Fish Oil [Fish Oil 1,200 mg Softgel] 1,200 mg PO DAILY Amitriptyline HCl [Amitriptyline HCl] 25 mg PO DAILY Captopril [Capoten] 6.25 mg PO DAILY Insulin NPH Hum/Reg Insulin Hm [NovoLIN 70/30] 60 unit SUBCUT AC BREAKFAST - Follow Up or Referral - Forms/Instructions Instructions: Myocardial Infarction (GEN), Left Heart Catheterization (DC), Coronary Angioplasty (DC), Heart Healthy Diet (GEN) Exam - Constitutional Vitals: Period Temp Pulse Resp BP Sys/Richards Pulse Ox Last 24 Hr 96.4 F-98.0 F 64-80 16-19 102-134/50-58 92-99 Exam: Examination: GENERAL: NAD. NECK: Neck is supple. CVS: Regular rate and rhythm. S1 and S2 are normal. RESPIRATORY: Better air entry ABDOMEN: Soft and non-tender. No rebound or rigidity. EXT: No edema. Peripheral pulses are present. 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: Alert and oriented 3 SKIN: Warm and dry Discharge Results Procedures and tests throughout hospitalization: Pending Orders 01/29/17 04:00 Basic Metabolic Panel IN AM Comp Blood Count Auto Diff IN AM Labs on day of discharge: Labs from last 24 hours 01/28/17 01/28/17 01/28/17 11:42 09:40 08:02 POC Glucose 201 H 125 H Lipase 668.0 H D 01/27/17 01/27/17 19:52 17:08 POC Glucose 141 H 162 H Lipase DS: Provider Date of admission: 01/15/17 15:57 Primary care physician: Damien Rene MD Attending physician on admission: Damien Rene MD Consults: 01/15/17 18:03 Consult to Case Mgmt/Social Srvs [CONS] Routine Reason for Case Mgmt/Social Srvs: Discharge Planning 01/15/17 22:45 Consult to Physician [CONS] Routine Comment: chronic kidney disease Consulting Provider: Paulino Blanchard Person Notified: Dr. Morelos Date Notified: 01/16/17 Consult Notification Comment: 5E charge nurse Kassie states she spoke with Dr. Morelos this morning 01/15/17 22:47 Consult to Physician [CONS] Routine Comment: acute GI bleed Consulting Provider: Efrain Daniels Consulting Provider Notified: No When should Consulting Provider be notified: In am 01/16/17 13:58 Consult to Physician [CONS] Routine Comment: severe LLQ pain Consulting Provider: Castillo Sims III. 01/17/17 16:49 Consult to Physician [CONS] Routine Comment: Chronic Pain Consulting Provider: Benjamín Dover When should Consulting Provider be notified: Now 01/20/17 08:31 Consult to Physical Therapy [CONS] Routine Reason for Physical Therapy: Evaluate and Treat 01/20/17 08:32 Consult to Occupational Therapy [CONS] Routine Reason for Occupational Therapy: Evaluate and Treat 01/20/17 13:58 Consult to Physician [CONS] Routine Comment: heart alert--chest pain and pressure. 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 Pierre Date Notified: 01/20/17 Time Notified: 17:30 01/20/17 18:20 Consult to Cardiac Rehabilitation [CONS] Routine Reason for Cardiac Rehabilitation: Risk Factor Modification Other Consult Comment: Evaluate and recommend 01/26/17 08:09 Consult to Case Mgmt/Social Srvs [CONS] Routine Reason for Case Mgmt/Social Srvs: Swingbed/SNF/Retirement Consult Comment: [facility] 01/27/17 11:19 Consult to Physician [CONS] Routine Comment: increased lipase Consulting Provider: Efrain Daniels Person Notified: Irish Date Notified: 01/27/17 Time Notified: 14:40 Consult Notification Comment: Will notify Dr. Daniels. Discharging clinician: Damien Rene MD
[2017-01-28] MEDS: CARVEDILOL 12.5 MG TABLET PO SCH (13:24)
== END 2017-01-28 14:50 | DRG 981 ==
LOC: N.ED 13:20 → N.EDINP 15:57 → N.5E 19:06 → N.CC 01-16 14:33 → N.4E 01-20 12:26 → N.CC 01-20 16:39 → N.TELES 01-27 16:51
PROVIDERS: ADMIT Internal Medicine; ATTEND Internal Medicine
PROC: COLONBX (2017-01-17 07:30)
PROC: CLCCHCL (ICD-10-PCS; 2017-01-20 17:15)

== ENCOUNTER 2017-07-16 16:48 | Inpatient (IN) ==
[2017-07-16] MEDS ORDERED: CEFTAROLINE 600 MG in SODIUM CHLORIDE 0.9% 100 ML IV STA (17:12)
[2017-07-16 17:25] LABS: Basophils % 0.2 % (0.0-0.8); Eosinophils % 0.2 % (0.00-10.9); Hematocrit 33.1 VOL% (35.7-47.0); Hemoglobin 10.8 GM/DL (12.0-16.0); Immature Granulocytes % 0.5 %; Immature Granulocytes Absolute 0.06 #; Lymphocytes # 1.9 10*3/uL (1.4-4.0); Lymphocytes % 15.3 % (21.3-54.2); Mean Corpuscular HGB Conc 32.6 GM/DL (32-36); Mean Corpuscular Hemoglobin 29 PG (27-34); Mean Corpuscular Volume 89.9 FL (87-102); Mean Platelet Volume 9.7 FL (9.6-12.0); Monocytes # 0.7 10*3/uL (0.11-0.8); Monocytes % 5.4 % (1.7-12.7); Neutrophils # 9.8 10*3/uL (1.4-7.4); Neutrophils % 78.4 % (38.7-73.9); Platelet Count 196 T/CUMM (130-400); Red Blood Count 3.68 MC/CUMM (3.8-5.5); Red Cell Distribution Width 15.4 % (9.3-17.3); White Blood Count 12.5 T/CUMM (4-12)
[2017-07-16 17:32] LABS: Apearance,Urine CLOUDY (Clear); Bilirubin,Urine Negative (Negative); Blood, Urine Negative (Negative); Glucose,Urine (UA) Negative (Negative); Hyaline Casts,Urine 16 /LPF (0-3); Ketones,Urine Negative (Negative); Nitrite,Urine Negative (Negative); Protein,Urine 30 MG/DL; RBC,Urine 2 /HPF (0-4); Urine Color Amber (Yellow); Urine Specific Gravity 1.014 (1.001-1.035); WBC,Urine 399 /HPF (0-6)
[2017-07-16] MEDS ORDERED: CEFTAROLINE 600 MG VIAL IV ONE (17:41)
[2017-07-16 17:55] LABS: Alanine Aminotransferase 33 U/L (13-56); Albumin 3.4 G/DL (3.4-5.0); Alkaline Phosphatase 67 U/L (45-117); Aspartate Amino Transferase 42 U/L (0-37); Blood Urea Nitrogen 25 MG/DL (7-18); Calcium 8.7 MG/DL (8.5-10.1); Glucose 234 MG/DL (74-106); Sodium 137 MMOL/L (136-145)
[2017-07-16 17:56] LABS: Osmolality,Calculated 284.8 MOS/KG (273-304); Potassium 3.8 MMOL/L (3.5-5.1)
[2017-07-16] MEDS ORDERED: ACETAMINOPHEN 325 MG TABLET PO PRN (18:14)
[2017-07-16] MEDS ORDERED: ONDANSETRON 4 MG/2 ML VIAL IV PRN (18:14)
[2017-07-16] MEDS ORDERED: traMADol 50 MG TABLET PO PRN (18:18)
[2017-07-16 18:31] LABS: Sedimentation Rate-Westergren 70 MM/HR (0-30)
[2017-07-16 18:43] LABS: Lactic Acid 2.7 MMOL/L (0.4-2.0)
[2017-07-16] MEDS ORDERED: GLUCAGON 1 MG VIAL IM PRN ×2 (20:04→20:45)
[2017-07-16] MEDS ORDERED: DEXTROSE 50% 25 GM/50 ML VIAL IV PRN ×2 (20:04→20:45)
[2017-07-16] MEDS ORDERED: INSULIN LISPRO 100 UNIT/ML SUBCUT SCH (21:00)
[2017-07-16] MEDS: ROSUVASTATIN 20 MG TABLET PO SCH (21:53)
[2017-07-16] MEDS: INSULIN GLARGINE 100 UNIT/ML SUBCUT SCH (21:53)
[2017-07-16] MEDS: GABAPENTIN 100 MG CAPSULE PO SCH (21:53)
[2017-07-16] MEDS: SPIRONOLACTONE 25 MG TABLET PO SCH (21:53)
[2017-07-16] MEDS: ZALEPLON 5 MG CAPSULE PO SCH (21:53)
[2017-07-16] MEDS: DOCUSATE SODIUM 100 MG CAPSULE PO SCH (21:53)
[2017-07-16] MEDS: INSULIN LISPRO 100 UNIT/ML SUBCUT SCH (21:54)
[2017-07-16] MEDS: SODIUM CHLORIDE 0.9% 1,000 ML IV SCH (21:58)
[2017-07-16] MEDS: ENOXAPARIN 40 MG/0.4 ML SYRINGE SUBCUT SCH (22:04)
[2017-07-16] MEDS: MORPHINE 2 MG/1 ML SYRINGE IV PRN (22:05)
[2017-07-17 02:46] LABS: Basophils % 0.4 % (0.0-0.8); Eosinophils # 0.1 10*3/uL (0.0-0.87); Eosinophils % 1.1 % (0.00-10.9); Hematocrit 32.1 VOL% (35.7-47.0); Immature Granulocytes % 0.5 %; Immature Granulocytes Absolute 0.05 #; Lymphocytes # 2.5 10*3/uL (1.4-4.0); Lymphocytes % 24.9 % (21.3-54.2); Mean Corpuscular HGB Conc 31.2 GM/DL (32-36); Mean Corpuscular Hemoglobin 28 PG (27-34); Mean Corpuscular Volume 90.7 FL (87-102); Mean Platelet Volume 9.9 FL (9.6-12.0); Monocytes % 10.4 % (1.7-12.7); Neutrophils # 6.2 10*3/uL (1.4-7.4); Neutrophils % 62.7 % (38.7-73.9); Platelet Count 187 T/CUMM (130-400); Red Blood Count 3.54 MC/CUMM (3.8-5.5); Red Cell Distribution Width 15.3 % (9.3-17.3)
[2017-07-17] MEDS: MORPHINE 2 MG/1 ML SYRINGE IV PRN ×3 (04:52→18:30)
[2017-07-17] MEDS: CEFTAROLINE 400 MG in SODIUM CHLORIDE 0.9% 100 ML IV SCH ×2 (06:05→18:10)
[2017-07-17] MEDS: CAPTOPRIL 12.5 MG TABLET PO SCH (08:34)
[2017-07-17] MEDS: COLESTIPOL 1 GM TABLET PO SCH (08:34)
[2017-07-17] MEDS: LOSARTAN 25 MG TABLET PO SCH (08:35)
[2017-07-17] MEDS: metOLazone 2.5 MG TABLET PO SCH (08:35)
[2017-07-17] MEDS: CARVEDILOL 12.5 MG TABLET PO SCH ×2 (08:35→17:18)
[2017-07-17] MEDS: PANTOPRAZOLE 40 MG TABLET PO SCH (08:35)
[2017-07-17] MEDS: AMITRIPTYLINE 25 MG TABLET PO SCH (08:35)
[2017-07-17] MEDS: ASPIRIN CHEW 81 MG TABLET PO SCH (08:35)
[2017-07-17] MEDS: CLOPIDOGREL 75 MG TABLET PO SCH (08:35)
[2017-07-17] MEDS: GABAPENTIN 100 MG CAPSULE PO SCH ×3 (08:35→21:31)
[2017-07-17] MEDS: SPIRONOLACTONE 25 MG TABLET PO SCH ×2 (08:35→21:32)
[2017-07-17] MEDS: SERTRALINE 25 MG TABLET PO SCH ×2 (08:35→08:38)
[2017-07-17] MEDS: POTASSIUM CHLORIDE 10 MEQ TABLET PO SCH (08:36)
[2017-07-17] MEDS: INSULIN LISPRO 100 UNIT/ML SUBCUT SCH ×4 (08:36→21:33)
[2017-07-17] MEDS: FUROSEMIDE 40 MG TABLET PO SCH (08:36)
[2017-07-17] MEDS: DOCUSATE SODIUM 100 MG CAPSULE PO SCH ×2 (08:36→21:32)
[2017-07-17] MEDS: INSULIN GLARGINE 100 UNIT/ML SUBCUT SCH ×2 (09:45→21:33)
[2017-07-17] MEDS: SODIUM CHLORIDE 0.9% 1,000 ML IV SCH ×2 (09:45→19:15)
[2017-07-17] MEDS: ZALEPLON 5 MG CAPSULE PO SCH (21:31)
[2017-07-17] MEDS: ROSUVASTATIN 20 MG TABLET PO SCH (21:32)
[2017-07-17] MEDS: ENOXAPARIN 40 MG/0.4 ML SYRINGE SUBCUT SCH (21:33)
[2017-07-18] MEDS: MORPHINE 2 MG/1 ML SYRINGE IV PRN ×3 (01:35→18:47)
[2017-07-18 03:53] LABS: Basophils % 0.2 % (0.0-0.8); Eosinophils # 0.1 10*3/uL (0.0-0.87); Eosinophils % 1.1 % (0.00-10.9); Hematocrit 30.5 VOL% (35.7-47.0); Immature Granulocytes % 0.6 %; Immature Granulocytes Absolute 0.05 #; Lymphocytes # 1.3 10*3/uL (1.4-4.0); Lymphocytes % 15.4 % (21.3-54.2); Mean Corpuscular HGB Conc 32.8 GM/DL (32-36); Mean Corpuscular Hemoglobin 29 PG (27-34); Mean Corpuscular Volume 88.4 FL (87-102); Mean Platelet Volume 9.9 FL (9.6-12.0); Monocytes # 0.6 10*3/uL (0.11-0.8); Monocytes % 7.3 % (1.7-12.7); Neutrophils # 6.1 10*3/uL (1.4-7.4); Neutrophils % 75.4 % (38.7-73.9); Platelet Count 181 T/CUMM (130-400); Red Blood Count 3.45 MC/CUMM (3.8-5.5); Red Cell Distribution Width 15.2 % (9.3-17.3); White Blood Count 8.1 T/CUMM (4-12)
[2017-07-18 04:48] LABS: Alanine Aminotransferase 30 U/L (13-56); Albumin 3.1 G/DL (3.4-5.0); Alkaline Phosphatase 57 U/L (45-117); Aspartate Amino Transferase 30 U/L (0-37); Bilirubin,Direct < 0.100 MG/DL (0.0-0.20); Bilirubin,Indirect 0.6 MG/DL (0.0-1.0); Blood Urea Nitrogen 17 MG/DL (7-18); Glucose 170 MG/DL (74-106); Osmolality,Calculated 284.4 MOS/KG (273-304); Potassium 4.2 MMOL/L (3.5-5.1); Sodium 140 MMOL/L (136-145); Total Protein 6.4 G/DL (6.4-8.3)
[2017-07-18] MEDS: SODIUM CHLORIDE 0.9% 1,000 ML IV SCH ×2 (05:32→18:49)
[2017-07-18] MEDS: CEFTAROLINE 400 MG in SODIUM CHLORIDE 0.9% 100 ML IV SCH ×2 (05:32→17:18)
[2017-07-18] MEDS: GABAPENTIN 100 MG CAPSULE PO SCH ×3 (08:33→21:45)
[2017-07-18] MEDS: ASPIRIN CHEW 81 MG TABLET PO SCH (08:33)
[2017-07-18] MEDS: COLESTIPOL 1 GM TABLET PO SCH (08:33)
[2017-07-18] MEDS: metOLazone 2.5 MG TABLET PO SCH (08:33)
[2017-07-18] MEDS: CARVEDILOL 12.5 MG TABLET PO SCH ×2 (08:33→17:18)
[2017-07-18] MEDS: POTASSIUM CHLORIDE 10 MEQ TABLET PO SCH (08:33)
[2017-07-18] MEDS: PANTOPRAZOLE 40 MG TABLET PO SCH (08:33)
[2017-07-18] MEDS: DOCUSATE SODIUM 100 MG CAPSULE PO SCH ×2 (08:33→21:45)
[2017-07-18] MEDS: CLOPIDOGREL 75 MG TABLET PO SCH (08:33)
[2017-07-18] MEDS: AMITRIPTYLINE 25 MG TABLET PO SCH (08:33)
[2017-07-18] MEDS: SPIRONOLACTONE 25 MG TABLET PO SCH ×2 (08:34→21:45)
[2017-07-18] MEDS: LOSARTAN 25 MG TABLET PO SCH (08:34)
[2017-07-18] MEDS: INSULIN GLARGINE 100 UNIT/ML SUBCUT SCH ×2 (08:34→21:46)
[2017-07-18] MEDS: INSULIN LISPRO 100 UNIT/ML SUBCUT SCH ×4 (08:34→21:45)
[2017-07-18] MEDS: SERTRALINE 25 MG TABLET PO SCH (08:35)
[2017-07-18] MEDS: FUROSEMIDE 40 MG TABLET PO SCH (09:15)
[2017-07-18] MEDS: CAPTOPRIL 12.5 MG TABLET PO SCH (09:15)
[2017-07-18] MEDS: ROSUVASTATIN 20 MG TABLET PO SCH (21:45)
[2017-07-18] MEDS: ZALEPLON 5 MG CAPSULE PO SCH (21:45)
[2017-07-18] MEDS: ENOXAPARIN 40 MG/0.4 ML SYRINGE SUBCUT SCH (21:45)
[2017-07-19] MEDS: MORPHINE 2 MG/1 ML SYRINGE IV PRN ×2 (01:09→17:38)
[2017-07-19 05:12] LABS: Basophils % 0.3 % (0.0-0.8); Eosinophils % 0.6 % (0.00-10.9); Hematocrit 29.2 VOL% (35.7-47.0); Hemoglobin 9.9 GM/DL (12.0-16.0); Immature Granulocytes % 0.3 %; Immature Granulocytes Absolute 0.02 #; Lymphocytes # 1.7 10*3/uL (1.4-4.0); Lymphocytes % 24.9 % (21.3-54.2); Mean Corpuscular HGB Conc 33.9 GM/DL (32-36); Mean Corpuscular Hemoglobin 29 PG (27-34); Mean Corpuscular Volume 85.9 FL (87-102); Mean Platelet Volume 10.1 FL (9.6-12.0); Monocytes # 0.8 10*3/uL (0.11-0.8); Monocytes % 11.3 % (1.7-12.7); Neutrophils # 4.3 10*3/uL (1.4-7.4); Neutrophils % 62.6 % (38.7-73.9); Platelet Count 177 T/CUMM (130-400); Red Cell Distribution Width 14.7 % (9.3-17.3); White Blood Count 6.8 T/CUMM (4-12)
[2017-07-19 06:13] LABS: Calcium 7.8 MG/DL (8.5-10.1); Osmolality,Calculated 276.7 MOS/KG (273-304); Potassium 3.5 MMOL/L (3.5-5.1)
[2017-07-19] MEDS: CEFTAROLINE 400 MG in SODIUM CHLORIDE 0.9% 100 ML IV SCH (06:45)
[2017-07-19] MEDS: INSULIN LISPRO 100 UNIT/ML SUBCUT SCH ×4 (08:55→22:14)
[2017-07-19] MEDS: CARVEDILOL 12.5 MG TABLET PO SCH ×2 (09:45→17:39)
[2017-07-19] MEDS: FUROSEMIDE 40 MG TABLET PO SCH (09:45)
[2017-07-19] MEDS: CLOPIDOGREL 75 MG TABLET PO SCH (09:45)
[2017-07-19] MEDS: POTASSIUM CHLORIDE 10 MEQ TABLET PO SCH (09:45)
[2017-07-19] MEDS: INSULIN GLARGINE 100 UNIT/ML SUBCUT SCH ×2 (09:46→22:13)
[2017-07-19] MEDS: CAPTOPRIL 12.5 MG TABLET PO SCH (09:46)
[2017-07-19] MEDS: SPIRONOLACTONE 25 MG TABLET PO SCH ×2 (09:46→22:12)
[2017-07-19] MEDS: COLESTIPOL 1 GM TABLET PO SCH (09:46)
[2017-07-19] MEDS: AMITRIPTYLINE 25 MG TABLET PO SCH (09:46)
[2017-07-19] MEDS: LOSARTAN 25 MG TABLET PO SCH (09:46)
[2017-07-19] MEDS: ASPIRIN CHEW 81 MG TABLET PO SCH (09:46)
[2017-07-19] MEDS: DOCUSATE SODIUM 100 MG CAPSULE PO SCH ×2 (09:46→22:13)
[2017-07-19] MEDS: PANTOPRAZOLE 40 MG TABLET PO SCH (09:47)
[2017-07-19] MEDS: SERTRALINE 25 MG TABLET PO SCH (09:47)
[2017-07-19] MEDS: GABAPENTIN 100 MG CAPSULE PO SCH ×3 (09:47→22:12)
[2017-07-19] MEDS: metOLazone 2.5 MG TABLET PO SCH (09:47)
[2017-07-19] MEDS: MORPHINE 10 MG/1 ML VIAL IV PRN (20:29)
[2017-07-19] MEDS: ROSUVASTATIN 20 MG TABLET PO SCH (22:11)
[2017-07-19] MEDS: ENOXAPARIN 40 MG/0.4 ML SYRINGE SUBCUT SCH (22:11)
[2017-07-19] MEDS: ZALEPLON 5 MG CAPSULE PO SCH (22:12)
[2017-07-19] MEDS: CEFTAROLINE 600 MG in SODIUM CHLORIDE 0.9% 50 ML IV SCH (22:20)
[2017-07-20] MEDS: MORPHINE 10 MG/1 ML VIAL IV PRN ×7 (00:38→23:57)
[2017-07-20 05:45] LABS: Basophils % 0.3 % (0.0-0.8); Eosinophils # 0.1 10*3/uL (0.0-0.87); Eosinophils % 1.1 % (0.00-10.9); Hematocrit 30.7 VOL% (35.7-47.0); Hemoglobin 10.3 GM/DL (12.0-16.0); Immature Granulocytes % 0.4 %; Immature Granulocytes Absolute 0.03 #; Lymphocytes % 26.8 % (21.3-54.2); Mean Corpuscular HGB Conc 33.6 GM/DL (32-36); Mean Corpuscular Hemoglobin 29 PG (27-34); Mean Corpuscular Volume 85.8 FL (87-102); Mean Platelet Volume 9.6 FL (9.6-12.0); Monocytes # 0.7 10*3/uL (0.11-0.8); Monocytes % 9.7 % (1.7-12.7); Neutrophils # 4.5 10*3/uL (1.4-7.4); Neutrophils % 61.7 % (38.7-73.9); Platelet Count 202 T/CUMM (130-400); Red Blood Count 3.58 MC/CUMM (3.8-5.5); Red Cell Distribution Width 14.5 % (9.3-17.3); White Blood Count 7.3 T/CUMM (4-12)
[2017-07-20 06:14] LABS: Calcium 8.2 MG/DL (8.5-10.1); Osmolality,Calculated 280.5 MOS/KG (273-304); Potassium 4.1 MMOL/L (3.5-5.1)
[2017-07-20] MEDS: INSULIN LISPRO 100 UNIT/ML SUBCUT SCH ×4 (07:41→20:14)
[2017-07-20] MEDS: INSULIN GLARGINE 100 UNIT/ML SUBCUT SCH ×2 (08:53→21:15)
[2017-07-20] MEDS: CEFTAROLINE 600 MG in SODIUM CHLORIDE 0.9% 50 ML IV SCH (08:53)
[2017-07-20] MEDS: COLESTIPOL 1 GM TABLET PO SCH (08:54)
[2017-07-20] MEDS: FUROSEMIDE 40 MG TABLET PO SCH (08:55)
[2017-07-20] MEDS: GABAPENTIN 100 MG CAPSULE PO SCH ×3 (08:55→21:15)
[2017-07-20] MEDS: POTASSIUM CHLORIDE 10 MEQ TABLET PO SCH (08:55)
[2017-07-20] MEDS: SERTRALINE 25 MG TABLET PO SCH (08:55)
[2017-07-20] MEDS: AMITRIPTYLINE 25 MG TABLET PO SCH (08:55)
[2017-07-20] MEDS: LOSARTAN 25 MG TABLET PO SCH (08:55)
[2017-07-20] MEDS: CAPTOPRIL 12.5 MG TABLET PO SCH (08:55)
[2017-07-20] MEDS: CLOPIDOGREL 75 MG TABLET PO SCH (08:55)
[2017-07-20] MEDS: DOCUSATE SODIUM 100 MG CAPSULE PO SCH ×2 (08:55→21:15)
[2017-07-20] MEDS: CARVEDILOL 12.5 MG TABLET PO SCH ×2 (08:55→16:44)
[2017-07-20] MEDS: PANTOPRAZOLE 40 MG TABLET PO SCH (08:55)
[2017-07-20] MEDS: metOLazone 2.5 MG TABLET PO SCH (08:55)
[2017-07-20] MEDS: ASPIRIN CHEW 81 MG TABLET PO SCH (08:56)
[2017-07-20] MEDS: SPIRONOLACTONE 25 MG TABLET PO SCH ×2 (08:56→21:15)
[2017-07-20] MEDS: ENOXAPARIN 40 MG/0.4 ML SYRINGE SUBCUT SCH (21:15)
[2017-07-20] MEDS: ZALEPLON 5 MG CAPSULE PO SCH (21:15)
[2017-07-20] MEDS: ROSUVASTATIN 20 MG TABLET PO SCH (21:15)
[2017-07-20] MEDS: CEFTAROLINE 600 MG in SODIUM CHLORIDE 0.9% 100 ML IV SCH (21:19)
[2017-07-21 03:38] LABS: Basophils % 0.4 % (0.0-0.8); Eosinophils # 0.1 10*3/uL (0.0-0.87); Eosinophils % 1.4 % (0.00-10.9); Hematocrit 32.9 VOL% (35.7-47.0); Hemoglobin 10.5 GM/DL (12.0-16.0); Immature Granulocytes % 0.3 %; Immature Granulocytes Absolute 0.03 #; Lymphocytes # 2.4 10*3/uL (1.4-4.0); Lymphocytes % 26.6 % (21.3-54.2); Mean Corpuscular HGB Conc 31.9 GM/DL (32-36); Mean Corpuscular Hemoglobin 28 PG (27-34); Mean Corpuscular Volume 88.2 FL (87-102); Mean Platelet Volume 9.8 FL (9.6-12.0); Monocytes # 0.7 10*3/uL (0.11-0.8); Monocytes % 8.1 % (1.7-12.7); Neutrophils # 5.7 10*3/uL (1.4-7.4); Neutrophils % 63.2 % (38.7-73.9); Platelet Count 236 T/CUMM (130-400); Red Blood Count 3.73 MC/CUMM (3.8-5.5); Red Cell Distribution Width 14.4 % (9.3-17.3)
[2017-07-21 04:05] LABS: Calcium 8.3 MG/DL (8.5-10.1); Osmolality,Calculated 280.4 MOS/KG (273-304)
[2017-07-21] MEDS: MORPHINE 10 MG/1 ML VIAL IV PRN (04:11)
[2017-07-21] MEDS: INSULIN LISPRO 100 UNIT/ML SUBCUT SCH ×2 (07:24→11:45)
[2017-07-21] MEDS: CARVEDILOL 12.5 MG TABLET PO SCH ×2 (10:07→17:22)
[2017-07-21] MEDS: AMITRIPTYLINE 25 MG TABLET PO SCH (10:07)
[2017-07-21] MEDS: ASPIRIN CHEW 81 MG TABLET PO SCH (10:07)
[2017-07-21] MEDS: FUROSEMIDE 40 MG TABLET PO SCH (10:07)
[2017-07-21] MEDS: CLOPIDOGREL 75 MG TABLET PO SCH (10:08)
[2017-07-21] MEDS: LOSARTAN 25 MG TABLET PO SCH (10:08)
[2017-07-21] MEDS: DOCUSATE SODIUM 100 MG CAPSULE PO SCH (10:08)
[2017-07-21] MEDS: COLESTIPOL 1 GM TABLET PO SCH (10:08)
[2017-07-21] MEDS: metOLazone 2.5 MG TABLET PO SCH (10:08)
[2017-07-21] MEDS: PANTOPRAZOLE 40 MG TABLET PO SCH (10:08)
[2017-07-21] MEDS: SPIRONOLACTONE 25 MG TABLET PO SCH (10:09)
[2017-07-21] MEDS: CEFTAROLINE 600 MG in SODIUM CHLORIDE 0.9% 100 ML IV SCH (10:09)
[2017-07-21] MEDS: CAPTOPRIL 12.5 MG TABLET PO SCH (10:09)
[2017-07-21] MEDS: POTASSIUM CHLORIDE 10 MEQ TABLET PO SCH (10:09)
[2017-07-21] MEDS: GABAPENTIN 100 MG CAPSULE PO SCH ×2 (10:09→15:07)
[2017-07-21] MEDS: SERTRALINE 25 MG TABLET PO SCH (10:09)
[2017-07-21] MEDS: INSULIN GLARGINE 100 UNIT/ML SUBCUT SCH (10:10)
[2017-07-21 16:52] VITALS: BP 98/64
== END 2017-07-21 18:55 | disposition home health service (06) | DRG 603 ==
LOC: N.ED 16:48 → N.EDINP 18:14 → N.3E 20:07
PROVIDERS: ADMIT Internal Medicine; ATTEND Internal Medicine

== ENCOUNTER 2017-07-24 11:35 | Inpatient (IN) ==
[2017-07-24] MEDS ORDERED: ONDANSETRON 4 MG/2 ML VIAL ONE (11:52)
[2017-07-24] MEDS ORDERED: ONDANSETRON 4 MG/2 ML VIAL IV STA (11:52)
[2017-07-24 12:10] LABS: Basophils # 0.2 10*3/uL (0.0-0.2); Basophils % 0.5 % (0.0-0.8); Hematocrit 39.8 VOL% (35.7-47.0); Hemoglobin 12.4 GM/DL (12.0-16.0); Immature Granulocytes % 0.8 %; Immature Granulocytes Absolute 0.29 #; Lymphocytes % 5.4 % (21.3-54.2); Mean Corpuscular HGB Conc 31.2 GM/DL (32-36); Mean Corpuscular Hemoglobin 29 PG (27-34); Mean Corpuscular Volume 92.3 FL (87-102); Mean Platelet Volume 9.9 FL (9.6-12.0); Monocytes # 1.3 10*3/uL (0.11-0.8); Monocytes % 3.4 % (1.7-12.7); Neutrophils # 33.4 10*3/uL (1.4-7.4); Neutrophils % 89.9 % (38.7-73.9); Platelet Count 400 T/CUMM (130-400); Red Blood Count 4.31 MC/CUMM (3.8-5.5); Red Cell Distribution Width 14.9 % (9.3-17.3); White Blood Count 37.1 T/CUMM (4-12)
[2017-07-24 12:21] LABS: Amorphous Crystals,Urine Occasional /HPF (Few); Apearance,Urine CLOUDY (Clear); Bilirubin,Urine Negative (Negative); Blood, Urine Negative (Negative); Glucose,Urine (UA) Negative (Negative); Ketones,Urine 5 mg/dL (Negative); Mucus,Urine Occasional /LPF (Occasional); Nitrite,Urine Negative (Negative); Protein,Urine 30 MG/DL; RBC,Urine 2 /HPF (0-4); Urine Color Amber (Yellow); Urine Specific Gravity 1.018 (1.001-1.035); Urine Urobilinogen < 2.0 EU/DL (0.2-1.0); WBC,Urine 1 /HPF (0-6)
[2017-07-24] MEDS ORDERED: SODIUM CHLORIDE 0.9% 1,000 ML IV STA (12:21)
[2017-07-24] MEDS ORDERED: MEROPENEM 1,000 MG in SODIUM CHLORIDE 0.9% 100 ML IV STA (12:24)
[2017-07-24 12:28] LABS: Albumin 3.1 G/DL (3.4-5.0); Bilirubin,Total 0.7 MG/DL (0.2-1.0); Calcium 8.5 MG/DL (8.5-10.1); Osmolality,Calculated 288.2 MOS/KG (273-304); Total Protein 8.1 G/DL (6.4-8.3); Troponin I Only 0.036 NG/ML (0.00-0.045)
[2017-07-24 12:34] LABS: Band Neutrophils 10 % (0-10); Giant Platelets Few; Hypochromasia 1+; Lymphocytes 7 % (20-55); Platelet Estimate Adequate; Segmented Neutrophils 81 % (50-85); Total Cells Counted 100
[2017-07-24] MEDS ORDERED: MEROPENEM 1,000 MG VIAL IV ONE (12:34)
[2017-07-24 12:37] LABS: Potassium 7.2 MMOL/L (3.5-5.1)
[2017-07-24] MEDS ORDERED: INSULIN REGULAR 100 UNIT/ML IV STA (12:37)
[2017-07-24] MEDS ORDERED: DEXTROSE 50% 25 GM/50 ML VIAL IV STA (12:37)
[2017-07-24] MEDS ORDERED: DEXTROSE 50% 25 GM/50 ML SYRINGE IV ONE (12:44)
[2017-07-24] MEDS ORDERED: INSULIN REGULAR 100 UNIT/ML ONE (12:45)
[2017-07-24] MEDS: ALBUTEROL 2.5 MG/3 ML NEB RESP TX STA ×2 (12:52→13:14)
[2017-07-24] MEDS ORDERED: AMIODARONE INJ 150 MG in DEXTROSE 5% 100 ML IV ONE (13:05)
[2017-07-24] MEDS ORDERED: SODIUM POLYSTYRENE SULFATE 15 GM/60 ML BOTTLE PO STA (13:06)
[2017-07-24] MEDS ORDERED: AMIODARONE 450 MG/9 ML VIAL IV ONE (13:07)
[2017-07-24] MEDS ORDERED: CALCIUM CHLORIDE 1,000 MG/10 ML SYRINGE IV ONE (13:11)
[2017-07-24] MEDS ORDERED: VANCOMYCIN INJ 1,000 MG in SODIUM CHLORIDE 0.9% 250 ML IV STA (13:14)
[2017-07-24] MEDS ORDERED: AMIODARONE 150 MG/3 ML VIAL INTRAOSS STA (13:28)
[2017-07-24] MEDS ORDERED: AMIODARONE INJ 450 MG in DEXTROSE 5% 241 ML IV SCH ×2 (13:30→22:30)
[2017-07-24] MEDS ORDERED: VANCOMYCIN 1,000 MG VIAL ONE (13:34)
[2017-07-24] MEDS ORDERED: NOREPINEPHRINE 4 MG/4 ML VIAL IV ONE (13:34)
[2017-07-24] MEDS ORDERED: MORPHINE 2 MG/1 ML SYRINGE IV PRN (13:36)
[2017-07-24] MEDS ORDERED: ONDANSETRON 4 MG/2 ML VIAL IV PRN (13:36)
[2017-07-24] MEDS ORDERED: ACETAMINOPHEN 325 MG TABLET PO PRN (13:36)
[2017-07-24 13:39] LABS: ABG Base Excess -19.3 MMOL/L (-2.5-2.5); ABG HCO3 10.1 MMOL/L (20-26); ABG Oxygen Saturation 98.8 % (95-100); ABG PCO2 33.5 MM HG (35-48); ABG TCO2 9.5 MMOL/L (23-27)
[2017-07-24] MEDS ORDERED: AMIODARONE 150 MG/3 ML VIAL IV STA (13:40)
[2017-07-24 13:41] LABS: ABG PH 7.075 (7.35-7.45)
[2017-07-24] MEDS: NOREPINEPHRINE 16 MG in SODIUM CHLORIDE 0.9% 234 ML IV SCH (13:47)
[2017-07-24] MEDS: NOREPINEPHRINE 8 MG in SODIUM CHLORIDE 0.9% 242 ML IV SCH ×2 (13:50→20:50)
[2017-07-24] MEDS ORDERED: SODIUM CHLORIDE 0.9% 1,000 ML IV SCH (14:00)
[2017-07-24 14:23] LABS: Lactic Acid 14.2 MMOL/L (0.4-2.0)
[2017-07-24 14:44] LABS: Calcium 10.3 MG/DL (8.5-10.1); Osmolality,Calculated 298.5 MOS/KG (273-304)
[2017-07-24 14:46] LABS: Potassium 6.2 MMOL/L (3.5-5.1)
[2017-07-24] MEDS ORDERED: SODIUM BICARBONATE 50 MEQ/50 ML SYRINGE IV ONE ×2 (14:56→15:23)
[2017-07-24 14:57] LABS: ABG Base Excess -18.1 MMOL/L (-2.5-2.5); ABG Oxygen Saturation 98.1 % (95-100); ABG PCO2 32.4 MM HG (35-48); Allen Test Positive; Pt O2 Delivery Device Ventilator
[2017-07-24] MEDS ORDERED: MEROPENEM 500 MG in SODIUM CHLORIDE 0.9% 100 ML IV SCH (15:00)
[2017-07-24] MEDS ORDERED: MIDAZOLAM 100 MG in SODIUM CHLORIDE 0.9% 80 ML IV SCH (15:00)
[2017-07-24] MEDS ORDERED: SODIUM BICARB INJ 50 MEQ in SODIUM CHLORIDE 0.9% 1,000 ML IV SCH (15:04)
[2017-07-24 15:06] LABS: ABG PH 7.119 (7.35-7.45)
[2017-07-24] MEDS: methylPREDNISolone SOD SUC 40 MG/1 ML VIAL IV SCH (15:18)
[2017-07-24] MEDS: SODIUM BICARB INJ 150 MEQ in DEXTROSE 5% 1,000 ML IV SCH (17:31)
[2017-07-24 18:20] LABS: ABG Base Excess -13.9 MMOL/L (-2.5-2.5); ABG HCO3 13.7 MMOL/L (20-26); ABG Oxygen Saturation 95.6 % (95-100); ABG PCO2 31.8 MM HG (35-48); ABG PH 7.217 (7.35-7.45); ABG PO2 91.7 MM HG (80-95); Allen Test Positive; Pt O2 Delivery Device Ventilator
[2017-07-24] MEDS ORDERED: ENOXAPARIN 30 MG/0.3 ML SYRINGE SUBCUT SCH (21:00)
[2017-07-24] MEDS: SODIUM POLYSTYRENE SULFATE 15 GM/60 ML BOTTLE NG PRN (21:04)
[2017-07-24] MEDS ORDERED: DEXTROSE 50% 25 GM/50 ML VIAL IV PRN (23:16)
[2017-07-24] MEDS ORDERED: GLUCAGON 1 MG VIAL IM PRN (23:16)
[2017-07-24] MEDS: INSULIN REGULAR 100 UNIT/ML SUBCUT SCH (23:54)
[2017-07-25] MEDS: metroNIDAZOLE INJ 250 MG in IV BAG 1 EACH IV SCH ×3 (00:03→11:41)
[2017-07-25 01:06] LABS: ABG Base Excess -15.4 MMOL/L (-2.5-2.5); ABG HCO3 12.7 MMOL/L (20-26); ABG Oxygen Saturation 96.3 % (95-100); ABG PCO2 30.8 MM HG (35-48); Allen Test Positive; Pt O2 Delivery Device Ventilator
[2017-07-25 01:10] LABS: ABG PH 7.193 (7.35-7.45)
[2017-07-25] MEDS: NOREPINEPHRINE 16 MG in SODIUM CHLORIDE 0.9% 234 ML IV SCH ×2 (01:14→08:07)
[2017-07-25] MEDS ORDERED: SODIUM CHLORIDE 0.9% 250 ML IV ONE (01:31)
[2017-07-25] MEDS: PHENYLEPHRINE DRIP 40 MG/250 ML PREMIX IV SCH ×2 (01:38→08:20)
[2017-07-25] MEDS: SODIUM POLYSTYRENE SULFATE 15 GM/60 ML BOTTLE NG PRN (01:38)
[2017-07-25] MEDS ORDERED: SODIUM BICARBONATE 50 MEQ/50 ML SYRINGE IV ONE (02:00)
[2017-07-25] MEDS: SODIUM BICARB INJ 150 MEQ in DEXTROSE 5% 1,000 ML IV SCH ×2 (02:27→11:40)
[2017-07-25] MEDS: methylPREDNISolone SOD SUC 40 MG/1 ML VIAL IV SCH (03:28)
[2017-07-25 04:47] LABS: Basophils # 0.1 10*3/uL (0.0-0.2); Basophils % 0.3 % (0.0-0.8); Hematocrit 34.4 VOL% (35.7-47.0); Hemoglobin 10.2 GM/DL (12.0-16.0); Immature Granulocytes % 1.3 %; Immature Granulocytes Absolute 0.47 #; Lymphocytes # 2.2 10*3/uL (1.4-4.0); Lymphocytes % 5.9 % (21.3-54.2); Mean Corpuscular HGB Conc 29.7 GM/DL (32-36); Mean Corpuscular Hemoglobin 29 PG (27-34); Mean Corpuscular Volume 96.6 FL (87-102); Mean Platelet Volume 10.4 FL (9.6-12.0); Monocytes # 1.4 10*3/uL (0.11-0.8); Monocytes % 3.9 % (1.7-12.7); Neutrophils # 32.3 10*3/uL (1.4-7.4); Neutrophils % 88.6 % (38.7-73.9); Platelet Count 304 T/CUMM (130-400); Red Blood Count 3.56 MC/CUMM (3.8-5.5); Red Cell Distribution Width 15.2 % (9.3-17.3); White Blood Count 36.4 T/CUMM (4-12)
[2017-07-25 04:48] LABS: ABG Base Excess -15.8 MMOL/L (-2.5-2.5); ABG HCO3 12.6 MMOL/L (20-26); ABG Oxygen Saturation 95.7 % (95-100); ABG PCO2 28.8 MM HG (35-48); ABG TCO2 10.4 MMOL/L (23-27); Pt O2 Delivery Device Ventilator
[2017-07-25 04:50] LABS: ABG PH 7.202 (7.35-7.45)
[2017-07-25 05:09] LABS: Albumin 2.2 G/DL (3.4-5.0); Bilirubin,Total 0.7 MG/DL (0.2-1.0); Calcium 8.2 MG/DL (8.5-10.1); Osmolality,Calculated 300.8 MOS/KG (273-304); Total Protein 5.1 G/DL (6.4-8.3); Uric Acid 11.6 MG/DL (2.6-6.0)
[2017-07-25 05:20] LABS: Potassium 6.4 MMOL/L (3.5-5.1)
[2017-07-25 05:44] LABS: Band Neutrophils 19 % (0-10); Giant Platelets Few; Hypochromasia 1+; Lymphocytes 6 % (20-55); Metamyelocytes 1 %; Myelocytes 2 %; Platelet Estimate Adequate; Segmented Neutrophils 67 % (50-85); Total Cells Counted 100
[2017-07-25] MEDS: INSULIN REGULAR 100 UNIT/ML SUBCUT SCH ×2 (05:48→13:00)
[2017-07-25] MEDS ORDERED: PANTOPRAZOLE 40 MG VIAL IV SCH (09:00)
[2017-07-25] MEDS ORDERED: INSULIN GLARGINE 100 UNIT/ML SUBCUT SCH (09:00)
[2017-07-25] MEDS ORDERED: SODIUM POLYSTYRENE SULFATE 15 GM/60 ML BOTTLE PO SCH (09:30)
[2017-07-25] MEDS ORDERED: FUROSEMIDE 40 MG/4 ML VIAL IV SCH (09:30)
[2017-07-25] MEDS ORDERED: PHENYLEPHRINE INJ 160 MG in SODIUM CHLORIDE 0.9% 234 ML IV SCH (09:30)
[2017-07-25] MEDS ORDERED: MORPHINE 2 MG/1 ML SYRINGE IV PRN (11:26)
[2017-07-25] MEDS ORDERED: LORazepam 2 MG/1 ML VIAL IV PRN (11:28)
[2017-07-25 11:52] VITALS: BP 66/30
[2017-07-26] MEDS ORDERED: VANCOMYCIN INJ 1,000 MG in SODIUM CHLORIDE 0.9% 250 ML IV SCH (15:00)
== END 2017-07-25 11:58 | disposition expired | DRG 871 ==
LOC: EDUNIT# → EDBD → N.ED 11:35 → N.EDINP 13:36 → N.ICU 14:20
PROVIDERS: ADMIT Internal Medicine; ATTEND Internal Medicine